=== PATIENT | male | born 1935 | race American Indian/Alaskan Native ===

== ENCOUNTER 2017-04-25 12:08 | Outpatient (CLI) | payer MEDICARE ==
--- NOTE | 2017-04-25 14:03 | Cat Scan Report ---
CT OF THE ABDOMEN AND PELVIS WITHOUT CONTRAST HISTORY: Gross hematuria. TECHNIQUE: Helical CT without contrast. Sagittal and coronal reformatted images. FINDINGS: Compared to a CT angiogram abdomen and pelvis exam performed 05/19/14. The kidneys are normal size, contour and position. There is no evidence for focal renal lesion or nephrolithiasis. The ureters are normal course and caliber. Mild diverticulosis of the bladder is suspected. No gross bladder mass. The prostate gland is normal size. There is no clear explanation for gross hematuria. The liver, biliary system, spleen and adrenal glands are unremarkable. There is mild fatty atrophy of the pancreas. No inflammatory changes. The bowel loops are within normal limits given oral contrast was administered. The appendix is not confidently identified. Heart size is at the upper limits of normal. The aorta is normal caliber. The visualized lung bases are clear. No suspicious bony lesion or fracture. IMPRESSION: No clear explanation for gross hematuria. No obvious renal mass or nephrolithiasis. There is diverticulosis of the bladder No acute process is appreciated in the abdomen or pelvis.
== END 2017-04-25 12:09 | disposition home or self-care (01) ==
LOC: CT 12:08
PROVIDERS: ATTEND Urology
DX: N32.3 Diverticulum of bladder (principal); K86.89 Other specified diseases of pancreas
CPT/HCPCS: 74176

== ENCOUNTER 2018-04-22 09:05 | Outpatient (CLI) | payer MEDICARE ==
--- NOTE | 2018-04-22 12:22 | Magnetic Resonance Report ---
MRI OF THE BRAIN WITHOUT CONTRAST: HISTORY: Seizure, unspecified convulsions PROCEDURE: Multiplanar, multisequence MR imaging of the brain without IV contrast was performed. FINDINGS: Compared to the CT dated 01/30/18. Mild diffuse cortical volume loss and mild nonspecific chronic white matter changes are identified. Otherwise, the remaining brain parenchyma signal intensity and its cook white interface are within normal limits on all sequences. No evidence for acute ischemia, hemorrhage or mass. No chronic infarct or extra-axial fluid collection. The midline structures are central. The basal cisterns are patent. Normal ventricular size. The orbital cavities and sella turcica demonstrate no abnormality. The visualized paranasal sinuses and mastoid air cells are well aerated. IMPRESSION: Volume loss and nonspecific chronic white matter changes. No acute intracranial process is appreciated.
== END 2018-04-22 09:06 | disposition home or self-care (01) ==
LOC: EEG 09:05
PROVIDERS: ATTEND Psychiatry & Neurology Neurology
DX: R56.9 Unspecified convulsions (principal); I10 Essential (primary) hypertension; E11.9 Type 2 diabetes mellitus without complications; Z87.891 Personal history of nicotine dependence
CPT/HCPCS: 70551

== ENCOUNTER 2019-02-02 11:00 | Inpatient (IN) | payer MEDICARE ==
[2019-02-02] MEDS ORDERED: NACL 0.9% 1000 ML IV ONE (11:47)
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
[2019-02-02] MEDS ORDERED: KEPPRA 1,000 MG/NS 0.75% 100ML 1,000 MG/100 ML BAG IV ONE (12:42)
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
--- NOTE | 2019-02-02 13:02 | Cat Scan Report ---
CT head/brain wo con INDICATION / CLINICAL INFORMATION: 83 years Male; Stroke symptoms. TECHNIQUE: Routine CT head without contrast. All CT scans at this location are performed using CT dos e reduction for ALARA by means of automated exposure control. COMPARISON: None available FINDINGS: BRAIN / INTRACRANIAL CONTENTS: No acute hemorrhage, mass effect, midline shift, hydrocephalus, or acu te, large territorial infarct. Mild cerebral and cerebellar atrophy. Small CSF collections seen around the cerebral hemispheres-smal l subdural hygromas versus suspected. There are mild to moderate areas of decreased attenuation in the white matter of the cerebral hemisph eres. These are nonspecific findings and may be related to microangiopathy (hypertension, diabetes, a therosclerosis), given the patient's age. It might be difficult to evaluate for small areas of ischem ia without diffusion imaging by MRI. CRANIOCERVICAL JUNCTION: No significant abnormality. ORBITS: No significant abnormality of visualized orbits. SINUSES / MASTOIDS: No significant abnormality of the visualized paranasal sinuses or mastoid air joel ls. ADDITIONAL FINDINGS: Atherosclerotic disease is seen in the anterior and posterior circulation. IMPRESSION: 1. No focal mass, hemorrhage, hydrocephalus, or acute, large territorial infarct. This exam was performed as part of a code stroke protocol. The exam was completed at 11:16 AM on 02/02. The exam was reviewed at 11:50 AM and Serotoff was notified at 11:56 AM. Signer Name: Parish Blanchard MD, III Signed: 02/02/2019 12:57 PM Workstation Name: [id number]
--- NOTE | 2019-02-02 13:13 | Cat Scan Report ---
CT cervical spine wo con INDICATION / CLINICAL INFORMATION: 83 years Male; fall. TECHNIQUE: Axial CT images of the cervical spine were obtained. Sagittal and coronal reformatted images were pr oduced. All CT scans at this location are performed using CT dose reduction for ALARA by means of aut omated exposure control. COMPARISON: None available. FINDINGS: POST-SURGICAL CHANGES: None. There is minimal retrolisthesis of C5 with respect to C4 and C6, which appears to be on a chronic deg enerative basis. ALIGNMENT: Straightening of the cervical spine noted, which may be related to patient positioning on the table. VERTEBRAE: There is mild loss of height at C5 and C6, which appears to be on a chronic basis. No defi nitive signs of acute compression injury are suggested. No signs of fracture identified. There is osseous foraminal narrowing on the left at C5-6 and C6-7 related to uncinate hypertrophy. Si milar findings seen on the right at C3-4, C4-5, C5-6, C6-7 related uncinate and/or facet hypertrophy. Mild to moderate facet hypertrophy seen bilaterally at C2-3, C3-4, C4-5, and C6-7. INTRAVERTEBRAL DISCS: Disc space narrowing seen at C5-6 and C6-7. No definitive signs of significant canal stenosis appreciated. PARASPINAL SOFT TISSUES: No significant abnormality. ADDITIONAL FINDINGS: None. IMPRESSION: 1. No signs of acute bony trauma to the cervical spine. Signer Name: Parish Blanchard MD, III Signed: 02/02/2019 1:08 PM Workstation Name: [id number]
--- NOTE | 2019-02-02 13:18 | Cat Scan Report ---
CT abdomen pelvis wo con INDICATION: abd pains epsis. TECHNIQUE: All CT scans at this location are performed using the following dose modulation technique: Automated exposure control. CONTRAST: None. COMPARISON: None available. CT abdomen: Evaluation the parenchymal organs demonstrates mild chronic appearing inflammation adjace nt to both kidneys. The remaining parenchymal organs are unremarkable. Negative for mass, fluid colle ction or inflammation. The bowel is not dilated or thickened. Colonic stool is moderate diffusely. CT pelvis: Negative for pelvic mass, fluid collection or localized inflammation. The appendix is norm al. The bladder is moderately distended and demonstrates wall irregularity and early diverticula formatio n. IMPRESSION: 1. Negative for obstruction or localized acute appearing inflammation. 2. Bladder distention with wall irregularity and early diverticula formation. Signer Name: Segun Dennison MD Signed: 02/02/2019 1:14 PM Workstation Name: [id number]
[2019-02-02] MEDS ORDERED: ROCEPHIN/NS 1 GM/50 ML 1 GM/50 ML BAG IV ONE (13:21)
[2019-02-02 13:34] LABS: Basophils # (Auto) 0.1 K/mm3 (0.0-0.1); Basophils % (Auto) 0.4 % (0.0-1.8); Hematocrit 37.2 % (35.5-45.6); Hemoglobin 12.5 gm/dl (11.8-15.2); Lymphocytes # (Auto) 0.6 K/mm3 (1.2-5.4); Lymphocytes % (Auto) 4.7 % (13.4-35.0); Mean Corpuscular HGB Conc 34 % (32-34); Mean Corpuscular Volume 85 fl (84-94); Monocytes # (Auto) 0.7 K/mm3 (0.0-0.8); Monocytes % (Auto) 5.6 % (0.0-7.3); Platelet Count 194 K/mm3 (140-440); Red Blood Count 4.39 M/mm3 (3.65-5.03); Red Cell Distribution Width 14.7 % (13.2-15.2)
[2019-02-02 13:44] LABS: INR 1.02 (0.87-1.13)
[2019-02-02 13:55] LABS: Thrombin Time 16.4 Sec. (15.1-19.6)
[2019-02-02 14:06] LABS: Creatine Kinase MB 1.6 ng/mL (0.0-4.0)
[2019-02-02 14:08] LABS: Calcium 8.9 mg/dL (8.4-10.2)
[2019-02-02 14:19] LABS: Chol/HDL Ratio 3.17 %
[2019-02-02] MEDS ORDERED: BABY ASPIRIN PO ONE (14:48)
[2019-02-02 14:56] LABS: Bilirubin,Urine NEG (Negative); Blood,Urine NEG (Negative); Color,Urine Yellow (Yellow); Hyaline Casts,Urine 1 /LPF; Mucus,Urine FEW /HPF; Urobilinogen,Urine < 2.0 mg/dL (<2.0); WBC,Urine < 1.0 /HPF (0.0-6.0)
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
[2019-02-02] MEDS ORDERED: BABY ASPIRIN ONE (16:20)
[2019-02-02] MEDS ORDERED: TYLENOL PO PRN (21:47)
[2019-02-02] MEDS: APRESOLINE IV PRN (22:25)
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
[2019-02-03] MEDS ORDERED: SODIUM CHLORIDE FLUSH SYRINGE 10 ML IV PRN (01:06)
[2019-02-03] MEDS ORDERED: REGLAN IV PRN (01:06)
[2019-02-03] MEDS ORDERED: TYLENOL PO PRN (01:06)
[2019-02-03] MEDS ORDERED: DILAUDID IV PRN (01:06)
[2019-02-03] MEDS ORDERED: ZOFRAN IV PRN (01:06)
[2019-02-03] MEDS: KEPPRA 750 MG in D5W 100 ML IV SCH ×2 (01:48→13:00)
[2019-02-03] MEDS: PERCOCET 5/325 PO PRN ×2 (02:01→17:45)
[2019-02-03 08:29] LABS: Calcium 8.4 mg/dL (8.4-10.2)
--- NOTE | 2019-02-03 08:55 | Progress Note ---
Assessment and Plan Assessment and plan: 84-year-old -[place] male with history of hypertension, hyperlipidemia and insulin-dependent diabetes brought in by the because of new onset seizures. As per patient had a shaking episode which lasted for a couple minutes. according to the admitting doctor Her description is consistent with a tonic-clonic seizures. No history of seizures. Patient is not giving much history. Last admission documented about a year ago showed that the patient had sustained a fall and per the discharge summary. " Patient apparently had a fall a few days ago and sustained left fifth rib fracture conditions the left eye multiple abrasions to his face and displaced nasal bone fracture. These were treated conservatively. Patient was asked to follow-up with ENT physician for evaluation of his nasal bone fractures. Patient also has a history of cerebrovascular accident with residual weakness" According to admitting documentation "As for the for patient as well as slurred speech and left-sided facial asymmetry. Patient also complains of right lower quadrant pain." CT cervical Spine: IMPRESSION: 1. No signs of acute bony trauma to the cervical spine. CXR: IMPRESSION: 1. Pleural-parenchymal density in the left lower hemithorax possibly acute disease. Alternatively this may represent postoperative scarring. CT Head/Brain: IMPRESSION: 1. No focal mass, hemorrhage, hydrocephalus, or acute, large territorial infarct. Seizure Disorder Sepsis Left lobar Pneumonia-Presumed Aspiration Type 2 TX in the setting of Sepsis, Seizures and renal failure Hypertensive Urgency DM with Hyperglycemia Acute Kidney Injury on Chronic Kidney disease stage III Urinary Retention Hyperlipidemia Hx of facial absrasion and Nasal bone fracture Hx of Possible Rib fracture High Risk of falls Plan Supportive care Seizure Precautions, continue anti-epiletic drugs, Defer MRI to Neurology decision Discussed with Nursing for updated result. Give a Truncated Fluid bolus, Continue abx with Rocephin while awaiting cultures, If persistent fever will consult ID Obtain Renal Ultrasound Straight cath and if no improvement will start Flomax and possible place randall Adjust insulin management for better control Monitor Renal function Fall precaution History Interval history: Patient seen an examined, no new complaints. Resting comfortable Hospitalist Physical - Physical exam Narrative exam: General appearance: Present: no acute distress, well-nourished - EENT Eyes: Present: PERRL ENT: hearing intact, clear oral mucosa - Neck Neck: Present: supple, normal ROM - Respiratory Respiratory effort: normal Respiratory: bilateral: CTA - Cardiovascular Heart rate: 86 Rhythm: regular Heart Sounds: Present: S1 & S2. Absent: rub, click - Extremities Extremities: no ischemia, pulses intact, pulses symmetrical, No edema Peripheral Pulses: within normal limits - Abdominal General gastrointestinal: Present: soft, non-tender, non-distended, normal bowel sounds Male genitourinary: Present: normal - Rectal Rectal Exam: deferred - Integumentary Integumentary: Present: clear, warm, dry - Musculoskeletal Musculoskeletal: gait normal, strength equal bilaterally - Psychiatric Psychiatric: appropriate mood/affect, intact judgment & insight - Neurologic Neurologic: CNII-XII intact, moves all extremities - Allied Health Allied health notes reviewed: nursing, case management - Constitutional Vitals: Temp Pulse Resp BP Pulse Ox 97.9 F 87 20 148/80 98 02/03/19 08:50 02/03/19 04:46 02/03/19 08:50 02/03/19 08:50 02/03/19 04:46 General appearance: Present: no acute distress, well-nourished Results - Labs CBC & Chem 7: 02/04/19 04:49 02/04/19 04:49 Labs: Laboratory Last Values WBC 13.1 K/mm3 (4.5-11.0) H 02/02/19 12:51 RBC 4.39 M/mm3 (3.65-5.03) 02/02/19 12:51 Hgb 12.5 gm/dl (11.8-15.2) 02/02/19 12:51 Hct 37.2 % (35.5-45.6) 02/02/19 12:51 MCV 85 fl (84-94) 02/02/19 12:51 MCH 29 pg (28-32) 02/02/19 12:51 MCHC 34 % (32-34) 02/02/19 12:51 RDW 14.7 % (13.2-15.2) 02/02/19 12:51 Plt Count 194 K/mm3 (140-440) 02/02/19 12:51 Lymph % (Auto) 4.7 % (13.4-35.0) L 02/02/19 12:51 [place] % (Auto) 5.6 % (0.0-7.3) 02/02/19 12:51 Eos % (Auto) 0.0 % (0.0-4.3) 02/02/19 12:51 Baso % (Auto) 0.4 % (0.0-1.8) 02/02/19 12:51 Lymph # 0.6 K/mm3 (1.2-5.4) L 02/02/19 12:51 [place] # 0.7 K/mm3 (0.0-0.8) 02/02/19 12:51 Eos # 0.0 K/mm3 (0.0-0.4) 02/02/19 12:51 Baso # 0.1 K/mm3 (0.0-0.1) 02/02/19 12:51 Seg Neutrophils % 89.3 % (40.0-70.0) H 02/02/19 12:51 Seg Neutrophils # 11.7 K/mm3 (1.8-7.7) H 02/02/19 12:51 PT 13.1 Sec. (12.2-14.9) 02/02/19 12:51 INR 1.02 (0.87-1.13) 02/02/19 12:51 APTT 20.0 Sec. (24.2-36.6) L 02/02/19 12:51 16.4 Sec. (15.1-19.6) 02/02/19 12:51 Sodium 134 mmol/L (137-145) L 02/03/19 06:50 Potassium 4.2 mmol/L (3.6-5.0) 02/03/19 06:50 Chloride 103.6 mmol/L (98-107) 02/03/19 06:50 Carbon Dioxide 22 mmol/L (22-30) 02/03/19 06:50 13 mmol/L 02/03/19 06:50 BUN 28 mg/dL (9-20) H 02/03/19 06:50 1.8 mg/dL (0.8-1.5) H 02/03/19 06:50 Estimated GFR 44 ml/min 02/03/19 06:50 16 % 02/03/19 06:50 Glucose 284 mg/dL (75-100) H 02/03/19 06:50 POC Glucose 286 (70-105) H 02/03/19 08:06 10.3 % (4-6) H 02/03/19 01:24 Lactic Acid 1.70 mmol/L (0.7-2.0) 02/02/19 20:03 Calcium 8.4 mg/dL (8.4-10.2) 02/03/19 06:50 Magnesium 1.70 mg/dL (1.7-2.3) 02/02/19 12:51 0.70 mg/dL (0.1-1.2) 02/02/19 12:51 AST 25 units/L (5-40) 02/02/19 12:51 ALT 17 units/L (7-56) 02/02/19 12:51 85 units/L (35-129) 02/02/19 12:51 49 units/L (55-170) L 02/02/19 12:51 CK-MB (CK-2) 1.6 ng/mL (0.0-4.0) 02/02/19 12:51 CK-MB (CK-2) Rel Index 3.2 (0-4) 02/02/19 12:51 0.115 ng/mL (0.00-0.029) H* D 02/03/19 06:50 8.2 g/dL (6.3-8.2) 02/02/19 12:51 3.0 g/dL (3.9-5) L 02/02/19 12:51 0.6 % 02/02/19 12:51 Triglycerides 91 mg/dL (2-149) 02/02/19 12:51 Cholesterol 111 mg/dL (50-199) 02/02/19 12:51 71 mg/dL (50-130) 02/02/19 12:51 35 mg/dL (40-59) L 02/02/19 12:51 3.17 % 02/02/19 12:51 Yellow (Yellow) 02/02/19 14:25 Clear (Clear) 02/02/19 14:25 6.0 (5.0-7.0) 02/02/19 14:25 Ur Specific [place] 1.016 (1.003-1.030) 02/02/19 14:25 100 mg/dl mg/dL (Negative) 02/02/19 14:25 150 mg/dL (Negative) 02/02/19 14:25 Neg mg/dL (Negative) 02/02/19 14:25 Neg (Negative) 02/02/19 14:25 Neg (Negative) 02/02/19 14:25 Neg (Negative) 02/02/19 14:25 < 2.0 mg/dL (<2.0) 02/02/19 14:25 Ur Leukocyte Esterase Neg (Negative) 02/02/19 14:25 < 1.0 /HPF (0.0-6.0) 02/02/19 14:25 3.0 /HPF (0.0-6.0) 02/02/19 14:25 U Epithel Cells (Auto) < 1.0 /HPF (0-13.0) 02/02/19 14:25 Hyaline Casts 1 /LPF 02/02/19 14:25 Few /HPF 02/02/19 14:25 Salicylates < 0.3 mg/dL (2.8-20.0) L 02/02/19 12:51 Acetaminophen < 5.0 ug/mL (10.0-30.0) L 02/02/19 12:51 Plasma/Serum Alcohol < 0.01 % (0-0.07) 02/02/19 12:51 Active Medications - Current Medications Current Medications: Generic Name Dose Route Start Last Admin Trade Name Freq PRN Reason Stop Dose Admin Acetaminophen 650 mg 02/03/19 01:06 Tylenol PO Q4H PRN Pain MILD(1-3)/Fever >100.5/[facility] Atorvastatin Calcium 10 mg 02/03/19 10:00 Lipitor PO QDAY ALANA Famotidine 10 mg 02/03/19 10:00 Pepcid PO BID ALANA Furosemide 20 mg 02/03/19 10:00 Lasix PO Q2D ALANA Hydralazine HCl 10 mg 02/02/19 21:44 02/02/19 22:25 Apresoline IV 10 mg Q4HR PRN Administration FOR BP > 160/90 Levetiracetam 750 mg/ Dextrose 107.5 mls @ 400 mls/hr 02/03/19 02:00 02/03/19 01:48 IV 400 mls/hr Q12H ALANA Administration Ceftriaxone Sodium 1 gm in 50 mls @ 100 mls/hr 02/03/19 10:00 Rocephin/Ns 1 Gm/50 Ml IV Q24HR ALANA Protocol Insulin Human Isoph/Insulin Regular 30 unit 02/03/19 17:00 Humulin 70/30 SUB-Q QPMDIAB ALANA Insulin Human Isoph/Insulin Regular 40 unit 02/03/19 08:00 Humulin 70/30 SUB-Q QAMDIAB ALANA Insulin Human Lispro 0 unit 02/03/19 07:30 Humalog SUB-Q ACHS ALANA Protocol Linagliptin 5 mg 02/03/19 10:00 Tradjenta PO QDAY [facility] Losartan Potassium 100 mg 02/03/19 10:00 Cozaar PO QDAY [facility] Metoclopramide HCl 10 mg 02/03/19 01:06 Reglan IV Q6H PRN Nausea And Vomiting Ondansetron HCl 4 mg 02/03/19 01:06 Zofran IV Q8H PRN Nausea And Vomiting Oxycodone/Acetaminophen 1 tab 02/03/19 01:06 02/03/19 02:01 Percocet 5/325 PO 1 tab Q6H PRN Administration Pain, Moderate (4-6) Pregabalin 150 mg 02/03/19 10:00 Lyrica PO DAILY ALANA Sodium Chloride 10 ml 02/03/19 10:00 Sodium Chloride Flush Syringe 10 Ml IV BID ALANA Sodium Chloride 10 ml 02/03/19 01:06 Sodium Chloride Flush Syringe 10 Ml IV PRN PRN LINE FLUSH
[2019-02-03] MEDS ORDERED: NACL 0.9% 500 ML 500 ML IV NR (09:03)
[2019-02-03] MEDS: LYRICA PO SCH (09:42)
[2019-02-03] MEDS: PEPCID PO SCH ×2 (09:42→21:59)
[2019-02-03] MEDS: TRADJENTA PO SCH (09:42)
[2019-02-03] MEDS: LASIX PO SCH (09:42)
[2019-02-03] MEDS: COZAAR PO SCH (09:43)
[2019-02-03] MEDS: FLOMAX PO SCH (09:46)
[2019-02-03] MEDS: HumaLOG SUB-Q SCH ×4 (09:51→22:01)
[2019-02-03] MEDS: SODIUM CHLORIDE FLUSH SYRINGE 10 ML IV SCH ×2 (09:59→22:00)
[2019-02-03] MEDS ORDERED: NON-FORMULARY (Losartan [Cozaar] 100 MG) PO SCH (10:00)
[2019-02-03] MEDS ORDERED: INSULIN LISPRO PROTAMINE SQ SCH (10:00)
[2019-02-03] MEDS ORDERED: [UNRECOGNIZED DRUG - OTHER] SQ SCH (10:00)
[2019-02-03] MEDS ORDERED: PEPCID PO SCH (10:00)
[2019-02-03] MEDS ORDERED: NON-FORMULARY (Pregabalin [Lyrica] 150 MG) PO SCH (10:00)
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
[2019-02-03] MEDS: ROCEPHIN/NS 1 GM/50 ML 1 GM/50 ML BAG IV SCH (12:08)
[2019-02-03 12:26] LABS: Basophils # (Auto) 0.1 K/mm3 (0.0-0.1); Basophils % (Auto) 0.8 % (0.0-1.8); Eosinophils % (Auto) 0.3 % (0.0-4.3); Hematocrit 34.4 % (35.5-45.6); Hemoglobin 11.4 gm/dl (11.8-15.2); Mean Corpuscular HGB Conc 33 % (32-34); Mean Corpuscular Volume 86 fl (84-94); Monocytes # (Auto) 0.6 K/mm3 (0.0-0.8); Monocytes % (Auto) 6.5 % (0.0-7.3); Platelet Count 178 K/mm3 (140-440); Red Blood Count 4.02 M/mm3 (3.65-5.03); Red Cell Distribution Width 15.1 % (13.2-15.2)
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
[2019-02-03] MEDS: APRESOLINE IV PRN (16:49)
--- NOTE | 2019-02-03 17:20 | Progress Note ---
Hospitalist Physical - Constitutional Vitals: Temp Pulse Resp BP Pulse Ox 98.5 F 87 20 191/104 97 02/03/19 11:25 02/03/19 11:25 02/03/19 11:25 02/03/19 16:49 02/03/19 14:00 General appearance: Present: no acute distress, well-nourished Results - Labs CBC & Chem 7: 02/03/19 Unknown 02/03/19 06:50 Labs: Laboratory Last Values WBC 9.8 K/mm3 (4.5-11.0) 02/03/19 Unknown RBC 4.02 M/mm3 (3.65-5.03) 02/03/19 Unknown Hgb 11.4 gm/dl (11.8-15.2) L 02/03/19 Unknown Hct 34.4 % (35.5-45.6) L 02/03/19 Unknown MCV 86 fl (84-94) 02/03/19 Unknown MCH 28 pg (28-32) 02/03/19 Unknown MCHC 33 % (32-34) 02/03/19 Unknown RDW 15.1 % (13.2-15.2) 02/03/19 Unknown Plt Count 178 K/mm3 (140-440) 02/03/19 Unknown Lymph % (Auto) 10.0 % (13.4-35.0) L 02/03/19 Unknown [place] % (Auto) 6.5 % (0.0-7.3) 02/03/19 Unknown Eos % (Auto) 0.3 % (0.0-4.3) 02/03/19 Unknown Baso % (Auto) 0.8 % (0.0-1.8) 02/03/19 Unknown Lymph # 1.0 K/mm3 (1.2-5.4) L 02/03/19 Unknown [place] # 0.6 K/mm3 (0.0-0.8) 02/03/19 Unknown Eos # 0.0 K/mm3 (0.0-0.4) 02/03/19 Unknown Baso # 0.1 K/mm3 (0.0-0.1) 02/03/19 Unknown Seg Neutrophils % 82.4 % (40.0-70.0) H 02/03/19 Unknown Seg Neutrophils # 8.1 K/mm3 (1.8-7.7) H 02/03/19 Unknown PT 13.1 Sec. (12.2-14.9) 02/02/19 12:51 INR 1.02 (0.87-1.13) 02/02/19 12:51 APTT 20.0 Sec. (24.2-36.6) L 02/02/19 12:51 16.4 Sec. (15.1-19.6) 02/02/19 12:51 Sodium 134 mmol/L (137-145) L 02/03/19 06:50 Potassium 4.2 mmol/L (3.6-5.0) 02/03/19 06:50 Chloride 103.6 mmol/L (98-107) 02/03/19 06:50 Carbon Dioxide 22 mmol/L (22-30) 02/03/19 06:50 13 mmol/L 02/03/19 06:50 BUN 28 mg/dL (9-20) H 02/03/19 06:50 1.8 mg/dL (0.8-1.5) H 02/03/19 06:50 Estimated GFR 44 ml/min 02/03/19 06:50 16 % 02/03/19 06:50 Glucose 284 mg/dL (75-100) H 02/03/19 06:50 POC Glucose 326 (70-105) H 02/03/19 11:29 10.3 % (4-6) H 02/03/19 01:24 Lactic Acid 2.60 mmol/L (0.7-2.0) H* 02/03/19 15:09 Calcium 8.4 mg/dL (8.4-10.2) 02/03/19 06:50 Magnesium 1.70 mg/dL (1.7-2.3) 02/02/19 12:51 0.70 mg/dL (0.1-1.2) 02/02/19 12:51 AST 25 units/L (5-40) 02/02/19 12:51 ALT 17 units/L (7-56) 02/02/19 12:51 85 units/L (35-129) 02/02/19 12:51 49 units/L (55-170) L 02/02/19 12:51 CK-MB (CK-2) 1.6 ng/mL (0.0-4.0) 02/02/19 12:51 CK-MB (CK-2) Rel Index 3.2 (0-4) 02/02/19 12:51 0.089 ng/mL (0.00-0.029) H D 02/03/19 13:07 8.2 g/dL (6.3-8.2) 02/02/19 12:51 3.0 g/dL (3.9-5) L 02/02/19 12:51 0.6 % 02/02/19 12:51 Triglycerides 91 mg/dL (2-149) 02/02/19 12:51 Cholesterol 111 mg/dL (50-199) 02/02/19 12:51 71 mg/dL (50-130) 02/02/19 12:51 35 mg/dL (40-59) L 02/02/19 12:51 3.17 % 02/02/19 12:51 Yellow (Yellow) 02/02/19 14:25 Clear (Clear) 02/02/19 14:25 6.0 (5.0-7.0) 02/02/19 14:25 Ur Specific [place] 1.016 (1.003-1.030) 02/02/19 14:25 100 mg/dl mg/dL (Negative) 02/02/19 14:25 150 mg/dL (Negative) 02/02/19 14:25 Neg mg/dL (Negative) 02/02/19 14:25 Neg (Negative) 02/02/19 14:25 Neg (Negative) 02/02/19 14:25 Neg (Negative) 02/02/19 14:25 < 2.0 mg/dL (<2.0) 02/02/19 14:25 Ur Leukocyte Esterase Neg (Negative) 02/02/19 14:25 < 1.0 /HPF (0.0-6.0) 02/02/19 14:25 3.0 /HPF (0.0-6.0) 02/02/19 14:25 U Epithel Cells (Auto) < 1.0 /HPF (0-13.0) 02/02/19 14:25 Hyaline Casts 1 /LPF 02/02/19 14:25 Few /HPF 02/02/19 14:25 Salicylates < 0.3 mg/dL (2.8-20.0) L 02/02/19 12:51 Acetaminophen < 5.0 ug/mL (10.0-30.0) L 02/02/19 12:51 Plasma/Serum Alcohol < 0.01 % (0-0.07) 02/02/19 12:51 Active Medications - Current Medications Current Medications: Generic Name Dose Route Start Last Admin Trade Name Freq PRN Reason Stop Dose Admin Acetaminophen 650 mg 02/03/19 01:06 Tylenol PO Q4H PRN Pain MILD(1-3)/Fever >100.5/[facility] Aspirin 325 mg 02/03/19 16:00 Aspirin PO QDAY [facility] Atorvastatin Calcium 10 mg 02/03/19 10:00 02/03/19 09:42 Lipitor PO 10 mg QDAY [facility] Administration Famotidine 10 mg 02/03/19 10:00 02/03/19 09:42 Pepcid PO 10 mg BID [facility] Administration Furosemide 20 mg 02/03/19 10:00 02/03/19 09:42 Lasix PO 20 mg Q2D [facility] Administration Hydralazine HCl 10 mg 02/02/19 21:44 02/03/19 16:49 Apresoline IV 10 mg Q4HR PRN Administration FOR BP > 160/90 Ceftriaxone Sodium 1 gm in 50 mls @ 100 mls/hr 02/03/19 10:00 02/03/19 12:08 Rocephin/Ns 1 Gm/50 Ml IV 100 mls/hr Q24HR [facility] Administration Protocol Insulin Human Isoph/Insulin Regular 30 unit 02/03/19 17:00 Humulin 70/30 SUB-Q QPMDIAB [facility] Insulin Human Isoph/Insulin Regular 40 unit 02/03/19 08:00 02/03/19 09:46 Humulin 70/30 SUB-Q 40 unit QAMDIAB [facility] Administration Insulin Human Lispro 0 unit 02/03/19 07:30 02/03/19 12:59 Humalog SUB-Q 6 unit ACHS [facility] Administration Protocol Linagliptin 5 mg 02/03/19 10:00 02/03/19 09:42 Tradjenta PO 5 mg QDAY [facility] Administration Losartan Potassium 100 mg 02/03/19 10:00 02/03/19 09:43 Cozaar PO 100 mg QDAY [facility] Administration Metoclopramide HCl 10 mg 02/03/19 01:06 Reglan IV Q6H PRN Nausea And Vomiting Ondansetron HCl 4 mg 02/03/19 01:06 Zofran IV Q8H PRN Nausea And Vomiting Oxycodone/Acetaminophen 1 tab 02/03/19 01:06 02/03/19 02:01 Percocet 5/325 PO 1 tab Q6H PRN Administration Pain, Moderate (4-6) Pregabalin 150 mg 02/03/19 10:00 02/03/19 09:42 Lyrica PO 150 mg DAILY [facility] Administration Sodium Chloride 10 ml 02/03/19 10:00 02/03/19 09:59 Sodium Chloride Flush Syringe 10 Ml IV 10 ml BID [facility] Administration Sodium Chloride 10 ml 02/03/19 01:06 Sodium Chloride Flush Syringe 10 Ml IV PRN PRN LINE FLUSH Tamsulosin HCl 0.4 mg 02/03/19 10:00 02/03/19 09:46 Flomax PO 0.4 mg QDAY [facility] Administration
[2019-02-03] MEDS: ASPIRIN PO SCH (17:46)
[2019-02-03] MEDS ORDERED: LISPRO SQ SCH (18:00)
[2019-02-03] MEDS ORDERED: INSULIN LISPRO PROT SQ SCH (18:00)
--- NOTE | 2019-02-03 18:10 | Ultrasound Report ---
ULTRASOUND RENAL INDICATION: urinary retention. COMPARISON: No relevant prior imaging study available. FINDINGS: RIGHT KIDNEY: Size: 10.0 cm. Echogenicity: Normal. Cortical thickness: Normal. Hydronephrosis: None. Cyst or mass: None. Stones: None. LEFT KIDNEY: Size: 10.6 cm. Echogenicity: Normal. Cortical thickness: Normal. Hydronephrosis: None. Cyst or mass: None. Stones: Nonobstructing 6 cm intrarenal stone. Urinary Bladder: Moderately distended with trabeculations and bladder diverticula.. Free Fluid: None. Additional Findings: None. IMPRESSION 1. Left nephrolithiasis. No hydronephrosis. 2. Moderately distended urinary bladder with trabeculations and bladder diverticula characteristic fo r chronic bladder outlet obstruction.. Signer Name: Johnny Perez MD Signed: 02/03/2019 6:06 PM Workstation Name: [id number]
[2019-02-04 05:20] LABS: Basophils % (Auto) 0.5 % (0.0-1.8); Eosinophils # (Auto) 0.2 K/mm3 (0.0-0.4); Hematocrit 32.4 % (35.5-45.6); Lymphocytes # (Auto) 1.2 K/mm3 (1.2-5.4); Lymphocytes % (Auto) 21.6 % (13.4-35.0); Mean Corpuscular HGB Conc 34 % (32-34); Mean Corpuscular Volume 84 fl (84-94); Monocytes # (Auto) 0.8 K/mm3 (0.0-0.8); Platelet Count 157 K/mm3 (140-440); Red Blood Count 3.85 M/mm3 (3.65-5.03)
[2019-02-04 05:42] LABS: Albumin 2.6 g/dL (3.9-5); Calcium 8.4 mg/dL (8.4-10.2)
[2019-02-04] MEDS: HumaLOG SUB-Q SCH ×4 (08:03→22:59)
[2019-02-04] MEDS: ASPIRIN PO SCH (09:37)
[2019-02-04] MEDS: SODIUM CHLORIDE FLUSH SYRINGE 10 ML IV SCH ×2 (09:37→22:18)
[2019-02-04] MEDS: TRADJENTA PO SCH (09:37)
[2019-02-04] MEDS: LYRICA PO SCH (09:37)
[2019-02-04] MEDS: APRESOLINE IV PRN (09:37)
[2019-02-04] MEDS: PERCOCET 5/325 PO PRN (09:45)
[2019-02-04] MEDS: ROCEPHIN/NS 1 GM/50 ML 1 GM/50 ML BAG IV SCH (09:46)
[2019-02-04] MEDS: PEPCID PO SCH ×2 (09:46→22:17)
[2019-02-04] MEDS: FLOMAX PO SCH (09:46)
--- NOTE | 2019-02-04 10:53 | Progress Note ---
Assessment and Plan Assessment and plan: 84-year-old -Surinamese male with history of hypertension, hyperlipidemia and insulin-dependent diabetes brought in by the because of new onset seizures. As per patient had a shaking episode which lasted for a couple minutes. according to the admitting doctor Her description is consistent with a tonic-clonic seizures. No history of seizures. Patient is not giving much history. Last admission documented about a year ago showed that the patient had sustained a fall and per the discharge summary. " Patient apparently had a fall a few days ago and sustained left fifth rib fracture conditions the left eye multiple abrasions to his face and displaced nasal bone fracture. These were treated conservatively. Patient was asked to follow-up with ENT physician for evaluation of his nasal bone fractures. Patient also has a history of cerebrovascular accident with residual weakness" According to admitting documentation "As for the for patient as well as slurred speech and left-sided facial asymmetry. Patient also complains of right lower quadrant pain." CT cervical Spine: IMPRESSION: 1. No signs of acute bony trauma to the cervical spine. CXR: IMPRESSION: 1. Pleural-parenchymal density in the left lower hemithorax possibly acute disease. Alternatively this may represent postoperative scarring. CT Head/Brain: IMPRESSION: 1. No focal mass, hemorrhage, hydrocephalus, or acute, large territorial infarct. MRI head: negative for acute pathology Seizure Disorder Sepsis Constipation Left lobar Pneumonia-Presumed Aspiration Type 2 UT in the setting of Sepsis, Seizures and renal failure Hypertensive Urgency DM with Hyperglycemia Acute Kidney Injury on Chronic Kidney disease stage III Urinary Retention WITH OBSTRUCTIVE UROPATHY Hyperlipidemia Hx of facial absrasion and Nasal bone fracture Hx of Possible Rib fracture High Risk of falls Plan Supportive care start coreg BID considering his pattern of elevated pressure. was on Metoprolol during last admission a year ago not sure why it was stopped Hold AED per Neurology and monitor. No clear evidence of seizure on eeg Give a Truncated Fluid bolus, Continue abx with Rocephin while awaiting cultures, If persistent fever will consult ID Urology consulted Obtain Renal Ultrasound Continue folmax Adjust insulin management for better control Monitor Renal function Fall precaution History Interval history: Patient seen an examined, no new complaints. Resting comfortable. Per nursing staff, patient still with obstructive uropathy, and unable to pass randall Hospitalist Physical - Physical exam Narrative exam: General appearance: Present: no acute distress, well-nourished - EENT Eyes: Present: PERRL ENT: hearing intact, clear oral mucosa - Neck Neck: Present: supple, normal ROM - Respiratory Respiratory effort: normal Respiratory: bilateral: CTA - Cardiovascular Heart rate: 86 Rhythm: regular Heart Sounds: Present: S1 & S2. Absent: rub, click - Extremities Extremities: no ischemia, pulses intact, pulses symmetrical, No edema Peripheral Pulses: within normal limits - Abdominal General gastrointestinal: Present: soft, non-tender, non-distended, normal bowel sounds Male genitourinary: Present: normal - Rectal Rectal Exam: deferred - Integumentary Integumentary: Present: clear, warm, dry - Musculoskeletal Musculoskeletal: gait normal, strength equal bilaterally - Psychiatric Psychiatric: appropriate mood/affect, intact judgment & insight - Neurologic Neurologic: CNII-XII intact, moves all extremities - Allied Health Allied health notes reviewed: nursing, case management - Constitutional Vitals: Temp Pulse Resp BP Pulse Ox 97.4 F L 72 16 212/107 98 02/04/19 09:15 02/04/19 09:15 02/04/19 09:45 02/04/19 09:37 02/04/19 09:15 General appearance: Present: no acute distress, well-nourished Results - Labs CBC & Chem 7: 02/04/19 04:49 02/04/19 04:49 Labs: Laboratory Last Values WBC 5.6 K/mm3 (4.5-11.0) 02/04/19 04:49 RBC 3.85 M/mm3 (3.65-5.03) 02/04/19 04:49 Hgb 11.0 gm/dl (11.8-15.2) L 02/04/19 04:49 Hct 32.4 % (35.5-45.6) L 02/04/19 04:49 MCV 84 fl (84-94) 02/04/19 04:49 MCH 29 pg (28-32) 02/04/19 04:49 MCHC 34 % (32-34) 02/04/19 04:49 RDW 15.0 % (13.2-15.2) 02/04/19 04:49 Plt Count 157 K/mm3 (140-440) 02/04/19 04:49 Lymph % (Auto) 21.6 % (13.4-35.0) 02/04/19 04:49 [place] % (Auto) 14.0 % (0.0-7.3) H 02/04/19 04:49 Eos % (Auto) 3.0 % (0.0-4.3) 02/04/19 04:49 Baso % (Auto) 0.5 % (0.0-1.8) 02/04/19 04:49 Lymph # 1.2 K/mm3 (1.2-5.4) 02/04/19 04:49 [place] # 0.8 K/mm3 (0.0-0.8) 02/04/19 04:49 Eos # 0.2 K/mm3 (0.0-0.4) 02/04/19 04:49 Baso # 0.0 K/mm3 (0.0-0.1) 02/04/19 04:49 Seg Neutrophils % 60.9 % (40.0-70.0) 02/04/19 04:49 Seg Neutrophils # 3.4 K/mm3 (1.8-7.7) 02/04/19 04:49 PT 13.1 Sec. (12.2-14.9) 02/02/19 12:51 INR 1.02 (0.87-1.13) 02/02/19 12:51 APTT 20.0 Sec. (24.2-36.6) L 02/02/19 12:51 16.4 Sec. (15.1-19.6) 02/02/19 12:51 Sodium 139 mmol/L (137-145) 02/04/19 04:49 Potassium 4.0 mmol/L (3.6-5.0) 02/04/19 04:49 Chloride 106.7 mmol/L (98-107) 02/04/19 04:49 Carbon Dioxide 22 mmol/L (22-30) 02/04/19 04:49 14 mmol/L 02/04/19 04:49 BUN 28 mg/dL (9-20) H 02/04/19 04:49 1.7 mg/dL (0.8-1.5) H 02/04/19 04:49 Estimated GFR 47 ml/min 02/04/19 04:49 16 % 02/04/19 04:49 Glucose 126 mg/dL (75-100) H 02/04/19 04:49 POC Glucose 112 (70-105) H 02/04/19 07:43 10.3 % (4-6) H 02/03/19 01:24 Lactic Acid 1.20 mmol/L (0.7-2.0) 02/03/19 21:41 Calcium 8.4 mg/dL (8.4-10.2) 02/04/19 04:49 Magnesium 1.70 mg/dL (1.7-2.3) 02/02/19 12:51 0.40 mg/dL (0.1-1.2) 02/04/19 04:49 AST 15 units/L (5-40) 02/04/19 04:49 ALT 14 units/L (7-56) 02/04/19 04:49 70 units/L (35-129) 02/04/19 04:49 49 units/L (55-170) L 02/02/19 12:51 CK-MB (CK-2) 1.6 ng/mL (0.0-4.0) 02/02/19 12:51 CK-MB (CK-2) Rel Index 3.2 (0-4) 02/02/19 12:51 0.089 ng/mL (0.00-0.029) H D 02/03/19 13:07 7.1 g/dL (6.3-8.2) 02/04/19 04:49 2.6 g/dL (3.9-5) L 02/04/19 04:49 0.6 % 02/04/19 04:49 Triglycerides 91 mg/dL (2-149) 02/02/19 12:51 Cholesterol 111 mg/dL (50-199) 02/02/19 12:51 71 mg/dL (50-130) 02/02/19 12:51 35 mg/dL (40-59) L 02/02/19 12:51 3.17 % 02/02/19 12:51 Yellow (Yellow) 02/02/19 14:25 Clear (Clear) 02/02/19 14:25 6.0 (5.0-7.0) 02/02/19 14:25 Ur Specific [place] 1.016 (1.003-1.030) 02/02/19 14:25 100 mg/dl mg/dL (Negative) 02/02/19 14:25 150 mg/dL (Negative) 02/02/19 14:25 Neg mg/dL (Negative) 02/02/19 14:25 Neg (Negative) 02/02/19 14:25 Neg (Negative) 02/02/19 14:25 Neg (Negative) 02/02/19 14:25 < 2.0 mg/dL (<2.0) 02/02/19 14:25 Ur Leukocyte Esterase Neg (Negative) 02/02/19 14:25 < 1.0 /HPF (0.0-6.0) 02/02/19 14:25 3.0 /HPF (0.0-6.0) 02/02/19 14:25 U Epithel Cells (Auto) < 1.0 /HPF (0-13.0) 02/02/19 14:25 Hyaline Casts 1 /LPF 02/02/19 14:25 Few /HPF 02/02/19 14:25 Salicylates < 0.3 mg/dL (2.8-20.0) L 02/02/19 12:51 Acetaminophen < 5.0 ug/mL (10.0-30.0) L 02/02/19 12:51 Plasma/Serum Alcohol < 0.01 % (0-0.07) 02/02/19 12:51 Active Medications - Current Medications Current Medications: Generic Name Dose Route Start Last Admin Trade Name Freq PRN Reason Stop Dose Admin Acetaminophen 650 mg 02/03/19 01:06 02/03/19 22:00 Tylenol PO 650 mg Q4H PRN Administration Pain MILD(1-3)/Fever >100.5/STINSON Aspirin 325 mg 02/03/19 16:00 02/04/19 09:37 Aspirin PO 325 mg QDAY ALANA Administration Atorvastatin Calcium 10 mg 02/03/19 10:00 02/04/19 09:37 Lipitor PO 10 mg QDAY AALNA Administration Carvedilol 12.5 mg 02/04/19 11:00 Coreg PO BID ALANA Famotidine 10 mg 02/03/19 10:00 02/04/19 09:46 Pepcid PO 10 mg BID ALANA Administration Furosemide 20 mg 02/03/19 10:00 02/03/19 09:42 Lasix PO 20 mg Q2D ALANA Administration Hydralazine HCl 10 mg 02/02/19 21:44 02/04/19 09:37 Apresoline IV 10 mg Q4HR PRN Administration FOR BP > 160/90 Ceftriaxone Sodium 1 gm in 50 mls @ 100 mls/hr 02/03/19 10:00 02/04/19 09:46 Rocephin/Ns 1 Gm/50 Ml IV 100 mls/hr Q24HR ALANA Administration Protocol Insulin Human Isoph/Insulin Regular 30 unit 02/03/19 17:00 02/03/19 17:49 Humulin 70/30 SUB-Q Not Given QPMDIAB ALANA Insulin Human Isoph/Insulin Regular 40 unit 02/03/19 08:00 02/04/19 09:45 Humulin 70/30 SUB-Q 40 unit QAMDIAB ALANA Administration Insulin Human Lispro 0 unit 02/03/19 07:30 02/04/19 08:03 Humalog SUB-Q Not Given ACHS [facility] Protocol Linagliptin 5 mg 02/03/19 10:00 02/04/19 09:37 Tradjenta PO 5 mg QDAY ALANA Administration Losartan Potassium 100 mg 02/03/19 10:00 02/03/19 09:43 Cozaar PO 100 mg QDAY ALANA Administration Metoclopramide HCl 10 mg 02/03/19 01:06 Reglan IV Q6H PRN Nausea And Vomiting Ondansetron HCl 4 mg 02/03/19 01:06 Zofran IV Q8H PRN Nausea And Vomiting Oxycodone/Acetaminophen 1 tab 02/03/19 01:06 02/04/19 09:45 Percocet 5/325 PO 1 tab Q6H PRN Administration Pain, Moderate (4-6) Pregabalin 150 mg 02/03/19 10:00 02/04/19 09:37 Lyrica PO 150 mg DAILY ALANA Administration Sodium Chloride 10 ml 02/03/19 10:00 02/04/19 09:37 Sodium Chloride Flush Syringe 10 Ml IV 10 ml BID ALANA Administration Sodium Chloride 10 ml 02/03/19 01:06 Sodium Chloride Flush Syringe 10 Ml IV PRN PRN LINE FLUSH Tamsulosin HCl 0.4 mg 02/03/19 10:00 02/04/19 09:46 Flomax PO 0.4 mg QDAY ALANA Administration
[2019-02-04] MEDS ORDERED: DULCOLAX PO PRN (12:00)
[2019-02-04] MEDS: COZAAR PO SCH (12:45)
[2019-02-04] MEDS: COLACE PO SCH ×2 (13:17→22:17)
--- NOTE | 2019-02-04 13:26 | Progress Note ---
Assessment and Plan LOC w concern for New onset seizures, no recurrence, stable, awaiting MRI b , please obtain EEG b/l hygroma: poss d/t fall vs chronic, eval w MRI b MRI brain with MRA head and neck to evaluate for posterior circulation insufficiency causing LOC/syncope and possible new stroke aspiration PNA on antibiotics Thus far no atrial fibrillation hold AED obtain EEG Continue seizure precautions check orthostatics Aspirin daily for prior stroke check a1c and lipids Discontinue tramadol cont lyrica l Subjective Date of service: 02/04/19 Principal diagnosis: seizure Interval history: no issues overnight off AED, no further sz or LOC no confusion pt denies new neuro issues, no new focal brain complaints no fever no STINSON MRI b MRA h/n, all pending no a.fib LDL 71 HA1c 10.3 Objective - Exam Narrative Exam: Patient's AO 4 no aphasia Cn testing are significant for lower facial droop otherwise the rest of cranial nerves are intact tongue is midline EOMI PERRLA visual lee intact Left upper extremity weakness monoparesis with contracture of the left hand right upper extremity 5 out of 5 bilateral lower extremities 5 out of 5 Neck is Supple No extra movements Tone and reflexes are symmetrical throughout except for left upper extremity decreased reflexes - Vital Sign Vital Signs - 12hr 02/04/19 02/04/19 02/04/19 03:47 09:15 09:37 Temperature 98.1 F 97.4 F L Pulse Rate 71 72 Respiratory 18 20 Rate Blood Pressure 138/76 212/107 212/107 O2 Sat by Pulse 95 98 Oximetry 02/04/19 02/04/19 09:45 10:45 Temperature Pulse Rate Respiratory 16 16 Rate Blood Pressure O2 Sat by Pulse Oximetry - Laboratory Findings CBC and BMP: 02/04/19 04:49 02/04/19 04:49 Abnormal Lab Findings: Abnormal Labs 02/02/19 02/02/19 02/02/19 12:51 12:51 12:51 WBC 13.1 H Hgb Hct Lymph % (Auto) 4.7 L [place] % (Auto) Lymph # 0.6 L Seg Neutrophils % 89.3 H Seg Neutrophils # 11.7 H APTT 20.0 L Sodium 134 L Potassium 5.2 H Carbon Dioxide 17 L BUN 29 H Creatinine Glucose 234 H POC Glucose Hemoglobin A1c Lactic Acid Total Creatine Kinase 49 L Troponin T 0.042 H Albumin 3.0 L HDL Cholesterol 35 L Salicylates Acetaminophen 02/02/19 02/02/19 02/02/19 12:51 12:51 12:51 WBC Hgb Hct Lymph % (Auto) [place] % (Auto) Lymph # Seg Neutrophils % Seg Neutrophils # APTT Sodium Potassium Carbon Dioxide BUN Creatinine Glucose POC Glucose Hemoglobin A1c Lactic Acid 2.10 H* Total Creatine Kinase Troponin T Albumin HDL Cholesterol Salicylates < 0.3 L Acetaminophen < 5.0 L 02/02/19 02/02/19 02/03/19 18:32 21:43 01:24 WBC Hgb Hct Lymph % (Auto) [place] % (Auto) Lymph # Seg Neutrophils % Seg Neutrophils # APTT Sodium Potassium Carbon Dioxide BUN Creatinine Glucose POC Glucose 231 H 192 H Hemoglobin A1c 10.3 H Lactic Acid Total Creatine Kinase Troponin T Albumin HDL Cholesterol Salicylates Acetaminophen 02/03/19 02/03/19 02/03/19 01:24 06:50 06:50 WBC Hgb Hct Lymph % (Auto) [place] % (Auto) Lymph # Seg Neutrophils % Seg Neutrophils # APTT Sodium 134 L Potassium Carbon Dioxide BUN 28 H Creatinine 1.8 H Glucose 284 H POC Glucose Hemoglobin A1c Lactic Acid Total Creatine Kinase Troponin T 0.079 H D 0.115 H* D Albumin HDL Cholesterol Salicylates Acetaminophen 02/03/19 02/03/19 02/03/19 08:06 11:29 13:07 WBC Hgb Hct Lymph % (Auto) [place] % (Auto) Lymph # Seg Neutrophils % Seg Neutrophils # APTT Sodium Potassium Carbon Dioxide BUN Creatinine Glucose POC Glucose 286 H 326 H Hemoglobin A1c Lactic Acid Total Creatine Kinase Troponin T 0.089 H D Albumin HDL Cholesterol Salicylates Acetaminophen 02/03/19 02/03/19 02/03/19 15:09 15:55 18:58 WBC Hgb Hct Lymph % (Auto) [place] % (Auto) Lymph # Seg Neutrophils % Seg Neutrophils # APTT Sodium Potassium Carbon Dioxide BUN Creatinine Glucose POC Glucose 135 H Hemoglobin A1c Lactic Acid 2.60 H* 2.10 H* Total Creatine Kinase Troponin T Albumin HDL Cholesterol Salicylates Acetaminophen 02/03/19 02/03/19 02/04/19 21:47 Unknown 04:49 WBC Hgb 11.4 L 11.0 L Hct 34.4 L 32.4 L Lymph % (Auto) 10.0 L [place] % (Auto) 14.0 H Lymph # 1.0 L Seg Neutrophils % 82.4 H Seg Neutrophils # 8.1 H APTT Sodium Potassium Carbon Dioxide BUN Creatinine Glucose POC Glucose 163 H Hemoglobin A1c Lactic Acid Total Creatine Kinase Troponin T Albumin HDL Cholesterol Salicylates Acetaminophen 02/04/19 02/04/19 02/04/19 04:49 07:43 13:00 WBC Hgb Hct Lymph % (Auto) [place] % (Auto) Lymph # Seg Neutrophils % Seg Neutrophils # APTT Sodium Potassium Carbon Dioxide BUN 28 H Creatinine 1.7 H Glucose 126 H POC Glucose 112 H 181 H Hemoglobin A1c Lactic Acid Total Creatine Kinase Troponin T Albumin 2.6 L HDL Cholesterol Salicylates Acetaminophen
--- NOTE | 2019-02-04 14:31 | Magnetic Resonance Report ---
MRI BRAIN 02/04/2019 INDICATION / CLINICAL INFORMATION: Weakness. Falls.. TECHNIQUE: Multiplanar, multisequence MR images of the brain were obtained. COMPARISON: None available. FINDINGS: BRAIN / INTRACRANIAL CONTENTS: Unenhanced MR images of the brain demonstrate no evidence of acute int racranial abnormality. Ventricles and sulci are slightly prominent in size, consistent with normal age-related atrophic vigil ge. Moderate chronic white matter T2 weighted hyperintensities are present in the cerebral hemispheric wh ite matter. There is no evidence of acute ischemic injury, hemorrhage, or mass. There are no abnormal extra-axial fluid collections. EXTRACRANIAL: Unremarkable CRANIOCERVICAL JUNCTION: No significant abnormality. VASCULAR FLOW-VOIDS: No significant abnormality. IMPRESSION: No acute abnormality. Chronic and age-related changes. Signer Name: Jason Ramos MD Signed: 02/04/2019 2:26 PM Workstation Name: [id number]
--- NOTE | 2019-02-04 14:33 | Magnetic Resonance Report ---
MR ANGIOGRAM BRAIN 02/04/2019 HISTORY: Weakness FINDINGS: MR angiographic images of the intracranial circulation were obtained. Good flow signal is present in the anterior circulation vessels bilaterally. There is some irregulari ty in branches of the middle cerebral arteries, which may be an indication of intracranial atheroscle rotic change. The vertebrobasilar system is intact. There is some signal loss in the proximal left posterior cerebr al artery, which may be evidence of some atherosclerotic change, although in this orientation, the po ssibility of artifactual signal loss must also be centered. Depending on details of the clinical circumstances, further evaluation could be obtained with the use of CT angiography. Signer Name: Jason Ramos MD Signed: 02/04/2019 2:29 PM Workstation Name: [id number]
--- NOTE | 2019-02-04 14:35 | Magnetic Resonance Report ---
MRA NECK 02/04/2019 INDICATION / CLINICAL INFORMATION: Weakness. TECHNIQUE: Routine MRA of the neck are performed. 3-D/MIP reformats postprocessed. Percentage stenosis is deter mined by direct quantitative measurements of distal internal carotid artery diameter compared with no rmal reference segments or by criteria similar to NASCET where applicable. COMPARISON: None available. FINDINGS: Unenhanced and enhanced MR angiographic images of the neck were obtained. 3D/MIP reformats were post- processed. Carotid bifurcations: There is no evidence of significant or measurable carotid bifurcation stenosis. Common carotid arteries: No significant abnormality. Cervical internal carotid arteries: No significant abnormality. Cervical vertebral arteries: The right vertebral artery is relatively hypoplastic, with possible irre gularity and stenosis at its origin and proximal aspect. Left vertebral artery is unremarkable. Visible aortic arch: Unremarkable IMPRESSION: No evidence of carotid bifurcation stenosis. Signer Name: Jason Ramos MD Signed: 02/04/2019 2:30 PM Workstation Name: [id number]
[2019-02-04] MEDS: COREG PO SCH ×2 (15:01→22:17)
--- NOTE | 2019-02-04 17:22 | Consultation ---
History of Present Illness - Reason for Consult Consult date: 02/04/19 - History of Present Illness CC - retention This is an 83-year-old gentleman. This patient is not known to this provider previously. The patient reportedly has a history of hypertension, diabetes, high cholesterol, and neuropathy. Primary care Dr.: Dr. Sanderson History obtained from the patient's . The patient is a poor historian. Patient's reports that the patient had a witnessed mechanical fall a few days ago at an outside store. He reportedly did not seek medical attention at that time. Then, at around 9:30 this morning, patient's reports that he had a "shaking episode." She indicates that his whole body was shaking. She does not know how long it lasted for. She states that this episode was while the patient was in bed. After the patient's shaking episode had resolved, he reportedly appears weak as per his , is not speaking right, and has a left-sided facial asymmetry/as ymmetry. nurse unable to place randall Per , this happened in past---randall placed in er abd slightly distended uncirc testes wire 16F qu[place] tip catheter----sunny urine CTAP (02-02-19) DISTENDED BLADDER A/P BPH Retention home with randall - big bag & leg bag start flomax if ok with neurology---1qd outpt urodynaimcis Medications and Allergies Allergies Allergy/AdvReac Type Severity Reaction Status Date / Time No Known Allergies Allergy Verified 05/19/14 21:52 Home Medications Medication Instructions Recorded Confirmed Last Taken Type AtorvaSTATin [Lipitor] 10 mg PO QDAY 01/30/18 02/02/19 02/02/19 History Insulin Lispro Prot/Lispro 30 unit SQ QPM 01/30/18 02/02/19 02/02/19 History [HumaLOG Mix 75/25 Vial] Insulin Lispro Prot/Lispro 40 unit SQ QAM 01/30/18 02/02/19 02/02/19 History [HumaLOG Mix 75/25 Vial] Linagliptin [Tradjenta] 5 mg PO QDAY 01/30/18 02/02/19 02/02/19 History Losartan [Cozaar] 100 mg PO QDAY 01/30/18 02/02/19 02/02/19 History Pregabalin [Lyrica] 150 mg PO DAILY 01/30/18 02/02/19 02/02/19 History Furosemide [Lasix] 20 mg PO Q2D 02/02/19 02/02/19 Unknown History Active Meds: Active Medications Acetaminophen (Tylenol) 650 mg PO Q4H PRN PRN Reason: Pain MILD(1-3)/Fever >100.5/[facility]INSON Last Admin: 02/03/19 22:00 Dose: 650 mg Documented by: Aspirin (Aspirin) 325 mg PO QDAY [facility] Last Admin: 02/04/19 09:37 Dose: 325 mg Documented by: Atorvastatin Calcium (Lipitor) 10 mg PO QDAY [facility] Last Admin: 02/04/19 09:37 Dose: 10 mg Documented by: Bisacodyl (Dulcolax) 10 mg PO QDAY PRN PRN Reason: Constipation Carvedilol (Coreg) 12.5 mg PO BID [facility] Last Admin: 02/04/19 15:01 Dose: 12.5 mg Documented by: Docusate Sodium (Colace) 100 mg PO BID [facility] Last Admin: 02/04/19 13:17 Dose: 100 mg Documented by: Famotidine (Pepcid) 10 mg PO BID [facility] Last Admin: 02/04/19 09:46 Dose: 10 mg Documented by: Furosemide (Lasix) 20 mg PO Q2D [facility] Last Admin: 02/03/19 09:42 Dose: 20 mg Documented by: Hydralazine HCl (Apresoline) 10 mg IV Q4HR PRN PRN Reason: FOR BP > 160/90 Last Admin: 02/04/19 09:37 Dose: 10 mg Documented by: Ceftriaxone Sodium (Rocephin/Ns 1 Gm/50 Ml) 1 gm in 50 mls @ 100 mls/hr IV Q24HR [facility]; Protocol Last Admin: 02/04/19 09:46 Dose: 100 mls/hr Documented by: Insulin Human Isoph/Insulin Regular (Humulin 70/30) 30 unit SUB-Q QPMDIAB [facility] Last Admin: 02/03/19 17:49 Dose: Not Given Documented by: Insulin Human Isoph/Insulin Regular (Humulin 70/30) 40 unit SUB-Q QAMDIAB [facility] Last Admin: 02/04/19 09:45 Dose: 40 unit Documented by: Insulin Human Lispro (Humalog) 0 unit SUB-Q ACHS [facility]; Protocol Last Admin: 02/04/19 13:17 Dose: 2 unit Documented by: Linagliptin (Tradjenta) 5 mg PO QDAY [facility] Last Admin: 02/04/19 09:37 Dose: 5 mg Documented by: Losartan Potassium (Cozaar) 100 mg PO QDAY [facility] Last Admin: 02/04/19 12:45 Dose: 100 mg Documented by: Metoclopramide HCl (Reglan) 10 mg IV Q6H PRN PRN Reason: Nausea And Vomiting Ondansetron HCl (Zofran) 4 mg IV Q8H PRN PRN Reason: Nausea And Vomiting Oxycodone/Acetaminophen (Percocet 5/325) 1 tab PO Q6H PRN PRN Reason: Pain, Moderate (4-6) Last Admin: 02/04/19 09:45 Dose: 1 tab Documented by: Pregabalin (Lyrica) 150 mg PO DAILY [facility] Last Admin: 02/04/19 09:37 Dose: 150 mg Documented by: Sodium Chloride (Sodium Chloride Flush Syringe 10 Ml) 10 ml IV BID [facility] Last Admin: 02/04/19 09:37 Dose: 10 ml Documented by: Sodium Chloride (Sodium Chloride Flush Syringe 10 Ml) 10 ml IV PRN PRN PRN Reason: LINE FLUSH Tamsulosin HCl (Flomax) 0.4 mg PO QDAY [facility] Last Admin: 02/04/19 09:46 Dose: 0.4 mg Documented by: Exam - Constitutional Vitals: Temp Pulse Resp BP Pulse Ox 97.7 F 90 18 133/69 96 02/04/19 13:30 02/04/19 13:30 02/04/19 13:30 02/04/19 13:30 02/04/19 13:30 Results - Labs CBC & Chem 7: 02/04/19 04:49 02/04/19 04:49 Labs: Abnormal lab results 02/03/19 02/03/19 02/03/19 Range/Units 15:55 18:58 21:47 Hgb (11.8-15.2) gm/dl Hct (35.5-45.6) % [place] % (Auto) (0.0-7.3) % BUN (9-20) mg/dL Creatinine (0.8-1.5) mg/dL Glucose (75-100) mg/dL POC Glucose 135 H 163 H (70-105) Lactic Acid 2.10 H* (0.7-2.0) mmol/L Albumin (3.9-5) g/dL 02/04/19 02/04/19 02/04/19 Range/Units 04:49 04:49 07:43 Hgb 11.0 L (11.8-15.2) gm/dl Hct 32.4 L (35.5-45.6) % [place] % (Auto) 14.0 H (0.0-7.3) % BUN 28 H (9-20) mg/dL Creatinine 1.7 H (0.8-1.5) mg/dL Glucose 126 H (75-100) mg/dL POC Glucose 112 H (70-105) Lactic Acid (0.7-2.0) mmol/L Albumin 2.6 L (3.9-5) g/dL 02/04/19 Range/Units 13:00 Hgb (11.8-15.2) gm/dl Hct (35.5-45.6) % [place] % (Auto) (0.0-7.3) % BUN (9-20) mg/dL Creatinine (0.8-1.5) mg/dL Glucose (75-100) mg/dL POC Glucose 181 H (70-105) Lactic Acid (0.7-2.0) mmol/L Albumin (3.9-5) g/dL
[2019-02-05] MEDS ORDERED: XYLOCAINE 2% UROJET ONE (00:24)
[2019-02-05 09:43] VITALS: BP 151/67
[2019-02-05] MEDS: COZAAR PO SCH (10:02)
[2019-02-05] MEDS: COREG PO SCH (10:03)
[2019-02-05] MEDS: FLOMAX PO SCH (10:03)
[2019-02-05] MEDS: PEPCID PO SCH (10:03)
[2019-02-05] MEDS: LYRICA PO SCH (10:03)
[2019-02-05] MEDS: TRADJENTA PO SCH (10:03)
[2019-02-05] MEDS: ROCEPHIN/NS 1 GM/50 ML 1 GM/50 ML BAG IV SCH (10:03)
[2019-02-05] MEDS: ASPIRIN PO SCH (10:04)
[2019-02-05] MEDS: SODIUM CHLORIDE FLUSH SYRINGE 10 ML IV SCH (10:04)
[2019-02-05] MEDS: HumaLOG SUB-Q SCH ×2 (10:04→13:59)
[2019-02-05] MEDS: COLACE PO SCH (10:04)
[2019-02-05] MEDS: LASIX PO SCH (10:04)
--- NOTE | 2019-02-05 12:17 | Discharge Summary ---
Providers - Providers Date of Admission: 02/02/19 14:46 Attending physician: CRISPIN JULIAN MD 02/02/19 Consult to Physician [CONS] Stat Comment: Consulting Provider: HAYDEE INGRAM Physician Instructions: Reason For Exam: suspected stroke 02/03/19 01:06 Consult to Physician [CONS] Routine Comment: Consulting Provider: CHANI PACE Physician Instructions: Reason For Exam: seizures 02/03/19 09:13 Physical Therapy Evaluation and Treat [CONS] Routine Comment: Reason For Exam: FALL, ATAXIA 02/03/19 15:29 Occupational Therapy Evaluate and Treat [CONS] Routine Comment: Reason For Exam: ATAXIA / WEAKNESS 02/04/19 13:58 Consult to Physician [CONS] Routine Comment: Consulting Provider: YOVANI CUNNINGHAM Physician Instructions: Reason For Exam: Urinary Retention Primary care physician: ISAURO AGUILAR Hospitalization Condition: Stable Hospital course: 84-year-old -Spanish male with history of hypertension, hyperlipidemia and insulin-dependent diabetes brought in by the because of new onset seizures. As per patient had a shaking episode which lasted for a couple minutes. according to the admitting doctor Her description is consistent with a tonic-clonic seizures. No history of seizures. Patient is not giving much history. Last admission documented about a year ago showed that the patient had sustained a fall and per the discharge summary. " Patient apparently had a fall a few days ago and sustained left fifth rib fracture conditions the left eye multiple abrasions to his face and displaced nasal bone fracture. These were treated conservatively. Patient was asked to follow-up with ENT physician for evaluation of his nasal bone fractures. Patient also has a history of cerebrovascular accident with residual weakness" According to admitting documentation "As for the for patient as well as slurred speech and left-sided facial asymmetry. Patient also complains of right lower quadrant pain." CT cervical Spine: IMPRESSION: 1. No signs of acute bony trauma to the cervical spine. CXR: IMPRESSION: 1. Pleural-parenchymal density in the left lower hemithorax possibly acute disease. Alternatively this may represent postoperative scarring. CT Head/Brain: IMPRESSION: 1. No focal mass, hemorrhage, hydrocephalus, or acute, large territorial infarct. MRI head: negative for acute pathology Seizure Disorder Sepsis Constipation Left lobar Pneumonia-Presumed Aspiration Type 2 PA in the setting of Sepsis, Seizures and renal failure Hypertensive Urgency DM with Hyperglycemia Acute Kidney Injury on Chronic Kidney disease stage III Urinary Retention WITH OBSTRUCTIVE UROPATHY Hyperlipidemia Hx of facial absrasion and Nasal bone fracture Hx of Possible Rib fracture High Risk of falls Plan Supportive care start coreg BID considering his pattern of elevated pressure. was on Metoprolol during last admission a year ago not sure why it was stopped Hold AED per Neurology and monitor. No clear evidence of seizure on eeg Give a Truncated Fluid bolus, Continue abx with Rocephin while awaiting cultures, If persistent fever will consult ID Urology consulted Obtain Renal Ultrasound Continue folmax Adjust insulin management for better control Monitor Renal function Fall precaution abd slightly distended uncirc testes wire 16F [place] tip catheter----sunny urine CTAP (02-02-19) DISTENDED BLADDER A/P BPH Retention home with randall - big bag & leg bag start flomax if ok with neurology---1qd outpt urodynaimcis Disposition: DC/TX-06 HOME UNDER HOME [facility] Time spent for discharge: 35 mins Core Measure Documentation - Palliative Care Palliative Care/ Comfort Measures: Not Applicable Exam - Constitutional Vitals: Temp Pulse Resp BP Pulse Ox 97.5 F L 74 18 151/67 96 02/05/19 07:47 02/05/19 03:51 02/05/19 07:47 02/05/19 10:03 02/05/19 03:51 Plan Activity: advance as tolerated, fall precautions Diet: low fat Special Instructions: record daily BP diary Additional Instructions: PCP to select neurologist Follow up with: ISAURO AGUILAR [Other] - 3-5 Days SISI HULL MD [Staff Physician] - 7 Days ANAYA MADRIGAL MD [Staff Physician] - 7 Days PITA JARRELL MD [Staff Physician] - 7 Days Prescriptions: AtorvaSTATin [Lipitor] 40 mg PO QHS #30 tab Aspirin [Adult Aspirin] 81 mg PO DAILY #30 tablet. Docusate Sodium [Colace CAP] 100 mg PO BID #30 capsule Carvedilol [Coreg] 12.5 mg PO BID #60 tablet Bisacodyl [Dulcolax tab] 10 mg PO QDAY PRN #30 tablet PRN Reason: Constipation Tamsulosin [Flomax] 0.4 mg PO QDAY #30 capsule levoFLOXacin [Levaquin TAB] 750 mg PO QDAY #10 tablet
[2019-02-05 13:38] LABS: Calcium 8.4 mg/dL (8.4-10.2)
== END 2019-02-05 19:08 | disposition home health service (06) | DRG 871 ==
LOC: ED 11:00 → 4A 14:46
PROVIDERS: ADMIT Internal Medicine; ATTEND Internal Medicine
DX: A41.9 Sepsis, unspecified organism (principal); I21.A1 Myocardial infarction type 2; J69.0 Pneumonitis due to inhalation of food and vomit; N17.9 Acute kidney failure, unspecified; G83.24 Monoplegia of upper limb affecting left nondominant side; N40.0 Benign prostatic hyperplasia without lower urinary tract symptoms; E11.65 Type 2 diabetes mellitus with hyperglycemia; N18.3 Chronic kidney disease, stage 3 (moderate); E11.22 Type 2 diabetes mellitus with diabetic chronic kidney disease; N13.9 Obstructive and reflux uropathy, unspecified; R33.9 Retention of urine, unspecified; K59.00 Constipation, unspecified; G40.909 Epilepsy, unspecified, not intractable, without status epilepticus; S02.2XXA Fracture of nasal bones, initial encounter for closed fracture; W01.0XXA Fall on same level from slipping, tripping and stumbling without subsequent striking against object, initial encounter; E87.5 Hyperkalemia; E78.5 Hyperlipidemia, unspecified; Z87.891 Personal history of nicotine dependence; I16.0 Hypertensive urgency; Z79.84 Long term (current) use of oral hypoglycemic drugs; Z79.82 Long term (current) use of aspirin; Y93.89 Activity, other specified; Y92.89 Other specified places as the place of occurrence of the external cause; Y99.8 Other external cause status; Z91.81 History of falling
CPT/HCPCS: 36415; 70450; 70486; 70544; 70549; 70551; 71045; 72125; 74176; 76770; 80048; 80053; 80061; 80320; 81001; 82140; 82550; 82553; 82962; 83036; 83735; 84484; 85025; 85610; 85670; 85730; 87040; 87076; 87086; 87186; 93005; 93010; 93306; 94760; 95819; 96365; 96375; G0378; A9270-GY; C1769; G0480; J0360; J0696; J1815; J1953; J7030; J7040

== ENCOUNTER 2019-02-12 18:59 | Emergency (ER) | payer MEDICARE ==
[2019-02-12] MEDS ORDERED: ZOFRAN IV ONE (19:29)
[2019-02-12] MEDS ORDERED: MORPHINE IV ONE (19:29)
[2019-02-12] MEDS ORDERED: KEPPRA 1,000 MG/NS 0.75% 100ML 1,000 MG/100 ML BAG IV ONE (19:30)
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
[2019-02-12 19:47] LABS: Basophils % (Auto) 0.3 % (0.0-1.8); Eosinophils # (Auto) 0.1 K/mm3 (0.0-0.4); Eosinophils % (Auto) 0.8 % (0.0-4.3); Hematocrit 33.6 % (35.5-45.6); Hemoglobin 11.2 gm/dl (11.8-15.2); Lymphocytes # (Auto) 1.6 K/mm3 (1.2-5.4); Lymphocytes % (Auto) 15.2 % (13.4-35.0); Mean Corpuscular HGB Conc 33 % (32-34); Mean Corpuscular Volume 86 fl (84-94); Monocytes # (Auto) 0.9 K/mm3 (0.0-0.8); Monocytes % (Auto) 8.8 % (0.0-7.3); Platelet Count 317 K/mm3 (140-440); Red Blood Count 3.93 M/mm3 (3.65-5.03); Red Cell Distribution Width 14.5 % (13.2-15.2)
[2019-02-12 20:09] LABS: Alanine Aminotransferase 8 units/L (7-56); Albumin 2.9 g/dL (3.9-5)
[2019-02-12 20:20] LABS: Calcium 8.7 mg/dL (8.4-10.2)
[2019-02-12 20:22] LABS: Bilirubin,Direct < 0.2 mg/dL (0-0.2)
[2019-02-12 20:26] LABS: Bilirubin,Urine NEG (Negative); Blood,Urine MOD (Negative); Color,Urine Yellow (Yellow); Mucus,Urine FEW /HPF; Urobilinogen,Urine < 2.0 mg/dL (<2.0)
[2019-02-12] MEDS ORDERED: HumuLIN R IV ONE (20:36)
[2019-02-12 23:08] VITALS: BP 108/61
== END 2019-02-12 23:10 | disposition home or self-care (01) ==
LOC: ED 18:59
DX: G40.409 Other generalized epilepsy and epileptic syndromes, not intractable, without status epilepticus (principal); R10.9 Unspecified abdominal pain; I10 Essential (primary) hypertension; E11.9 Type 2 diabetes mellitus without complications; M19.90 Unspecified osteoarthritis, unspecified site; Z98.890 Other specified postprocedural states; Z87.891 Personal history of nicotine dependence; Z79.899 Other long term (current) drug therapy
CPT/HCPCS: 36415; 80048; 80076; 81001; 82962; 83690; 85025; 96365; 96375; 99284; J1953; J2270; J2405; J1815

== ENCOUNTER 2019-02-19 10:46 | Inpatient (IN) | payer MEDICARE ==
[2019-02-19] MEDS ORDERED: NACL 0.9% 1000 ML 0 ML ONE (11:14)
[2019-02-19 11:30] LABS: Basophils # (Auto) 0.1 K/mm3 (0.0-0.1); Basophils % (Auto) 0.5 % (0.0-1.8); Eosinophils % (Auto) 0.3 % (0.0-4.3); Hematocrit 32.8 % (35.5-45.6); Hemoglobin 11.2 gm/dl (11.8-15.2); Lymphocytes # (Auto) 1.1 K/mm3 (1.2-5.4); Lymphocytes % (Auto) 10.4 % (13.4-35.0); Mean Corpuscular HGB Conc 34 % (32-34); Mean Corpuscular Volume 85 fl (84-94); Monocytes # (Auto) 1.2 K/mm3 (0.0-0.8); Monocytes % (Auto) 10.9 % (0.0-7.3); Platelet Count 249 K/mm3 (140-440); Red Blood Count 3.89 M/mm3 (3.65-5.03); Red Cell Distribution Width 13.9 % (13.2-15.2)
[2019-02-19 11:42] LABS: Bilirubin,Urine NEG (Negative); Blood,Urine MOD (Negative); Color,Urine Yellow (Yellow); Mucus,Urine FEW /HPF
[2019-02-19 11:42] LABS: Albumin 2.8 g/dL (3.9-5); Calcium 8.3 mg/dL (8.4-10.2)
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
[2019-02-19] MEDS ORDERED: TYLENOL PO ONE (12:03)
--- NOTE | 2019-02-19 14:26 | Cat Scan Report ---
CT ABDOMEN AND PELVIS WITHOUT CONTRAST INDICATION / CLINICAL INFORMATION: Right lower quadrant pain. Cast catheter. Fever.. TECHNIQUE: Axial CT images were obtained through the abdomen and pelvis without IV contrast. All CT scans at [facility] location are performed using CT dose reduction for ALARA by means of automated exposure control. COMPARISON: CT dated 02/02/19 FINDINGS: LOWER CHEST: No significant abnormality. LIVER: No significant abnormality. GALLBLADDER: No significant abnormality. BILE DUCTS: No significant abnormality. PANCREAS: Mild fatty atrophy of the pancreas is unchanged. No acute inflammation. SPLEEN: No significant abnormality. ADRENALS: No significant abnormality. RIGHT KIDNEY and URETER: No significant abnormality. LEFT KIDNEY and URETER: No significant abnormality. STOMACH and SMALL BOWEL: No significant abnormality. COLON: Moderate amount of fecal material throughout the colon. No acute abnormality. APPENDIX: No significant abnormality. PERITONEUM: No free fluid. No free air. No fluid collection. LYMPH NODES: No significant adenopathy. AORTA and ARTERIES: Mild atherosclerotic calcification without acute abnormality. IVC and VEINS: No significant abnormality. URINARY BLADDER: Urinary bladder is contracted around a Cast catheter. Moderate bladder wall thicken ing is present. REPRODUCTIVE ORGANS: No significant abnormality. ADDITIONAL FINDINGS: None. SKELETAL SYSTEM: No significant abnormality. IMPRESSION: 1. Urinary bladder contracted around a Cast catheter with moderate bladder wall thickening. 2. No urinary tract stones or hydronephrosis. 3. No inflammatory process or bowel obstruction. Signer Name: Jia España MD Signed: 02/19/2019 2:21 PM Workstation Name: [id number]
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
[2019-02-19] MEDS ORDERED: ZOFRAN IV PRN (15:41)
[2019-02-19] MEDS ORDERED: PROVENTIL IH PRN (15:41)
[2019-02-19] MEDS ORDERED: SODIUM CHLORIDE FLUSH SYRINGE 10 ML IV PRN (15:41)
--- NOTE | 2019-02-19 15:41 | History and Physical Report ---
History of Present Illness Chief complaint: He has a high fever History of present illness: 83 YO Male with HTN, DM, OA, Seizure Disorder, Debility, Dementia, CVA with LHP, Encephalopathy presents to ED for evaluation. Pt is confused and unable to provide detailed history. Pt is at bedside and provides history. As per , the patient was seen by home health and was found to have increased weakness and a temperature of 102.3. Pt is nonambulatory and requires 5/6 assistance with activities of daily living. EMS notified, and upon arrival the patient was found to be febrile. Pt transported to [facility]. Pt seen and evaluated in ED and found to have SIRS suspected secondary to UTI, Encephalopathy, and Acute Kidney Injury. Pt admitted to [facility] unit and initiated on IV antibiotic therapy. 30 minutes dedicated to Advanced care planning. Pt counseled regarding care options. Pt acknowledges understanding and agreement with care plan. Prior admission on 02/02/19 reviewed. All listed medication reconciled at time of admission. No further history obtainable. Pt denies reports of chills, CP, Palpitations, NVD, Skin rash, Productive cough, seizure, or recent ill contacts. Past History Past Medical History: diabetes, hypertension, seizures, stroke, other (Enc ephalopathy) Past Surgical History: Other (left Shoulder) Social history: , lives with family. denies: smoking, alcohol abuse, prescription drug abuse Family history: hypertension Medications and Allergies Allergies Allergy/AdvReac Type Severity Reaction Status Date / Time No Known Allergies Allergy Verified 05/19/14 21:52 Home Medications Medication Instructions Recorded Confirmed Last Taken Type Insulin Lispro Prot/Lispro 30 unit SQ QPM 01/30/18 02/19/19 02/02/19 History [HumaLOG Mix 75/25 Vial] Insulin Lispro Prot/Lispro 40 unit SQ QAM 01/30/18 02/19/19 02/02/19 History [HumaLOG Mix 75/25 Vial] Linagliptin [Tradjenta] 5 mg PO QDAY 01/30/18 02/19/19 02/02/19 History Losartan [Cozaar] 100 mg PO QDAY 01/30/18 02/19/19 02/02/19 History Pregabalin [Lyrica] 150 mg PO DAILY 01/30/18 02/19/19 02/02/19 History Furosemide [Lasix TAB] 20 mg PO Q2D 02/02/19 02/19/19 Unknown History AtorvaSTATin [Lipitor] 40 mg PO QHS #30 tab 02/05/19 02/19/19 Unknown Rx Carvedilol [Coreg] 12.5 mg PO BID #60 tablet 02/05/19 02/19/19 Unknown Rx Tamsulosin [Flomax] 0.4 mg PO QDAY #30 capsule 02/05/19 02/19/19 Unknown Rx levETIRAcetam [Keppra TAB] 500 mg PO BID #60 tablet 02/12/19 02/19/19 Unknown Rx Review of Systems ROS unobtainable: due to mental status Exam - Constitutional Vitals: Temp Pulse Resp BP Pulse Ox 99.2 F 97 H 16 119/61 96 02/19/19 15:20 02/19/19 10:53 02/19/19 10:53 02/19/19 15:15 02/19/19 15:15 General appearance: Present: mild distress - EENT Eyes: Present: PERRL ENT: clear oral mucosa, hearing decreased - Neck Neck: Present: supple, normal ROM - Respiratory Respiratory effort: normal Respiratory: bilateral: CTA - Cardiovascular Heart Sounds: Present: S1 & S2. Absent: rub, click - Extremities Extremities: pulses symmetrical, No edema Peripheral Pulses: within normal limits - Abdominal General gastrointestinal: Present: soft, non-tender, non-distended, normal bowel sounds Male genitourinary: Present: normal - Integumentary Integumentary: Present: clear, warm, dry - Musculoskeletal Musculoskeletal: generalized weakness - Psychiatric Psychiatric: no appropriate mood/affect, no intact judgment & insight, no memory intact - Neurologic Neurologic: CNII-XII intact, focal deficits, moves all extremities, no gait normal Results - Labs CBC & Chem 7: 02/19/19 11:13 02/19/19 11:13 Labs: Abnormal lab results 02/19/19 02/19/19 02/19/19 Range/Units 11:13 11:13 11:13 Hgb 11.2 L (11.8-15.2) gm/dl Hct 32.8 L (35.5-45.6) % Lymph % (Auto) 10.4 L (13.4-35.0) % [place] % (Auto) 10.9 H (0.0-7.3) % Lymph # 1.1 L (1.2-5.4) K/mm3 [place] # 1.2 H (0.0-0.8) K/mm3 Seg Neutrophils % 77.9 H (40.0-70.0) % Seg Neutrophils # 8.4 H (1.8-7.7) K/mm3 VBG pH 7.473 H (7.320-7.420) Sodium 134 L (137-145) mmol/L Creatinine 1.7 H (0.8-1.5) mg/dL Glucose 178 H (75-100) mg/dL Calcium 8.3 L (8.4-10.2) mg/dL Albumin 2.8 L (3.9-5) g/dL Urine pH (5.0-7.0) 02/19/19 Range/Units Unknown Hgb (11.8-15.2) gm/dl Hct (35.5-45.6) % Lymph % (Auto) (13.4-35.0) % [place] % (Auto) (0.0-7.3) % Lymph # (1.2-5.4) K/mm3 [place] # (0.0-0.8) K/mm3 Seg Neutrophils % (40.0-70.0) % Seg Neutrophils # (1.8-7.7) K/mm3 VBG pH (7.320-7.420) Sodium (137-145) mmol/L Creatinine (0.8-1.5) mg/dL Glucose (75-100) mg/dL Calcium (8.4-10.2) mg/dL Albumin (3.9-5) g/dL Urine pH 8.0 H (5.0-7.0) Assessment and Plan - Patient Problems (1) SIRS (systemic inflammatory response syndrome) Current Visit: Yes Status: Acute Plan to address problem: IV antibiotic therapy, CBC, CMP, urinalysis, chest x ray, d dimer, CTA chest, (2) KAUSHAL (acute kidney injury) Current Visit: Yes Status: Acute Plan to address problem: IVF resuscitation, monitor uop q shift, repeat bmp to monitor serum creatnine (3) Encephalopathy Current Visit: Yes Status: Acute Plan to address problem: Neuro check, treat uti, CT head, seizure precautions, thyroid panel (4) UTI (urinary tract infection) Current Visit: Yes Status: Acute Qualifiers: Encounter type: initial encounter Plan to address problem: IV antibiotic therapy (5) DVT prophylaxis Current Visit: Yes Status: Acute Plan to address problem: SCD to BLE while in bed, prophylactic lovenox
[2019-02-19] MEDS ORDERED: ZOFRAN ODT PO PRN (15:43)
[2019-02-19] MEDS: LASIX PO SCH (20:04)
[2019-02-19] MEDS: KEPPRA PO SCH (22:36)
[2019-02-19] MEDS: COLACE PO SCH (22:37)
[2019-02-19] MEDS: SODIUM CHLORIDE FLUSH SYRINGE 10 ML IV SCH (22:38)
[2019-02-19] MEDS: COREG PO SCH (22:38)
[2019-02-19] MEDS: NACL 0.9% 1000 ML 1,000 ML IV SCH (22:39)
[2019-02-19] MEDS: TYLENOL PO PRN (22:40)
[2019-02-20 00:17] LABS: Free T4 (Free Thyroxine) 1.11 ng/dL (0.76-1.46)
--- NOTE | 2019-02-20 09:52 | Cat Scan Report ---
CT HEAD WITHOUT CONTRAST INDICATION : Confusion.. Altered mental status TECHNIQUE: Axial imaging performed from the skull apex through the skull base without the use of con trast. Sagittal and coronal reformatted images. All CT scans at this location are performed using C T dose reduction for ALARA by means of automated exposure control. COMPARISON: 02/02/2019 FINDINGS: Parenchyma: No acute intracranial hemorrhage or parenchymal abnormality. Mild chronic ischemic diamond es in the white matter are stable. No evidence for chronic infarct or mass. Ventricles: Ventricles are normal in size and appear symmetric. Bones: No acute osseous abnormality. Sinuses: Sinuses and mastoid air cells are clear. Soft tissues: Soft tissues including the orbits appear normal. IMPRESSION: No acute abnormality. No change since 02/02/2019. Signer Name: Craig Casarez Jr, MD Signed: 02/20/2019 9:48 AM Workstation Name: [id number]
[2019-02-20] MEDS ORDERED: NON-FORMULARY (Pregabalin [Lyrica] 150 MG) PO SCH (10:00)
[2019-02-20] MEDS ORDERED: NON-FORMULARY (Losartan [Cozaar] 100 MG) PO SCH (10:00)
[2019-02-20] MEDS: KEPPRA PO SCH ×2 (10:12→21:39)
[2019-02-20] MEDS: LYRICA PO SCH (10:12)
[2019-02-20] MEDS: FLOMAX PO SCH (10:12)
[2019-02-20] MEDS: HALFPRIN EC PO SCH (10:13)
[2019-02-20] MEDS: COREG PO SCH ×2 (10:13→21:39)
[2019-02-20] MEDS: COLACE PO SCH ×2 (10:13→21:39)
[2019-02-20] MEDS: COZAAR PO SCH (10:13)
--- NOTE | 2019-02-20 12:07 | Consultation ---
History of Present Illness - Reason for Consult Consult date: 02/20/19 - History of Present Illness 83 yo M PMhx HTN, DM, OA, Seizure Disorder, Debility, Dementia, CVA with LHP, Encephalopathy initially presented to the ED with confusion. He was brought in by his as the patient was seen by home health and found to be weak with a fever to 102.3. The patient is generally incapable of independent living. Upon arriving the [facility] he was found to have positive SIRS criteria which was thought to be secondary to a UTI. He was also found to have an acute kidney injury. The patient is unable to provide history, as such it is taken from the chart. It appears he has a chronic indwelling Cast. He was recently admitted here and was found to have a Pseudomonas aerugionosa bacteremia which was presumed to be secondary to a pneumonia. he was subsequently treated with levofloxacin. Tmax during admission to 101.6 with a normal white count. He is not currently on antibiotics. Blood and urine cultures from 02/19 are NGTD. CXR with no acute change seen from previous admission, CTAP with no acute infective focus, CTH no acute change, CT chest pending read. Past History Past Medical History: diabetes, hypertension, seizures, stroke, other (Encephalo gulile) Past Surgical History: Other (left Shoulder) Social history: , lives with family. denies: smoking, alcohol abuse, prescription drug abuse Family history: hypertension Medications and Allergies Allergies Allergy/AdvReac Type Severity Reaction Status Date / Time No Known Allergies Allergy Verified 05/19/14 21:52 Home Medications Medication Instructions Recorded Confirmed Last Taken Type Insulin Lispro Prot/Lispro 30 unit SQ QPM 01/30/18 02/19/19 02/02/19 History [HumaLOG Mix 75/25 Vial] Insulin Lispro Prot/Lispro 40 unit SQ QAM 01/30/18 02/19/19 02/02/19 History [HumaLOG Mix 75/25 Vial] Linagliptin [Tradjenta] 5 mg PO QDAY 01/30/18 02/19/19 02/02/19 History Losartan [Cozaar] 100 mg PO QDAY 01/30/18 02/19/19 02/02/19 History Pregabalin [Lyrica] 150 mg PO DAILY 01/30/18 02/19/19 02/02/19 History Furosemide [Lasix TAB] 20 mg PO Q2D 02/02/19 02/19/19 Unknown History AtorvaSTATin [Lipitor] 40 mg PO QHS #30 tab 02/05/19 02/19/19 Unknown Rx Carvedilol [Coreg] 12.5 mg PO BID #60 tablet 02/05/19 02/19/19 Unknown Rx Tamsulosin [Flomax] 0.4 mg PO QDAY #30 capsule 02/05/19 02/19/19 Unknown Rx levETIRAcetam [Keppra TAB] 500 mg PO BID #60 tablet 02/12/19 02/19/19 Unknown Rx Active Meds: Active Medications Acetaminophen (Tylenol) 650 mg PO Q4H PRN PRN Reason: Pain MILD(1-3)/Fever >100.5/[facility]INSON Last Admin: 02/19/19 22:40 Dose: 650 mg Documented by: Acetaminophen/Hydrocodone Bitart ([place] 5/325) 1 each PO Q6HR PRN PRN Reason: Pain Albuterol (Proventil) 2.5 mg IH Q4HRT PRN PRN Reason: Shortness Of Breath Aspirin (Halfprin Ec) 81 mg PO DAILY [facility] Last Admin: 02/20/19 10:13 Dose: 81 mg Documented by: Atorvastatin Calcium (Lipitor) 40 mg PO QHS [facility] Last Admin: 02/19/19 22:37 Dose: 40 mg Documented by: Bisacodyl (Dulcolax) 10 mg PO QDAY PRN PRN Reason: Constipation Carvedilol (Coreg) 12.5 mg PO BID [facility] Last Admin: 02/20/19 10:13 Dose: 12.5 mg Documented by: Docusate Sodium (Colace) 100 mg PO BID [facility] Last Admin: 02/20/19 10:13 Dose: 100 mg Documented by: Furosemide (Lasix) 20 mg PO Q2D [facility] Last Admin: 02/19/19 20:04 Dose: 20 mg Documented by: Sodium Chloride (Nacl 0.9% 1000 Ml) 1,000 mls @ 42 mls/hr IV DIRECT [facility] Last Admin: 02/19/19 22:39 Dose: 42 mls/hr Documented by: Levetiracetam (Keppra) 500 mg PO BID [facility] Last Admin: 02/20/19 10:12 Dose: 500 mg Documented by: Linagliptin (Tradjenta) 5 mg PO QDAY [facility] Losartan Potassium (Cozaar) 50 mg PO QDAY [facility] Last Admin: 02/20/19 10:13 Dose: 50 mg Documented by: Miscellaneous Medication (Insulin Lispro Prot/Lispro) 30 unit SQ QPM [facility] Miscellaneous Medication (Insulin Lispro Prot/Lispro) 40 unit SQ QAM [facility] Ondansetron HCl (Zofran) 4 mg IV Q8H PRN PRN Reason: Nausea And Vomiting Ondansetron HCl (Zofran Odt) 4 mg PO Q8HR PRN PRN Reason: Nausea And Vomiting Pregabalin (Lyrica) 150 mg PO QDAY [facility] Last Admin: 02/20/19 10:12 Dose: 150 mg Documented by: Sodium Chloride (Sodium Chloride Flush Syringe 10 Ml) 10 ml IV BID [facility] Last Admin: 02/19/19 22:38 Dose: 10 ml Documented by: Sodium Chloride (Sodium Chloride Flush Syringe 10 Ml) 10 ml IV PRN PRN PRN Reason: LINE FLUSH Tamsulosin HCl (Flomax) 0.4 mg PO QDAY [facility] Last Admin: 02/20/19 10:12 Dose: 0.4 mg Documented by: Review of Systems ROS unobtainable: due to mental status Physical Examination - Physical Exam Narrative exam: Constitutional: awake, no distress, following commands Head, Ears, Nose: Normocephalic, atraumatic. External ears, nose normal Eyes: Conjunctivae/corneas clear. No icterus. No ptosis. Neck: Supple, no meningeal signs Oral: fair dentition, moist mucous membranes Cardiovascular: S1, S2 normal. Normal rhythm Respiratory: Good air entry, clear to auscultation bilaterally GI: Soft, non-tender; bowel sounds normal. No peritoneal signs Musculoskeletal: No pedal edema, Skin: No rash or abscess Hem/Lymphatic: No palpable cervical or supraclavicular nodes. No lymphangitis Psych: no agitation Neurological: Moves all extremities, no focal defects - Constitutional Vitals: Vital Signs Temp Pulse Resp BP Pulse Ox 99.9 F H 82 20 147/84 97 02/20/19 07:22 02/20/19 10:13 02/20/19 10:00 02/20/19 10:13 02/20/19 10:37 Temperature -Last 24 Hours Temperature 99.9 F Temperature 99.5 F Temperature 101.6 F Temperature 99.8 F Temperature 99.2 F Results - Labs CBC & Chem 7: 02/19/19 11:13 02/19/19 11:13 Labs: Abnormal lab results 02/19/19 02/19/19 02/20/19 Range/Units 15:50 21:39 07:27 D-Dimer 1124.30 H (0-234) ng/mlDDU POC Glucose 281 H 204 H (70-105) Assessment and Plan Cultures: 02/19 BCx - NGTD 02/19 UCx - NGTD 01/2019 BCx - P aeruginosa, mostly sensitive. A/P: 83 yo M PMhx HTN, DM, OA, Seizure Disorder, Debility, Dementia, CVA with LHP, Encephalopathy admitted with confusion and fevers 1. Sepsis unknown etiology - UA without pyuria, urine cultures and blood cu ltures pending. Follow up results. Would start on cefepime empirically given recent history of Pseudomonas bacteremia. All imaging has been negative thus far without any obvious infective focus. 2. Dm2 3. HTn 4. seizure disorder 5. Dementia 6. Hx of CVA Recommendations: - start cefepime 2g q12h - follow up culture results. Thank you for the consult. We will continue to follow with you. MD Roderick [facility] C: [phone] O: [phone] F: [phone]
[2019-02-20] MEDS: DULCOLAX PO PRN (13:40)
--- NOTE | 2019-02-20 14:48 | Nuclear Medicine Report ---
VENTILATION PERFUSION PULMONARY SCINTIGRAPHY HISTORY: Evaluate for pulmonary embolus COMPARISON: 02/19/2019 chest radiograph. TECHNIQUE: Radiopharmaceutical was inhaled. Tc-99m-MAA was then injected. Ventilation and perfusion images were acquired. RADIOPHARMACEUTICAL: 13.7 mCi of Xe-133 inhaled Or 0.5 mCi of Tc-99m-MAA injected FINDINGS: VENTILATION: There is moderate air trapping in both lower lung zones suggesting mild obstructive pulm onary disease. PERFUSION: No significant segmental or non-segmental defect. Additional Findings: None. IMPRESSION: 1. Low probability for pulmonary embolism. Signer Name: Craig Casarez Jr, MD Signed: 02/20/2019 2:44 PM Workstation Name: [id number]
--- NOTE | 2019-02-20 16:16 | Progress Note ---
Assessment and Plan Assessment and plan: 83 YO Male with HTN, DM, OA, Seizure Disorder, Debility, Dementia, CVA with LHP, Encephalopathy presents to ED for evaluation. Pt is confused and unable to provide detailed history. Pt is at bedside and provides history. As per , the patient was seen by home health and was found to have increased weakness and a temperature of 102.3. Pt is nonambulatory and requires 5/6 assistance with activities of daily living. EMS notified, and upon arrival the patient was found to be febrile. Pt transported to [facility]. Pt seen and evaluated in ED and found to have SIRS suspected secondary to UTI, Encephalopathy, and Acute Kidney Injury. Pt admitted to [facility] unit and initiated on IV antibiotic therapy. 30 minutes dedicated to Advanced care planning. Pt counseled regarding care options. Pt acknowledges understanding and agreement with care plan. Prior admission on 02/02/19 reviewed. All listed medication reconciled at time of admission. No further history obtainable. Pt denies reports of chills, CP, Palpitations, NVD, Skin rash, Productive cough, seizure, or recent ill contacts. * During last admission paient was noted to have UTI and pneumonia with Pseudomonas aerugionosa bacteremia and was treaed with levaquin * Still remains with intermittent low grade fever * Chronic Indewlling randall still in place and will be evaluated outpatient by Urology. Creatnine is stable at 1.7 (1) sepsis Current Visit: Yes Status: Acute Plan to address problem: IV antibiotic therapy-cefepime ID input noted V/Q low probability for PE (2) CKD stage 3 Current Visit: Yes Status: Acute Plan to address problem: IVF resuscitation, monitor uop q shift, repeat bmp to monitor serum creatnine (3) Encephalopathy Current Visit: Yes Status: Acute Plan to address problem: Neuro check, treat uti, CT head, seizure precautions, thyroid panel (4) UTI (urinary tract infection) Current Visit: Yes Status: Acute Qualifiers: Encounter type: initial encounter Plan to address problem: IV antibiotic therapy (5) DM with Hyperglycemia Continue insulin therapy, adjust for better control (6) Seizure disorder Continue supportive care (7) Dementia Placement recommended prior but patient and family declines (8) DVT prophylaxis Current Visit: Yes Status: Acute Plan to address problem: SCD to BLE while in bed, prophylactic lovenox History Interval history: Patient seen and examined, no acute distress. no other seizure eval noted. Hospitalist Physical - Constitutional Vitals: Temp Pulse Resp BP Pulse Ox 98.1 F 91 H 20 111/69 98 02/20/19 12:57 02/20/19 12:57 02/20/19 12:57 02/20/19 12:57 02/20/19 12:57 General appearance: Present: no acute distress, other - EENT Eyes: Present: PERRL, EOM intact ENT: hearing intact, clear oral mucosa - Neck Neck: Present: supple, normal ROM - Respiratory Respiratory effort: normal Respiratory: bilateral: CTA - Cardiovascular Rhythm: regular Heart Sounds: Present: S1 & S2. Absent: systolic murmur - Extremities Extremities: no ischemia, pulses intact, pulses symmetrical, No edema, Full ROM Peripheral Pulses: within normal limits - Abdominal General gastrointestinal: soft, non-tender, non-distended, normal bowel sounds - Integumentary Integumentary: Present: clear, warm, dry - Psychiatric Psychiatric: appropriate mood/affect, intact judgment & insight, memory intact, cooperative - Neurologic Neurologic: CNII-XII intact, moves all extremities - Allied Health Allied health notes reviewed: nursing Results - Labs CBC & Chem 7: 02/19/19 11:13 02/19/19 11:13 Labs: Laboratory Last Values WBC 10.8 K/mm3 (4.5-11.0) 02/19/19 11:13 RBC 3.89 M/mm3 (3.65-5.03) 02/19/19 11:13 Hgb 11.2 gm/dl (11.8-15.2) L 02/19/19 11:13 Hct 32.8 % (35.5-45.6) L 02/19/19 11:13 MCV 85 fl (84-94) 02/19/19 11:13 MCH 29 pg (28-32) 02/19/19 11:13 MCHC 34 % (32-34) 02/19/19 11:13 RDW 13.9 % (13.2-15.2) 02/19/19 11:13 Plt Count 249 K/mm3 (140-440) 02/19/19 11:13 Lymph % (Auto) 10.4 % (13.4-35.0) L 02/19/19 11:13 [place] % (Auto) 10.9 % (0.0-7.3) H 02/19/19 11:13 Eos % (Auto) 0.3 % (0.0-4.3) 02/19/19 11:13 Baso % (Auto) 0.5 % (0.0-1.8) 02/19/19 11:13 Lymph # 1.1 K/mm3 (1.2-5.4) L 02/19/19 11:13 [place] # 1.2 K/mm3 (0.0-0.8) H 02/19/19 11:13 Eos # 0.0 K/mm3 (0.0-0.4) 02/19/19 11:13 Baso # 0.1 K/mm3 (0.0-0.1) 02/19/19 11:13 Seg Neutrophils % 77.9 % (40.0-70.0) H 02/19/19 11:13 Seg Neutrophils # 8.4 K/mm3 (1.8-7.7) H 02/19/19 11:13 1124.30 ng/mlDDU (0-234) H 02/19/19 15:50 VBG pH 7.473 (7.320-7.420) H 02/19/19 11:13 Sodium 134 mmol/L (137-145) L 02/19/19 11:13 Potassium 4.6 mmol/L (3.6-5.0) 02/19/19 11:13 Chloride 101.3 mmol/L (98-107) 02/19/19 11:13 Carbon Dioxide 26 mmol/L (22-30) 02/19/19 11:13 11 mmol/L 02/19/19 11:13 BUN 19 mg/dL (9-20) 02/19/19 11:13 1.7 mg/dL (0.8-1.5) H 02/19/19 11:13 Estimated GFR 47 ml/min 02/19/19 11:13 11 % 02/19/19 11:13 Glucose 178 mg/dL (75-100) H 02/19/19 11:13 POC Glucose 308 (70-105) H 02/20/19 11:34 Lactic Acid 1.00 mmol/L (0.7-2.0) 02/19/19 14:02 Calcium 8.3 mg/dL (8.4-10.2) L 02/19/19 11:13 0.60 mg/dL (0.1-1.2) 02/19/19 11:13 AST 14 units/L (5-40) 02/19/19 11:13 ALT 9 units/L (7-56) 02/19/19 11:13 75 units/L (35-129) 02/19/19 11:13 7.7 g/dL (6.3-8.2) 02/19/19 11:13 2.8 g/dL (3.9-5) L 02/19/19 11:13 0.6 % 02/19/19 11:13 TSH 0.340 mlU/mL (0.270-4.200) 02/19/19 23:27 Free T4 1.11 ng/dL (0.76-1.46) 02/19/19 23:27 Yellow (Yellow) 02/19/19 Unknown Hazy (Clear) 02/19/19 Unknown 8.0 (5.0-7.0) H 02/19/19 Unknown Ur Specific [place] 1.011 (1.003-1.030) 02/19/19 Unknown 30 mg/dl mg/dL (Negative) 02/19/19 Unknown Neg mg/dL (Negative) 02/19/19 Unknown Neg mg/dL (Negative) 02/19/19 Unknown Mod (Negative) 02/19/19 Unknown Neg (Negative) 02/19/19 Unknown Neg (Negative) 02/19/19 Unknown 4.0 mg/dL (<2.0) 02/19/19 Unknown Ur Leukocyte Esterase Tr (Negative) 02/19/19 Unknown 5.0 /HPF (0.0-6.0) 02/19/19 Unknown 75.0 /HPF (0.0-6.0) 02/19/19 Unknown U Epithel Cells (Auto) < 1.0 /HPF (0-13.0) 02/19/19 Unknown Few /HPF 02/19/19 Unknown Active Medications - Current Medications Current Medications: Generic Name Dose Route Start Last Admin Trade Name Freq PRN Reason Stop Dose Admin Acetaminophen 650 mg 02/19/19 15:41 02/19/19 22:40 Tylenol PO 650 mg Q4H PRN Administration Pain MILD(1-3)/Fever >100.5/[facility] Acetaminophen/Hydrocodone Bitart 1 each 02/19/19 15:43 [place] 5/325 PO Q6HR PRN Pain Albuterol 2.5 mg 02/19/19 15:41 Proventil IH Q4HRT PRN Shortness Of Breath Aspirin 81 mg 02/20/19 10:00 02/20/19 10:13 Halfprin Ec PO 81 mg DAILY ALANA Administration Atorvastatin Calcium 40 mg 02/19/19 22:00 02/19/19 22:37 Lipitor PO 40 mg QHS ALANA Administration Bisacodyl 10 mg 02/19/19 15:43 02/20/19 13:40 Dulcolax PO 10 mg QDAY PRN Administration Constipation Carvedilol 12.5 mg 02/19/19 22:00 02/20/19 10:13 Coreg PO 12.5 mg BID ALANA Administration Docusate Sodium 100 mg 02/19/19 22:00 02/20/19 10:13 Colace PO 100 mg BID A[facility] Administration Furosemide 20 mg 02/19/19 16:00 02/19/19 20:04 Lasix PO 20 mg Q2D A[facility]NA Administration Sodium Chloride 1,000 mls @ 42 mls/hr 02/19/19 16:00 02/19/19 22:39 Nacl 0.9% 1000 Ml IV 42 mls/hr DIRECT [facility] Administration Cefepime HCl 2 gm in 100 mls @ 200 mls/hr 02/20/19 18:00 Maxipime/Ns 2 Gm/100 Ml IV Q12H ALANA Protocol Insulin Human Isoph/Insulin Regular 30 unit 02/20/19 17:00 Humulin 70/30 SUB-Q 1700 ALANA Insulin Human Isoph/Insulin Regular 40 unit 02/21/19 08:00 Humulin 70/30 SUB-Q 0800 ALANA Levetiracetam 500 mg 02/19/19 22:00 02/20/19 10:12 Keppra PO 500 mg BID A[facility] Administration Linagliptin 5 mg 02/21/19 10:00 Tradjenta PO QDAY ALANA Losartan Potassium 50 mg 02/20/19 10:00 02/20/19 10:13 Cozaar PO 50 mg QDAY [facility] Administration Ondansetron HCl 4 mg 02/19/19 15:41 Zofran IV Q8H PRN Nausea And Vomiting Ondansetron HCl 4 mg 02/19/19 15:43 Zofran Odt PO Q8HR PRN Nausea And Vomiting Pregabalin 150 mg 02/20/19 10:00 02/20/19 10:12 Lyrica PO 150 mg QDAY [facility] Administration Sodium Chloride 10 ml 02/19/19 22:00 02/19/19 22:38 Sodium Chloride Flush Syringe 10 Ml IV 10 ml BID [facility] Administration Sodium Chloride 10 ml 02/19/19 15:41 Sodium Chloride Flush Syringe 10 Ml IV PRN PRN LINE FLUSH Tamsulosin HCl 0.4 mg 02/20/19 10:00 02/20/19 10:12 Flomax PO 0.4 mg QDAY [facility] Administration
[2019-02-20] MEDS: SODIUM CHLORIDE FLUSH SYRINGE 10 ML IV SCH ×2 (17:19→21:39)
[2019-02-20] MEDS ORDERED: LISPRO SQ SCH (18:00)
[2019-02-20] MEDS ORDERED: INSULIN LISPRO PROT SQ SCH (18:00)
[2019-02-20] MEDS: MAXIPIME/NS 2 GM/100 ML 2 GM/100 ML BAG IV SCH (18:36)
[2019-02-20] MEDS: TYLENOL PO PRN (21:38)
[2019-02-21] MEDS: NACL 0.9% 1000 ML 1,000 ML IV SCH (05:37)
[2019-02-21] MEDS: MAXIPIME/NS 2 GM/100 ML 2 GM/100 ML BAG IV SCH ×2 (05:37→17:55)
[2019-02-21] MEDS: LYRICA PO SCH (09:00)
[2019-02-21] MEDS: FLOMAX PO SCH (09:00)
[2019-02-21] MEDS: HALFPRIN EC PO SCH (09:00)
[2019-02-21] MEDS: TRADJENTA PO SCH (09:01)
[2019-02-21] MEDS: KEPPRA PO SCH ×2 (09:01→21:48)
[2019-02-21] MEDS: COREG PO SCH ×2 (09:01→21:49)
[2019-02-21] MEDS: COLACE PO SCH ×2 (09:01→21:48)
[2019-02-21] MEDS: COZAAR PO SCH (09:01)
[2019-02-21] MEDS: SODIUM CHLORIDE FLUSH SYRINGE 10 ML IV SCH ×2 (09:02→21:51)
[2019-02-21] MEDS: TYLENOL PO PRN (09:02)
--- NOTE | 2019-02-21 09:41 | Progress Note ---
Assessment and Plan Assessment and plan: 83 YO Male with HTN, DM, OA, Seizure Disorder, Debility, Dementia, CVA with LHP, Encephalopathy presents to ED for evaluation. Pt is confused and unable to provide detailed history. Pt is at bedside and provides history. As per , the patient was seen by home health and was found to have increased weakness and a temperature of 102.3. Pt is nonambulatory and requires 5/6 assistance with activities of daily living. EMS notified, and upon arrival the patient was found to be febrile. Pt transported to [facility]. Pt seen and evaluated in ED and found to have SIRS suspected secondary to UTI, Encephalopathy, and Acute Kidney Injury. Pt admitted to DAYA unit and initiated on IV antibiotic therapy. 30 minutes dedicated to Advanced care planning. Pt counseled regarding care options. Pt acknowledges understanding and agreement with care plan. Prior admission on 02/02/19 reviewed. All listed medication reconciled at time of admission. No further history obtainable. Pt denies reports of chills, CP, Palpitations, NVD, Skin rash, Productive cough, seizure, or recent ill contacts. * During last admission paient was noted to have UTI and pneumonia with Pseudomonas aerugionosa bacteremia and was treaed with levaquin * Still remains with intermittent low grade fever * Chronic Indewlling randall still in place and will be evaluated outpatient by Urology. Creatnine is stable at 1.7 * Head ct negative (1) sepsis Current Visit: Yes Status: Acute Plan to address problem: IV antibiotic therapy-cefepime ID input noted Give additional fluids V/Q low probability for PE (2) CKD stage 3 Current Visit: Yes Status: Acute Plan to address problem: IVF resuscitation, monitor uop q shift, repeat bmp to monitor serum creatnine (3) Encephalopathy- resolved Current Visit: Yes Status: Acute Plan to address problem: Neuro check, (4) UTI (urinary tract infection) Current Visit: Yes Status: Acute Qualifiers: Encounter type: initial encounter Plan to address problem: IV antibiotic therapy (5) DM with Hyperglycemia Continue insulin therapy, adjust for better control (6) Seizure disorder Continue supportive care (7) Dementia Placement recommended prior but patient and family declines (8) DVT prophylaxis Current Visit: Yes Status: Acute Plan to address problem: SCD to BLE while in bed, prophylactic lovenox History Interval history: Patient seen and examined, no acute distress. NO Family at bedside. patient with low grade temp today. Hospitalist Physical - Constitutional Vitals: Temp Pulse Resp BP Pulse Ox 100.0 F H 92 H 20 143/65 94 02/21/19 07:28 02/21/19 09:01 02/21/19 09:02 02/21/19 09:01 02/21/19 07:28 General appearance: Present: no acute distress, well-nourished - EENT Eyes: Present: PERRL, EOM intact ENT: hearing intact, clear oral mucosa - Neck Neck: Present: supple, normal ROM - Respiratory Respiratory effort: normal Respiratory: bilateral: CTA - Cardiovascular Rhythm: regular Heart Sounds: Present: S1 & S2. Absent: systolic murmur - Extremities Extremities: no ischemia, pulses intact, pulses symmetrical, No edema, Full ROM Peripheral Pulses: within normal limits - Abdominal General gastrointestinal: soft, non-tender, non-distended, normal bowel sounds - Integumentary Integumentary: Present: clear, warm, dry - Psychiatric Psychiatric: appropriate mood/affect, intact judgment & insight, memory intact, cooperative - Neurologic Neurologic: CNII-XII intact, moves all extremities, other (Lethargic) - Allied Health Allied health notes reviewed: nursing Results - Labs CBC & Chem 7: 02/19/19 11:13 02/19/19 11:13 Labs: Laboratory Last Values WBC 10.8 K/mm3 (4.5-11.0) 02/19/19 11:13 RBC 3.89 M/mm3 (3.65-5.03) 02/19/19 11:13 Hgb 11.2 gm/dl (11.8-15.2) L 02/19/19 11:13 Hct 32.8 % (35.5-45.6) L 02/19/19 11:13 MCV 85 fl (84-94) 02/19/19 11:13 MCH 29 pg (28-32) 02/19/19 11:13 MCHC 34 % (32-34) 02/19/19 11:13 RDW 13.9 % (13.2-15.2) 02/19/19 11:13 Plt Count 249 K/mm3 (140-440) 02/19/19 11:13 Lymph % (Auto) 10.4 % (13.4-35.0) L 02/19/19 11:13 [place] % (Auto) 10.9 % (0.0-7.3) H 02/19/19 11:13 Eos % (Auto) 0.3 % (0.0-4.3) 02/19/19 11:13 Baso % (Auto) 0.5 % (0.0-1.8) 02/19/19 11:13 Lymph # 1.1 K/mm3 (1.2-5.4) L 02/19/19 11:13 [place] # 1.2 K/mm3 (0.0-0.8) H 02/19/19 11:13 Eos # 0.0 K/mm3 (0.0-0.4) 02/19/19 11:13 Baso # 0.1 K/mm3 (0.0-0.1) 02/19/19 11:13 Seg Neutrophils % 77.9 % (40.0-70.0) H 02/19/19 11:13 Seg Neutrophils # 8.4 K/mm3 (1.8-7.7) H 02/19/19 11:13 1124.30 ng/mlDDU (0-234) H 02/19/19 15:50 VBG pH 7.473 (7.320-7.420) H 02/19/19 11:13 Sodium 134 mmol/L (137-145) L 02/19/19 11:13 Potassium 4.6 mmol/L (3.6-5.0) 02/19/19 11:13 Chloride 101.3 mmol/L (98-107) 02/19/19 11:13 Carbon Dioxide 26 mmol/L (22-30) 02/19/19 11:13 11 mmol/L 02/19/19 11:13 BUN 19 mg/dL (9-20) 02/19/19 11:13 1.7 mg/dL (0.8-1.5) H 02/19/19 11:13 Estimated GFR 47 ml/min 02/19/19 11:13 11 % 02/19/19 11:13 Glucose 178 mg/dL (75-100) H 02/19/19 11:13 POC Glucose 240 (70-105) H 02/21/19 07:37 Lactic Acid 1.00 mmol/L (0.7-2.0) 02/19/19 14:02 Calcium 8.3 mg/dL (8.4-10.2) L 02/19/19 11:13 0.60 mg/dL (0.1-1.2) 02/19/19 11:13 AST 14 units/L (5-40) 02/19/19 11:13 ALT 9 units/L (7-56) 02/19/19 11:13 75 units/L (35-129) 02/19/19 11:13 7.7 g/dL (6.3-8.2) 02/19/19 11:13 2.8 g/dL (3.9-5) L 02/19/19 11:13 0.6 % 02/19/19 11:13 TSH 0.340 mlU/mL (0.270-4.200) 02/19/19 23:27 Free T4 1.11 ng/dL (0.76-1.46) 02/19/19 23:27 Yellow (Yellow) 02/19/19 Unknown Hazy (Clear) 02/19/19 Unknown 8.0 (5.0-7.0) H 02/19/19 Unknown Ur Specific [place] 1.011 (1.003-1.030) 02/19/19 Unknown 30 mg/dl mg/dL (Negative) 02/19/19 Unknown Neg mg/dL (Negative) 02/19/19 Unknown Neg mg/dL (Negative) 02/19/19 Unknown Mod (Negative) 02/19/19 Unknown Neg (Negative) 02/19/19 Unknown Neg (Negative) 02/19/19 Unknown 4.0 mg/dL (<2.0) 02/19/19 Unknown Ur Leukocyte Esterase Tr (Negative) 02/19/19 Unknown 5.0 /HPF (0.0-6.0) 02/19/19 Unknown 75.0 /HPF (0.0-6.0) 02/19/19 Unknown U Epithel Cells (Auto) < 1.0 /HPF (0-13.0) 02/19/19 Unknown Few /HPF 02/19/19 Unknown Active Medications - Current Medications Current Medications: Generic Name Dose Route Start Last Admin Trade Name Freq PRN Reason Stop Dose Admin Acetaminophen 650 mg 02/19/19 15:41 02/21/19 09:02 Tylenol PO 650 mg Q4H PRN Administration Pain MILD(1-3)/Fever >100.5/[place]SON Acetaminophen/Hydrocodone Bitart 1 each 02/19/19 15:43 [place] 5/325 PO Q6HR PRN Pain Albuterol 2.5 mg 02/19/19 15:41 Proventil IH Q4HRT PRN Shortness Of Breath Aspirin 81 mg 02/20/19 10:00 02/21/19 09:00 Halfprin Ec PO 81 mg DAILY ALANA Administration Atorvastatin Calcium 40 mg 02/19/19 22:00 02/20/19 21:39 Lipitor PO 40 mg QHS ALANA Administration Bisacodyl 10 mg 02/19/19 15:43 02/20/19 13:40 Dulcolax PO 10 mg QDAY PRN Administration Constipation Carvedilol 12.5 mg 02/19/19 22:00 02/21/19 09:01 Coreg PO 12.5 mg BID ALANA Administration Docusate Sodium 100 mg 02/19/19 22:00 02/21/19 09:01 Colace PO 100 mg BID ALANA Administration Furosemide 20 mg 02/19/19 16:00 02/19/19 20:04 Lasix PO 20 mg Q2D ALANA Administration Sodium Chloride 1,000 mls @ 42 mls/hr 02/19/19 16:00 02/21/19 05:37 Nacl 0.9% 1000 Ml IV 42 mls/hr DIRECT ALANA Administration Cefepime HCl 2 gm in 100 mls @ 200 mls/hr 02/20/19 18:00 02/21/19 05:37 Maxipime/Ns 2 Gm/100 Ml IV 200 mls/hr Q12H ALANA Administration Protocol Insulin Human Isoph/Insulin Regular 30 unit 02/20/19 17:00 02/20/19 17:18 Humulin 70/30 SUB-Q 30 unit 1700 ALANA Administration Insulin Human Isoph/Insulin Regular 40 unit 02/21/19 08:00 02/21/19 08:21 Humulin 70/30 SUB-Q 40 unit 0800 ALANA Administration Levetiracetam 500 mg 02/19/19 22:00 02/21/19 09:01 Keppra PO 500 mg BID ALANA Administration Linagliptin 5 mg 02/21/19 10:00 02/21/19 09:01 Tradjenta PO 5 mg QDAY ALANA Administration Losartan Potassium 50 mg 02/20/19 10:00 02/21/19 09:01 Cozaar PO 50 mg QDAY ALANA Administration Ondansetron HCl 4 mg 02/19/19 15:41 Zofran IV Q8H PRN Nausea And Vomiting Ondansetron HCl 4 mg 02/19/19 15:43 Zofran Odt PO Q8HR PRN Nausea And Vomiting Pregabalin 150 mg 02/20/19 10:00 02/21/19 09:00 Lyrica PO 150 mg QDAY ALANA Administration Sodium Chloride 10 ml 02/19/19 22:00 02/21/19 09:02 Sodium Chloride Flush Syringe 10 Ml IV 10 ml BID ALANA Administration Sodium Chloride 10 ml 02/19/19 15:41 Sodium Chloride Flush Syringe 10 Ml IV PRN PRN LINE FLUSH Tamsulosin HCl 0.4 mg 02/20/19 10:00 02/21/19 09:00 Flomax PO 0.4 mg QDAY ALANA Administration
[2019-02-21] MEDS ORDERED: INSULIN LISPRO PROTAMINE SQ SCH (10:00)
[2019-02-21] MEDS ORDERED: [UNRECOGNIZED DRUG - OTHER] SQ SCH (10:00)
[2019-02-21] MEDS: HumaLOG SUB-Q SCH ×3 (12:13→21:50)
[2019-02-21] MEDS: LASIX PO SCH (17:00)
[2019-02-21] MEDS ORDERED: NACL 0.9% 1000 ML 1,000 ML IV ONE (17:00)
[2019-02-21] MEDS: NORCO 5/325 PO PRN (21:48)
[2019-02-22] MEDS: NACL 0.9% 1000 ML 1,000 ML IV SCH (03:50)
[2019-02-22 04:46] LABS: Hematocrit 30.1 % (35.5-45.6); Hemoglobin 9.7 gm/dl (11.8-15.2); Mean Corpuscular HGB Conc 32 % (32-34); Mean Corpuscular Volume 85 fl (84-94); Platelet Count 224 K/mm3 (140-440); Red Blood Count 3.53 M/mm3 (3.65-5.03)
[2019-02-22 04:57] LABS: Calcium 7.8 mg/dL (8.4-10.2)
[2019-02-22] MEDS: MAXIPIME/NS 2 GM/100 ML 2 GM/100 ML BAG IV SCH ×2 (05:45→17:20)
[2019-02-22] MEDS: HumaLOG SUB-Q SCH ×4 (07:39→22:55)
[2019-02-22] MEDS: TRADJENTA PO SCH (09:09)
[2019-02-22] MEDS: FLOMAX PO SCH (09:09)
[2019-02-22] MEDS: HALFPRIN EC PO SCH (09:09)
[2019-02-22] MEDS: COLACE PO SCH ×2 (09:09→22:54)
[2019-02-22] MEDS: COREG PO SCH ×2 (09:10→22:53)
[2019-02-22] MEDS: COZAAR PO SCH (09:10)
[2019-02-22] MEDS: KEPPRA PO SCH ×2 (09:10→22:53)
[2019-02-22] MEDS: LYRICA PO SCH (09:10)
[2019-02-22] MEDS: SODIUM CHLORIDE FLUSH SYRINGE 10 ML IV SCH (09:11)
--- NOTE | 2019-02-22 10:07 | Progress Note ---
Assessment and Plan Assessment and plan: 83 YO Male with HTN, DM, OA, Seizure Disorder, Debility, Dementia, CVA with LHP, Encephalopathy presents to ED for evaluation. Pt is confused and unable to provide detailed history. Pt is at bedside and provides history. As per , the patient was seen by home health and was found to have increased weakness and a temperature of 102.3. Pt is nonambulatory and requires 5/6 assistance with activities of daily living. EMS notified, and upon arrival the patient was found to be febrile. Pt transported to [facility]. Pt seen and evaluated in ED and found to have SIRS suspected secondary to UTI, Encephalopathy, and Acute Kidney Injury. Pt admitted to DAYA unit and initiated on IV antibiotic therapy. 30 minutes dedicated to Advanced care planning. Pt counseled regarding care options. Pt acknowledges understanding and agreement with care plan. Prior admission on 02/02/19 reviewed. All listed medication reconciled at time of admission. No further history obtainable. Pt denies reports of chills, CP, Palpitations, NVD, Skin rash, Productive cough, seizure, or recent ill contacts. * During last admission patient was noted to have UTI and pneumonia with Pseudomonas aerugionosa bacteremia and was treated with levaquin * Still remains with intermittent low grade fever * Chronic Indwelling Cast still in place and will be evaluated outpatient by Urology. Creatinine is stable at 1.7 * Head CT negative (1) sepsis Current Visit: Yes Status: Acute Plan to address problem: IV antibiotic therapy-cefepime ID input noted Give additional fluids V/Q low probability for PE (2) CKD stage 3 Current Visit: Yes Status: Acute Plan to address problem: IVF resuscitation, monitor uop q shift, repeat bmp to monitor serum Creatinine (3) Encephalopathy- resolved Current Visit: Yes Status: Acute Plan to address problem: Neuro check, (4) UTI (urinary tract infection) Current Visit: Yes Status: Acute Qualifiers: Encounter type: initial encounter Plan to address problem: IV antibiotic therapy (5) DM with Hyperglycemia Continue insulin therapy, adjust for better control (6) Seizure disorder Continue supportive care (7) Dementia Placement recommended prior but patient and family declines (8) DVT prophylaxis Current Visit: Yes Status: Acute Plan to address problem: SCD to BLE while in bed, prophylactic lovenox Anticipate discharge in am, may benefit from short term rehab History Interval history: Patient seen and examined, no acute distress. stable, wants to ambulate. Hospitalist Physical - Physical exam Narrative exam: General appearance: Present: no acute distress, well-nourished - EENT Eyes: Present: PERRL, EOM intact ENT: hearing intact, clear oral mucosa - Neck Neck: Present: supple, normal ROM - Respiratory Respiratory effort: normal Respiratory: bilateral: CTA - Cardiovascular Rhythm: regular Heart Sounds: Present: S1 & S2. Absent: systolic murmur - Extremities Extremities: no ischemia, pulses intact, pulses symmetrical, No edema, Full ROM Peripheral Pulses: within normal limits - Abdominal General gastrointestinal: soft, non-tender, non-distended, normal bowel sounds - Integumentary Integumentary: Present: clear, warm, dry - Psychiatric Psychiatric: appropriate mood/affect, intact judgment & insight, memory intact, cooperative - Neurologic Neurologic: CNII-XII intact, moves all extremities, other (Lethargic) - Allied Health Allied health notes reviewed: nursing - Constitutional Vitals: Temp Pulse Resp BP Pulse Ox 98.6 F 75 18 110/58 94 02/22/19 07:28 02/22/19 09:10 02/22/19 08:47 02/22/19 09:10 02/22/19 08:47 General appearance: Present: no acute distress, well-nourished Results - Labs CBC & Chem 7: 02/22/19 03:43 02/22/19 03:43 Labs: Laboratory Last Values WBC 15.1 K/mm3 (4.5-11.0) H 02/22/19 03:43 RBC 3.53 M/mm3 (3.65-5.03) L 02/22/19 03:43 Hgb 9.7 gm/dl (11.8-15.2) L 02/22/19 03:43 Hct 30.1 % (35.5-45.6) L 02/22/19 03:43 MCV 85 fl (84-94) 02/22/19 03:43 MCH 28 pg (28-32) 02/22/19 03:43 MCHC 32 % (32-34) 02/22/19 03:43 RDW 14.0 % (13.2-15.2) 02/22/19 03:43 Plt Count 224 K/mm3 (140-440) 02/22/19 03:43 Lymph % (Auto) 10.4 % (13.4-35.0) L 02/19/19 11:13 [place] % (Auto) 10.9 % (0.0-7.3) H 02/19/19 11:13 Eos % (Auto) 0.3 % (0.0-4.3) 02/19/19 11:13 Baso % (Auto) 0.5 % (0.0-1.8) 02/19/19 11:13 Lymph # 1.1 K/mm3 (1.2-5.4) L 02/19/19 11:13 [place] # 1.2 K/mm3 (0.0-0.8) H 02/19/19 11:13 Eos # 0.0 K/mm3 (0.0-0.4) 02/19/19 11:13 Baso # 0.1 K/mm3 (0.0-0.1) 02/19/19 11:13 Seg Neutrophils % 77.9 % (40.0-70.0) H 02/19/19 11:13 Seg Neutrophils # 8.4 K/mm3 (1.8-7.7) H 02/19/19 11:13 1124.30 ng/mlDDU (0-234) H 02/19/19 15:50 VBG pH 7.473 (7.320-7.420) H 02/19/19 11:13 Sodium 135 mmol/L (137-145) L 02/22/19 03:43 Potassium 3.9 mmol/L (3.6-5.0) 02/22/19 03:43 Chloride 105.1 mmol/L (98-107) 02/22/19 03:43 Carbon Dioxide 22 mmol/L (22-30) 02/22/19 03:43 12 mmol/L 02/22/19 03:43 BUN 26 mg/dL (9-20) H 02/22/19 03:43 1.7 mg/dL (0.8-1.5) H 02/22/19 03:43 Estimated GFR 47 ml/min 02/22/19 03:43 15 % 02/22/19 03:43 Glucose 91 mg/dL (75-100) 02/22/19 03:43 POC Glucose 99 (70-105) 02/22/19 07:33 Lactic Acid 1.00 mmol/L (0.7-2.0) 02/19/19 14:02 Calcium 7.8 mg/dL (8.4-10.2) L 02/22/19 03:43 0.60 mg/dL (0.1-1.2) 02/19/19 11:13 AST 14 units/L (5-40) 02/19/19 11:13 ALT 9 units/L (7-56) 02/19/19 11:13 75 units/L (35-129) 02/19/19 11:13 7.7 g/dL (6.3-8.2) 02/19/19 11:13 2.8 g/dL (3.9-5) L 02/19/19 11:13 0.6 % 02/19/19 11:13 TSH 0.340 mlU/mL (0.270-4.200) 02/19/19 23:27 Free T4 1.11 ng/dL (0.76-1.46) 02/19/19 23:27 Yellow (Yellow) 02/19/19 Unknown Hazy (Clear) 02/19/19 Unknown 8.0 (5.0-7.0) H 02/19/19 Unknown Ur Specific [place] 1.011 (1.003-1.030) 02/19/19 Unknown 30 mg/dl mg/dL (Negative) 02/19/19 Unknown Neg mg/dL (Negative) 02/19/19 Unknown Neg mg/dL (Negative) 02/19/19 Unknown Mod (Negative) 02/19/19 Unknown Neg (Negative) 02/19/19 Unknown Neg (Negative) 02/19/19 Unknown 4.0 mg/dL (<2.0) 02/19/19 Unknown Ur Leukocyte Esterase Tr (Negative) 02/19/19 Unknown 5.0 /HPF (0.0-6.0) 02/19/19 Unknown 75.0 /HPF (0.0-6.0) 02/19/19 Unknown U Epithel Cells (Auto) < 1.0 /HPF (0-13.0) 02/19/19 Unknown Few /HPF 02/19/19 Unknown Active Medications - Current Medications Current Medications: Generic Name Dose Route Start Last Admin Trade Name Freq PRN Reason Stop Dose Admin Acetaminophen 650 mg 02/19/19 15:41 02/21/19 09:02 Tylenol PO 650 mg Q4H PRN Administration Pain MILD(1-3)/Fever >100.5/[place] Acetaminophen/Hydrocodone Bitart 1 each 02/19/19 15:43 02/21/19 21:48 [place] 5/325 PO 1 each Q6HR PRN Administration Pain Albuterol 2.5 mg 02/19/19 15:41 Proventil IH Q4HRT PRN Shortness Of Breath Aspirin 81 mg 02/20/19 10:00 02/22/19 09:09 Halfprin Ec PO 81 mg DAILY ALANA Administration Atorvastatin Calcium 40 mg 02/19/19 22:00 02/21/19 21:48 Lipitor PO 40 mg QHS ALANA Administration Bisacodyl 10 mg 02/19/19 15:43 02/20/19 13:40 Dulcolax PO 10 mg QDAY PRN Administration Constipation Carvedilol 12.5 mg 02/19/19 22:00 02/22/19 09:10 Coreg PO 12.5 mg BID ALANA Administration Docusate Sodium 100 mg 02/19/19 22:00 02/22/19 09:09 Colace PO 100 mg BID ALANA Administration Furosemide 20 mg 02/19/19 16:00 02/21/19 17:00 Lasix PO 20 mg Q2D ALANA Administration Sodium Chloride 1,000 mls @ 42 mls/hr 02/19/19 16:00 02/22/19 03:50 Nacl 0.9% 1000 Ml IV 42 mls/hr DIRECT ALANA Administration Cefepime HCl 2 gm in 100 mls @ 200 mls/hr 02/20/19 18:00 02/22/19 05:45 Maxipime/Ns 2 Gm/100 Ml IV 200 mls/hr Q12H ALANA Administration Protocol Insulin Human Isoph/Insulin Regular 20 unit 02/22/19 10:04 Humulin 70/30 SUB-Q 1700 [facility] Insulin Human Isoph/Insulin Regular 20 unit 02/22/19 10:04 Humulin 70/30 SUB-Q 0800 [facility] Insulin Human Lispro 0 unit 02/21/19 12:00 02/22/19 07:39 Humalog SUB-Q Not Given ACHS [facility] Protocol Levetiracetam 500 mg 02/19/19 22:00 02/22/19 09:10 Keppra PO 500 mg BID ALANA Administration Linagliptin 5 mg 02/21/19 10:00 02/22/19 09:09 Tradjenta PO 5 mg QDAY ALANA Administration Losartan Potassium 50 mg 02/20/19 10:00 02/22/19 09:10 Cozaar PO 50 mg QDAY ALANA Administration Ondansetron HCl 4 mg 02/19/19 15:41 Zofran IV Q8H PRN Nausea And Vomiting Ondansetron HCl 4 mg 02/19/19 15:43 Zofran Odt PO Q8HR PRN Nausea And Vomiting Pregabalin 150 mg 02/20/19 10:00 02/22/19 09:10 Lyrica PO 150 mg QDAY ALANA Administration Sodium Chloride 10 ml 02/19/19 22:00 02/22/19 09:11 Sodium Chloride Flush Syringe 10 Ml IV 10 ml BID ALANA Administration Sodium Chloride 10 ml 02/19/19 15:41 Sodium Chloride Flush Syringe 10 Ml IV PRN PRN LINE FLUSH Tamsulosin HCl 0.4 mg 02/20/19 10:00 02/22/19 09:09 Flomax PO 0.4 mg QDAY ALANA Administration
[2019-02-22] MEDS: TYLENOL PO PRN (22:53)
[2019-02-22] MEDS: DULCOLAX PO PRN (22:54)
[2019-02-23] MEDS: SODIUM CHLORIDE FLUSH SYRINGE 10 ML IV SCH ×3 (00:02→21:04)
[2019-02-23] MEDS: MAXIPIME/NS 2 GM/100 ML 2 GM/100 ML BAG IV SCH ×2 (05:28→17:52)
[2019-02-23] MEDS: NACL 0.9% 1000 ML 1,000 ML IV SCH (05:28)
[2019-02-23] MEDS: HumaLOG SUB-Q SCH ×4 (07:49→22:12)
[2019-02-23] MEDS: FLOMAX PO SCH (09:17)
[2019-02-23] MEDS: HALFPRIN EC PO SCH (09:17)
[2019-02-23] MEDS: COREG PO SCH ×2 (09:17→21:04)
[2019-02-23] MEDS: LYRICA PO SCH (09:17)
[2019-02-23] MEDS: TRADJENTA PO SCH (09:17)
[2019-02-23] MEDS: COLACE PO SCH ×2 (09:17→21:04)
[2019-02-23] MEDS: KEPPRA PO SCH ×2 (09:18→21:04)
[2019-02-23] MEDS: COZAAR PO SCH (09:18)
--- NOTE | 2019-02-23 09:23 | Progress Note ---
Assessment and Plan Cultures: 02/19 BCx - no growth 02/19 UCx - no growth 01/2019 BCx - P aeruginosa, mostly sensitive. A/P: 83 yo M PMhx HTN, DM, OA, Seizure Disorder, Debility, Dementia, CVA with LHP, Encephalopathy admitted with confusion and fevers 1. Sepsis unknown etiology - Leukocytosis and fevers continuing. Unclear source. UA without pyuria, urine cultures and blood cultures no growth. All imaging has been negative thus far without any obvious infective focus. Continue Cefepime empirically given recent history of Pseudomonas bacteremia. Will add vancomycin for broader coverage. 2. Dm2 3. HTn 4. seizure disorder 5. Dementia 6. Hx of CVA Recommendations: -continue cefepime 2g q12h, D4 -add vancomycin PK dosing -CBC ordered for tomorrow -monitor fevers -Renal ultrasound ordered -Discussion with Dr. Mishra, Dr. Dwyer to exchange catheter [facility] M: [id number] O:[phone] Subjective Date of service: 02/23/19 Interval history: Patient seen and examined. Sitting up in bed. Alert and oriented. reports minor abdominal discomfort. +fevers. at bedside. Objective - Exam Narrative Exam: Constitutional: awake. Alert. No acute distress Head, Ears, Nose: Normocephalic, atraumatic. External ears, nose normal Eyes: Conjunctivae/corneas clear. No icterus. No ptosis. Neck: Supple, no meningeal signs Oral: fair dentition, moist mucous membranes Cardiovascular: S1, S2 normal. Normal rhythm Respiratory: Good air entry, clear to auscultation bilaterally GI: Soft, minor tenderness on exam. bowel sounds normal. No peritoneal signs Musculoskeletal: No pedal edema, Skin: No rash or abscess Hem/Lymphatic: No palpable cervical or supraclavicular nodes. No lymphangitis Psych: no agitation Neurological: Moves all extremities, no focal defects - Constitutional Vitals: Vital Signs Temp Pulse Resp BP Pulse Ox 98.2 F 73 20 196/85 96 02/23/19 07:34 02/23/19 07:34 02/23/19 07:34 02/23/19 07:34 02/23/19 07:34 Temperature -Last 24 Hours Temperature 98.2 F Temperature 98.5 F Temperature 99.4 F Temperature 102.1 F Temperature 99.9 F - Labs CBC & Chem 7: 02/23/19 09:42 02/22/19 03:43 Labs: Abnormal lab results 02/22/19 02/22/19 02/22/19 Range/Units 10:27 11:27 16:26 POC Glucose 128 H 182 H 183 H (70-105) 02/22/19 02/23/19 Range/Units 21:58 07:41 POC Glucose 176 H 131 H (70-105)
[2019-02-23 10:20] LABS: Hematocrit 29.7 % (35.5-45.6); Hemoglobin 9.9 gm/dl (11.8-15.2); Mean Corpuscular HGB Conc 33 % (32-34); Mean Corpuscular Volume 84 fl (84-94); Platelet Count 251 K/mm3 (140-440); Red Blood Count 3.52 M/mm3 (3.65-5.03); Red Cell Distribution Width 14.5 % (13.2-15.2)
[2019-02-23 11:31] LABS: Band Neutrophils # (Manual) 0.5 K/mm3; Basophils % (Manual) 0 % (0.0-1.8); Platelet Estimate Consistent w Auto; RBC Morphology Normal; Total Cells Counted 100
--- NOTE | 2019-02-23 13:43 | Ultrasound Report ---
ULTRASOUND RENAL INDICATION / CLINICAL INFORMATION: pyelonephritis. COMPARISON: 02/03/2019 FINDINGS: RIGHT KIDNEY: Length = 10.0 cm. [normal > 9 cm] - Parenchymal Thickness = 1.2 cm. [normal > 1.5 cm] - Echogenicity: Increased - Hydronephrosis: None. - Cyst or mass: No significant abnormality. - Stones: None seen. LEFT KIDNEY: Length = 10.6 cm. [normal > 9 cm] - Parenchymal Thickness = 1.6 cm. [normal > 1.5 cm] - Echogenicity: Increased - Hydronephrosis: None. - Cyst or mass: No significant abnormality. - Stones: None seen. URINARY BLADDER: The bladder is decompressed with a Cast catheter. FREE FLUID: None. ADDITIONAL FINDINGS: Color Doppler imaging demonstrates decreased cortical perfusion bilaterally. No findings to suggest pyelonephritis. IMPRESSION: Nonspecific renal parenchymal disease. No evidence for pyelonephritis. Signer Name: Craig Casarez Jr, MD Signed: 02/23/2019 1:39 PM Workstation Name: [id number]
[2019-02-23] MEDS ORDERED: VANCOMYCIN PHARMACY TO DOSE IV SCH (14:00)
[2019-02-23] MEDS ORDERED: VANCOMYCIN 1,750 MG in NACL 0.9% 500 ML 500 ML IV ONE (15:00)
--- NOTE | 2019-02-23 16:13 | Progress Note ---
Assessment and Plan Assessment and plan: 83 YO Male with HTN, DM, OA, Seizure Disorder, Debility, Dementia, CVA with LHP, Encephalopathy presents to ED for evaluation. Pt is confused and unable to provide detailed history. Pt is at bedside and provides history. As per , the patient was seen by home health and was found to have increased weakness and a temperature of 102.3. Pt is nonambulatory and requires 5/6 assistance with activities of daily living. EMS notified, and upon arrival the patient was found to be febrile. Pt transported to [facility]. Pt seen and evaluated in ED and found to have SIRS suspected secondary to UTI, Encephalopathy, and Acute Kidney Injury. Pt admitted to [facility] unit and initiated on IV antibiotic therapy. 30 minutes dedicated to Advanced care planning. Pt counseled regarding care options. Pt acknowledges understanding and agreement with care plan. Prior admission on 02/02/19 reviewed. All listed medication reconciled at time of admission. No further history obtainable. Pt denies reports of chills, CP, Palpitations, NVD, Skin rash, Productive cough, seizure, or recent ill contacts. * During last admission patient was noted to have UTI and pneumonia with Pseudomonas aerugionosa bacteremia and was treated with levaquin * Still remains with intermittent low grade fever * Chronic Indwelling Randall still in place and will be evaluated outpatient by Urology. Creatinine is stable at 1.7 * Head CT negative * Echo ordered to evaluate for vegetation as patient continue to have recurrent fever * Oxytutinin started for possible underlying Bladder spasm * Urology consulted to evaluate exchanging Randall (1) sepsis * IV antibiotic therapy-cefepime, vanco added, ID following (2) CKD stage 3 * IVF resuscitation, monitor uop q shift, repeat bmp to monitor serum Creatinine (3) Encephalopathy- resolved * Neuro check, (4) UTI (urinary tract infection) * IV antibiotic therapy, repeat urinalysis negative. (5) DM with Hyperglycemia * Continue insulin therapy, adjust for better control (6) Seizure disorder * Continue supportive care (7) Dementia * Placement recommended prior but patient and family declines (8) Elevated D.dimer * v/q negative (9) DVT prophylaxis Current Visit: Yes Status: Acute Plan to address problem: SCD to BLE while in bed, prophylactic lovenox Patient on discharge will benefit from Rehab. History Interval history: Patient seen and examined, no acute distress. complaints of wanting randall to come out, reports pain at the suprapubic area, has been present for a few days. 09/21. fever noted late yesterday. Hospitalist Physical - Physical exam Narrative exam: General appearance: Present: no acute distress, well-nourished, family at bedside - EENT Eyes: Present: PERRL, EOM intact ENT: hearing intact, clear oral mucosa - Neck Neck: Present: supple, normal ROM - Respiratory Respiratory effort: normal Respiratory: bilateral: CTA - Cardiovascular Rhythm: regular Heart Sounds: Present: S1 & S2. Absent: systolic murmur - Extremities Extremities: no ischemia, pulses intact, pulses symmetrical, No edema, Full ROM Peripheral Pulses: within normal limits - Abdominal General gastrointestinal: soft, non-tender, non-distended, normal bowel sounds - Integumentary Integumentary: Present: clear, warm, dry - Psychiatric Psychiatric: appropriate mood/affect, intact judgment & insight, memory intact, cooperative - Neurologic Neurologic: CNII-XII intact, moves all extremities, - Allied Health Allied health notes reviewed: nursing - Constitutional Vitals: Temp Pulse Resp BP Pulse Ox 98.2 F 73 20 196/85 96 02/23/19 07:34 02/23/19 09:17 02/23/19 07:34 02/23/19 09:17 02/23/19 07:34 General appearance: Present: no acute distress, well-nourished Results - Labs CBC & Chem 7: 02/23/19 09:42 02/22/19 03:43 Labs: Laboratory Last Values WBC 16.0 K/mm3 (4.5-11.0) H 02/23/19 09:42 RBC 3.52 M/mm3 (3.65-5.03) L 02/23/19 09:42 Hgb 9.9 gm/dl (11.8-15.2) L 02/23/19 09:42 Hct 29.7 % (35.5-45.6) L 02/23/19 09:42 MCV 84 fl (84-94) 02/23/19 09:42 MCH 28 pg (28-32) 02/23/19 09:42 MCHC 33 % (32-34) 02/23/19 09:42 RDW 14.5 % (13.2-15.2) 02/23/19 09:42 Plt Count 251 K/mm3 (140-440) 02/23/19 09:42 Lymph % (Auto) 10.4 % (13.4-35.0) L 02/19/19 11:13 [place] % (Auto) 10.9 % (0.0-7.3) H 02/19/19 11:13 Eos % (Auto) 0.3 % (0.0-4.3) 02/19/19 11:13 Baso % (Auto) 0.5 % (0.0-1.8) 02/19/19 11:13 Lymph # 1.1 K/mm3 (1.2-5.4) L 02/19/19 11:13 [place] # 1.2 K/mm3 (0.0-0.8) H 02/19/19 11:13 Eos # 0.0 K/mm3 (0.0-0.4) 02/19/19 11:13 Baso # 0.1 K/mm3 (0.0-0.1) 02/19/19 11:13 Add Manual Diff Complete 02/23/19 09:42 Total Counted 100 02/23/19 09:42 Seg Neutrophils % 77.9 % (40.0-70.0) H 02/19/19 11:13 Seg Neuts % (Manual) 90.0 % (40.0-70.0) H 02/23/19 09:42 3.0 % 02/23/19 09:42 1.0 % (13.4-35.0) L 02/23/19 09:42 Reactive Lymphs % (Man) 0 % 02/23/19 09:42 5.0 % (0.0-7.3) 02/23/19 09:42 1.0 % (0.0-4.3) 02/23/19 09:42 0 % (0.0-1.8) 02/23/19 09:42 0 % 02/23/19 09:42 0 % 02/23/19 09:42 0 % 02/23/19 09:42 0 % 02/23/19 09:42 Nucleated RBC % Not Reportable 02/23/19 09:42 Seg Neutrophils # 8.4 K/mm3 (1.8-7.7) H 02/19/19 11:13 Seg Neutrophils # Man 14.4 K/mm3 (1.8-7.7) H 02/23/19 09:42 Band Neutrophils # 0.5 K/mm3 02/23/19 09:42 0.2 K/mm3 (1.2-5.4) L 02/23/19 09:42 Abs React Lymphs (Man) 0.0 K/mm3 02/23/19 09:42 0.8 K/mm3 (0.0-0.8) 02/23/19 09:42 0.2 K/mm3 (0.0-0.4) 02/23/19 09:42 0.0 K/mm3 (0.0-0.1) 02/23/19 09:42 0.0 K/mm3 02/23/19 09:42 0.0 K/mm3 02/23/19 09:42 0.0 K/mm3 02/23/19 09:42 Blast Cells # 0.0 K/mm3 02/23/19 09:42 WBC Morphology Not Reportable 02/23/19 09:42 Hypersegmented Neuts Not Reportable 02/23/19 09:42 Hyposegmented Neuts Not Reportable 02/23/19 09:42 Hypogranular Neuts Not Reportable 02/23/19 09:42 Not Reportable 02/23/19 09:42 Not Reportable 02/23/19 09:42 Not Reportable 02/23/19 09:42 Not Reportable 02/23/19 09:42 Not Reportable 02/23/19 09:42 Not Reportable 02/23/19 09:42 Consistent w auto 02/23/19 09:42 Not Reportable 02/23/19 09:42 Plt Clumps, EDTA Not Reportable 02/23/19 09:42 Not Reportable 02/23/19 09:42 Not Reportable 02/23/19 09:42 Not Reportable 02/23/19 09:42 Plt Morphology Comment Not Reportable 02/23/19 09:42 RBC Morphology Normal 02/23/19 09:42 Dimorphic RBCs Not Reportable 02/23/19 09:42 Not Reportable 02/23/19 09:42 Not Reportable 02/23/19 09:42 Not Reportable 02/23/19 09:42 Not Reportable 02/23/19 09:42 Not Reportable 02/23/19 09:42 Not Reportable 02/23/19 09:42 Not Reportable 02/23/19 09:42 Not Reportable 02/23/19 09:42 Not Reportable 02/23/19 09:42 Not Reportable 02/23/19 09:42 Not Reportable 02/23/19 09:42 Not Reportable 02/23/19 09:42 Not Reportable 02/23/19 09:42 Not Reportable 02/23/19 09:42 Not Reportable 02/23/19 09:42 Not Reportable 02/23/19 09:42 Not Reportable 02/23/19 09:42 Not Reportable 02/23/19 09:42 Not Reportable 02/23/19 09:42 Acanthocytes (Spur) Not Reportable 02/23/19 09:42 Rouleaux Not Reportable 02/23/19 09:42 Not Reportable 02/23/19 09:42 Not Reportable 02/23/19 09:42 Not Reportable 02/23/19 09:42 Not Reportable 02/23/19 09:42 Hem Pathologist Commnt No 02/23/19 09:42 1124.30 ng/mlDDU (0-234) H 02/19/19 15:50 VBG pH 7.473 (7.320-7.420) H 02/19/19 11:13 Sodium 135 mmol/L (137-145) L 02/22/19 03:43 Potassium 3.9 mmol/L (3.6-5.0) 02/22/19 03:43 Chloride 105.1 mmol/L (98-107) 02/22/19 03:43 Carbon Dioxide 22 mmol/L (22-30) 02/22/19 03:43 12 mmol/L 02/22/19 03:43 BUN 26 mg/dL (9-20) H 02/22/19 03:43 1.7 mg/dL (0.8-1.5) H 02/22/19 03:43 Estimated GFR 47 ml/min 02/22/19 03:43 15 % 02/22/19 03:43 Glucose 91 mg/dL (75-100) 02/22/19 03:43 POC Glucose 183 (70-105) H 02/23/19 13:09 Lactic Acid 1.00 mmol/L (0.7-2.0) 02/19/19 14:02 Calcium 7.8 mg/dL (8.4-10.2) L 02/22/19 03:43 0.60 mg/dL (0.1-1.2) 02/19/19 11:13 AST 14 units/L (5-40) 02/19/19 11:13 ALT 9 units/L (7-56) 02/19/19 11:13 75 units/L (35-129) 02/19/19 11:13 7.7 g/dL (6.3-8.2) 02/19/19 11:13 2.8 g/dL (3.9-5) L 02/19/19 11:13 0.6 % 02/19/19 11:13 TSH 0.340 mlU/mL (0.270-4.200) 02/19/19 23:27 Free T4 1.11 ng/dL (0.76-1.46) 02/19/19 23:27 Yellow (Yellow) 02/19/19 Unknown Hazy (Clear) 02/19/19 Unknown 8.0 (5.0-7.0) H 02/19/19 Unknown Ur Specific [place] 1.011 (1.003-1.030) 02/19/19 Unknown 30 mg/dl mg/dL (Negative) 02/19/19 Unknown Neg mg/dL (Negative) 02/19/19 Unknown Neg mg/dL (Negative) 02/19/19 Unknown Mod (Negative) 02/19/19 Unknown Neg (Negative) 02/19/19 Unknown Neg (Negative) 02/19/19 Unknown 4.0 mg/dL (<2.0) 02/19/19 Unknown Ur Leukocyte Esterase Tr (Negative) 02/19/19 Unknown 5.0 /HPF (0.0-6.0) 02/19/19 Unknown 75.0 /HPF (0.0-6.0) 02/19/19 Unknown U Epithel Cells (Auto) < 1.0 /HPF (0-13.0) 02/19/19 Unknown Few /HPF 02/19/19 Unknown Active Medications - Current Medications Current Medications: Generic Name Dose Route Start Last Admin Trade Name Freq PRN Reason Stop Dose Admin Acetaminophen 650 mg 08/08/19 15:41 02/22/19 22:53 Tylenol PO 650 mg Q4H PRN Administration Pain MILD(1-3)/Fever >100.5/STINSON Acetaminophen/Hydrocodone Bitart 1 each 02/19/19 15:43 02/21/19 21:48 [place] 5/325 PO 1 each Q6HR PRN Administration Pain Albuterol 2.5 mg 02/19/19 15:41 Proventil IH Q4HRT PRN Shortness Of Breath Aspirin 81 mg 02/20/19 10:00 02/23/19 09:17 Halfprin Ec PO 81 mg DAILY ALANA Administration Atorvastatin Calcium 40 mg 02/19/19 22:00 02/22/19 22:55 Lipitor PO 40 mg QHS ALANA Administration Bisacodyl 10 mg 02/19/19 15:43 02/22/19 22:54 Dulcolax PO 10 mg QDAY PRN Administration Constipation Carvedilol 12.5 mg 02/19/19 22:00 02/23/19 09:17 Coreg PO 12.5 mg BID ALANA Administration Docusate Sodium 100 mg 02/19/19 22:00 02/23/19 09:17 Colace PO 100 mg BID ALANA Administration Furosemide 20 mg 02/19/19 16:00 02/21/19 17:00 Lasix PO 20 mg Q2D ALANA Administration Hydralazine HCl 10 mg 02/23/19 10:39 Apresoline IV Q4HR PRN Hypertension Sodium Chloride 1,000 mls @ 42 mls/hr 02/19/19 16:00 02/23/19 05:28 Nacl 0.9% 1000 Ml IV 42 mls/hr DIRECT ALANA Administration Cefepime HCl 2 gm in 100 mls @ 200 mls/hr 02/20/19 18:00 02/23/19 05:28 Maxipime/Ns 2 Gm/100 Ml IV 200 mls/hr Q12H ALANA Administration Protocol Vancomycin HCl 1,750 mg/ 535 mls @ 333.333 mls/hr 02/23/19 15:00 Sodium Chloride IV 02/23/19 16:36 ONCE ONE Vancomycin HCl 1,250 mg/ 275 mls @ 166.667 mls/hr 02/24/19 16:00 Sodium Chloride IV Q24H ALANA Insulin Human Isoph/Insulin Regular 20 unit 02/22/19 17:00 02/22/19 17:16 Humulin 70/30 SUB-Q 20 unit 1700 ALANA Administration Insulin Human Isoph/Insulin Regular 20 unit 02/22/19 10:30 02/23/19 09:18 Humulin 70/30 SUB-Q 20 unit 0800 ALANA Administration Insulin Human Lispro 0 unit 02/21/19 12:00 02/23/19 13:17 Humalog SUB-Q 3 unit ACHS ALANA Administration Protocol Levetiracetam 500 mg 02/19/19 22:00 02/23/19 09:18 Keppra PO 500 mg BID ALANA Administration Linagliptin 5 mg 02/21/19 10:00 02/23/19 09:17 Tradjenta PO 5 mg QDAY ALANA Administration Losartan Potassium 50 mg 02/20/19 10:00 02/23/19 09:18 Cozaar PO 50 mg QDAY ALANA Administration Ondansetron HCl 4 mg 02/19/19 15:43 Zofran Odt PO Q8HR PRN Nausea And Vomiting Oxybutynin Chloride 10 mg 02/23/19 15:00 Ditropan Xl PO QDAY ALANA Pregabalin 150 mg 02/20/19 10:00 02/23/19 09:17 Lyrica PO 150 mg QDAY ALANA Administration Sodium Chloride 10 ml 02/19/19 22:00 02/23/19 13:20 Sodium Chloride Flush Syringe 10 Ml IV 10 ml BID ALANA Administration Sodium Chloride 10 ml 02/19/19 15:41 Sodium Chloride Flush Syringe 10 Ml IV PRN PRN LINE FLUSH Tamsulosin HCl 0.4 mg 02/20/19 10:00 02/23/19 09:17 Flomax PO 0.4 mg QDAY ALANA Administration
[2019-02-23] MEDS: DITROPAN XL PO SCH (16:45)
[2019-02-23] MEDS: LASIX PO SCH (16:45)
[2019-02-23] MEDS: APRESOLINE IV PRN (21:02)
[2019-02-23] MEDS: NORCO 5/325 PO PRN (21:22)
[2019-02-24] MEDS: MAXIPIME/NS 2 GM/100 ML 2 GM/100 ML BAG IV SCH ×2 (05:23→17:34)
[2019-02-24] MEDS: NACL 0.9% 1000 ML 1,000 ML IV SCH (05:23)
[2019-02-24] MEDS: APRESOLINE IV PRN (05:25)
[2019-02-24 06:19] LABS: Hematocrit 28.4 % (35.5-45.6); Hemoglobin 9.4 gm/dl (11.8-15.2); Mean Corpuscular HGB Conc 33 % (32-34); Mean Corpuscular Volume 84 fl (84-94); Platelet Count 253 K/mm3 (140-440); Red Blood Count 3.36 M/mm3 (3.65-5.03); Red Cell Distribution Width 14.3 % (13.2-15.2)
[2019-02-24 06:40] LABS: Calcium 8.1 mg/dL (8.4-10.2)
--- NOTE | 2019-02-24 09:19 | Progress Note ---
Assessment and Plan Cultures: 02/19 BCx - no growth 02/19 UCx - no growth 01/2019 BCx - P aeruginosa, mostly sensitive. A/P: 83 yo M PMhx HTN, DM, OA, Seizure Disorder, Debility, Dementia, CVA with LHP, Encephalopathy admitted with confusion and fevers 1. Sepsis unknown etiology- Improved. Leukocytosis trending down. Unclear source. UA without pyuria, urine cultures and blood cultures no growth. All imaging has been negative thus far without any obvious infective focus. Renal US showed Nonspecific renal parenchymal disease. Otherwise unremarkable. Continue Cefepime empirically given recent history of Pseudomonas bacteremia. Vancomycin added for broader coverage. 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 HTn 4. seizure disorder 5. Dementia 6. Hx of CVA Recommendations: -continue cefepime 2g q12h, D5 -continue vancomycin PK dosing, D2 -Dr. Dwyer to exchange catheter -Anticipate discharge on Ciprofloxacin 500 mg PO BID for 5 days [facility] M: [id number] O:[phone] Subjective Date of service: 02/24/19 Interval history: Patient seen and examined. Asleep difficult to arouse. at bedside. Objective - Exam Narrative Exam: Constitutional: Asleep. Difficult to arouse. No acute distress Head, Ears, Nose: Normocephalic, atraumatic. External ears, nose normal Eyes: Conjunctivae/corneas clear. No icterus. No ptosis. Neck: Supple, no meningeal signs Oral: fair dentition, moist mucous membranes Cardiovascular: S1, S2 normal. Normal rhythm Respiratory: Good air entry, clear to auscultation bilaterally GI: Soft, minor tenderness on exam. bowel sounds normal. No peritoneal signs Musculoskeletal: No pedal edema, Skin: No rash or abscess Hem/Lymphatic: No palpable cervical or supraclavicular nodes. No lymphangitis Psych: no agitation Neurological: Moves all extremities, no focal defects - Constitutional Vitals: Vital Signs Temp Pulse Resp BP Pulse Ox 99.3 F 78 18 168/70 94 02/24/19 02:00 02/24/19 05:25 02/24/19 02:00 02/24/19 05:25 02/24/19 02:00 Temperature -Last 24 Hours Temperature 99.3 F Temperature 99.6 F - Labs CBC & Chem 7: 02/24/19 05:46 02/24/19 05:46 Labs: Abnormal lab results 02/23/19 02/23/19 02/23/19 Range/Units 09:42 13:09 17:22 WBC 16.0 H (4.5-11.0) K/mm3 RBC 3.52 L (3.65-5.03) M/mm3 Hgb 9.9 L (11.8-15.2) gm/dl Hct 29.7 L (35.5-45.6) % Seg Neuts % (Manual) 90.0 H (40.0-70.0) % Lymphocytes % (Manual) 1.0 L (13.4-35.0) % Seg Neutrophils # Man 14.4 H (1.8-7.7) K/mm3 Lymphocytes # (Manual) 0.2 L (1.2-5.4) K/mm3 Chloride (98-107) mmol/L Carbon Dioxide (22-30) mmol/L BUN (9-20) mg/dL Glucose (75-100) mg/dL POC Glucose 183 H 183 H (70-105) Calcium (8.4-10.2) mg/dL 02/23/19 02/24/19 02/24/19 Range/Units 21:57 05:46 05:46 WBC 14.4 H (4.5-11.0) K/mm3 RBC 3.36 L (3.65-5.03) M/mm3 Hgb 9.4 L (11.8-15.2) gm/dl Hct 28.4 L (35.5-45.6) % Seg Neuts % (Manual) (40.0-70.0) % Lymphocytes % (Manual) (13.4-35.0) % Seg Neutrophils # Man (1.8-7.7) K/mm3 Lymphocytes # (Manual) (1.2-5.4) K/mm3 Chloride 109.7 H (98-107) mmol/L Carbon Dioxide 20 L (22-30) mmol/L BUN 22 H (9-20) mg/dL Glucose 72 L (75-100) mg/dL POC Glucose 148 H (70-105) Calcium 8.1 L (8.4-10.2) mg/dL
[2019-02-24] MEDS: HumaLOG SUB-Q SCH ×4 (09:45→23:13)
[2019-02-24] MEDS: COREG PO SCH ×2 (09:47→23:13)
[2019-02-24] MEDS: HALFPRIN EC PO SCH (09:47)
[2019-02-24] MEDS: LYRICA PO SCH (09:47)
[2019-02-24] MEDS: DITROPAN XL PO SCH (09:47)
[2019-02-24] MEDS: SODIUM CHLORIDE FLUSH SYRINGE 10 ML IV SCH ×2 (09:48→23:14)
[2019-02-24] MEDS: COZAAR PO SCH (09:48)
[2019-02-24] MEDS: FLOMAX PO SCH (09:48)
[2019-02-24] MEDS: COLACE PO SCH ×2 (09:48→23:12)
[2019-02-24] MEDS: TRADJENTA PO SCH (09:48)
[2019-02-24] MEDS: KEPPRA PO SCH ×2 (09:48→23:12)
--- NOTE | 2019-02-24 14:12 | Progress Note ---
Assessment and Plan Assessment and plan: 83 YO Male with HTN, DM, OA, Seizure Disorder, Debility, Dementia, CVA with LHP, Encephalopathy presents to ED for evaluation. Pt is confused and unable to provide detailed history. Pt is at bedside and provides history. As per , the patient was seen by home health and was found to have increased weakness and a temperature of 102.3. Pt is nonambulatory and requires 5/6 assistance with activities of daily living. EMS notified, and upon arrival the patient was found to be febrile. Pt transported to [facility]. Pt seen and evaluated in ED and found to have SIRS suspected secondary to UTI, Encephalopathy, and Acute Kidney Injury. Pt admitted to [facility] unit and initiated on IV antibiotic therapy. 30 minutes dedicated to Advanced care planning. Pt counseled regarding care options. Pt acknowledges understanding and agreement with care plan. Prior admission on 02/02/19 reviewed. All listed medication reconciled at time of admission. No further history obtainable. Pt denies reports of chills, CP, Palpitations, NVD, Skin rash, Productive cough, seizure, or recent ill contacts. * During last admission patient was noted to have UTI and pneumonia with Pseudomonas aerugionosa bacteremia and was treated with levaquin * Still remains with intermittent low grade fever * Chronic Indwelling Cast still in place and will be evaluated outpatient by Urology. Creatinine is stable at 1.7 * Head CT negative * Echo ordered to evaluate for vegetation as patient continue to have recurrent fever * Oxytutinin started for possible underlying Bladder spasm * Urology consulted to evaluate exchanging Cast (1) sepsis * IV antibiotic therapy-cefepime, vanco added, ID following (2) CKD stage 3 * IVF resuscitation, monitor uop q shift, repeat bmp to monitor serum Creatinine (3) Encephalopathy- resolved * Neuro check, (4) UTI (urinary tract infection) * IV antibiotic therapy, repeat urinalysis negative. * Discussed with urology and said no need of changing the catheter, will follow him in the office (5) DM with Hyperglycemia * Continue insulin therapy, adjust for better control (6) Seizure disorder * Continue supportive care (7) Dementia * Placement recommended prior but patient and family declines (8) Elevated D.dimer * v/q negative Deconditioned - patient didn't walk after admission - Need PT evaluation (9) DVT prophylaxis Current Visit: Yes Status: Acute Plan to address problem: SCD to BLE while in bed, prophylactic lovenox Patient on discharge will benefit from Rehab. History Interval history: Patient was seen and evaluated this morning, patient didn't have any complaints. Hospitalist Physical - Physical exam Narrative exam: General appearance: Present: no acute distress, well-nourished, family at bedside - EENT Eyes: Present: PERRL, EOM intact ENT: hearing intact, clear oral mucosa - Neck Neck: Present: supple, normal ROM - Respiratory Respiratory effort: normal Respiratory: bilateral: CTA - Cardiovascular Rhythm: regular Heart Sounds: Present: S1 & S2. Absent: systolic murmur - Extremities Extremities: no ischemia, pulses intact, pulses symmetrical, No edema, Full ROM Peripheral Pulses: within normal limits - Abdominal General gastrointestinal: soft, non-tender, non-distended, normal bowel sounds - Integumentary Integumentary: Present: clear, warm, dry - Psychiatric Psychiatric: appropriate mood/affect, intact judgment & insight, memory intact, cooperative - Neurologic Neurologic: CNII-XII intact, moves all extremities, - Allied Health Allied health notes reviewed: nursing - Constitutional Vitals: Temp Pulse Resp BP Pulse Ox 98.9 F 80 18 149/71 94 02/24/19 07:00 02/24/19 07:00 02/24/19 07:00 02/24/19 07:00 02/24/19 10:00 General appearance: Present: no acute distress, well-nourished Results - Labs CBC & Chem 7: 02/24/19 05:46 02/24/19 05:46 Labs: Laboratory Last Values WBC 14.4 K/mm3 (4.5-11.0) H 02/24/19 05:46 RBC 3.36 M/mm3 (3.65-5.03) L 02/24/19 05:46 Hgb 9.4 gm/dl (11.8-15.2) L 02/24/19 05:46 Hct 28.4 % (35.5-45.6) L 02/24/19 05:46 MCV 84 fl (84-94) 02/24/19 05:46 MCH 28 pg (28-32) 02/24/19 05:46 MCHC 33 % (32-34) 02/24/19 05:46 RDW 14.3 % (13.2-15.2) 02/24/19 05:46 Plt Count 253 K/mm3 (140-440) 02/24/19 05:46 Lymph % (Auto) 10.4 % (13.4-35.0) L 02/19/19 11:13 [place]alls % (Auto) 10.9 % (0.0-7.3) H 02/19/19 11:13 Eos % (Auto) 0.3 % (0.0-4.3) 02/19/19 11:13 Baso % (Auto) 0.5 % (0.0-1.8) 02/19/19 11:13 Lymph # 1.1 K/mm3 (1.2-5.4) L 02/19/19 11:13 Ralls # 1.2 K/mm3 (0.0-0.8) H 02/19/19 11:13 Eos # 0.0 K/mm3 (0.0-0.4) 02/19/19 11:13 Baso # 0.1 K/mm3 (0.0-0.1) 02/19/19 11:13 Add Manual Diff Complete 02/23/19 09:42 Total Counted 100 02/23/19 09:42 Seg Neutrophils % 77.9 % (40.0-70.0) H 02/19/19 11:13 Seg Neuts % (Manual) 90.0 % (40.0-70.0) H 02/23/19 09:42 3.0 % 02/23/19 09:42 1.0 % (13.4-35.0) L 02/23/19 09:42 Reactive Lymphs % (Man) 0 % 02/23/19 09:42 5.0 % (0.0-7.3) 02/23/19 09:42 1.0 % (0.0-4.3) 02/23/19 09:42 0 % (0.0-1.8) 02/23/19 09:42 0 % 02/23/19 09:42 0 % 02/23/19 09:42 0 % 02/23/19 09:42 0 % 02/23/19 09:42 Nucleated RBC % Not Reportable 02/23/19 09:42 Seg Neutrophils # 8.4 K/mm3 (1.8-7.7) H 02/19/19 11:13 Seg Neutrophils # Man 14.4 K/mm3 (1.8-7.7) H 02/23/19 09:42 Band Neutrophils # 0.5 K/mm3 02/23/19 09:42 0.2 K/mm3 (1.2-5.4) L 02/23/19 09:42 Abs React Lymphs (Man) 0.0 K/mm3 02/23/19 09:42 0.8 K/mm3 (0.0-0.8) 02/23/19 09:42 0.2 K/mm3 (0.0-0.4) 02/23/19 09:42 0.0 K/mm3 (0.0-0.1) 02/23/19 09:42 0.0 K/mm3 02/23/19 09:42 0.0 K/mm3 02/23/19 09:42 0.0 K/mm3 02/23/19 09:42 Blast Cells # 0.0 K/mm3 02/23/19 09:42 WBC Morphology Not Reportable 02/23/19 09:42 Hypersegmented Neuts Not Reportable 02/23/19 09:42 Hyposegmented Neuts Not Reportable 02/23/19 09:42 Hypogranular Neuts Not Reportable 02/23/19 09:42 Not Reportable 02/23/19 09:42 Not Reportable 02/23/19 09:42 Not Reportable 02/23/19 09:42 Not Reportable 02/23/19 09:42 Not Reportable 02/23/19 09:42 Not Reportable 02/23/19 09:42 Consistent w auto 02/23/19 09:42 Not Reportable 02/23/19 09:42 Plt Clumps, EDTA Not Reportable 02/23/19 09:42 Not Reportable 02/23/19 09:42 Not Reportable 02/23/19 09:42 Not Reportable 02/23/19 09:42 Plt Morphology Comment Not Reportable 02/23/19 09:42 RBC Morphology Normal 02/23/19 09:42 Dimorphic RBCs Not Reportable 02/23/19 09:42 Not Reportable 02/23/19 09:42 Not Reportable 02/23/19 09:42 Not Reportable 02/23/19 09:42 Not Reportable 02/23/19 09:42 Not Reportable 02/23/19 09:42 Not Reportable 02/23/19 09:42 Not Reportable 02/23/19 09:42 Not Reportable 02/23/19 09:42 Not Reportable 02/23/19 09:42 Not Reportable 02/23/19 09:42 Not Reportable 02/23/19 09:42 Not Reportable 02/23/19 09:42 Not Reportable 02/23/19 09:42 Not Reportable 02/23/19 09:42 Not Reportable 02/23/19 09:42 Not Reportable 02/23/19 09:42 Not Reportable 02/23/19 09:42 Not Reportable 02/23/19 09:42 Not Reportable 02/23/19 09:42 Acanthocytes (Spur) Not Reportable 02/23/19 09:42 Rouleaux Not Reportable 02/23/19 09:42 Not Reportable 02/23/19 09:42 Not Reportable 02/23/19 09:42 Not Reportable 02/23/19 09:42 Not Reportable 02/23/19 09:42 Hem Pathologist Commnt No 02/23/19 09:42 1124.30 ng/mlDDU (0-234) H 02/19/19 15:50 VBG pH 7.473 (7.320-7.420) H 02/19/19 11:13 Sodium 139 mmol/L (137-145) 02/24/19 05:46 Potassium 4.0 mmol/L (3.6-5.0) 02/24/19 05:46 Chloride 109.7 mmol/L (98-107) H 02/24/19 05:46 Carbon Dioxide 20 mmol/L (22-30) L 02/24/19 05:46 13 mmol/L 02/24/19 05:46 BUN 22 mg/dL (9-20) H 02/24/19 05:46 1.4 mg/dL (0.8-1.5) 02/24/19 05:46 Estimated GFR 59 ml/min 02/24/19 05:46 16 % 02/24/19 05:46 Glucose 72 mg/dL (75-100) L 02/24/19 05:46 POC Glucose 108 (70-105) H 02/24/19 11:18 Lactic Acid 1.00 mmol/L (0.7-2.0) 02/19/19 14:02 Calcium 8.1 mg/dL (8.4-10.2) L 02/24/19 05:46 0.60 mg/dL (0.1-1.2) 02/19/19 11:13 AST 14 units/L (5-40) 02/19/19 11:13 ALT 9 units/L (7-56) 02/19/19 11:13 75 units/L (35-129) 02/19/19 11:13 7.7 g/dL (6.3-8.2) 02/19/19 11:13 2.8 g/dL (3.9-5) L 02/19/19 11:13 0.6 % 02/19/19 11:13 TSH 0.340 mlU/mL (0.270-4.200) 02/19/19 23:27 Free T4 1.11 ng/dL (0.76-1.46) 02/19/19 23:27 Yellow (Yellow) 02/19/19 Unknown Hazy (Clear) 02/19/19 Unknown 8.0 (5.0-7.0) H 02/19/19 Unknown Ur Specific [place] 1.011 (1.003-1.030) 02/19/19 Unknown 30 mg/dl mg/dL (Negative) 02/19/19 Unknown Neg mg/dL (Negative) 02/19/19 Unknown Neg mg/dL (Negative) 02/19/19 Unknown Mod (Negative) 02/19/19 Unknown Neg (Negative) 02/19/19 Unknown Neg (Negative) 02/19/19 Unknown 4.0 mg/dL (<2.0) 02/19/19 Unknown Ur Leukocyte Esterase Tr (Negative) 02/19/19 Unknown 5.0 /HPF (0.0-6.0) 02/19/19 Unknown 75.0 /HPF (0.0-6.0) 02/19/19 Unknown U Epithel Cells (Auto) < 1.0 /HPF (0-13.0) 02/19/19 Unknown Few /HPF 02/19/19 Unknown Active Medications - Current Medications Current Medications: Generic Name Dose Route Start Last Admin Trade Name Freq PRN Reason Stop Dose Admin Acetaminophen 650 mg 02/19/19 15:41 02/22/19 22:53 Tylenol PO 650 mg Q4H PRN Administration Pain MILD(1-3)/Fever >100.5/STINSON Acetaminophen/Hydrocodone Bitart 1 each 02/19/19 15:43 02/23/19 21:22 [place] 5/325 PO 1 each Q6HR PRN Administration Pain Albuterol 2.5 mg 02/19/19 15:41 Proventil IH Q4HRT PRN Shortness Of Breath Aspirin 81 mg 02/20/19 10:00 02/24/19 09:47 Halfprin Ec PO 81 mg DAILY ALANA Administration Atorvastatin Calcium 40 mg 02/19/19 22:00 02/23/19 21:04 Lipitor PO 40 mg QHS ALANA Administration Bisacodyl 10 mg 02/19/19 15:43 02/22/19 22:54 Dulcolax PO 10 mg QDAY PRN Administration Constipation Carvedilol 12.5 mg 02/19/19 22:00 02/24/19 09:47 Coreg PO 12.5 mg BID ALANA Administration Docusate Sodium 100 mg 02/19/19 22:00 02/24/19 09:48 Colace PO 100 mg BID ALANA Administration Furosemide 20 mg 02/19/19 16:00 02/23/19 16:45 Lasix PO 20 mg Q2D ALANA Administration Hydralazine HCl 10 mg 02/23/19 10:39 02/24/19 05:25 Apresoline IV 10 mg Q4HR PRN Administration Hypertension Sodium Chloride 1,000 mls @ 42 mls/hr 02/19/19 16:00 02/24/19 05:23 Nacl 0.9% 1000 Ml IV 42 mls/hr DIRECT ALANA Administration Cefepime HCl 2 gm in 100 mls @ 200 mls/hr 02/20/19 18:00 02/24/19 05:23 Maxipime/Ns 2 Gm/100 Ml IV 200 mls/hr Q12H ALANA Administration Protocol Vancomycin HCl 1,250 mg/ 275 mls @ 166.667 mls/hr 02/24/19 16:00 Sodium Chloride IV Q24H ALANA Insulin Human Isoph/Insulin Regular 20 unit 02/22/19 17:00 02/23/19 17:53 Humulin 70/30 SUB-Q 20 unit 1700 ALANA Administration Insulin Human Isoph/Insulin Regular 20 unit 02/22/19 10:30 02/24/19 09:46 Humulin 70/30 SUB-Q Not Given 0800 [facility] Insulin Human Lispro 0 unit 02/21/19 12:00 02/24/19 14:07 Humalog SUB-Q Not Given ACHS [facility] Protocol Levetiracetam 500 mg 02/19/19 22:00 02/24/19 09:48 Keppra PO 500 mg BID ALANA Administration Linagliptin 5 mg 02/21/19 10:00 02/24/19 09:48 Tradjenta PO 5 mg QDAY ALANA Administration Losartan Potassium 50 mg 02/20/19 10:00 02/24/19 09:48 Cozaar PO 50 mg QDAY ALANA Administration Ondansetron HCl 4 mg 02/19/19 15:43 Zofran Odt PO Q8HR PRN Nausea And Vomiting Oxybutynin Chloride 10 mg 02/23/19 15:00 02/24/19 09:47 Ditropan Xl PO 10 mg QDAY ALANA Administration Pregabalin 150 mg 02/20/19 10:00 02/24/19 09:47 Lyrica PO 150 mg QDAY ALANA Administration Sodium Chloride 10 ml 02/19/19 22:00 02/24/19 09:48 Sodium Chloride Flush Syringe 10 Ml IV 10 ml BID ALANA Administration Sodium Chloride 10 ml 02/19/19 15:41 Sodium Chloride Flush Syringe 10 Ml IV PRN PRN LINE FLUSH Tamsulosin HCl 0.4 mg 02/20/19 10:00 02/24/19 09:48 Flomax PO 0.4 mg QDAY ALANA Administration
[2019-02-24] MEDS: VANCOMYCIN 1,250 MG in NACL 0.9% 250ML 250 ML IV SCH (16:55)
--- NOTE | 2019-02-24 20:00 | Progress Note ---
Subjective Date of service: 02/24/19 Interval history: called to see pt & re eval randall & nurse at bedside wire randall (16 F [place] tip catheter ) placed 02-04-19 for retention pt with pain in pelvic area and penis exam consistent with paraphimosis ---reduced at bedside no signs of infection of randall however pt had pain and swelling of penis from paraphimosis urine clear A/P paraphimosis---reduced at bedside randall placed 02-04-19 can change randall in office 4-6 wks from placement (02-04-19) home with randall coordinate outpt urodynamics Objective - Constitutional Vitals: Vital Signs - 12hr 02/24/19 02/24/19 10:00 13:17 Temperature 98.7 F Pulse Rate 77 Respiratory 20 Rate Blood Pressure 149/67 O2 Sat by Pulse 94 97 Oximetry - Labs CBC & Chem 7: 02/24/19 05:46 02/24/19 05:46 Labs: Abnormal lab results 02/23/19 02/24/19 02/24/19 Range/Units 21:57 05:46 05:46 WBC 14.4 H (4.5-11.0) K/mm3 RBC 3.36 L (3.65-5.03) M/mm3 Hgb 9.4 L (11.8-15.2) gm/dl Hct 28.4 L (35.5-45.6) % Chloride 109.7 H (98-107) mmol/L Carbon Dioxide 20 L (22-30) mmol/L BUN 22 H (9-20) mg/dL Glucose 72 L (75-100) mg/dL POC Glucose 148 H (70-105) Calcium 8.1 L (8.4-10.2) mg/dL 02/24/19 02/24/19 Range/Units 11:18 16:18 WBC (4.5-11.0) K/mm3 RBC (3.65-5.03) M/mm3 Hgb (11.8-15.2) gm/dl Hct (35.5-45.6) % Chloride (98-107) mmol/L Carbon Dioxide (22-30) mmol/L BUN (9-20) mg/dL Glucose (75-100) mg/dL POC Glucose 108 H 200 H (70-105) Calcium (8.4-10.2) mg/dL Medications & Allergies - Medications Allergies/Adverse Reactions: Allergies No Known Allergies Allergy (Verified 05/19/14 21:52) Home Medications: Home Medications Medication Instructions Recorded Confirmed Last Taken Type Insulin Lispro Prot/Lispro 30 unit SQ QPM 01/30/18 02/19/19 02/02/19 History [HumaLOG Mix 75/25 Vial] Insulin Lispro Prot/Lispro 40 unit SQ QAM 01/30/18 02/19/19 02/02/19 History [HumaLOG Mix 75/25 Vial] Linagliptin [Tradjenta] 5 mg PO QDAY 01/30/18 02/19/19 02/02/19 History Losartan [Cozaar] 100 mg PO QDAY 01/30/18 02/19/19 02/02/19 History Pregabalin [Lyrica] 150 mg PO DAILY 01/30/18 02/19/19 02/02/19 History Furosemide [Lasix TAB] 20 mg PO Q2D 02/02/19 02/19/19 Unknown History AtorvaSTATin [Lipitor] 40 mg PO QHS #30 tab 02/05/19 02/19/19 Unknown Rx Carvedilol [Coreg] 12.5 mg PO BID #60 tablet 02/05/19 02/19/19 Unknown Rx Tamsulosin [Flomax] 0.4 mg PO QDAY #30 capsule 02/05/19 02/19/19 Unknown Rx levETIRAcetam [Keppra TAB] 500 mg PO BID #60 tablet 02/12/19 02/19/19 Unknown Rx Active Medications: Generic Name Dose Route Start Last Admin Trade Name Freq PRN Reason Stop Dose Admin Acetaminophen 650 mg 02/19/19 15:41 02/22/19 22:53 Tylenol PO 650 mg Q4H PRN Administration Pain MILD(1-3)/Fever >100.5/[place] Acetaminophen/Hydrocodone Bitart 1 each 02/19/19 15:43 02/23/19 21:22 [place] 5/325 PO 1 each Q6HR PRN Administration Pain Albuterol 2.5 mg 02/19/19 15:41 Proventil IH Q4HRT PRN Shortness Of Breath Aspirin 81 mg 02/20/19 10:00 02/24/19 09:47 Halfprin Ec PO 81 mg DAILY ALANA Administration Atorvastatin Calcium 40 mg 02/19/19 22:00 02/23/19 21:04 Lipitor PO 40 mg QHS ALANA Administration Bisacodyl 10 mg 02/19/19 15:43 02/22/19 22:54 Dulcolax PO 10 mg QDAY PRN Administration Constipation Carvedilol 12.5 mg 02/19/19 22:00 02/24/19 09:47 Coreg PO 12.5 mg BID ALANA Administration Docusate Sodium 100 mg 02/19/19 22:00 02/24/19 09:48 Colace PO 100 mg BID ALANA Administration Furosemide 20 mg 02/19/19 16:00 02/23/19 16:45 Lasix PO 20 mg Q2D ALANA Administration Hydralazine HCl 10 mg 02/23/19 10:39 02/24/19 05:25 Apresoline IV 10 mg Q4HR PRN Administration Hypertension Sodium Chloride 1,000 mls @ 42 mls/hr 02/19/19 16:00 02/24/19 05:23 Nacl 0.9% 1000 Ml IV 42 mls/hr DIRECT ALANA Administration Cefepime HCl 2 gm in 100 mls @ 200 mls/hr 02/20/19 18:00 02/24/19 17:34 Maxipime/Ns 2 Gm/100 Ml IV 200 mls/hr Q12H ALANA Administration Protocol Vancomycin HCl 1,250 mg/ 275 mls @ 166.667 mls/hr 02/24/19 16:00 02/24/19 16:55 Sodium Chloride IV 166.667 mls/hr Q24H ALANA Administration Insulin Human Isoph/Insulin Regular 20 unit 02/22/19 17:00 02/24/19 16:58 Humulin 70/30 SUB-Q 20 unit 1700 ALANA Administration Insulin Human Isoph/Insulin Regular 20 unit 02/22/19 10:30 02/24/19 09:46 Humulin 70/30 SUB-Q Not Given 0800 [facility] Insulin Human Lispro 0 unit 02/21/19 12:00 02/24/19 16:58 Humalog SUB-Q 4 unit ACHS ALANA Administration Protocol Levetiracetam 500 mg 02/19/19 22:00 02/24/19 09:48 Keppra PO 500 mg BID ALANA Administration Linagliptin 5 mg 02/21/19 10:00 02/24/19 09:48 Tradjenta PO 5 mg QDAY ALANA Administration Losartan Potassium 50 mg 02/20/19 10:00 02/24/19 09:48 Cozaar PO 50 mg QDAY ALANA Administration Ondansetron HCl 4 mg 02/19/19 15:43 Zofran Odt PO Q8HR PRN Nausea And Vomiting Oxybutynin Chloride 10 mg 02/23/19 15:00 02/24/19 09:47 Ditropan Xl PO 10 mg QDAY ALANA Administration Pregabalin 150 mg 02/20/19 10:00 02/24/19 09:47 Lyrica PO 150 mg QDAY ALANA Administration Sodium Chloride 10 ml 02/19/19 22:00 02/24/19 09:48 Sodium Chloride Flush Syringe 10 Ml IV 10 ml BID ALANA Administration Sodium Chloride 10 ml 02/19/19 15:41 Sodium Chloride Flush Syringe 10 Ml IV PRN PRN LINE FLUSH Tamsulosin HCl 0.4 mg 02/20/19 10:00 02/24/19 09:48 Flomax PO 0.4 mg QDAY ALANA Administration
[2019-02-24] MEDS: NORCO 5/325 PO PRN (23:24)
[2019-02-25 06:21] LABS: Hematocrit 27.8 % (35.5-45.6); Hemoglobin 9.2 gm/dl (11.8-15.2); Mean Corpuscular HGB Conc 33 % (32-34); Mean Corpuscular Volume 84 fl (84-94); Platelet Count 286 K/mm3 (140-440); Red Cell Distribution Width 14.3 % (13.2-15.2)
[2019-02-25] MEDS: MAXIPIME/NS 2 GM/100 ML 2 GM/100 ML BAG IV SCH ×2 (06:24→17:31)
[2019-02-25] MEDS: APRESOLINE IV PRN (06:28)
[2019-02-25] MEDS: NACL 0.9% 1000 ML 1,000 ML IV SCH (06:28)
[2019-02-25 06:37] LABS: Calcium 8.2 mg/dL (8.4-10.2)
[2019-02-25] MEDS: HumaLOG SUB-Q SCH ×4 (07:20→22:55)
[2019-02-25] MEDS: NORCO 5/325 PO PRN (07:51)
[2019-02-25] MEDS: DULCOLAX PO PRN (07:51)
[2019-02-25 08:00] LABS: Basophils % (Manual) 0 % (0.0-1.8); Eosinophils % (Manual) 0 % (0.0-4.3); Total Cells Counted 100
[2019-02-25 08:02] LABS: Anisocytosis Few
[2019-02-25 08:04] LABS: Platelet Estimate Consistent w Auto
[2019-02-25] MEDS: COLACE PO SCH ×2 (09:01→21:16)
[2019-02-25] MEDS: TRADJENTA PO SCH (09:01)
[2019-02-25] MEDS: HALFPRIN EC PO SCH (09:01)
[2019-02-25] MEDS: FLOMAX PO SCH (09:02)
[2019-02-25] MEDS: DITROPAN XL PO SCH (09:03)
[2019-02-25] MEDS: KEPPRA PO SCH ×2 (09:04→21:16)
[2019-02-25] MEDS: LYRICA PO SCH (09:04)
[2019-02-25] MEDS: COREG PO SCH ×2 (09:05→21:16)
[2019-02-25] MEDS: COZAAR PO SCH (09:10)
--- NOTE | 2019-02-25 09:10 | Progress Note ---
Assessment and Plan Cultures: 02/19 BCx - no growth 02/19 UCx - no growth 01/2019 BCx - P aeruginosa, mostly sensitive. A/P: 83 yo M PMhx HTN, DM, OA, Seizure Disorder, Debility, Dementia, CVA with LHP, Encephalopathy admitted with confusion and fevers 1. Sepsis unknown etiology- Improved. Leukocytosis trending down. Unclear source. UA without pyuria, urine cultures and blood cultures no growth. All imaging has been negative thus far without any obvious infective focus. Renal US showed Nonspecific renal parenchymal disease. Otherwise unremarkable. Continue Cefepime empirically given recent history of Pseudomonas bacteremia. Vancomycin added for broader coverage. 2. Dm2 3. HTn 4. seizure disorder 5. Dementia 6. Hx of CVA Recommendations: -Anticipate discharge on Ciprofloxacin 500 mg PO BID for 5 days (prescription on the chart) -Clinically stable, ID is signing off. Please call for questions. [facility] M: [id number] O:[phone] Subjective Date of service: 02/25/19 Interval history: Patient seen and examined. Awake. Alert. No pain or generalized weakness. No fevers. Objective - Exam Narrative Exam: Constitutional: Awake. Alert. No acute distress. Head, Ears, Nose: Normocephalic, atraumatic. External ears, nose normal Eyes: Conjunctivae/corneas clear. No icterus. No ptosis. Neck: Supple, no meningeal signs Oral: fair dentition, moist mucous membranes Cardiovascular: S1, S2 normal. Normal rhythm Respiratory: Good air entry, clear to auscultation bilaterally GI: Soft abdominal tenderness improved. bowel sounds normal. No peritoneal signs Musculoskeletal: No pedal edema, Skin: No rash or abscess Hem/Lymphatic: No palpable cervical or supraclavicular nodes. No lymphangitis Psych: no agitation Neurological: Moves all extremities, no focal defects - Constitutional Vitals: Vital Signs Temp Pulse Resp BP Pulse Ox 97.9 F 77 18 165/72 95 02/25/19 07:22 02/25/19 07:22 02/25/19 07:22 02/25/19 07:22 02/25/19 07:22 Temperature -Last 24 Hours Temperature 97.9 F Temperature 99.0 F Temperature 99.3 F Temperature 98.7 F - Labs CBC & Chem 7: 02/25/19 05:36 02/25/19 05:36 Labs: Abnormal lab results 02/24/19 02/24/19 02/24/19 Range/Units 11:18 16:18 21:49 WBC (4.5-11.0) K/mm3 RBC (3.65-5.03) M/mm3 Hgb (11.8-15.2) gm/dl Hct (35.5-45.6) % Seg Neuts % (Manual) (40.0-70.0) % Seg Neutrophils # Man (1.8-7.7) K/mm3 Chloride (98-107) mmol/L Carbon Dioxide (22-30) mmol/L BUN (9-20) mg/dL Glucose (75-100) mg/dL POC Glucose 108 H 200 H 130 H (70-105) Calcium (8.4-10.2) mg/dL 02/25/19 02/25/19 02/25/19 Range/Units 05:36 05:36 07:28 WBC 11.8 H (4.5-11.0) K/mm3 RBC 3.30 L (3.65-5.03) M/mm3 Hgb 9.2 L (11.8-15.2) gm/dl Hct 27.8 L (35.5-45.6) % Seg Neuts % (Manual) 79.0 H (40.0-70.0) % Seg Neutrophils # Man 9.3 H (1.8-7.7) K/mm3 Chloride 108.5 H (98-107) mmol/L Carbon Dioxide 19 L (22-30) mmol/L BUN 24 H (9-20) mg/dL Glucose 124 H (75-100) mg/dL POC Glucose 111 H (70-105) Calcium 8.2 L (8.4-10.2) mg/dL
[2019-02-25] MEDS: SODIUM CHLORIDE FLUSH SYRINGE 10 ML IV SCH ×2 (09:27→21:17)
[2019-02-25] MEDS ORDERED: MIRALAX 3350 PO PRN (10:00)
--- NOTE | 2019-02-25 11:14 | Discharge Summary ---
Providers - Providers Date of Admission: 02/19/19 15:41 Date of discharge: 02/27/19 Attending physician: KHOI SIMMONS MD 02/20/19 08:22 Physical Therapy Evaluation and Treat [CONS] Routine Comment: Reason For Exam: Weakness 02/20/19 11:24 Consult to Physician [CONS] Routine Comment: Consulting Provider: MIKEL BOX Physician Instructions: Reason For Exam: sepsis 02/22/19 10:24 Physical Therapy Evaluation and Treat [CONS] Routine Comment: Reason For Exam: Weakness 02/23/19 14:58 Consult to Physician [CONS] Routine Comment: left voice mail/ cris Consulting Provider: YOVANI CUNNINGHAM Physician Instructions: Reason For Exam: suprapubic pain Primary care physician: Lara ST MD Hospitalization Reason for admission: Sepsis due to UTI, hx of CVA with left hemiparesis Condition: Stable Hospital course: 83 YO Male with HTN, DM, OA, Seizure Disorder, Debility, Dementia, CVA with LHP, Encephalopathy presents to ED for evaluation. Pt is confused and unable to provide detailed history. Pt is at bedside and provides history. As per , the patient was seen by home health and was found to have increased weakness and a temperature of 102.3. Pt is nonambulatory and requires 5/6 assistance with activities of daily living. EMS notified, and upon arrival the patient was found to be febrile. Pt transported to [facility]. Pt seen and evaluated in ED and found to have SIRS suspected secondary to UTI, Encephalopathy, and Acute Kidney Injury. Pt admitted to DAYA unit and initiated on IV antibiotic therapy. Pt denies reports of chills, CP, Palpitations, NVD, Skin rash, Productive cough, seizure, or recent ill contacts. During last admission patient was noted to have UTI and pneumonia with Pseudomonas aerugionosa bacteremia and was treated with levaquin. Chronic Indwelling Cast still in place and urology evaluated the patient and recommend to follow in the office in2-4 weeks. Creatinine is stable at 1.7. Head CT negative. Echo ordered to evaluate for vegetation as patient continue to have recurrent fever. Oxytutinin started for possible underlying Bladder spasm. Patient was admitted to the floor and was treated with IV antibiotics and to be continued with PO as an O/P. Patient showed improvement. ID & urology consult appreciated. Patient's said she is not able to take care of him in the house and patient sent to SNF. Disposition: [id number]/TX-[id number] SNF [facility] Time spent for discharge: 32 minutes - Discharge Diagnoses (1) Chronic renal insufficiency Status: Chronic (2) UTI (urinary tract infection) Status: Acute Qualifiers: Encounter type: initial encounter (3) Hyperglycemia due to type 2 diabetes mellitus Status: Inactive (4) HTN (hypertension) Status: Chronic Qualifiers: Hypertension type: essential hypertension Qualified Code(s): I10 - Essential (primary) hypertension (5) Insulin dependent diabetes mellitus Status: Chronic (6) Old cerebrovascular accident (CVA) without late effect Status: Chronic (7) Acute on chronic kidney failure Status: Acute (8) History of CVA with residual deficit Status: Acute Core Measure Documentation - Palliative Care Palliative Care/ Comfort Measures: Not Applicable - Core Measures Any of the following diagnoses?: none Exam - Physical Exam Narrative exam: General appearance: Present: no acute distress, well-nourished, family at bedside - EENT Eyes: Present: PERRL, EOM intact ENT: hearing intact, clear oral mucosa - Neck Neck: Present: supple, normal ROM - Respiratory Respiratory effort: normal Respiratory: bilateral: CTA - Cardiovascular Rhythm: regular Heart Sounds: Present: S1 & S2. Absent: systolic murmur - Extremities Extremities: no ischemia, pulses intact, pulses symmetrical, No edema, Full ROM Peripheral Pulses: within normal limits - Abdominal General gastrointestinal: soft, non-tender, non-distended, normal bowel sounds - Integumentary Integumentary: Present: clear, warm, dry - Psychiatric Psychiatric: appropriate mood/affect, intact judgment & insight, memory intact, cooperative - Neurologic Neurologic: CNII-XII intact, left hemiparesis. - Allied Health Allied health notes reviewed: nursing - Constitutional Vitals: Temp Pulse Resp BP Pulse Ox 97.9 F 77 20 153/63 95 02/25/19 07:22 02/25/19 07:22 02/25/19 09:55 02/25/19 09:10 02/25/19 07:22 Plan Activity: no restrictions Weight Bearing Status: Weight Bear as Tolerated Diet: low cholesterol, low salt, diabetic Special Instructions: physical therapy Follow up with: Josue ST MD [Primary Care Provider] - 7 Days Prescriptions: Ciprofloxacin HCl [Ciprofloxacin TAB] 500 mg PO Q12HR 5 Days #10 tab
[2019-02-25] MEDS: LASIX PO SCH (14:59)
[2019-02-25] MEDS: VANCOMYCIN 1,250 MG in NACL 0.9% 250ML 250 ML IV SCH (15:00)
--- NOTE | 2019-02-25 15:35 | Progress Note ---
Assessment and Plan Assessment and plan: 83 YO Male with HTN, DM, OA, Seizure Disorder, Debility, Dementia, CVA with LHP, Encephalopathy presents to ED for evaluation. Pt is confused and unable to provide detailed history. Pt is at bedside and provides history. As per , the patient was seen by home health and was found to have increased weakness and a temperature of 102.3. Pt is nonambulatory and requires 5/6 assistance with activities of daily living. EMS notified, and upon arrival the patient was found to be febrile. Pt transported to [facility]. Pt seen and evaluated in ED and found to have SIRS suspected secondary to UTI, Encephalopathy, and Acute Kidney Injury. Pt admitted to DAYA unit and initiated on IV antibiotic therapy. 30 minutes dedicated to Advanced care planning. Pt counseled regarding care options. Pt acknowledges understanding and agreement with care plan. Prior admission on 02/02/19 reviewed. All listed medication reconciled at time of admission. No further history obtainable. Pt denies reports of chills, CP, Palpitations, NVD, Skin rash, Productive cough, seizure, or recent ill contacts. * During last admission patient was noted to have UTI and pneumonia with Pseudomonas aerugionosa bacteremia and was treated with levaquin * Still remains with intermittent low grade fever * Chronic Indwelling Cast still in place and will be evaluated outpatient by Urology. Creatinine is stable at 1.7 * Head CT negative * Echo ordered to evaluate for vegetation as patient continue to have recurrent fever * Oxytutinin started for possible underlying Bladder spasm * Urology consulted to evaluate exchanging Cast (1) sepsis * IV antibiotic therapy-cefepime, vanco added, ID following (2) CKD stage 3 * IVF resuscitation, monitor uop q shift, repeat bmp to monitor serum Creatinine (3) Encephalopathy- resolved * Neuro check, (4) UTI (urinary tract infection) * IV antibiotic therapy, repeat urinalysis negative. * Discussed with urology and said no need of changing the catheter, will follow him in the office (5) DM with Hyperglycemia * Continue insulin therapy, adjust for better control (6) Seizure disorder * Continue supportive care (7) Dementia * Placement recommended prior but patient and family declines (8) Elevated D.dimer * v/q negative Deconditioned - patient didn't walk after admission - Need PT evaluation (9) DVT prophylaxis Current Visit: Yes Status: Acute Plan to address problem: SCD to BLE while in bed, prophylactic lovenox stated that she is not able to take care of the patient at home and will discharge to SNF. - Patient Problems (1) KAUSHAL (acute kidney injury) Current Visit: Yes Status: Acute (2) Chronic renal insufficiency Current Visit: Yes Status: Chronic (3) UTI (urinary tract infection) Current Visit: Yes Status: Acute Qualifiers: Encounter type: initial encounter (4) Hyperglycemia due to type 2 diabetes mellitus Current Visit: No Status: Acute (5) HTN (hypertension) Current Visit: No Status: Chronic Qualifiers: Hypertension type: essential hypertension Qualified Code(s): I10 - Jbenti aimee (primary) hypertension (6) Insulin dependent diabetes mellitus Current Visit: No Status: Chronic (7) Old cerebrovascular accident (CVA) without late effect Current Visit: No Status: Chronic History Interval history: Patient was seen and evaluated this morning, patient didn't have any complaints. Hospitalist Physical - Physical exam Narrative exam: General appearance: Present: no acute distress, well-nourished, family at bedside - EENT Eyes: Present: PERRL, EOM intact ENT: hearing intact, clear oral mucosa - Neck Neck: Present: supple, normal ROM - Respiratory Respiratory effort: normal Respiratory: bilateral: CTA - Cardiovascular Rhythm: regular Heart Sounds: Present: S1 & S2. Absent: systolic murmur - Extremities Extremities: no ischemia, pulses intact, pulses symmetrical, No edema, Full ROM Peripheral Pulses: within normal limits - Abdominal General gastrointestinal: soft, non-tender, non-distended, normal bowel sounds - Integumentary Integumentary: Present: clear, warm, dry - Psychiatric Psychiatric: appropriate mood/affect, intact judgment & insight, memory intact, cooperative - Neurologic Neurologic: CNII-XII intact, moves all extremities, - Allied Health Allied health notes reviewed: nursing - Constitutional Vitals: Temp Pulse Resp BP Pulse Ox 98.4 F 73 18 127/66 95 02/25/19 13:57 02/25/19 13:57 02/25/19 13:57 02/25/19 13:57 02/25/19 13:57 General appearance: Present: no acute distress, well-nourished Results - Labs CBC & Chem 7: 02/25/19 05:36 02/25/19 05:36 Labs: Laboratory Last Values WBC 11.8 K/mm3 (4.5-11.0) H 02/25/19 05:36 RBC 3.30 M/mm3 (3.65-5.03) L 02/25/19 05:36 Hgb 9.2 gm/dl (11.8-15.2) L 02/25/19 05:36 Hct 27.8 % (35.5-45.6) L 02/25/19 05:36 MCV 84 fl (84-94) 02/25/19 05:36 MCH 28 pg (28-32) 02/25/19 05:36 MCHC 33 % (32-34) 02/25/19 05:36 RDW 14.3 % (13.2-15.2) 02/25/19 05:36 Plt Count 286 K/mm3 (140-440) 02/25/19 05:36 Lymph % (Auto) 10.4 % (13.4-35.0) L 02/19/19 11:13 Delta % (Auto) 10.9 % (0.0-7.3) H 02/19/19 11:13 Eos % (Auto) 0.3 % (0.0-4.3) 02/19/19 11:13 Baso % (Auto) 0.5 % (0.0-1.8) 02/19/19 11:13 Lymph # 1.1 K/mm3 (1.2-5.4) L 02/19/19 11:13 Delta # 1.2 K/mm3 (0.0-0.8) H 02/19/19 11:13 Eos # 0.0 K/mm3 (0.0-0.4) 02/19/19 11:13 Baso # 0.1 K/mm3 (0.0-0.1) 02/19/19 11:13 Add Manual Diff Complete 02/25/19 05:36 Total Counted 100 02/25/19 05:36 Seg Neutrophils % 77.9 % (40.0-70.0) H 02/19/19 11:13 Seg Neuts % (Manual) 79.0 % (40.0-70.0) H 02/25/19 05:36 0 % 02/25/19 05:36 15.0 % (13.4-35.0) 02/25/19 05:36 Reactive Lymphs % (Man) 0 % 02/25/19 05:36 6.0 % (0.0-7.3) 02/25/19 05:36 0 % (0.0-4.3) 02/25/19 05:36 0 % (0.0-1.8) 02/25/19 05:36 0 % 02/25/19 05:36 0 % 02/25/19 05:36 0 % 02/25/19 05:36 0 % 02/25/19 05:36 Nucleated RBC % Not Reportable 02/25/19 05:36 Seg Neutrophils # 8.4 K/mm3 (1.8-7.7) H 02/19/19 11:13 Seg Neutrophils # Man 9.3 K/mm3 (1.8-7.7) H 02/25/19 05:36 Band Neutrophils # 0.0 K/mm3 02/25/19 05:36 1.8 K/mm3 (1.2-5.4) 02/25/19 05:36 Abs React Lymphs (Man) 0.0 K/mm3 02/25/19 05:36 0.7 K/mm3 (0.0-0.8) 02/25/19 05:36 0.0 K/mm3 (0.0-0.4) 02/25/19 05:36 0.0 K/mm3 (0.0-0.1) 02/25/19 05:36 0.0 K/mm3 02/25/19 05:36 0.0 K/mm3 02/25/19 05:36 0.0 K/mm3 02/25/19 05:36 Blast Cells # 0.0 K/mm3 02/25/19 05:36 WBC Morphology Not Reportable 02/25/19 05:36 Hypersegmented Neuts Not Reportable 02/25/19 05:36 Hyposegmented Neuts Not Reportable 02/25/19 05:36 Hypogranular Neuts Not Reportable 02/25/19 05:36 Not Reportable 02/25/19 05:36 Not Reportable 02/25/19 05:36 Not Reportable 02/25/19 05:36 Not Reportable 02/25/19 05:36 Not Reportable 02/25/19 05:36 Not Reportable 02/25/19 05:36 Consistent w auto 02/25/19 05:36 Not Reportable 02/25/19 05:36 Plt Clumps, EDTA Not Reportable 02/25/19 05:36 Not Reportable 02/25/19 05:36 Not Reportable 02/25/19 05:36 Not Reportable 02/25/19 05:36 Plt Morphology Comment Not Reportable 02/25/19 05:36 RBC Morphology Not Reportable 02/25/19 05:36 Dimorphic RBCs Not Reportable 02/25/19 05:36 Not Reportable 02/25/19 05:36 Not Reportable 02/25/19 05:36 Not Reportable 02/25/19 05:36 Few 02/25/19 05:36 Not Reportable 02/25/19 05:36 Not Reportable 02/25/19 05:36 Not Reportable 02/25/19 05:36 Not Reportable 02/25/19 05:36 Not Reportable 02/25/19 05:36 Not Reportable 02/25/19 05:36 Not Reportable 02/25/19 05:36 Not Reportable 02/25/19 05:36 Not Reportable 02/25/19 05:36 Not Reportable 02/25/19 05:36 Not Reportable 02/25/19 05:36 Not Reportable 02/25/19 05:36 Not Reportable 02/25/19 05:36 Not Reportable 02/25/19 05:36 Rare 02/25/19 05:36 Acanthocytes (Spur) Not Reportable 02/25/19 05:36 Rouleaux Not Reportable 02/25/19 05:36 Not Reportable 02/25/19 05:36 Not Reportable 02/25/19 05:36 Not Reportable 02/25/19 05:36 Not Reportable 02/25/19 05:36 Hem Pathologist Commnt No 02/25/19 05:36 1124.30 ng/mlDDU (0-234) H 02/19/19 15:50 VBG pH 7.473 (7.320-7.420) H 02/19/19 11:13 Sodium 139 mmol/L (137-145) 02/25/19 05:36 Potassium 4.6 mmol/L (3.6-5.0) 02/25/19 05:36 Chloride 108.5 mmol/L (98-107) H 02/25/19 05:36 Carbon Dioxide 19 mmol/L (22-30) L 02/25/19 05:36 16 mmol/L 02/25/19 05:36 BUN 24 mg/dL (9-20) H 02/25/19 05:36 1.4 mg/dL (0.8-1.5) 02/25/19 05:36 Estimated GFR 59 ml/min 02/25/19 05:36 17 % 02/25/19 05:36 Glucose 124 mg/dL (75-100) H 02/25/19 05:36 POC Glucose 135 (70-105) H 02/25/19 11:41 Lactic Acid 1.00 mmol/L (0.7-2.0) 02/19/19 14:02 Calcium 8.2 mg/dL (8.4-10.2) L 02/25/19 05:36 0.60 mg/dL (0.1-1.2) 02/19/19 11:13 AST 14 units/L (5-40) 02/19/19 11:13 ALT 9 units/L (7-56) 02/19/19 11:13 75 units/L (35-129) 02/19/19 11:13 7.7 g/dL (6.3-8.2) 02/19/19 11:13 2.8 g/dL (3.9-5) L 02/19/19 11:13 0.6 % 02/19/19 11:13 TSH 0.340 mlU/mL (0.270-4.200) 02/19/19 23:27 Free T4 1.11 ng/dL (0.76-1.46) 02/19/19 23:27 Yellow (Yellow) 02/19/19 Unknown Hazy (Clear) 02/19/19 Unknown 8.0 (5.0-7.0) H 02/19/19 Unknown Ur Specific Rueter 1.011 (1.003-1.030) 02/19/19 Unknown 30 mg/dl mg/dL (Negative) 02/19/19 Unknown Neg mg/dL (Negative) 02/19/19 Unknown Neg mg/dL (Negative) 02/19/19 Unknown Mod (Negative) 02/19/19 Unknown Neg (Negative) 02/19/19 Unknown Neg (Negative) 02/19/19 Unknown 4.0 mg/dL (<2.0) 02/19/19 Unknown Ur Leukocyte Esterase Tr (Negative) 02/19/19 Unknown 5.0 /HPF (0.0-6.0) 02/19/19 Unknown 75.0 /HPF (0.0-6.0) 02/19/19 Unknown U Epithel Cells (Auto) < 1.0 /HPF (0-13.0) 02/19/19 Unknown Few /HPF 02/19/19 Unknown Active Medications - Current Medications Current Medications: Generic Name Dose Route Start Last Admin Trade Name Freq PRN Reason Stop Dose Admin Acetaminophen 650 mg 02/19/19 15:41 02/22/19 22:53 Tylenol PO 650 mg Q4H PRN Administration Pain MILD(1-3)/Fever >100.5/STINSON Acetaminophen/Hydrocodone Bitart 1 each 02/19/19 15:43 02/25/19 07:51 Wood 5/325 PO 1 each Q6HR PRN Administration Pain Albuterol 2.5 mg 02/19/19 15:41 Proventil IH Q4HRT PRN Shortness Of Breath Aspirin 81 mg 02/20/19 10:00 02/25/19 09:01 Halfprin Ec PO 81 mg DAILY ALANA Administration Atorvastatin Calcium 40 mg 02/19/19 22:00 02/24/19 23:12 Lipitor PO 40 mg QHS ALANA Administration Bisacodyl 10 mg 02/19/19 15:43 02/25/19 07:51 Dulcolax PO 10 mg QDAY PRN Administration Constipation Carvedilol 12.5 mg 02/19/19 22:00 02/25/19 09:05 Coreg PO 12.5 mg BID ALANA Administration Docusate Sodium 100 mg 02/19/19 22:00 02/25/19 09:01 Colace PO 100 mg BID ALANA Administration Furosemide 20 mg 02/19/19 16:00 02/25/19 14:59 Lasix PO 20 mg Q2D ALANA Administration Hydralazine HCl 10 mg 02/23/19 10:39 02/25/19 06:28 Apresoline IV 10 mg Q4HR PRN Administration Hypertension Sodium Chloride 1,000 mls @ 42 mls/hr 02/19/19 16:00 02/25/19 06:28 Nacl 0.9% 1000 Ml IV 42 mls/hr DIRECT ALANA Administration Cefepime HCl 2 gm in 100 mls @ 200 mls/hr 02/20/19 18:00 02/25/19 06:24 Maxipime/Ns 2 Gm/100 Ml IV 200 mls/hr Q12H ALANA Administration Protocol Vancomycin HCl 1,250 mg/ 275 mls @ 166.667 mls/hr 02/24/19 16:00 02/25/19 15:00 Sodium Chloride IV 166.667 mls/hr Q24H ALANA Administration Insulin Human Isoph/Insulin Regular 20 unit 02/22/19 17:00 02/24/19 16:58 Humulin 70/30 SUB-Q 20 unit 1700 ALANA Administration Insulin Human Isoph/Insulin Regular 20 unit 02/22/19 10:30 02/25/19 07:57 Humulin 70/30 SUB-Q 20 unit 0800 ALANA Administration Insulin Human Lispro 0 unit 02/21/19 12:00 02/25/19 11:46 Humalog SUB-Q Not Given ACHS ALANA Protocol Levetiracetam 500 mg 02/19/19 22:00 02/25/19 09:04 Keppra PO 500 mg BID ALANA Administration Linagliptin 5 mg 02/21/19 10:00 02/25/19 09:01 Tradjenta PO 5 mg QDAY ALANA Administration Losartan Potassium 50 mg 02/20/19 10:00 02/25/19 09:10 Cozaar PO 50 mg QDAY ALANA Administration Ondansetron HCl 4 mg 02/19/19 15:43 Zofran Odt PO Q8HR PRN Nausea And Vomiting Oxybutynin Chloride 10 mg 02/23/19 15:00 02/25/19 09:03 Ditropan Xl PO 10 mg QDAY ALANA Administration Polyethylene Glycol 17 gm 02/25/19 10:00 Miralax 3350 PO QDAY PRN Constipation Pregabalin 150 mg 02/20/19 10:00 02/25/19 09:04 Lyrica PO 150 mg QDAY ALANA Administration Sodium Chloride 10 ml 02/19/19 22:00 02/25/19 09:27 Sodium Chloride Flush Syringe 10 Ml IV Not Given BID ALANA Sodium Chloride 10 ml 02/19/19 15:41 Sodium Chloride Flush Syringe 10 Ml IV PRN PRN LINE FLUSH Tamsulosin HCl 0.4 mg 02/20/19 10:00 02/25/19 09:02 Flomax PO 0.4 mg QDAY ALANA Administration
[2019-02-26] MEDS: HumaLOG SUB-Q SCH ×4 (04:48→22:43)
[2019-02-26] MEDS: APRESOLINE IV PRN (06:11)
[2019-02-26] MEDS: MAXIPIME/NS 2 GM/100 ML 2 GM/100 ML BAG IV SCH (06:12)
[2019-02-26] MEDS: NORCO 5/325 PO PRN (07:07)
[2019-02-26] MEDS: LYRICA PO SCH (09:15)
[2019-02-26] MEDS: KEPPRA PO SCH ×2 (09:15→22:43)
[2019-02-26] MEDS: COZAAR PO SCH (09:15)
[2019-02-26] MEDS: DITROPAN XL PO SCH (09:15)
[2019-02-26] MEDS: FLOMAX PO SCH (09:16)
[2019-02-26] MEDS: TRADJENTA PO SCH (09:16)
[2019-02-26] MEDS: HALFPRIN EC PO SCH (09:16)
[2019-02-26] MEDS: COREG PO SCH ×2 (09:17→22:43)
[2019-02-26] MEDS: COLACE PO SCH ×2 (09:20→22:43)
[2019-02-26] MEDS: SODIUM CHLORIDE FLUSH SYRINGE 10 ML IV SCH ×2 (09:21→22:44)
--- NOTE | 2019-02-26 13:44 | Progress Note ---
Assessment and Plan Assessment and plan: 83 YO Male with HTN, DM, OA, Seizure Disorder, Debility, Dementia, CVA with LHP, Encephalopathy presents to ED for evaluation. Pt is confused and unable to provide detailed history. Pt is at bedside and provides history. As per , the patient was seen by home health and was found to have increased weakness and a temperature of 102.3. Pt is nonambulatory and requires 5/6 assistance with activities of daily living. EMS notified, and upon arrival the patient was found to be febrile. Pt transported to [facility]. Pt seen and evaluated in ED and found to have SIRS suspected secondary to UTI, Encephalopathy, and Acute Kidney Injury. Pt admitted to [facility] unit and initiated on IV antibiotic therapy. 30 minutes dedicated to Advanced care planning. Pt counseled regarding care options. Pt acknowledges understanding and agreement with care plan. Prior admission on 02/02/19 reviewed. All listed medication reconciled at time of admission. No further history obtainable. Pt denies reports of chills, CP, Palpitations, NVD, Skin rash, Productive cough, seizure, or recent ill contacts. * During last admission patient was noted to have UTI and pneumonia with Pseudomonas aerugionosa bacteremia and was treated with levaquin * Still remains with intermittent low grade fever * Chronic Indwelling Cast still in place and will be evaluated outpatient by Urology. Creatinine is stable at 1.7 * Head CT negative * Echo ordered to evaluate for vegetation as patient continue to have recurrent fever * Oxytutinin started for possible underlying Bladder spasm * Urology consulted to evaluate exchanging Cast (1) sepsis * IV antibiotic therapy-cefepime, vanco added, ID following (2) CKD stage 3 * IVF resuscitation, monitor uop q shift, repeat bmp to monitor serum Creatinine (3) Encephalopathy- resolved * Neuro check, (4) UTI (urinary tract infection) * IV antibiotic therapy, repeat urinalysis negative. * Discussed with urology and said no need of changing the catheter, will follow him in the office (5) DM with Hyperglycemia * Continue insulin therapy, adjust for better control (6) Seizure disorder * Continue supportive care (7) Dementia * Placement recommended prior but patient and family declines (8) Elevated D.dimer * v/q negative Deconditioned - patient didn't walk after admission - Need PT evaluation (9) DVT prophylaxis Current Visit: Yes Status: Acute Plan to address problem: SCD to BLE while in bed, prophylactic lovenox stated that she is not able to take care of the patient at home and will discharge to SNF. - Patient Problems (1) KAUSHAL (acute kidney injury) Current Visit: Yes Status: Acute (2) Chronic renal insufficiency Current Visit: Yes Status: Chronic (3) UTI (urinary tract infection) Current Visit: Yes Status: Acute Qualifiers: Encounter type: initial encounter (4) Hyperglycemia due to type 2 diabetes mellitus Current Visit: No Status: Acute (5) HTN (hypertension) Current Visit: No Status: Chronic Qualifiers: Hypertension type: essential hypertension Qualified Code(s): I10 - Jbenti aimee (primary) hypertension (6) Insulin dependent diabetes mellitus Current Visit: No Status: Chronic (7) Old cerebrovascular accident (CVA) without late effect Current Visit: No Status: Chronic History Interval history: Patient was seen and evaluated this morning, patient didn't have any complaints. Hospitalist Physical - Physical exam Narrative exam: General appearance: Present: no acute distress, well-nourished, family at bedside - EENT Eyes: Present: PERRL, EOM intact ENT: hearing intact, clear oral mucosa - Neck Neck: Present: supple, normal ROM - Respiratory Respiratory effort: normal Respiratory: bilateral: CTA - Cardiovascular Rhythm: regular Heart Sounds: Present: S1 & S2. Absent: systolic murmur - Extremities Extremities: no ischemia, pulses intact, pulses symmetrical, No edema, Full ROM Peripheral Pulses: within normal limits - Abdominal General gastrointestinal: soft, non-tender, non-distended, normal bowel sounds - Integumentary Integumentary: Present: clear, warm, dry - Psychiatric Psychiatric: appropriate mood/affect, intact judgment & insight, memory intact, cooperative - Neurologic Neurologic: CNII-XII intact, moves all extremities, - Allied Health Allied health notes reviewed: nursing - Constitutional Vitals: Temp Pulse Resp BP Pulse Ox 98.1 F 70 20 174/81 94 02/26/19 07:12 02/26/19 10:00 02/26/19 10:00 02/26/19 09:17 02/26/19 10:00 General appearance: Present: no acute distress, well-nourished Results - Labs CBC & Chem 7: 02/25/19 05:36 02/25/19 05:36 Labs: Laboratory Last Values WBC 11.8 K/mm3 (4.5-11.0) H 02/25/19 05:36 RBC 3.30 M/mm3 (3.65-5.03) L 02/25/19 05:36 Hgb 9.2 gm/dl (11.8-15.2) L 02/25/19 05:36 Hct 27.8 % (35.5-45.6) L 02/25/19 05:36 MCV 84 fl (84-94) 02/25/19 05:36 MCH 28 pg (28-32) 02/25/19 05:36 MCHC 33 % (32-34) 02/25/19 05:36 RDW 14.3 % (13.2-15.2) 02/25/19 05:36 Plt Count 286 K/mm3 (140-440) 02/25/19 05:36 Lymph % (Auto) 10.4 % (13.4-35.0) L 02/19/19 11:13 [place] % (Auto) 10.9 % (0.0-7.3) H 02/19/19 11:13 Eos % (Auto) 0.3 % (0.0-4.3) 02/19/19 11:13 Baso % (Auto) 0.5 % (0.0-1.8) 02/19/19 11:13 Lymph # 1.1 K/mm3 (1.2-5.4) L 02/19/19 11:13 [place] # 1.2 K/mm3 (0.0-0.8) H 02/19/19 11:13 Eos # 0.0 K/mm3 (0.0-0.4) 02/19/19 11:13 Baso # 0.1 K/mm3 (0.0-0.1) 02/19/19 11:13 Add Manual Diff Complete 02/25/19 05:36 Total Counted 100 02/25/19 05:36 Seg Neutrophils % 77.9 % (40.0-70.0) H 02/19/19 11:13 Seg Neuts % (Manual) 79.0 % (40.0-70.0) H 02/25/19 05:36 0 % 02/25/19 05:36 15.0 % (13.4-35.0) 02/25/19 05:36 Reactive Lymphs % (Man) 0 % 02/25/19 05:36 6.0 % (0.0-7.3) 02/25/19 05:36 0 % (0.0-4.3) 02/25/19 05:36 0 % (0.0-1.8) 02/25/19 05:36 0 % 02/25/19 05:36 0 % 02/25/19 05:36 0 % 02/25/19 05:36 0 % 02/25/19 05:36 Nucleated RBC % Not Reportable 02/25/19 05:36 Seg Neutrophils # 8.4 K/mm3 (1.8-7.7) H 02/19/19 11:13 Seg Neutrophils # Man 9.3 K/mm3 (1.8-7.7) H 02/25/19 05:36 Band Neutrophils # 0.0 K/mm3 02/25/19 05:36 1.8 K/mm3 (1.2-5.4) 02/25/19 05:36 Abs React Lymphs (Man) 0.0 K/mm3 02/25/19 05:36 0.7 K/mm3 (0.0-0.8) 02/25/19 05:36 0.0 K/mm3 (0.0-0.4) 02/25/19 05:36 0.0 K/mm3 (0.0-0.1) 02/25/19 05:36 0.0 K/mm3 02/25/19 05:36 0.0 K/mm3 02/25/19 05:36 0.0 K/mm3 02/25/19 05:36 Blast Cells # 0.0 K/mm3 02/25/19 05:36 WBC Morphology Not Reportable 02/25/19 05:36 Hypersegmented Neuts Not Reportable 02/25/19 05:36 Hyposegmented Neuts Not Reportable 02/25/19 05:36 Hypogranular Neuts Not Reportable 02/25/19 05:36 Not Reportable 02/25/19 05:36 Not Reportable 02/25/19 05:36 Not Reportable 02/25/19 05:36 Not Reportable 02/25/19 05:36 Not Reportable 02/25/19 05:36 Not Reportable 02/25/19 05:36 Consistent w auto 02/25/19 05:36 Not Reportable 02/25/19 05:36 Plt Clumps, EDTA Not Reportable 02/25/19 05:36 Not Reportable 02/25/19 05:36 Not Reportable 02/25/19 05:36 Not Reportable 02/25/19 05:36 Plt Morphology Comment Not Reportable 02/25/19 05:36 RBC Morphology Not Reportable 02/25/19 05:36 Dimorphic RBCs Not Reportable 02/25/19 05:36 Not Reportable 02/25/19 05:36 Not Reportable 02/25/19 05:36 Not Reportable 02/25/19 05:36 Few 02/25/19 05:36 Not Reportable 02/25/19 05:36 Not Reportable 02/25/19 05:36 Not Reportable 02/25/19 05:36 Not Reportable 02/25/19 05:36 Not Reportable 02/25/19 05:36 Not Reportable 02/25/19 05:36 Not Reportable 02/25/19 05:36 Not Reportable 02/25/19 05:36 Not Reportable 02/25/19 05:36 Not Reportable 02/25/19 05:36 Not Reportable 02/25/19 05:36 Not Reportable 02/25/19 05:36 Not Reportable 02/25/19 05:36 Not Reportable 02/25/19 05:36 Rare 02/25/19 05:36 Acanthocytes (Spur) Not Reportable 02/25/19 05:36 Rouleaux Not Reportable 02/25/19 05:36 Not Reportable 02/25/19 05:36 Not Reportable 02/25/19 05:36 Not Reportable 02/25/19 05:36 Not Reportable 02/25/19 05:36 Hem Pathologist Commnt No 02/25/19 05:36 1124.30 ng/mlDDU (0-234) H 02/19/19 15:50 VBG pH 7.473 (7.320-7.420) H 02/19/19 11:13 Sodium 139 mmol/L (137-145) 02/25/19 05:36 Potassium 4.6 mmol/L (3.6-5.0) 02/25/19 05:36 Chloride 108.5 mmol/L (98-107) H 02/25/19 05:36 Carbon Dioxide 19 mmol/L (22-30) L 02/25/19 05:36 16 mmol/L 02/25/19 05:36 BUN 24 mg/dL (9-20) H 02/25/19 05:36 1.4 mg/dL (0.8-1.5) 02/25/19 05:36 Estimated GFR 59 ml/min 02/25/19 05:36 17 % 02/25/19 05:36 Glucose 124 mg/dL (75-100) H 02/25/19 05:36 POC Glucose 125 (70-105) H 02/26/19 11:35 Lactic Acid 1.00 mmol/L (0.7-2.0) 02/19/19 14:02 Calcium 8.2 mg/dL (8.4-10.2) L 02/25/19 05:36 0.60 mg/dL (0.1-1.2) 02/19/19 11:13 AST 14 units/L (5-40) 02/19/19 11:13 ALT 9 units/L (7-56) 02/19/19 11:13 75 units/L (35-129) 02/19/19 11:13 7.7 g/dL (6.3-8.2) 02/19/19 11:13 2.8 g/dL (3.9-5) L 02/19/19 11:13 0.6 % 02/19/19 11:13 TSH 0.340 mlU/mL (0.270-4.200) 02/19/19 23:27 Free T4 1.11 ng/dL (0.76-1.46) 02/19/19 23:27 Yellow (Yellow) 02/19/19 Unknown Hazy (Clear) 02/19/19 Unknown 8.0 (5.0-7.0) H 02/19/19 Unknown Ur Specific [place] 1.011 (1.003-1.030) 02/19/19 Unknown 30 mg/dl mg/dL (Negative) 02/19/19 Unknown Neg mg/dL (Negative) 02/19/19 Unknown Neg mg/dL (Negative) 02/19/19 Unknown Mod (Negative) 02/19/19 Unknown Neg (Negative) 02/19/19 Unknown Neg (Negative) 02/19/19 Unknown 4.0 mg/dL (<2.0) 02/19/19 Unknown Ur Leukocyte Esterase Tr (Negative) 02/19/19 Unknown 5.0 /HPF (0.0-6.0) 02/19/19 Unknown 75.0 /HPF (0.0-6.0) 02/19/19 Unknown U Epithel Cells (Auto) < 1.0 /HPF (0-13.0) 02/19/19 Unknown Few /HPF 02/19/19 Unknown Active Medications - Current Medications Current Medications: Generic Name Dose Route Start Last Admin Trade Name Freq PRN Reason Stop Dose Admin Acetaminophen 650 mg 02/19/19 15:41 02/22/19 22:53 Tylenol PO 650 mg Q4H PRN Administration Pain MILD(1-3)/Fever >100.5/STINSON Acetaminophen/Hydrocodone Bitart 1 each 02/19/19 15:43 02/26/19 07:07 [place] 5/325 PO 1 each Q6HR PRN Administration Pain Albuterol 2.5 mg 02/19/19 15:41 Proventil IH Q4HRT PRN Shortness Of Breath Aspirin 81 mg 02/20/19 10:00 02/26/19 09:16 Halfprin Ec PO 81 mg DAILY ALANA Administration Atorvastatin Calcium 40 mg 02/19/19 22:00 02/25/19 21:16 Lipitor PO 40 mg QHS ALANA Administration Bisacodyl 10 mg 02/19/19 15:43 02/25/19 07:51 Dulcolax PO 10 mg QDAY PRN Administration Constipation Carvedilol 12.5 mg 02/19/19 22:00 02/26/19 09:17 Coreg PO 12.5 mg BID ALANA Administration Docusate Sodium 100 mg 02/19/19 22:00 02/26/19 09:20 Colace PO 100 mg BID ALANA Administration Furosemide 20 mg 02/19/19 16:00 02/25/19 14:59 Lasix PO 20 mg Q2D ALANA Administration Hydralazine HCl 10 mg 02/23/19 10:39 02/26/19 06:11 Apresoline IV 10 mg Q4HR PRN Administration Hypertension Sodium Chloride 1,000 mls @ 42 mls/hr 02/19/19 16:00 02/25/19 06:28 Nacl 0.9% 1000 Ml IV 42 mls/hr DIRECT ALANA Administration Cefepime HCl 2 gm in 100 mls @ 200 mls/hr 02/20/19 18:00 02/26/19 06:12 Maxipime/Ns 2 Gm/100 Ml IV 200 mls/hr Q12H ALANA Administration Protocol Vancomycin HCl 1,250 mg/ 275 mls @ 166.667 mls/hr 02/24/19 16:00 02/25/19 15:00 Sodium Chloride IV 166.667 mls/hr Q24H ALANA Administration Insulin Human Isoph/Insulin Regular 20 unit 02/22/19 17:00 02/25/19 17:27 Humulin 70/30 SUB-Q 20 unit 1700 ALANA Administration Insulin Human Isoph/Insulin Regular 20 unit 02/22/19 10:30 02/26/19 08:36 Humulin 70/30 SUB-Q Not Given 0800 ALANA Insulin Human Lispro 0 unit 02/21/19 12:00 02/26/19 11:40 Humalog SUB-Q Not Given [facility] Protocol Levetiracetam 500 mg 02/19/19 22:00 02/26/19 09:15 Keppra PO 500 mg BID ALANA Administration Linagliptin 5 mg 02/21/19 10:00 02/26/19 09:16 Tradjenta PO 5 mg QDAY ALANA Administration Losartan Potassium 50 mg 02/20/19 10:00 02/26/19 09:15 Cozaar PO 50 mg QDAY ALANA Administration Ondansetron HCl 4 mg 02/19/19 15:43 Zofran Odt PO Q8HR PRN Nausea And Vomiting Oxybutynin Chloride 10 mg 02/23/19 15:00 02/26/19 09:15 Ditropan Xl PO 10 mg QDAY ALANA Administration Polyethylene Glycol 17 gm 02/25/19 10:00 Miralax 3350 PO QDAY PRN Constipation Pregabalin 150 mg 02/20/19 10:00 02/26/19 09:15 Lyrica PO 150 mg QDAY ALANA Administration Sodium Chloride 10 ml 02/19/19 22:00 02/26/19 09:21 Sodium Chloride Flush Syringe 10 Ml IV Not Given BID ALANA Sodium Chloride 10 ml 02/19/19 15:41 Sodium Chloride Flush Syringe 10 Ml IV PRN PRN LINE FLUSH Tamsulosin HCl 0.4 mg 02/20/19 10:00 02/26/19 09:16 Flomax PO 0.4 mg QDAY ALANA Administration
[2019-02-26] MEDS: VANCOMYCIN 1,250 MG in NACL 0.9% 250ML 250 ML IV SCH (15:47)
[2019-02-26] MEDS: NACL 0.9% 1000 ML 1,000 ML IV SCH (15:49)
[2019-02-27] MEDS: MAXIPIME/NS 2 GM/100 ML 2 GM/100 ML BAG IV SCH ×2 (05:23)
[2019-02-27] MEDS: HumaLOG SUB-Q SCH ×2 (08:30→11:31)
[2019-02-27] MEDS: DITROPAN XL PO SCH (09:06)
[2019-02-27] MEDS: COZAAR PO SCH (09:06)
[2019-02-27] MEDS: HALFPRIN EC PO SCH (09:06)
[2019-02-27] MEDS: LYRICA PO SCH (09:07)
[2019-02-27] MEDS: KEPPRA PO SCH (09:07)
[2019-02-27] MEDS: TRADJENTA PO SCH (09:08)
[2019-02-27] MEDS: COLACE PO SCH (09:08)
[2019-02-27] MEDS: FLOMAX PO SCH (09:08)
[2019-02-27] MEDS: COREG PO SCH (09:08)
[2019-02-27] MEDS: SODIUM CHLORIDE FLUSH SYRINGE 10 ML IV SCH (09:16)
[2019-02-27 13:40] VITALS: BP 144/56
== END 2019-02-27 14:45 | DRG 871 ==
LOC: ED 10:46 → 2B-ACE 15:41
PROVIDERS: ADMIT Internal Medicine; ATTEND Internal Medicine
DX: A41.9 Sepsis, unspecified organism (principal); G93.41 Metabolic encephalopathy; N39.0 Urinary tract infection, site not specified; N17.9 Acute kidney failure, unspecified; I69.354 Hemiplegia and hemiparesis following cerebral infarction affecting left non-dominant side; E11.22 Type 2 diabetes mellitus with diabetic chronic kidney disease; N47.2 Paraphimosis; F03.90 Unspecified dementia, unspecified severity, without behavioral disturbance, psychotic disturbance, mood disturbance, and anxiety; E11.65 Type 2 diabetes mellitus with hyperglycemia; I12.9 Hypertensive chronic kidney disease with stage 1 through stage 4 chronic kidney disease, or unspecified chronic kidney disease; N18.3 Chronic kidney disease, stage 3 (moderate); G40.909 Epilepsy, unspecified, not intractable, without status epilepticus; Z82.49 Family history of ischemic heart disease and other diseases of the circulatory system; Z79.4 Long term (current) use of insulin; Z79.899 Other long term (current) drug therapy; Z79.82 Long term (current) use of aspirin
CPT/HCPCS: 36415; 70450; 71045; 74176; 76770; 78582; 80048; 80053; 81001; 82140; 82805; 82962; 84439; 84443; 85007; 85025; 85027; 85379; 87040; 87086; 93005; 93010; 93308; 93321; 93325; 94640; G0378; A9270-GY; A9540; A9558; J0360; J0692; J1815; J3370; J7030; J7040; J7050

== ENCOUNTER 2019-03-18 17:59 | Observation (INO) | payer MEDICARE ==
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
--- NOTE | 2019-03-18 19:43 | XRay Report ---
CHEST 1 VIEW INDICATION: syncope. COMPARISON: 02/19/2019. FINDINGS: Support devices: None. Heart: Normal. Lungs/Pleura: No acute pulmonary or pleural findings. IMPRESSION: 1. No acute findings. Signer Name: Sylvester Thompson MD Signed: 03/18/2019 7:38 PM Workstation Name: [id number]
--- NOTE | 2019-03-18 20:03 | Cat Scan Report ---
CT head without contrast CLINICAL HISTORY: Syncope FINDINGS: There is continued extensive cerebral white matter disease most consistent with microvascul ar angiopathy. There is symmetric increased attenuation along the tentorium and falx compatible with calcification. The above findings correlate with previous CT of 02/20/2019. There is no clear CT eviden ce of acute intracranial hemorrhage or significant mass effect. There is continued mild to moderate cerebral atrophy. The ventricular system remains unchanged in siz e and configuration. There is minimal mucosal thickening within the visualized ethmoid and frontal si nuses.. All CT scans at this location are performed using the CT dose reduction for ALAGrid20/20 by means of automated exposure control. IMPRESSION: There is continued extensive microvascular angiopathy without CT evidence of acute intracranial hemor rhage or significant interval change from 02/20/2019. Signer Name: Mahendra Trivedi MD Signed: 03/18/2019 7:59 PM Workstation Name: [id number]
[2019-03-18 20:36] LABS: Basophils # (Auto) 0.1 K/mm3 (0.0-0.1); Basophils % (Auto) 0.6 % (0.0-1.8); Eosinophils # (Auto) 0.3 K/mm3 (0.0-0.4); Eosinophils % (Auto) 2.7 % (0.0-4.3); Hematocrit 31.1 % (35.5-45.6); Hemoglobin 10.2 gm/dl (11.8-15.2); Lymphocytes % (Auto) 20.8 % (13.4-35.0); Mean Corpuscular HGB Conc 33 % (32-34); Mean Corpuscular Volume 85 fl (84-94); Monocytes # (Auto) 0.7 K/mm3 (0.0-0.8); Platelet Count 265 K/mm3 (140-440); Red Blood Count 3.68 M/mm3 (3.65-5.03); Red Cell Distribution Width 15.1 % (13.2-15.2)
[2019-03-18 20:46] LABS: Albumin 2.9 g/dL (3.9-5); Calcium 8.9 mg/dL (8.4-10.2)
[2019-03-18 20:53] LABS: Bacteria,Urine 2+ /HPF (Negative); Bilirubin,Urine NEG (Negative); Blood,Urine MOD (Negative); Color,Urine Yellow (Yellow); Mucus,Urine FEW /HPF; Urobilinogen,Urine < 2.0 mg/dL (<2.0)
[2019-03-18] MEDS ORDERED: BABY ASPIRIN PO ONE ×2 (21:09→22:10)
[2019-03-18 21:31] LABS: Chol/HDL Ratio 2.47 %
[2019-03-18] MEDS ORDERED: SODIUM CHLORIDE FLUSH SYRINGE 10 ML INJ PRN (22:44)
[2019-03-18] MEDS ORDERED: REGLAN PO PRN (22:44)
[2019-03-18] MEDS ORDERED: SODIUM CHLORIDE FLUSH SYRINGE 10 ML IV PRN (22:44)
[2019-03-18] MEDS ORDERED: ZOFRAN IV PRN ×2 (22:44)
[2019-03-18] MEDS ORDERED: MILK OF MAGNESIA PO PRN ×2 (22:44)
[2019-03-18] MEDS ORDERED: TYLENOL PO PRN ×2 (22:44)
[2019-03-18] MEDS ORDERED: DULCOLAX PR PRN (22:44)
[2019-03-18] MEDS ORDERED: PHENERGAN PR PRN (22:44)
--- NOTE | 2019-03-18 22:56 | History and Physical Report ---
<CHRISTINA VALENCIA - Last Filed: 03/19/19 04:21> History of Present Illness Date of examination: 03/18/19 Date of admission: 03/18/2019 Chief complaint: syncope History of present illness: Pt is an 83 year old male with PMHx of CHF, DM type 2, HTN, seizure disorder, BPH who was brought to the ER with c/o syncope. Pt resides in a SNF (from [place]), EMS was called because pt passed out. Patient states he was at the table eating when he passed out, the episodes lasted a few mins and he regained consciousness by the time EMS arrived. Patient reports prior episodes of syncope, he denies any chest pain, denies palpitation, denies diaphoresis, denies headache, denies dizziness, there is no reports or bowel or bladder incontinence or seizure activity during the episode. In the ER, VS was stable, EKG was abnormal with nonspecific T abnormalities, anterior Q wave, urine was positive for UTI. Pt was admitted for further evaluation and treatment. Past History Past Medical History: anemia, CAD, diabetes, heart failure, hypertension, hyperlipidemia, seizures Past Surgical History: No surgical history Social history: no significant social history Family history: no significant family history Medications and Allergies Allergies Allergy/AdvReac Type Severity Reaction Status Date / Time No Known Allergies Allergy Verified 05/19/14 21:52 Home Medications Medication Instructions Recorded Confirmed Last Taken Type Insulin Lispro Prot/Lispro 30 unit SQ QPM 01/30/18 02/19/19 02/02/19 History [HumaLOG Mix 75/25 Vial] Insulin Lispro Prot/Lispro 40 unit SQ QAM 01/30/18 02/19/19 02/02/19 History [HumaLOG Mix 75/25 Vial] Linagliptin [Tradjenta] 5 mg PO QDAY 01/30/18 02/19/19 02/02/19 History Losartan [Cozaar] 100 mg PO QDAY 01/30/18 02/19/19 02/02/19 History Pregabalin [Lyrica] 150 mg PO DAILY 01/30/18 02/19/19 02/02/19 History Furosemide [Lasix TAB] 20 mg PO Q2D 02/02/19 02/19/19 Unknown History AtorvaSTATin [Lipitor] 40 mg PO QHS #30 tab 02/05/19 02/19/19 Unknown Rx Carvedilol [Coreg] 12.5 mg PO BID #60 tablet 02/05/19 02/19/19 Unknown Rx Tamsulosin [Flomax] 0.4 mg PO QDAY #30 capsule 02/05/19 02/19/19 Unknown Rx levETIRAcetam [Keppra TAB] 500 mg PO BID #60 tablet 02/12/19 02/19/19 Unknown Rx Ciprofloxacin HCl [Ciprofloxacin 500 mg PO Q12HR 5 Days #10 tab 02/25/19 Unknown Rx TAB] Active Meds: Active Medications Acetaminophen (Tylenol) 650 mg PO Q4H PRN PRN Reason: Pain MILD(1-3)/Fever >100.5/[place]SON Acetaminophen (Tylenol) 650 mg PO Q4H PRN PRN Reason: Pain, Mild (1-3) Aspirin (Aspirin) 325 mg PO QDAY A[facility] Bisacodyl (Dulcolax) 10 mg OH QDAY PRN PRN Reason: Constipation Enoxaparin Sodium (Lovenox) 30 mg SUB-Q QDAY [facility] Hydralazine HCl (Apresoline) 5 mg IV Q6H PRN PRN Reason: Hypertension Sodium Chloride (Nacl 0.9% 1000 Ml) 1,000 mls @ 75 mls/hr IV DIRECT ALANA Magnesium Hydroxide (Milk Of Magnesia) 30 ml PO Q4H PRN PRN Reason: Constipation Magnesium Hydroxide (Milk Of Magnesia) 30 ml PO Q4H PRN PRN Reason: Constipation Metoclopramide HCl (Reglan) 10 mg PO Q6H PRN PRN Reason: Nausea And Vomiting Ondansetron HCl (Zofran) 4 mg IV Q8H PRN PRN Reason: Nausea And Vomiting Ondansetron HCl (Zofran) 4 mg IV Q8H PRN PRN Reason: Nausea And Vomiting Promethazine HCl (Phenergan) 25 mg [place] Q6H PRN PRN Reason: Nausea And Vomiting Senna (Senokot) 8.6 mg PO Q12HR A[facility] Sodium Chloride (Sodium Chloride Flush Syringe 10 Ml) 10 ml IV BID ALANA Sodium Chloride (Sodium Chloride Flush Syringe 10 Ml) 10 ml IV PRN PRN PRN Reason: LINE FLUSH Sodium Chloride (Sodium Chloride Flush Syringe 10 Ml) 10 ml INJ PRN PRN PRN Reason: LINE FLUSH Review of Systems Neurological: syncope Exam - Constitutional Vitals: Temp Pulse Resp BP Pulse Ox 97.5 F L 67 10 L 191/88 98 03/18/19 18:50 03/18/19 22:00 03/18/19 22:00 03/18/19 22:00 03/18/19 22:00 General appearance: Present: no acute distress - EENT Eyes: Present: EOM intact ENT: hearing intact - Neck Neck: Present: normal ROM - Respiratory Respiratory effort: normal Respiratory: bilateral: CTA - Cardiovascular Rhythm: regular Heart Sounds: Present: S1 & S2 - Extremities Extremities: no ischemia Peripheral Pulses: within normal limits - Abdominal General gastrointestinal: Present: non-tender, non-distended Male genitourinary: Present: deferred - Rectal Rectal Exam: deferred - Integumentary Integumentary: Present: clear, warm, dry - Musculoskeletal Musculoskeletal: strength equal bilaterally - Psychiatric Psychiatric: appropriate mood/affect - Neurologic Neurologic: moves all extremities Results - Labs CBC & Chem 7: 03/18/19 20:07 03/18/19 20:07 Labs: Laboratory Last Values WBC 9.8 K/mm3 (4.5-11.0) 03/18/19 20:07 RBC 3.68 M/mm3 (3.65-5.03) 03/18/19 20:07 Hgb 10.2 gm/dl (11.8-15.2) L 03/18/19 20:07 Hct 31.1 % (35.5-45.6) L 03/18/19 20:07 MCV 85 fl (84-94) 03/18/19 20:07 MCH 28 pg (28-32) 03/18/19 20:07 MCHC 33 % (32-34) 03/18/19 20:07 RDW 15.1 % (13.2-15.2) 03/18/19 20:07 Plt Count 265 K/mm3 (140-440) 03/18/19 20:07 Lymph % (Auto) 20.8 % (13.4-35.0) 03/18/19 20:07 [place] % (Auto) 7.0 % (0.0-7.3) 03/18/19 20:07 Eos % (Auto) 2.7 % (0.0-4.3) 03/18/19 20:07 Baso % (Auto) 0.6 % (0.0-1.8) 03/18/19 20:07 Lymph # 2.0 K/mm3 (1.2-5.4) 03/18/19 20:07 [place] # 0.7 K/mm3 (0.0-0.8) 03/18/19 20:07 Eos # 0.3 K/mm3 (0.0-0.4) 03/18/19 20:07 Baso # 0.1 K/mm3 (0.0-0.1) 03/18/19 20:07 Seg Neutrophils % 68.9 % (40.0-70.0) 03/18/19 20:07 Seg Neutrophils # 6.8 K/mm3 (1.8-7.7) 03/18/19 20:07 Sodium 139 mmol/L (137-145) 03/18/19 20:07 Potassium 4.3 mmol/L (3.6-5.0) 03/18/19 20:07 Chloride 103.9 mmol/L (98-107) 03/18/19 20:07 Carbon Dioxide 23 mmol/L (22-30) 03/18/19 20:07 16 mmol/L 03/18/19 20:07 BUN 21 mg/dL (9-20) H 03/18/19 20:07 1.4 mg/dL (0.8-1.5) 03/18/19 20:07 Estimated GFR 59 ml/min 03/18/19 20:07 15 % 03/18/19 20:07 Glucose 147 mg/dL (75-100) H 03/18/19 20:07 Calcium 8.9 mg/dL (8.4-10.2) 03/18/19 20:07 0.20 mg/dL (0.1-1.2) 03/18/19 20:07 AST 14 units/L (5-40) 03/18/19 20:07 ALT 11 units/L (7-56) 03/18/19 20:07 98 units/L (35-129) 03/18/19 20:07 0.036 ng/mL (0.00-0.029) H 03/18/19 20:07 0.040 ng/mL (0.00-0.029) H 03/18/19 20:07 NT-Pro-B Natriuret Pep 476.4 pg/mL (0-900) 03/18/19 20:07 7.6 g/dL (6.3-8.2) 03/18/19 20:07 2.9 g/dL (3.9-5) L 03/18/19 20:07 0.6 % 03/18/19 20:07 Triglycerides 116 mg/dL (2-149) 03/18/19 20:07 Cholesterol 84 mg/dL (50-199) 03/18/19 20:07 44 mg/dL (50-130) L 03/18/19 20:07 34 mg/dL (40-59) L 03/18/19 20:07 2.47 % 03/18/19 20:07 Yellow (Yellow) 03/18/19 20:40 Cloudy (Clear) 03/18/19 20:40 5.0 (5.0-7.0) 03/18/19 20:40 Ur Specific [place] 1.020 (1.003-1.030) 03/18/19 20:40 100 mg/dl mg/dL (Negative) 03/18/19 20:40 150 mg/dL (Negative) 03/18/19 20:40 Neg mg/dL (Negative) 03/18/19 20:40 Mod (Negative) 03/18/19 20:40 Neg (Negative) 03/18/19 20:40 Neg (Negative) 03/18/19 20:40 < 2.0 mg/dL (<2.0) 03/18/19 20:40 Ur Leukocyte Esterase Lg (Negative) 03/18/19 20:40 137.0 /HPF (0.0-6.0) H 03/18/19 20:40 9.0 /HPF (0.0-6.0) 03/18/19 20:40 2+ /HPF (Negative) 03/18/19 20:40 Few /HPF 03/18/19 20:40 1+ /HPF 03/18/19 20:40 Assessment and Plan Assessment and plan: Acute syncopal episode CHF (last EF unknown) UTI DM type 2 HTN Seizure disorder BPH [facility] Continue neuro check IVF for hydration Ceftriaxone 1gm q24 hrs for UTI Orthostatic VS 2D echo Bilateral carotid US Resume home meds DVT prophylaxis Pt's condition and plan of care d/w Dr Hubbard Advance Directives: Yes VTE prophylaxis?: Mechanical Plan of care discussed with patient/family: Yes <JOSEPH HUBBARD - Last Filed: 03/19/19 06:21> History of Present Illness Date of admission: 03/18/19 22:43 Medications and Allergies Active Meds: Active Medications Acetaminophen (Tylenol) 650 mg PO Q4H PRN PRN Reason: Pain MILD(1-3)/Fever >100.5/[place] Aspirin (Aspirin) 325 mg PO QDAY ALANA Bisacodyl (Dulcolax) 10 mg OH QDAY PRN PRN Reason: Constipation Enoxaparin Sodium (Lovenox) 40 mg SUB-Q QDAY@1000 ALANA Hydralazine HCl (Apresoline) 5 mg IV Q6H PRN PRN Reason: Hypertension Last Admin: 03/18/19 23:24 Dose: 5 mg Documented by: Sodium Chloride (Nacl 0.9% 1000 Ml) 1,000 mls @ 75 mls/hr IV DIRECT [facility] Last Admin: 03/19/19 03:11 Dose: 75 mls/hr Documented by: Ceftriaxone Sodium (Rocephin/Ns 1 Gm/50 Ml) 1 gm in 50 mls @ 100 mls/hr IV Q24HR [facility]; Protocol Magnesium Hydroxide (Milk Of Magnesia) 30 ml PO Q4H PRN PRN Reason: Constipation Metoclopramide HCl (Reglan) 10 mg PO Q6H PRN PRN Reason: Nausea And Vomiting Ondansetron HCl (Zofran) 4 mg IV Q8H PRN PRN Reason: Nausea And Vomiting Promethazine HCl (Phenergan) 25 mg OH Q6H PRN PRN Reason: Nausea And Vomiting Senna (Senokot) 8.6 mg PO Q12HR [facility] Last Admin: 03/18/19 23:08 Dose: 8.6 mg Documented by: Sodium Chloride (Sodium Chloride Flush Syringe 10 Ml) 10 ml IV BID [facility] Last Admin: 03/18/19 23:08 Dose: 10 ml Documented by: Sodium Chloride (Sodium Chloride Flush Syringe 10 Ml) 10 ml IV PRN PRN PRN Reason: LINE FLUSH Exam - Constitutional Vitals: Temp Pulse Resp BP Pulse Ox 97.9 F 77 18 132/75 97 03/19/19 00:37 03/19/19 00:37 03/19/19 00:37 03/19/19 00:37 03/19/19 00:37 Results - Labs CBC & Chem 7: 03/18/19 20:07 03/18/19 20:07 Labs: Laboratory Last Values WBC 9.8 K/mm3 (4.5-11.0) 03/18/19 20:07 RBC 3.68 M/mm3 (3.65-5.03) 03/18/19 20:07 Hgb 10.2 gm/dl (11.8-15.2) L 03/18/19 20:07 Hct 31.1 % (35.5-45.6) L 03/18/19 20:07 MCV 85 fl (84-94) 03/18/19 20:07 MCH 28 pg (28-32) 03/18/19 20:07 MCHC 33 % (32-34) 03/18/19 20:07 RDW 15.1 % (13.2-15.2) 03/18/19 20:07 Plt Count 265 K/mm3 (140-440) 03/18/19 20:07 Lymph % (Auto) 20.8 % (13.4-35.0) 03/18/19 20:07 [place] % (Auto) 7.0 % (0.0-7.3) 03/18/19 20:07 Eos % (Auto) 2.7 % (0.0-4.3) 03/18/19 20:07 Baso % (Auto) 0.6 % (0.0-1.8) 03/18/19 20:07 Lymph # 2.0 K/mm3 (1.2-5.4) 03/18/19 20:07 [place] # 0.7 K/mm3 (0.0-0.8) 03/18/19 20:07 Eos # 0.3 K/mm3 (0.0-0.4) 03/18/19 20:07 Baso # 0.1 K/mm3 (0.0-0.1) 03/18/19 20:07 Seg Neutrophils % 68.9 % (40.0-70.0) 03/18/19 20:07 Seg Neutrophils # 6.8 K/mm3 (1.8-7.7) 03/18/19 20:07 806.33 ng/mlDDU (0-234) H 03/19/19 04:46 Sodium 139 mmol/L (137-145) 03/18/19 20:07 Potassium 4.3 mmol/L (3.6-5.0) 03/18/19 20:07 Chloride 103.9 mmol/L (98-107) 03/18/19 20:07 Carbon Dioxide 23 mmol/L (22-30) 03/18/19 20:07 16 mmol/L 03/18/19 20:07 BUN 21 mg/dL (9-20) H 03/18/19 20:07 1.4 mg/dL (0.8-1.5) 03/18/19 20:07 Estimated GFR 59 ml/min 03/18/19 20:07 15 % 03/18/19 20:07 Glucose 147 mg/dL (75-100) H 03/18/19 20:07 Lactic Acid 1.30 mmol/L (0.7-2.0) 03/18/19 22:45 Calcium 8.9 mg/dL (8.4-10.2) 03/18/19 20:07 0.20 mg/dL (0.1-1.2) 03/18/19 20:07 AST 14 units/L (5-40) 03/18/19 20:07 ALT 11 units/L (7-56) 03/18/19 20:07 98 units/L (35-129) 03/18/19 20:07 0.036 ng/mL (0.00-0.029) H 03/18/19 20:07 0.040 ng/mL (0.00-0.029) H 03/18/19 20:07 NT-Pro-B Natriuret Pep 476.4 pg/mL (0-900) 03/18/19 20:07 7.6 g/dL (6.3-8.2) 03/18/19 20:07 2.9 g/dL (3.9-5) L 03/18/19 20:07 0.6 % 03/18/19 20:07 Triglycerides 116 mg/dL (2-149) 03/18/19 20:07 Cholesterol 84 mg/dL (50-199) 03/18/19 20:07 44 mg/dL (50-130) L 03/18/19 20:07 34 mg/dL (40-59) L 03/18/19 20:07 2.47 % 03/18/19 20:07 Yellow (Yellow) 03/18/19 20:40 Cloudy (Clear) 03/18/19 20:40 5.0 (5.0-7.0) 03/18/19 20:40 Ur Specific [place] 1.020 (1.003-1.030) 03/18/19 20:40 100 mg/dl mg/dL (Negative) 03/18/19 20:40 150 mg/dL (Negative) 03/18/19 20:40 Neg mg/dL (Negative) 03/18/19 20:40 Mod (Negative) 03/18/19 20:40 Neg (Negative) 03/18/19 20:40 Neg (Negative) 03/18/19 20:40 < 2.0 mg/dL (<2.0) 03/18/19 20:40 Ur Leukocyte Esterase Lg (Negative) 03/18/19 20:40 137.0 /HPF (0.0-6.0) H 03/18/19 20:40 9.0 /HPF (0.0-6.0) 03/18/19 20:40 2+ /HPF (Negative) 03/18/19 20:40 Few /HPF 03/18/19 20:40 1+ /HPF 03/18/19 20:40 Assessment and Plan Assessment and plan: 83-year-old man is seen and evaluated in the emergency room for syncope, today's episode happened while he was at the dinner table at the senior care. He also had an episode last week. Agree with plan as stated above in addition check a d-dimer
[2019-03-18] MEDS ORDERED: NACL 0.9% 1000 ML 1,000 ML IV SCH (23:00)
[2019-03-18] MEDS: SENOKOT PO SCH (23:08)
[2019-03-18] MEDS: SODIUM CHLORIDE FLUSH SYRINGE 10 ML IV SCH (23:08)
[2019-03-18] MEDS ORDERED: APRESOLINE ONE (23:22)
[2019-03-18] MEDS: APRESOLINE IV PRN (23:24)
[2019-03-19 06:32] LABS: Creatine Kinase MB 2.7 ng/mL (0.0-4.0)
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
[2019-03-19 09:11] LABS: Creatine Kinase MB 3.1 ng/mL (0.0-4.0)
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
[2019-03-19] MEDS ORDERED: LOVENOX SUB-Q SCH (10:00)
[2019-03-19] MEDS: LOVENOX SUB-Q SCH (10:56)
[2019-03-19] MEDS: ROCEPHIN/NS 1 GM/50 ML 1 GM/50 ML BAG IV SCH (10:56)
[2019-03-19] MEDS: ASPIRIN PO SCH (10:56)
[2019-03-19] MEDS: SENOKOT PO SCH ×2 (10:56→21:43)
[2019-03-19] MEDS: SODIUM CHLORIDE FLUSH SYRINGE 10 ML IV SCH ×2 (10:56→21:47)
--- NOTE | 2019-03-19 10:57 | Vascular Lab Report ---
BILATERAL CAROTID DOPPLER ULTRASOUND INDICATION : stroke TECHNIQUE: Grayscale and color Doppler imaging performed through the neck. COMPARISON: None FINDINGS: Right: There is no significant atherosclerotic disease. Peak systolic velocity in the CCA is 91 cm/ s with end-diastolic velocity of 16 cm/s. Peak systolic velocity in the proximal ICA is 78 cm/s with end-diastolic velocity of 21 cm/s. ICA to CCA ratio is less than 2. There is antegrade flow in the E CA and the vertebral artery. Left: There is no significant atherosclerotic disease. Peak systolic velocity in the CCA is 76 cm/s w ith end-diastolic velocity of 13 cm/s. Peak systolic velocity in the proximal ICA is 74 cm/s with end -diastolic velocity of 16 cm/s. ICA to CCA ratio is less than 2. There is antegrade flow in the ECA and the vertebral artery. IMPRESSION: No hemodynamically significant stenosis by NASCET criteria. There is less than 50% lumina l narrowing in both carotid systems. Signer Name: Craig Casarez Jr, MD Signed: 03/19/2019 10:53 AM Workstation Name: [id number]
--- NOTE | 2019-03-19 11:14 | Consultation ---
History of Present Illness Consult date: 03/19/19 Consult reason: syncope History of present illness: Patient is a frail, 83-year-old man with multiple medical problems. He has had extensive cardiac noninvasive workup in the past several years including thallium stress test in 2013 and again in 2016. In 2017 he declined the recommendation for cardiac catheterization based on an abnormality on his thallium stress test. His latest echocardiogram reports reports a mildly decreased left ventricular systolic function, ejection fraction 45-50%. The patient is admitted with syncope. Patient states shortly after eating he got dizzy then passed out. There was no chest pain, no shortness of breath, no palpitations and no lower extremity edema. Chest x-ray is negative. Ventilation perfusion scan reports a low probability for PE. No acute changes seen on head CT scan. Cardiology consultation was requested for evaluation. Past History Past Medical History: anemia, CAD, diabetes, heart failure, hypertension, hyperlipidemia, seizures Past Surgical History: No surgical history Social history: no significant social history Family history: no significant family history Medications and Allergies Allergies Allergy/AdvReac Type Severity Reaction Status Date / Time No Known Allergies Allergy Verified 05/19/14 21:52 Home Medications Medication Instructions Recorded Confirmed Last Taken Type Insulin Lispro Prot/Lispro 30 unit SQ QPM 01/30/18 02/19/19 02/02/19 History [HumaLOG Mix 75/25 Vial] Insulin Lispro Prot/Lispro 40 unit SQ QAM 01/30/18 02/19/19 02/02/19 History [HumaLOG Mix 75/25 Vial] Linagliptin [Tradjenta] 5 mg PO QDAY 01/30/18 02/19/19 02/02/19 History Losartan [Cozaar] 100 mg PO QDAY 01/30/18 02/19/19 02/02/19 History Pregabalin [Lyrica] 150 mg PO DAILY 01/30/18 02/19/19 02/02/19 History Furosemide [Lasix TAB] 20 mg PO Q2D 02/02/19 02/19/19 Unknown History AtorvaSTATin [Lipitor] 40 mg PO QHS #30 tab 02/05/19 02/19/19 Unknown Rx Carvedilol [Coreg] 12.5 mg PO BID #60 tablet 02/05/19 02/19/19 Unknown Rx Tamsulosin [Flomax] 0.4 mg PO QDAY #30 capsule 02/05/19 02/19/19 Unknown Rx levETIRAcetam [Keppra TAB] 500 mg PO BID #60 tablet 02/12/19 02/19/19 Unknown Rx Ciprofloxacin HCl [Ciprofloxacin 500 mg PO Q12HR 5 Days #10 tab 02/25/19 Unkno wn Rx TAB] Active Meds: Active Medications Acetaminophen (Tylenol) 650 mg PO Q4H PRN PRN Reason: Pain MILD(1-3)/Fever >100.5/[place] Aspirin (Aspirin) 325 mg PO QDAY [facility] Last Admin: 03/19/19 10:56 Dose: 325 mg Documented by: Bisacodyl (Dulcolax) 10 mg ME QDAY PRN PRN Reason: Constipation Enoxaparin Sodium (Lovenox) 40 mg SUB-Q QDAY@1000 ALANA Last Admin: 03/19/19 10:56 Dose: 40 mg Documented by: Hydralazine HCl (Apresoline) 5 mg IV Q6H PRN PRN Reason: Hypertension Last Admin: 03/18/19 23:24 Dose: 5 mg Documented by: Sodium Chloride (Nacl 0.9% 1000 Ml) 1,000 mls @ 75 mls/hr IV DIRECT [facility] Last Admin: 03/19/19 03:11 Dose: 75 mls/hr Documented by: Ceftriaxone Sodium (Rocephin/Ns 1 Gm/50 Ml) 1 gm in 50 mls @ 100 mls/hr IV Q24HR [facility]; Protocol Last Admin: 03/19/19 10:56 Dose: 100 mls/hr Documented by: Magnesium Hydroxide (Milk Of Magnesia) 30 ml PO Q4H PRN PRN Reason: Constipation Last Admin: 03/19/19 10:55 Dose: 30 ml Documented by: Metoclopramide HCl (Reglan) 10 mg PO Q6H PRN PRN Reason: Nausea And Vomiting Ondansetron HCl (Zofran) 4 mg IV Q8H PRN PRN Reason: Nausea And Vomiting Promethazine HCl (Phenergan) 25 mg ME Q6H PRN PRN Reason: Nausea And Vomiting Senna (Senokot) 8.6 mg PO Q12HR [facility] Last Admin: 03/19/19 10:56 Dose: 8.6 mg Documented by: Sodium Chloride (Sodium Chloride Flush Syringe 10 Ml) 10 ml IV BID [facility] Last Admin: 03/19/19 10:56 Dose: 10 ml Documented by: Sodium Chloride (Sodium Chloride Flush Syringe 10 Ml) 10 ml IV PRN PRN PRN Reason: LINE FLUSH Physical Examination Vital Signs Pulse Resp BP Pulse Ox 64 20 128/72 96 03/18/19 18:26 03/18/19 18:26 03/18/19 18:26 03/18/19 18:26 General appearance: no acute distress HEENT: Positive: PERRL Neck: Positive: trachea midline Cardiac: Positive: Reg Rate and Rhythm Lungs: Positive: Decreased Breath Sounds Neuro: Positive: Grossly Intact Extremities: Absent: edema Results 03/18/19 20:07 03/18/19 20:07 Cardiac Enzymes 03/18/19 03/19/19 03/19/19 Range/Units 20:07 04:46 08:04 AST 14 (5-40) units/L CK-MB (CK-2) 2.7 3.1 (0.0-4.0) ng/mL Lipids 03/18/19 Range/Units 20:07 Triglycerides 116 (2-149) mg/dL Cholesterol 84 (50-199) mg/dL HDL Cholesterol 34 L (40-59) mg/dL Cholesterol/HDL Ratio 2.47 % CBC 03/18/19 Range/Units 20:07 WBC 9.8 (4.5-11.0) K/mm3 RBC 3.68 (3.65-5.03) M/mm3 Hgb 10.2 L (11.8-15.2) gm/dl Hct 31.1 L (35.5-45.6) % Plt Count 265 (140-440) K/mm3 Lymph # 2.0 (1.2-5.4) K/mm3 [place] # 0.7 (0.0-0.8) K/mm3 Eos # 0.3 (0.0-0.4) K/mm3 Baso # 0.1 (0.0-0.1) K/mm3 Comprehensive Metabolic Panel 03/18/19 Range/Units 20:07 Sodium 139 (137-145) mmol/L Potassium 4.3 (3.6-5.0) mmol/L Chloride 103.9 (98-107) mmol/L Carbon Dioxide 23 (22-30) mmol/L BUN 21 H (9-20) mg/dL Creatinine 1.4 (0.8-1.5) mg/dL Glucose 147 H (75-100) mg/dL Calcium 8.9 (8.4-10.2) mg/dL AST 14 (5-40) units/L ALT 11 (7-56) units/L Alkaline Phosphatase 98 (35-129) units/L Total Protein 7.6 (6.3-8.2) g/dL Albumin 2.9 L (3.9-5) g/dL Assessment and Plan Syncope Hypertension Diabetes An echo this admission reports a LVEF 45-50%. No further inpatient work up is needed. Patient will follow up in our office for a 30 day event monitor.
[2019-03-19] MEDS: APRESOLINE IV PRN ×2 (15:51→21:45)
[2019-03-19] MEDS ORDERED: NON-FORMULARY (Losartan [Cozaar] 100 MG) PO SCH (16:00)
[2019-03-19] MEDS ORDERED: D50W (25GM) Syringe IV PRN (16:00)
--- NOTE | 2019-03-19 16:01 | Discharge Summary ---
Providers - Providers Date of Admission: 03/18/19 22:43 Attending physician: ABEBA VIDALES MD 03/18/19 22:45 Consult to Case Management [CONS] Routine Services Needed at Discharge: Dietary Service Aide Consult to Dietitian/Nutrition [CONS] Routine Physician Instructions: Reason For Exam: Reason for Consult: Nutrition Recommendations Reason for Consult: Diet education Occupational Therapy Evaluate and Treat [CONS] Routine Comment: Reason For Exam: Neuro deficits Physical Therapy Evaluation and Treat [CONS] Routine Comment: Reason For Exam: Neuro deficits 03/19/19 07:54 Consult to Physician [CONS] Routine Comment: spoke to yulissa/ cris Consulting Provider: ANAYA MADRIGAL Physician Instructions: Reason For Exam: elevated trop, syncope Physical Therapy Evaluation and Treat [CONS] Routine Comment: Reason For Exam: ataxia Speech Therapy Evaluation and Treat [CONS] Routine Reason For Exam: dysphagia Primary care physician: NIGHT CUSTODIAN Hospitalization Condition: Fair Exam - Constitutional Vitals: Temp Pulse Resp BP Pulse Ox 98.0 F 77 20 203/101 95 03/19/19 07:39 03/19/19 07:39 03/19/19 07:39 03/19/19 15:47 03/19/19 07:39 Plan Follow up with: PRIMARY CARE, [Primary Care Provider] - 3-5 Days Prescriptions: Carvedilol [Coreg] 6.25 mg PO BID #60 tablet
[2019-03-19] MEDS: COZAAR PO SCH (16:11)
[2019-03-19] MEDS ORDERED: INSULIN LISPRO PROT SQ SCH (18:00)
[2019-03-19] MEDS ORDERED: LISPRO SQ SCH (18:00)
[2019-03-19] MEDS ORDERED: LASIX PO SCH (18:00)
[2019-03-19] MEDS: HumaLOG SUB-Q SCH ×2 (18:23→22:53)
[2019-03-19] MEDS: KEPPRA PO SCH (21:44)
[2019-03-19] MEDS ORDERED: COREG PO SCH (22:00)
[2019-03-20 04:04] LABS: Basophils % (Auto) 0.5 % (0.0-1.8); Eosinophils # (Auto) 0.2 K/mm3 (0.0-0.4); Eosinophils % (Auto) 2.7 % (0.0-4.3); Hematocrit 31.3 % (35.5-45.6); Hemoglobin 10.2 gm/dl (11.8-15.2); Lymphocytes % (Auto) 23.9 % (13.4-35.0); Mean Corpuscular HGB Conc 33 % (32-34); Mean Corpuscular Volume 84 fl (84-94); Monocytes # (Auto) 0.8 K/mm3 (0.0-0.8); Monocytes % (Auto) 9.4 % (0.0-7.3); Platelet Count 246 K/mm3 (140-440); Red Blood Count 3.73 M/mm3 (3.65-5.03)
[2019-03-20 04:28] LABS: BUN/Creatinine Ratio 16; Blood Urea Nitrogen 19 mg/dL (9-20); Calcium 8.7 mg/dL (8.4-10.2); Hemolysis Index 3
[2019-03-20] MEDS: HumaLOG SUB-Q SCH ×2 (08:16→12:20)
[2019-03-20] MEDS: APRESOLINE IV PRN (08:27)
[2019-03-20] MEDS: KEPPRA PO SCH (09:23)
[2019-03-20] MEDS: SENOKOT PO SCH (09:24)
[2019-03-20] MEDS: SODIUM CHLORIDE FLUSH SYRINGE 10 ML IV SCH (09:24)
[2019-03-20] MEDS: COZAAR PO SCH (09:24)
[2019-03-20] MEDS: ROCEPHIN/NS 1 GM/50 ML 1 GM/50 ML BAG IV SCH (09:26)
[2019-03-20] MEDS: LOVENOX SUB-Q SCH (09:26)
[2019-03-20] MEDS: ASPIRIN PO SCH (09:51)
[2019-03-20] MEDS ORDERED: PREGABALIN PO SCH (10:00)
[2019-03-20] MEDS ORDERED: TRADJENTA PO SCH (10:00)
[2019-03-20] MEDS ORDERED: INSULIN LISPRO PROTAMINE SQ SCH (10:00)
[2019-03-20] MEDS ORDERED: [UNRECOGNIZED DRUG - OTHER] SQ SCH (10:00)
[2019-03-20] MEDS ORDERED: FLOMAX PO SCH (10:00)
[2019-03-20] MEDS ORDERED: NON-FORMULARY (Pregabalin [Lyrica] 150 MG) PO SCH (10:00)
--- NOTE | 2019-03-20 10:23 | Progress Note ---
Assessment and Plan Syncope Hypertension Diabetes Urinary retention indwelling randall catheter UTI An echo this admission reports a LVEF 45-50%. A contrast bubble study was negative for PFO. Recommend: By history, the brief syncopal episode appears not likely cardiogenic. We will however recommend outpatient 30 day event monitor on discharge. Patient will follow up with Dr Muller as scheduled at 1020a. Subjective Date of service: 03/20/19 Interval history: Patient has no complaints. For planned discharge today. Objective Vital Signs Temp Pulse Resp BP Pulse Ox 03/20/19 10:16 172/81 03/20/19 09:29 161/69 03/20/19 07:38 98.9 F 78 18 184/89 98 03/20/19 01:44 99.0 F 85 18 155/67 95 03/19/19 21:45 91 H 189/90 03/19/19 19:55 98.7 F 91 H 18 186/90 95 03/19/19 17:18 167/84 03/19/19 16:33 172/81 03/19/19 16:07 178/80 03/19/19 15:47 203/101 - Physical Examination General: No Apparent Distress HEENT: Positive: PERRL Neck: Positive: trachea midline Cardiac: Positive: Reg Rate and Rhythm Lungs: Positive: Decreased Breath Sounds Neuro: Positive: Grossly Intact Extremities: Absent: edema - Labs and Meds CBC 03/20/19 Range/Units 03:44 WBC 8.3 (4.5-11.0) K/mm3 RBC 3.73 (3.65-5.03) M/mm3 Hgb 10.2 L (11.8-15.2) gm/dl Hct 31.3 L (35.5-45.6) % Plt Count 246 (140-440) K/mm3 Lymph # 2.0 (1.2-5.4) K/mm3 [place] # 0.8 (0.0-0.8) K/mm3 Eos # 0.2 (0.0-0.4) K/mm3 Baso # 0.0 (0.0-0.1) K/mm3 Comprehensive Metabolic Panel 03/20/19 Range/Units 03:44 Sodium 141 (137-145) mmol/L Potassium 4.0 (3.6-5.0) mmol/L Chloride 104.0 (98-107) mmol/L Carbon Dioxide 25 (22-30) mmol/L BUN 19 (9-20) mg/dL Creatinine 1.2 (0.8-1.5) mg/dL Glucose 135 H (75-100) mg/dL Calcium 8.7 (8.4-10.2) mg/dL
[2019-03-20 10:54] VITALS: BP 176/80
[2019-03-20] MEDS ORDERED: COREG PO SCH (12:00)
== END 2019-03-20 16:00 | disposition home health service (06) ==
LOC: ED 17:59 → 2B-ACE 22:43
PROVIDERS: ADMIT Internal Medicine; ATTEND Internal Medicine
DX: R55 Syncope and collapse (principal); I11.0 Hypertensive heart disease with heart failure; I50.9 Heart failure, unspecified; E11.9 Type 2 diabetes mellitus without complications; N39.0 Urinary tract infection, site not specified; N40.0 Benign prostatic hyperplasia without lower urinary tract symptoms; G40.909 Epilepsy, unspecified, not intractable, without status epilepticus; I25.10 Atherosclerotic heart disease of native coronary artery without angina pectoris; D64.9 Anemia, unspecified; M19.90 Unspecified osteoarthritis, unspecified site; Z79.4 Long term (current) use of insulin; Z79.82 Long term (current) use of aspirin; Z86.73 Personal history of transient ischemic attack (TIA), and cerebral infarction without residual deficits; Z87.891 Personal history of nicotine dependence
CPT/HCPCS: 36415; 70450; 71045; 78582; 80048; 80053; 80061; 81001; 82140; 82550; 82553; 82962; 83036; 83880; 84484; 85025; 85379; 87040; 87086; 92610; 93005; 93010; 93308; 93321; 93325; 93880; 96361; 96365; 96366; 96372; 96375; 96376; 97162; 99284; A9270; A9540; A9558; G0378; J0360; J0696; J1650; J7030; J1815

== ENCOUNTER 2019-04-10 11:19 | Inpatient (IN) | payer MEDICARE ==
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
[2019-04-10 14:01] LABS: Basophils % (Auto) 0.5 % (0.0-1.8); Eosinophils # (Auto) 0.1 K/mm3 (0.0-0.4); Eosinophils % (Auto) 1.4 % (0.0-4.3); Hematocrit 34.6 % (35.5-45.6); Hemoglobin 11.1 gm/dl (11.8-15.2); Lymphocytes # (Auto) 1.4 K/mm3 (1.2-5.4); Lymphocytes % (Auto) 15.3 % (13.4-35.0); Mean Corpuscular HGB Conc 32 % (32-34); Mean Corpuscular Volume 85 fl (84-94); Monocytes # (Auto) 0.5 K/mm3 (0.0-0.8); Monocytes % (Auto) 5.2 % (0.0-7.3); Platelet Count 210 K/mm3 (140-440); Red Blood Count 4.08 M/mm3 (3.65-5.03); Red Cell Distribution Width 15.4 % (13.2-15.2)
[2019-04-10 14:09] LABS: INR 1.25 (0.87-1.13)
[2019-04-10 14:10] LABS: Partial Thromboplastin Time 27.9 Sec. (24.2-36.6)
[2019-04-10 14:24] LABS: Albumin 3.4 g/dL (3.9-5); Calcium 9.4 mg/dL (8.4-10.2)
[2019-04-10 14:41] LABS: Bilirubin,Direct 0.2 mg/dL (0-0.2)
[2019-04-10 14:52] LABS: Chol/HDL Ratio 3.18 %
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
[2019-04-10] MEDS ORDERED: INSULIN REGULAR, HUMAN 100 UNITS/1 ML IV ONE (15:56)
[2019-04-10] MEDS ORDERED: SODIUM CHLORIDE 0.9% 1000 ML 1,000 ML IV ONE (15:57)
[2019-04-10] MEDS ORDERED: ASPIRIN 81 MG TAB CHEW PO ONE (16:10)
--- NOTE | 2019-04-10 16:18 | Nuclear Medicine Report ---
NUCLEAR MEDICINE VENTILATION/PERFUSION LUNG SCAN INDICATION: Shortness of breath TECHNIQUE: 13 mCi of Xenon-133 were given by inhalation. 4.5 mCi of Tc 99m MAA were given by IV. FINDINGS: Comparison with chest radiograph from 04/10/2019. There is a matched perfusion defects in both the right and left lung. There is a unmatched medial def ect on the right. In the posterior right lung there is an unmatched defect and there is an unmatched defect in the posterior lower lobe on the left. IMPRESSION: VQ scan is high probability for pulmonary embolus CRITICAL RESULT: Dr. Brownlee called this report to Dr. Keene at time 1513 hours central time. Report was confirmed. Signer Name: Jose Alejandro Brownlee MD Signed: 04/10/2019 4:13 PM Workstation Name: [id number]
[2019-04-10] MEDS ORDERED: ACETAMINOPHEN 325 MG TAB PO PRN (17:18)
[2019-04-10] MEDS ORDERED: ONDANSETRON 4 MG/2 ML INJ IV PRN (17:18)
[2019-04-10] MEDS ORDERED: HYDROmorphone 1 MG/1 ML INJ IV PRN (17:23)
[2019-04-10] MEDS ORDERED: HEPARIN 10,000 UNITS/10 ML VIAL IV ONE (17:23)
[2019-04-10] MEDS ORDERED: oxyCODONE /ACETAMINOPHEN 5-325MG TAB PO PRN (17:23)
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
[2019-04-10] MEDS ORDERED: NON-FORMULARY EACH (Losartan [Cozaar] 100 MG) PO SCH (17:30)
[2019-04-10 17:51] LABS: Hematocrit 33.7 % (35.5-45.6); Hemoglobin 10.9 gm/dl (11.8-15.2)
[2019-04-10 18:00] LABS: INR 1.16 (0.87-1.13)
[2019-04-10 18:01] LABS: Partial Thromboplastin Time 27.2 Sec. (24.2-36.6)
[2019-04-10] MEDS: HEPARIN/ 0.45% NACL DRIP 25,000 UNIT/500 ML BAG IV SCH (18:12)
[2019-04-10] MEDS: ASPIRIN EC 81 MG TAB PO SCH (18:18)
[2019-04-10] MEDS: FUROSEMIDE 20 MG TAB PO SCH (18:37)
[2019-04-10] MEDS: TAMSULOSIN 0.4 MG CAP PO SCH (18:37)
[2019-04-10] MEDS: LOSARTAN 50 MG TAB PO SCH (18:37)
[2019-04-10] MEDS: amLODIPine 5 MG TAB PO SCH (18:37)
[2019-04-10] MEDS: SODIUM CHLORIDE 0.9% 1000 ML 1,000 ML IV SCH (18:38)
[2019-04-10] MEDS ORDERED: NON-FORMULARY EACH (Pregabalin [Lyrica] 150 MG) PO SCH (22:00)
[2019-04-10] MEDS: PREGABALIN 75 MG CAP PO SCH (23:44)
[2019-04-10] MEDS: levETIRAcetam 500 MG TAB PO SCH (23:44)
[2019-04-10] MEDS: carvediloL 6.25 MG TAB PO SCH (23:46)
[2019-04-11] MEDS ORDERED: DEXTROSE 50% IN WATER (25GM) 50 ML SYRINGE IV PRN (00:12)
[2019-04-11] MEDS: INSULIN LISPRO 100 UNIT/ML SUB-Q SCH ×5 (01:09→21:47)
[2019-04-11 07:19] LABS: Basophils # (Auto) 0.1 K/mm3 (0.0-0.1); Basophils % (Auto) 1.2 % (0.0-1.8); Eosinophils # (Auto) 0.3 K/mm3 (0.0-0.4); Eosinophils % (Auto) 3.4 % (0.0-4.3); Hematocrit 30.3 % (35.5-45.6); Lymphocytes # (Auto) 2.6 K/mm3 (1.2-5.4); Lymphocytes % (Auto) 32.2 % (13.4-35.0); Mean Corpuscular HGB Conc 33 % (32-34); Mean Corpuscular Volume 84 fl (84-94); Monocytes # (Auto) 0.6 K/mm3 (0.0-0.8); Monocytes % (Auto) 7.8 % (0.0-7.3); Platelet Count 204 K/mm3 (140-440); Red Blood Count 3.61 M/mm3 (3.65-5.03); Red Cell Distribution Width 15.1 % (13.2-15.2)
[2019-04-11 07:37] LABS: Alanine Aminotransferase 11 units/L (7-56); BUN/Creatinine Ratio 22; Blood Urea Nitrogen 28 mg/dL (9-20); Calcium 8.8 mg/dL (8.4-10.2); Hemolysis Index 0
[2019-04-11] MEDS: SODIUM CHLORIDE 0.9% 1000 ML 1,000 ML IV SCH (10:33)
[2019-04-11] MEDS: levETIRAcetam 500 MG TAB PO SCH ×2 (10:36→21:45)
[2019-04-11] MEDS: TAMSULOSIN 0.4 MG CAP PO SCH (10:36)
[2019-04-11] MEDS: amLODIPine 5 MG TAB PO SCH (10:36)
[2019-04-11] MEDS: INSULIN GLARGINE 100 UNITS/ML SUB-Q SCH ×2 (10:37→21:48)
[2019-04-11] MEDS: ASPIRIN EC 81 MG TAB PO SCH (10:37)
[2019-04-11] MEDS: FUROSEMIDE 20 MG TAB PO SCH (10:37)
[2019-04-11] MEDS: carvediloL 6.25 MG TAB PO SCH ×2 (10:37→21:46)
[2019-04-11] MEDS: LOSARTAN 50 MG TAB PO SCH (10:38)
--- NOTE | 2019-04-11 12:01 | Progress Note ---
Assessment and Plan Assessment and plan: --Pulmonary embolism [high probability PE on VQ scan] Current Visit: Yes Status: Acute Started on IV Heparin, check CTA chest to confirm PE Dr Young consulted for possible EKOS -- HTN (hypertension) Current Visit: Yes Status: Chronic Cont antihypertensives and when necessary medications -- Seizure Current Visit: No Status: Chronic Cont Keppra --HLD (hyperlipidemia) Current Visit: Yes Status: Chronic Cont statins -- BPH (benign prostatic hyperplasia) Current Visit: Yes Status: Chronic Cont Flomax -- CHF (congestive heart failure) Current Visit: Yes Status: Chronic Cont CHF medications --Peripheral neuropathy Current Visit: Yes Status: Chronic On Gabapentin, supportive care --DVT prophylaxis Current Visit: No Status: Acute On Heparin drip Follow CT angiogram of the chest Consider lower extremity venous Doppler Monitor closely and adjust management as needed Plan of care is reviewed with the patient and his at the bedside I also discussed with Dr. Barnes[IR] History Interval history: Patient seen and examined medical records reviewed Admitted this morning with acute PE high probability for PE on VQ scan On heparin drip, patient feels better Denies chest pain or shortness of breath No new episodes of syncope since admission Vital signs reviewed Hospitalist Physical - Constitutional Vitals: Temp Pulse Resp BP Pulse Ox 98.5 F 67 16 120/64 94 04/11/19 07:54 04/11/19 07:54 04/11/19 07:54 04/11/19 07:54 04/11/19 07:54 General appearance: Present: no acute distress, well-nourished - EENT Eyes: Present: PERRL, EOM intact - Neck Neck: Present: supple, normal ROM - Respiratory Respiratory effort: normal Respiratory: bilateral: diminished, negative: rales, rhonchi, wheezing - Cardiovascular Rhythm: regular Heart Sounds: Present: S1 & S2 - Extremities Extremities: no ischemia, No edema - Abdominal General gastrointestinal: soft, non-tender, non-distended, normal bowel sounds - Integumentary Integumentary: Present: clear, warm - Psychiatric Psychiatric: appropriate mood/affect, cooperative - Neurologic Neurologic: CNII-XII intact, moves all extremities Results - Labs CBC & Chem 7: 04/11/19 06:52 04/11/19 06:52 Labs: Laboratory Last Values WBC 8.1 K/mm3 (4.5-11.0) 04/11/19 06:52 RBC 3.61 M/mm3 (3.65-5.03) L 04/11/19 06:52 Hgb 10.0 gm/dl (11.8-15.2) L 04/11/19 06:52 Hct 30.3 % (35.5-45.6) L 04/11/19 06:52 MCV 84 fl (84-94) 04/11/19 06:52 MCH 28 pg (28-32) 04/11/19 06:52 MCHC 33 % (32-34) 04/11/19 06:52 RDW 15.1 % (13.2-15.2) 04/11/19 06:52 Plt Count 204 K/mm3 (140-440) 04/11/19 06:52 Lymph % (Auto) 32.2 % (13.4-35.0) 04/11/19 06:52 [place] % (Auto) 7.8 % (0.0-7.3) H 04/11/19 06:52 Eos % (Auto) 3.4 % (0.0-4.3) 04/11/19 06:52 Baso % (Auto) 1.2 % (0.0-1.8) 04/11/19 06:52 Lymph # 2.6 K/mm3 (1.2-5.4) 04/11/19 06:52 [place] # 0.6 K/mm3 (0.0-0.8) 04/11/19 06:52 Eos # 0.3 K/mm3 (0.0-0.4) 04/11/19 06:52 Baso # 0.1 K/mm3 (0.0-0.1) 04/11/19 06:52 Seg Neutrophils % 55.4 % (40.0-70.0) 04/11/19 06:52 Seg Neutrophils # 4.5 K/mm3 (1.8-7.7) 04/11/19 06:52 PT 14.5 Sec. (12.2-14.9) 04/10/19 17:37 INR 1.16 (0.87-1.13) H 04/10/19 17:37 APTT 27.2 Sec. (24.2-36.6) 04/10/19 17:37 452.05 ng/mlDDU (0-234) H 04/10/19 13:49 Heparin Anti-Xa Level 0.47 U.I./ml (0.3-0.7) 04/11/19 00:36 Sodium 139 mmol/L (137-145) D 04/11/19 06:52 Potassium 3.9 mmol/L (3.6-5.0) 04/11/19 06:52 Chloride 103.8 mmol/L (98-107) 04/11/19 06:52 Carbon Dioxide 23 mmol/L (22-30) 04/11/19 06:52 16 mmol/L 04/11/19 06:52 BUN 28 mg/dL (9-20) H 04/11/19 06:52 1.3 mg/dL (0.8-1.5) 04/11/19 06:52 Estimated GFR > 60 ml/min 04/11/19 06:52 22 % 04/11/19 06:52 Glucose 210 mg/dL (75-100) H 04/11/19 06:52 POC Glucose 344 (70-105) H 04/11/19 11:49 8.7 % (4-6) H 04/10/19 17:37 Calcium 8.8 mg/dL (8.4-10.2) 04/11/19 06:52 Magnesium 2.00 mg/dL (1.7-2.3) 04/10/19 13:49 0.40 mg/dL (0.1-1.2) 04/11/19 06:52 0.2 mg/dL (0-0.2) 04/10/19 13:49 0.3 mg/dL 04/10/19 13:49 AST 12 units/L (5-40) 04/11/19 06:52 ALT 11 units/L (7-56) 04/11/19 06:52 82 units/L (35-129) 04/11/19 06:52 0.051 ng/mL (0.00-0.029) H 04/10/19 13:49 NT-Pro-B Natriuret Pep 381.1 pg/mL (0-900) 04/10/19 13:49 7.6 g/dL (6.3-8.2) 04/11/19 06:52 3.0 g/dL (3.9-5) L 04/11/19 06:52 0.7 % 04/11/19 06:52 Triglycerides 124 mg/dL (2-149) 04/10/19 13:49 Cholesterol 102 mg/dL (50-199) 04/10/19 13:49 58 mg/dL (50-130) 04/10/19 13:49 32 mg/dL (40-59) L 04/10/19 13:49 3.18 % 04/10/19 13:49 Active Medications - Current Medications Current Medications: Generic Name Dose Route Start Last Admin Trade Name Freq PRN Reason Stop Dose Admin Acetaminophen 650 mg 04/10/19 17:18 Tylenol PO Q4H PRN Pain MILD(1-3)/Fever >100.5/STINSON Amlodipine Besylate 5 mg 04/10/19 18:00 04/11/19 10:36 Norvasc PO 5 mg QDAY ALANA Administration Aspirin 81 mg 04/10/19 18:00 04/11/19 10:37 Halfprin Ec PO 81 mg DAILY ALANA Administration Atorvastatin Calcium 40 mg 04/10/19 22:00 04/10/19 23:44 Lipitor PO 40 mg QHS AALNA Administration Bisacodyl 5 mg 04/10/19 17:25 Dulcolax PO DAILY PRN Constipation Carvedilol 6.25 mg 04/10/19 22:00 04/11/19 10:37 Coreg PO 6.25 mg BID ALANA Administration Dextrose 50 ml 04/11/19 00:12 D50w (25gm) Syringe IV PRN PRN Hypoglycemia Docusate Sodium 100 mg 04/10/19 17:25 Colace PO DAILY PRN Constipation Furosemide 40 mg 04/10/19 18:00 04/11/19 10:37 Lasix PO 40 mg QDAY ALANA Administration Hydromorphone HCl 0.5 mg 04/10/19 17:23 Dilaudid IV Q3H PRN Pain , Severe (7-10) Sodium Chloride 1,000 mls @ 75 mls/hr 04/10/19 18:00 04/11/19 10:33 Nacl 0.9% 1000 Ml IV 04/11/19 16:00 75 mls/hr DIRECT ALANA Administration Heparin Sodium/Sodium Chloride 25,000 unit in 500 mls @ 24 mls/hr 04/10/19 18:00 04/11/19 01:28 Heparin/ 0.45% Nacl-25,000 Unit/500 Ml IV 1,200 units/hr TITR ALANA 24 mls/hr Titration Protocol 1,200 UNITS/HR Insulin Glargine 10 units 04/11/19 10:00 04/11/19 10:37 Lantus SUB-Q 10 units BID ALANA Administration Insulin Human Lispro 0 unit 04/11/19 00:00 04/11/19 10:43 Humalog SUB-Q 4 unit ACHS ALANA Administration Protocol Levetiracetam 500 mg 04/10/19 22:00 04/11/19 10:36 Keppra PO 500 mg BID ALANA Administration Losartan Potassium 100 mg 04/10/19 18:00 04/11/19 10:38 Cozaar PO 100 mg QDAY ALANA Administration Ondansetron HCl 4 mg 04/10/19 17:18 Zofran IV Q8H PRN Nausea And Vomiting Oxycodone/Acetaminophen 1 tab 04/10/19 17:23 Percocet 5/325 PO Q6H PRN Pain, Moderate (4-6) Pregabalin 150 mg 04/10/19 22:00 04/10/19 23:44 Pregabalin PO 150 mg QHS ALANA Administration Sodium Chloride 10 ml 04/10/19 22:00 04/10/19 23:45 Sodium Chloride Flush Syringe 10 Ml IV 10 ml BID ALANA Administration Sodium Chloride 10 ml 04/10/19 17:18 Sodium Chloride Flush Syringe 10 Ml IV PRN PRN LINE FLUSH Tamsulosin HCl 0.4 mg 04/10/19 18:00 04/11/19 10:36 Flomax PO 0.4 mg QDAY ALANA Administration
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
[2019-04-11] MEDS: HEPARIN/ 0.45% NACL DRIP 25,000 UNIT/500 ML BAG IV SCH (18:08)
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
[2019-04-11] MEDS: PREGABALIN 75 MG CAP PO SCH (21:46)
[2019-04-12] MEDS: INSULIN LISPRO 100 UNIT/ML SUB-Q SCH ×4 (08:37→21:18)
--- NOTE | 2019-04-12 09:30 | Progress Note ---
Assessment and Plan Assessment and plan: --Pulmonary embolism [high probability PE on VQ scan] on admission CTA chest negative for PE Current Visit: Yes Status: Acute on IV Heparin, CTA chest neg for PE DC heparin drip, start Lovenox prophylaxis dose Follow LE doppler study to rule out DVT Dr Young following. -- HTN (hypertension) Current Visit: Yes Status: Chronic Cont antihypertensives and when necessary medications -- Seizure Current Visit: No Status: Chronic Cont Keppra --HLD (hyperlipidemia) Current Visit: Yes Status: Chronic Cont statins -- BPH (benign prostatic hyperplasia) Current Visit: Yes Status: Chronic Cont Flomax -- CHF (congestive heart failure) Current Visit: Yes Status: Chronic Cont CHF medications --Peripheral neuropathy Current Visit: Yes Status: Chronic On Gabapentin, supportive care --DVT prophylaxis Current Visit: No Status: Acute On Heparin drip Follow CT angiogram of the chest Consider lower extremity venous Doppler Plan of care is reviewed with the patient and his at the bedside Disposition; follow lower extremity venous Doppler, if negative and patient is stable May be discharged home tomorrow with home health Plan of care is reviewed with the patient, his and his nurse History Interval history: Patient seen and examined medical records reviewed Patient's CT is negative for any, DC heparin drip Check lower extremity venous Doppler to rule out DVT Patient feels better no new complaints No new episodes of syncope Vital signs noted Hospitalist Physical - Constitutional Vitals: Temp Pulse Resp BP Pulse Ox 97.6 F 60 16 126/64 96 04/12/19 07:23 04/12/19 07:23 04/12/19 07:23 04/12/19 07:23 04/12/19 07:23 General appearance: Present: no acute distress, well-nourished - EENT Eyes: Present: PERRL, EOM intact - Neck Neck: Present: supple, normal ROM - Respiratory Respiratory effort: normal Respiratory: bilateral: diminished, negative: rales, rhonchi, wheezing - Cardiovascular Rhythm: regular Heart Sounds: Present: S1 & S2 - Extremities Extremities: no ischemia, pulses intact, No edema - Abdominal General gastrointestinal: soft, non-tender, non-distended, normal bowel sounds - Integumentary Integumentary: Present: clear, warm - Psychiatric Psychiatric: appropriate mood/affect, cooperative - Neurologic Neurologic: CNII-XII intact, moves all extremities Results - Labs CBC & Chem 7: 04/12/19 04:01 04/11/19 06:52 Labs: Laboratory Last Values WBC 8.1 K/mm3 (4.5-11.0) 04/11/19 06:52 RBC 3.61 M/mm3 (3.65-5.03) L 04/11/19 06:52 Hgb 10.0 gm/dl (11.8-15.2) L 04/12/19 04:01 Hct 30.0 % (35.5-45.6) L 04/12/19 04:01 MCV 84 fl (84-94) 04/11/19 06:52 MCH 28 pg (28-32) 04/11/19 06:52 MCHC 33 % (32-34) 04/11/19 06:52 RDW 15.1 % (13.2-15.2) 04/11/19 06:52 Plt Count 198 K/mm3 (140-440) 04/12/19 04:01 Lymph % (Auto) 32.2 % (13.4-35.0) 04/11/19 06:52 Sibley % (Auto) 7.8 % (0.0-7.3) H 04/11/19 06:52 Eos % (Auto) 3.4 % (0.0-4.3) 04/11/19 06:52 Baso % (Auto) 1.2 % (0.0-1.8) 04/11/19 06:52 Lymph # 2.6 K/mm3 (1.2-5.4) 04/11/19 06:52 Sibley # 0.6 K/mm3 (0.0-0.8) 04/11/19 06:52 Eos # 0.3 K/mm3 (0.0-0.4) 04/11/19 06:52 Baso # 0.1 K/mm3 (0.0-0.1) 04/11/19 06:52 Seg Neutrophils % 55.4 % (40.0-70.0) 04/11/19 06:52 Seg Neutrophils # 4.5 K/mm3 (1.8-7.7) 04/11/19 06:52 PT 14.5 Sec. (12.2-14.9) 04/10/19 17:37 INR 1.16 (0.87-1.13) H 04/10/19 17:37 APTT 27.2 Sec. (24.2-36.6) 04/10/19 17:37 452.05 ng/mlDDU (0-234) H 04/10/19 13:49 Heparin Anti-Xa Level 0.46 U.I./ml (0.3-0.7) 04/12/19 00:18 Sodium 139 mmol/L (137-145) D 04/11/19 06:52 Potassium 3.9 mmol/L (3.6-5.0) 04/11/19 06:52 Chloride 103.8 mmol/L (98-107) 04/11/19 06:52 Carbon Dioxide 23 mmol/L (22-30) 04/11/19 06:52 16 mmol/L 04/11/19 06:52 BUN 28 mg/dL (9-20) H 04/11/19 06:52 1.3 mg/dL (0.8-1.5) 04/11/19 06:52 Estimated GFR > 60 ml/min 04/11/19 06:52 22 % 04/11/19 06:52 Glucose 210 mg/dL (75-100) H 04/11/19 06:52 POC Glucose 265 (70-105) H 04/12/19 07:30 8.7 % (4-6) H 04/10/19 17:37 Calcium 8.8 mg/dL (8.4-10.2) 04/11/19 06:52 Magnesium 2.00 mg/dL (1.7-2.3) 04/10/19 13:49 0.40 mg/dL (0.1-1.2) 04/11/19 06:52 0.2 mg/dL (0-0.2) 04/10/19 13:49 0.3 mg/dL 04/10/19 13:49 AST 12 units/L (5-40) 04/11/19 06:52 ALT 11 units/L (7-56) 04/11/19 06:52 82 units/L (35-129) 04/11/19 06:52 0.051 ng/mL (0.00-0.029) H 04/10/19 13:49 NT-Pro-B Natriuret Pep 381.1 pg/mL (0-900) 04/10/19 13:49 7.6 g/dL (6.3-8.2) 04/11/19 06:52 3.0 g/dL (3.9-5) L 04/11/19 06:52 0.7 % 04/11/19 06:52 Triglycerides 124 mg/dL (2-149) 04/10/19 13:49 Cholesterol 102 mg/dL (50-199) 04/10/19 13:49 58 mg/dL (50-130) 04/10/19 13:49 32 mg/dL (40-59) L 04/10/19 13:49 3.18 % 04/10/19 13:49 Active Medications - Current Medications Current Medications: Generic Name Dose Route Start Last Admin Trade Name Freq PRN Reason Stop Dose Admin Acetaminophen 650 mg 04/10/19 17:18 Tylenol PO Q4H PRN Pain MILD(1-3)/Fever >100.5/[facility]SON Amlodipine Besylate 5 mg 04/10/19 18:00 04/11/19 10:36 Norvasc PO 5 mg QDAY A[facility]NA Administration Aspirin 81 mg 04/10/19 18:00 04/11/19 10:37 Halfprin Ec PO 81 mg DAILY ALANA Administration Atorvastatin Calcium 40 mg 04/10/19 22:00 04/11/19 21:45 Lipitor PO 40 mg QHS [facility]NA Administration Bisacodyl 5 mg 04/10/19 17:25 Dulcolax PO DAILY PRN Constipation Carvedilol 6.25 mg 04/10/19 22:00 04/11/19 21:46 Coreg PO 6.25 mg BID A[facility]NA Administration Dextrose 50 ml 04/11/19 00:12 D50w (25gm) Syringe IV PRN PRN Hypoglycemia Docusate Sodium 100 mg 04/10/19 17:25 Colace PO DAILY PRN Constipation Furosemide 40 mg 04/10/19 18:00 04/11/19 10:37 Lasix PO 40 mg QDAY [facility] Administration Hydromorphone HCl 0.5 mg 04/10/19 17:23 Dilaudid IV Q3H PRN Pain , Severe (7-10) Heparin Sodium/Sodium Chloride 25,000 unit in 500 mls @ 24 mls/hr 04/10/19 18:00 04/12/19 01:53 Heparin/ 0.45% Nacl-25,000 Unit/500 Ml IV 1,200 units/hr TITR ALANA 24 mls/hr Titration Protocol 1,200 UNITS/HR Insulin Glargine 10 units 04/11/19 10:00 04/11/19 21:48 Lantus SUB-Q 10 units BID [facility] Administration Insulin Human Lispro 0 unit 04/11/19 00:00 04/12/19 08:37 Humalog SUB-Q 6 unit ACHS [facility] Administration Protocol Levetiracetam 500 mg 04/10/19 22:00 04/11/19 21:45 Keppra PO 500 mg BID A[facility] Administration Losartan Potassium 100 mg 04/10/19 18:00 04/11/19 10:38 Cozaar PO 100 mg QDAY [facility] Administration Ondansetron HCl 4 mg 04/10/19 17:18 Zofran IV Q8H PRN Nausea And Vomiting Oxycodone/Acetaminophen 1 tab 04/10/19 17:23 Percocet 5/325 PO Q6H PRN Pain, Moderate (4-6) Pregabalin 150 mg 04/10/19 22:00 04/11/19 21:46 Pregabalin PO 150 mg QHS A[facility] Administration Sodium Chloride 10 ml 04/10/19 22:00 04/11/19 21:46 Sodium Chloride Flush Syringe 10 Ml IV 10 ml BID [facility] Administration Sodium Chloride 10 ml 04/10/19 17:18 Sodium Chloride Flush Syringe 10 Ml IV PRN PRN LINE FLUSH Tamsulosin HCl 0.4 mg 04/10/19 18:00 04/11/19 10:36 Flomax PO 0.4 mg QDAY A[facility]NA Administration Nutrition/Malnutrition Assess - Dietary Evaluation Nutrition/Malnutrition Findings: Nutrition Notes Start: 04/11/19 12:09 Freq: Status: Active Protocol: Document 04/11/19 12:10 FREDDY (Rec: 04/11/19 12:20 [email or web address] [id number]) Nutrition Notes Need for Assessment generated from: MD Order,MST,Education Initial or Follow up Brief Note Current Diagnosis Diabetes,Hypertension, Hyperlipidemia Other Pertinent Diagnosis h/o CVA Current Diet Cardiac Diet Labs/Tests BUN: 28 Glu: 210 A1C: 8.7 Pertinent Medications Humalog Subjective/Other Information Pt consulted for diet education and screened for MST . Per pt , pt has lost a significant amount of weight in the past month, which they attribute to being ill during his last inpatient stay at [facility]. Pt denied N/V, chewing/ swallowing difficulties and diarrhea. He experiences occasional constipation, but he was prescribed medicatio nfor this and claims it does not effect his PO intake. Since his most recent illness last month, his appetitie is " better than before he was sick ," per pt , and he has since gained the weight back. Per pt , pt was diagnosed with DM 16 years ago. Pt stated he takes insulin at home and checks his blood glucose regularly, but does not count carbohydrates. Pt says she uses the food label often while shopping and is familiar with where the carbohydrate content is located on the label. RD discussed CHO servings, and talked with pt about how he can incorporate his favorite foods into this dietary pattern. RD explained that CHO counting is a good way to become more mindful about food selections. Minimum of two criteria No Interpretation of Weight Loss (severe) >5% in 1 month #1 Nutrition Diagnosis Food and nutrition-related knowledge deficit Etiology No prior knowledge of consistent CHO diet for diabetes As Evidenced by Signs and Symptoms Pt and Pt anaware of what a CHO serving is, A1C of 8.7 Nutrition Intervention Revisit per MD consult or patient Sign Off request:
[2019-04-12] MEDS: levETIRAcetam 500 MG TAB PO SCH ×2 (10:02→21:16)
[2019-04-12] MEDS: ASPIRIN EC 81 MG TAB PO SCH (10:02)
[2019-04-12] MEDS: FUROSEMIDE 20 MG TAB PO SCH (10:03)
[2019-04-12] MEDS: LOSARTAN 50 MG TAB PO SCH (10:03)
[2019-04-12] MEDS: carvediloL 6.25 MG TAB PO SCH ×2 (10:03→21:17)
[2019-04-12] MEDS: TAMSULOSIN 0.4 MG CAP PO SCH (10:03)
[2019-04-12] MEDS: INSULIN GLARGINE 100 UNITS/ML SUB-Q SCH ×2 (10:04→21:17)
[2019-04-12] MEDS: amLODIPine 5 MG TAB PO SCH (10:05)
--- NOTE | 2019-04-12 12:14 | Event Note ---
Date: 04/12/19 CTPA NEGATIVE for pulmonary embolism. Initial read of VQ scan incorrect, which is what I reported upon my review of the VQ study. Since no pulmonary embolism, no need for venous doppler study to assess for source. No IVC filter required. Vascular signing off.
[2019-04-12] MEDS: DOCUSATE SODIUM 100 MG CAP PO PRN (18:27)
[2019-04-12] MEDS: PREGABALIN 75 MG CAP PO SCH (21:16)
[2019-04-12] MEDS: ENOXAPARIN 40 MG/0.4 ML INJ SUB-Q SCH (21:17)
[2019-04-13] MEDS: INSULIN LISPRO 100 UNIT/ML SUB-Q SCH ×4 (08:48→21:45)
[2019-04-13] MEDS: LOSARTAN 50 MG TAB PO SCH (09:02)
[2019-04-13] MEDS: FUROSEMIDE 20 MG TAB PO SCH (09:03)
[2019-04-13] MEDS: amLODIPine 5 MG TAB PO SCH (09:03)
[2019-04-13] MEDS: TAMSULOSIN 0.4 MG CAP PO SCH (09:03)
[2019-04-13] MEDS: levETIRAcetam 500 MG TAB PO SCH ×3 (09:03→21:45)
[2019-04-13] MEDS: carvediloL 6.25 MG TAB PO SCH ×2 (09:03→21:44)
[2019-04-13] MEDS: ASPIRIN EC 81 MG TAB PO SCH (09:04)
[2019-04-13] MEDS ORDERED: INSULIN GLARGINE 100 UNITS/ML SUB-Q SCH (09:30)
--- NOTE | 2019-04-13 10:21 | Vascular Lab Report ---
DUPLEX DOPPLER LOWER EXTREMITY VEINS, BILATERAL INDICATION: Lower extremity pain and swelling. TECHNIQUE: Duplex doppler imaging was performed through the veins of both lower extremities using ve nous compression and other maneuvers. COMPARISON: No relevant prior imaging study available. FINDINGS: Right Common femoral vein: Negative. Right Superficial femoral vein: Negative. Right Popliteal vein: Negative. Right Calf veins: Negative. Left Common femoral vein: Negative. Left Superficial femoral vein: Negative. Left Popliteal vein: Negative. Left Calf veins: Negative. Additional findings: None.. IMPRESSION: No sonographic evidence for DVT in either lower extremity. Signer Name: Craig Casarez Jr, MD Signed: 04/13/2019 10:16 AM Workstation Name: [id number]
--- NOTE | 2019-04-13 13:09 | Progress Note ---
Assessment and Plan Assessment and plan: 83-year-old male patient with multiple medical problems multiple admissions in the recent past was admitted through emergency room with syncope uncontrolled blood sugars Patient was initially evaluated and noted to have high probability for PE And was started, subsequently be obtained CT chest which was negative for PE lower extremity venous Doppler negative for DVT,The patient is noncompliant with medic ations and diet and patient's best sugars are uncontrolled. Medications optimized Patient also complains of mild dizziness, receiving PT, May discharge the patient tomorrow if blood sugars are reasonable level --Pulmonary embolism ruled out Current Visit: Yes Status: Acute VQ scan high prob for PE at admission However CTA chest neg for PE DC heparin drip, LE doppler neg DVT PE ruled out --Type 2 diabetes mellitus; uncontrolled Accu Check sliding-scale coverage and ADA diet Adjust insulin dose, diabetic education Home had home health nurse for disease monitoring at discharge -- HTN (hypertension) Current Visit: Yes Status: Chronic Cont antihypertensives and when necessary medications. -- Seizure Current Visit: No Status: Chronic increased Keppra to 750 bid --HLD (hyperlipidemia) Current Visit: Yes Status: Chronic Cont statins -- BPH (benign prostatic hyperplasia) Current Visit: Yes Status: Chronic Cont Flomax -- CHF (congestive heart failure) Current Visit: Yes Status: Chronic Cont CHF medications --Peripheral neuropathy Current Visit: Yes Status: Chronic On Gabapentin, supportive care --DVT prophylaxis Current Visit: No Status: Acute On Heparin drip Disposition; blood sugars have been well controlled And dizziness has resolved, May be discharged home tomorrow with home health Plan of care is reviewed with the patient, his and his nurse History Interval history: Patient seen and examined medical records reviewed Patient complains of some dizziness, blood sugars uncontrolled Denies chest pain or shortness of breath Alert awake oriented Vital signs noted Hospitalist Physical - Constitutional Vitals: Temp Pulse Resp BP Pulse Ox 97.6 F 60 18 183/88 97 04/13/19 07:57 04/13/19 10:00 04/13/19 10:00 04/13/19 12:09 04/13/19 10:00 General appearance: Present: no acute distress, well-nourished - EENT Eyes: Present: PERRL, EOM intact - Neck Neck: Present: supple, normal ROM - Respiratory Respiratory effort: normal Respiratory: bilateral: diminished, negative: rales, rhonchi, wheezing - Cardiovascular Rhythm: regular Heart Sounds: Present: S1 & S2 - Extremities Extremities: no ischemia, No edema - Abdominal General gastrointestinal: soft, non-tender, non-distended, normal bowel sounds - Integumentary Integumentary: Present: clear, warm - Psychiatric Psychiatric: appropriate mood/affect, cooperative - Neurologic Neurologic: CNII-XII intact, moves all extremities Results - Labs CBC & Chem 7: 04/12/19 04:01 04/11/19 06:52 Labs: Laboratory Last Values WBC 8.1 K/mm3 (4.5-11.0) 04/11/19 06:52 RBC 3.61 M/mm3 (3.65-5.03) L 04/11/19 06:52 Hgb 10.0 gm/dl (11.8-15.2) L 04/12/19 04:01 Hct 30.0 % (35.5-45.6) L 04/12/19 04:01 MCV 84 fl (84-94) 04/11/19 06:52 MCH 28 pg (28-32) 04/11/19 06:52 MCHC 33 % (32-34) 04/11/19 06:52 RDW 15.1 % (13.2-15.2) 04/11/19 06:52 Plt Count 198 K/mm3 (140-440) 04/12/19 04:01 Lymph % (Auto) 32.2 % (13.4-35.0) 04/11/19 06:52 [place] % (Auto) 7.8 % (0.0-7.3) H 04/11/19 06:52 Eos % (Auto) 3.4 % (0.0-4.3) 04/11/19 06:52 Baso % (Auto) 1.2 % (0.0-1.8) 04/11/19 06:52 Lymph # 2.6 K/mm3 (1.2-5.4) 04/11/19 06:52 [place] # 0.6 K/mm3 (0.0-0.8) 04/11/19 06:52 Eos # 0.3 K/mm3 (0.0-0.4) 04/11/19 06:52 Baso # 0.1 K/mm3 (0.0-0.1) 04/11/19 06:52 Seg Neutrophils % 55.4 % (40.0-70.0) 04/11/19 06:52 Seg Neutrophils # 4.5 K/mm3 (1.8-7.7) 04/11/19 06:52 PT 14.5 Sec. (12.2-14.9) 04/10/19 17:37 INR 1.16 (0.87-1.13) H 04/10/19 17:37 APTT 27.2 Sec. (24.2-36.6) 04/10/19 17:37 D-Dimer 452.05 ng/mlDDU (0-234) H 04/10/19 13:49 Heparin Anti-Xa Level 0.46 U.I./ml (0.3-0.7) 04/12/19 00:18 Sodium 139 mmol/L (137-145) D 04/11/19 06:52 Potassium 3.9 mmol/L (3.6-5.0) 04/11/19 06:52 Chloride 103.8 mmol/L (98-107) 04/11/19 06:52 Carbon Dioxide 23 mmol/L (22-30) 04/11/19 06:52 Anion Gap 16 mmol/L 04/11/19 06:52 BUN 28 mg/dL (9-20) H 04/11/19 06:52 Creatinine 1.3 mg/dL (0.8-1.5) 04/11/19 06:52 Estimated GFR > 60 ml/min 04/11/19 06:52 BUN/Creatinine Ratio 22 % 04/11/19 06:52 Glucose 210 mg/dL (75-100) H 04/11/19 06:52 POC Glucose 312 (70-105) H 04/13/19 08:03 Hemoglobin A1c 8.7 % (4-6) H 04/10/19 17:37 Calcium 8.8 mg/dL (8.4-10.2) 04/11/19 06:52 Magnesium 2.00 mg/dL (1.7-2.3) 04/10/19 13:49 Total Bilirubin 0.40 mg/dL (0.1-1.2) 04/11/19 06:52 Direct Bilirubin 0.2 mg/dL (0-0.2) 04/10/19 13:49 Indirect Bilirubin 0.3 mg/dL 04/10/19 13:49 AST 12 units/L (5-40) 04/11/19 06:52 ALT 11 units/L (7-56) 04/11/19 06:52 Alkaline Phosphatase 82 units/L (35-129) 04/11/19 06:52 Troponin T 0.051 ng/mL (0.00-0.029) H 04/10/19 13:49 NT-Pro-B Natriuret Pep 381.1 pg/mL (0-900) 04/10/19 13:49 Total Protein 7.6 g/dL (6.3-8.2) 04/11/19 06:52 Albumin 3.0 g/dL (3.9-5) L 04/11/19 06:52 Albumin/Globulin Ratio 0.7 % 04/11/19 06:52 Triglycerides 124 mg/dL (2-149) 04/10/19 13:49 Cholesterol 102 mg/dL (50-199) 04/10/19 13:49 LDL Cholesterol Direct 58 mg/dL (50-130) 04/10/19 13:49 HDL Cholesterol 32 mg/dL (40-59) L 04/10/19 13:49 Cholesterol/HDL Ratio 3.18 % 04/10/19 13:49 Active Medications - Current Medications Current Medications: Generic Name Dose Route Start Last Admin Trade Name Freq PRN Reason Stop Dose Admin Acetaminophen 650 mg 04/10/19 17:18 Tylenol PO Q4H PRN Pain MILD(1-3)/Fever >100.5/STINSON Amlodipine Besylate 5 mg 04/10/19 18:00 04/13/19 09:03 Norvasc PO 5 mg QDAY ALANA Administration Aspirin 81 mg 04/10/19 18:00 04/13/19 09:04 Halfprin Ec PO 81 mg DAILY ALANA Administration Atorvastatin Calcium 40 mg 04/10/19 22:00 04/12/19 21:17 Lipitor PO 40 mg QHS ALANA Administration Bisacodyl 5 mg 04/10/19 17:25 04/12/19 18:27 Dulcolax PO 5 mg DAILY PRN Administration Constipation Carvedilol 6.25 mg 04/10/19 22:00 04/13/19 09:03 Coreg PO 6.25 mg BID ALANA Administration Dextrose 50 ml 04/11/19 00:12 D50w (25gm) Syringe IV PRN PRN Hypoglycemia Docusate Sodium 100 mg 04/10/19 17:25 04/12/19 18:27 Colace PO 100 mg DAILY PRN Administration Constipation Enoxaparin Sodium 40 mg 04/12/19 22:00 04/12/19 21:17 Lovenox SUB-Q 40 mg QDAY@2200 ALANA Administration Furosemide 40 mg 04/10/19 18:00 04/13/19 09:03 Lasix PO 40 mg QDAY ALANA Administration Hydromorphone HCl 0.5 mg 04/10/19 17:23 Dilaudid IV Q3H PRN Pain , Severe (7-10) Insulin Glargine 15 units 04/13/19 09:30 04/13/19 10:18 Lantus SUB-Q 15 units BIDDIAB ALANA Administration Insulin Human Lispro 0 unit 04/11/19 00:00 04/13/19 08:48 Humalog SUB-Q 8 unit ACHS ALANA Administration Protocol Levetiracetam 750 mg 04/13/19 13:07 Keppra PO BID ALANA Losartan Potassium 100 mg 04/10/19 18:00 04/13/19 09:02 Cozaar PO 100 mg QDAY ALANA Administration Ondansetron HCl 4 mg 04/10/19 17:18 Zofran IV Q8H PRN Nausea And Vomiting Oxycodone/Acetaminophen 1 tab 04/10/19 17:23 Percocet 5/325 PO Q6H PRN Pain, Moderate (4-6) Pregabalin 150 mg 04/10/19 22:00 04/12/19 21:16 Pregabalin PO 150 mg QHS ALANA Administration Sodium Chloride 10 ml 04/10/19 22:00 04/13/19 10:21 Sodium Chloride Flush Syringe 10 Ml IV 10 ml BID ALANA Administration Sodium Chloride 10 ml 04/10/19 17:18 04/13/19 10:22 Sodium Chloride Flush Syringe 10 Ml IV 10 ml PRN PRN Administration LINE FLUSH Tamsulosin HCl 0.4 mg 04/10/19 18:00 04/13/19 09:03 Flomax PO 0.4 mg QDAY ALANA Administration Nutrition/Malnutrition Assess - Dietary Evaluation Nutrition/Malnutrition Findings: Nutrition Notes Start: 04/11/19 12:09 Freq: Status: Active Protocol: Document 04/11/19 12:10 (Rec: 04/11/19 12:20 [id number]) Nutrition Notes Need for Assessment generated from: MD Order,MST,Education Initial or Follow up Brief Note Current Diagnosis Diabetes,Hypertension, Hyperlipidemia Other Pertinent Diagnosis h/o CVA Current Diet Cardiac Diet Labs/Tests BUN: 28 Glu: 210 A1C: 8.7 Pertinent Medications Humalog Subjective/Other Information Pt consulted for diet education and screened for MST . Per pt , pt has lost a significant amount of weight in the past month, which they attribute to being ill during his last inpatient stay at [facility]. Pt denied N/V, chewing/ swallowing difficulties and diarrhea. He experiences occasional constipation, but he was prescribed medicatio nfor this and claims it does not effect his PO intake. Since his most recent illness last month, his appetitie is " better than before he was sick ," per pt , and he has since gained the weight back. Per pt , pt was diagnosed with DM 16 years ago. Pt stated he takes insulin at home and checks his blood glucose regularly, but does not count carbohydrates. Pt says she uses the food label often while shopping and is familiar with where the carbohydrate content is located on the label. RD discussed CHO servings, and talked with pt about how he can incorporate his favorite foods into this dietary pattern. RD explained that CHO counting is a good way to become more mindful about food selections. Minimum of two criteria No Interpretation of Weight Loss (severe) >5% in 1 month #1 Nutrition Diagnosis Food and nutrition-related knowledge deficit Etiology No prior knowledge of consistent CHO diet for diabetes As Evidenced by Signs and Symptoms Pt and Pt anaware of what a CHO serving is, A1C of 8.7 Nutrition Intervention Revisit per MD consult or patient Sign Off request:
[2019-04-13] MEDS: INSULIN GLARGINE 100 UNITS/ML SUB-Q SCH (18:31)
[2019-04-13] MEDS: ENOXAPARIN 40 MG/0.4 ML INJ SUB-Q SCH (21:42)
[2019-04-13] MEDS: PREGABALIN 75 MG CAP PO SCH (21:43)
[2019-04-14 05:17] LABS: Calcium 8.8 mg/dL (8.4-10.2)
[2019-04-14] MEDS: INSULIN LISPRO 100 UNIT/ML SUB-Q SCH ×4 (08:38→22:17)
[2019-04-14] MEDS: INSULIN GLARGINE 100 UNITS/ML SUB-Q SCH (08:42)
[2019-04-14] MEDS: TAMSULOSIN 0.4 MG CAP PO SCH (09:41)
[2019-04-14] MEDS: ASPIRIN EC 81 MG TAB PO SCH (09:41)
[2019-04-14] MEDS: levETIRAcetam 500 MG TAB PO SCH ×2 (09:42→22:18)
[2019-04-14] MEDS ORDERED: INSULIN LISPRO PROTAMIN SUB-Q SCH (10:00)
[2019-04-14] MEDS ORDERED: SODIUM CHLORIDE 0.9% 1000 ML 1,000 ML IV SCH (10:00)
[2019-04-14] MEDS ORDERED: LISPRO SUB-Q SCH (10:00)
[2019-04-14] MEDS: carvediloL 6.25 MG TAB PO SCH (12:31)
[2019-04-14] MEDS: amLODIPine 5 MG TAB PO SCH (12:32)
[2019-04-14] MEDS ORDERED: carvediloL 6.25 MG TAB PO SCH (12:39)
--- NOTE | 2019-04-14 13:46 | Progress Note ---
Assessment and Plan /KAUSHAL on CKD 3 - stop lasix and losartan - will give gentle hydration - Most likely contrast induced, baseline Cr ~1.5 - If no improvement will consult nephrology /Pulmonary embolism ruled out VQ scan high prob for PE at admission However CTA chest neg for PE off heparin drip, LE doppler neg DVT PE ruled out /Type 2 diabetes mellitus; uncontrolled Accu Check sliding-scale coverage and ADA diet Adjust insulin dose, diabetic education Home had home health nurse for disease monitoring at discharge / HTN (hypertension) Cont antihypertensives and when necessary iv medications. / Seizure, Chronic increased Keppra to 750 bid /HLD (hyperlipidemia) Cont statins / BPH (benign prostatic hyperplasia) Cont Flomax / CHF (congestive heart failure)rEF 40-45% Cont CHF medications, stable /Peripheral neuropathy On Gabapentin, supportive care / Constipation, continue stool softener /Physical debility, will consult physical therapy /DVT prophylaxis, heparin Disposition; pending clinical course and improvement of her function. Wait for PT recommendation. Brief History 83-year-old male patient with multiple medical problems multiple admissions in the recent past was admitted through emergency room with syncope uncontrolled blood sugars. Patient was initially evaluated and noted to have high probability for PE And heparin drip was started, subsequently obtained CT chest which was negative for PE, lower extremity venous Doppler negative for DVT, The patient is noncompliant with medications and diet and patient's blood sugars are uncontrolled. Medications optimized, Patient also complains of mild dizziness, receiving PT, now monitoring renal function Hospitalist Physical General appearance: Present: no acute distress, well-nourished - EENT Eyes: Present: PERRL, EOM intact - Neck Neck: Present: supple, normal ROM - Respiratory Respiratory effort: normal Respiratory: bilateral: diminished, negative: rales, rhonchi, wheezing - Cardiovascular Rhythm: regular Heart Sounds: Present: S1 & S2 - Extremities Extremities: no ischemia, No edema - Abdominal General gastrointestinal: soft, non-tender, non-distended, normal bowel sounds - Integumentary Integumentary: Present: clear, warm - Psychiatric Psychiatric: appropriate mood/affect, cooperative - Neurologic Neurologic: CNII-XII intact, moves all extremities Subjective Date of service: 04/14/19 Interval history: Patient seen and examined. Medical records and medication list reviewed. No acute event overnight noted by the RN. Patient denies any chest pain or difficulty breathing. Patient is tolerating diet. Discussed plan of care at bedside with patient and his . Complains of generalized weakness and constipation Creatinine trended up to 2.2 today Objective - Constitutional Vitals: Vital Signs - 12hr 04/14/19 04/14/19 04/14/19 04:28 04:34 07:50 Temperature 98.4 F 98.8 F Pulse Rate 75 66 Pulse Rate [ Left Radial] Pulse Rate [ Right Radial] Respiratory 20 18 Rate Blood Pressure 107/63 105/60 O2 Sat by Pulse 98 98 Oximetry 04/14/19 04/14/19 04/14/19 09:51 10:00 11:37 Temperature 98.1 F Pulse Rate 62 66 Pulse Rate [ 66 Left Radial] Pulse Rate [ 66 Right Radial] Respiratory 16 18 Rate Blood Pressure 114/62 O2 Sat by Pulse 98 93 Oximetry 04/14/19 04/14/19 12:31 12:32 Temperature Pulse Rate 66 66 Pulse Rate [ Left Radial] Pulse Rate [ Right Radial] Respiratory Rate Blood Pressure 114/62 114/62 O2 Sat by Pulse Oximetry - Labs CBC & Chem 7: 04/14/19 18:52 04/15/19 03:53 Labs: Abnormal lab results 04/13/19 04/13/19 04/14/19 Range/Units 18:38 21:11 04:08 Sodium 134 L (137-145) mmol/L BUN 37 H (9-20) mg/dL Creatinine 2.2 H D (0.8-1.5) mg/dL Glucose 200 H (75-100) mg/dL POC Glucose 312 H 250 H (70-105) 04/14/19 04/14/19 Range/Units 08:04 11:45 Sodium (137-145) mmol/L BUN (9-20) mg/dL Creatinine (0.8-1.5) mg/dL Glucose (75-100) mg/dL POC Glucose 209 H 268 H (70-105)
[2019-04-14] MEDS: DOCUSATE SODIUM 100 MG CAP PO PRN (17:28)
[2019-04-14 19:25] LABS: Hematocrit 33.2 % (35.5-45.6); Hemoglobin 10.7 gm/dl (11.8-15.2)
[2019-04-14] MEDS ORDERED: ENOXAPARIN 30 MG/0.3 ML INJ SUB-Q SCH (22:00)
[2019-04-14] MEDS: PREGABALIN 75 MG CAP PO SCH (22:18)
[2019-04-15 05:07] LABS: Calcium 8.7 mg/dL (8.4-10.2)
[2019-04-15] MEDS: INSULIN LISPRO 100 UNIT/ML SUB-Q SCH ×4 (08:22→21:19)
[2019-04-15] MEDS: ASPIRIN EC 81 MG TAB PO SCH (09:13)
[2019-04-15] MEDS: carvediloL 3.125 MG TAB PO SCH ×2 (09:13→21:20)
[2019-04-15] MEDS: TAMSULOSIN 0.4 MG CAP PO SCH (09:13)
[2019-04-15] MEDS: levETIRAcetam 500 MG TAB PO SCH ×2 (09:13→21:17)
[2019-04-15] MEDS: INSULIN NPH/REGULAR 70/30 INJ SUB-Q SCH ×2 (09:16→16:49)
--- NOTE | 2019-04-15 13:34 | Progress Note ---
Assessment and Plan /KAUSHAL on CKD 3 - stop lasix and losartan - will give gentle hydration - Most likely contrast induced, baseline Cr ~1.5 - If no improvement will consult nephrology /Syncope, likely from dehydration and hyperglycemia - will get a CT head w/o contrast /Pulmonary embolism ruled out VQ scan high prob for PE at admission However CTA chest neg for PE off heparin drip, LE doppler neg DVT PE ruled out /Type 2 diabetes mellitus; uncontrolled Accu Check sliding-scale coverage and ADA diet Adjust insulin dose, diabetic education Home had home health nurse for disease monitoring at discharge / HTN (hypertension) Cont antihypertensives and when necessary iv medications. / Seizure, Chronic increased Keppra to 750 bid /HLD (hyperlipidemia) Cont statins / BPH (benign prostatic hyperplasia) Cont Flomax / CHF (congestive heart failure)rEF 40-45% Cont CHF medications, stable /Peripheral neuropathy On Gabapentin, supportive care / Constipation, continue stool softener, add enema X1 dose /Physical debility, will consult physical therapy /DVT prophylaxis, heparin Disposition; pending clinical course and improvement of his renal function. PT recommended home health PT Brief History 83-year-old male patient with multiple medical problems multiple admissions in the recent past was admitted through emergency room with syncope uncontrolled blood sugars. Patient was initially evaluated and noted to have high probability for PE And heparin drip was started, subsequently obtained CT chest which was negative for PE, lower extremity venous Doppler negative for DVT, The patient is noncompliant with medications and diet and patient's blood sugars are uncontrolled. Medications optimized, Patient also complains of mild dizziness, receiving PT, now monitoring renal function Hospitalist Physical General appearance: Present: no acute distress, well-nourished - EENT Eyes: Present: PERRL, EOM intact - Neck Neck: Present: supple, normal ROM - Respiratory Respiratory effort: normal Respiratory: bilateral: diminished, negative: rales, rhonchi, wheezing - Cardiovascular Rhythm: regular Heart Sounds: Present: S1 & S2 - Extremities Extremities: no ischemia, No edema - Abdominal General gastrointestinal: soft, non-tender, non-distended, normal bowel sounds - Integumentary Integumentary: Present: clear, warm - Psychiatric Psychiatric: appropriate mood/affect, cooperative - Neurologic Neurologic: CNII-XII intact, moves all extremities Subjective Date of service: 04/15/19 Interval history: Patient seen and examined. Medical records and medication list reviewed. No acute event overnight noted by the RN. Patient denies any chest pain or difficulty breathing. Patient is tolerating diet. Discussed plan of care at bedside with patient and his . Complains of constipation after stool softener Creatinine 2.1 today Objective - Constitutional Vitals: Vital Signs - 12hr 04/15/19 04/15/19 04/15/19 03:47 04:55 07:37 Temperature 97.7 F 98.6 F Pulse Rate 63 61 Pulse Rate [ 61 Right Radial] Respiratory 16 18 Rate Blood Pressure 80/51 113/68 O2 Sat by Pulse 96 99 Oximetry 04/15/19 04/15/19 08:15 09:13 Temperature 98.2 F Pulse Rate 64 64 Pulse Rate [ Right Radial] Respiratory 18 Rate Blood Pressure 143/71 143/71 O2 Sat by Pulse 97 Oximetry - Labs CBC & Chem 7: 04/14/19 18:52 04/16/19 04:35 Labs: Abnormal lab results 04/14/19 04/14/19 04/14/19 Range/Units 16:42 18:52 21:05 Hgb 10.7 L (11.8-15.2) gm/dl Hct 33.2 L (35.5-45.6) % BUN (9-20) mg/dL Creatinine (0.8-1.5) mg/dL Glucose (75-100) mg/dL POC Glucose 280 H 359 H (70-105) 04/15/19 04/15/19 04/15/19 Range/Units 03:53 08:24 11:40 Hgb (11.8-15.2) gm/dl Hct (35.5-45.6) % BUN 50 H (9-20) mg/dL Creatinine 2.1 H (0.8-1.5) mg/dL Glucose 127 H (75-100) mg/dL POC Glucose 122 H 289 H (70-105) 04/15/19 Range/Units 12:16 Hgb (11.8-15.2) gm/dl Hct (35.5-45.6) % BUN (9-20) mg/dL Creatinine (0.8-1.5) mg/dL Glucose (75-100) mg/dL POC Glucose 197 H (70-105)
[2019-04-15] MEDS: SODIUM CHLORIDE 0.9% 1000 ML 1,000 ML IV SCH (21:17)
[2019-04-15] MEDS: PREGABALIN 75 MG CAP PO SCH (21:18)
[2019-04-16 05:44] LABS: Calcium 8.5 mg/dL (8.4-10.2)
[2019-04-16 05:47] LABS: Bacteria,Urine 1+ /HPF (Negative); Bilirubin,Urine NEG (Negative); Blood,Urine SM (Negative); Color,Urine Yellow (Yellow); Mucus,Urine FEW /HPF; Protein,Urine <15 mg/dL mg/dL (Negative); Urobilinogen,Urine < 2.0 mg/dL (<2.0)
[2019-04-16] MEDS: INSULIN LISPRO 100 UNIT/ML SUB-Q SCH ×2 (07:52→12:08)
[2019-04-16] MEDS: INSULIN NPH/REGULAR 70/30 INJ SUB-Q SCH (08:32)
--- NOTE | 2019-04-16 09:12 | Consultation ---
History of Present Illness - Reason for Consult Consult date: 04/16/19 acute renal failure - History of Present Illness Patient is an 83 YO male with history significant for DM type 2, HTN, CHF, Seizure disorder, BPH and CKD stage 3 who presented to [facility] ED after an episode of syncope. Patient states that he was at the table eating when he passed out, the episodes lasted a few mins and he regained consciousness by the time EMS arrived. Patient reports prior episodes of syncope and was admitted for similar presentation. He denies any chest pain, palpitation, diaphoresis, STINSON, dizziness, N, V, D, bowel or bladder incontinence or seizure. In the ER, VS was stable. UA suggestive of UTI. His creatinine increased from 1.5 to 2.2. He received IV contrast on 04/11/19. Nephrology was consulted for further evaluation of KAUSHAL. Past History Past Medical History: diabetes, heart failure, hypertension, hyperlipidemia, renal failure, seizures, other (BPH) Medications and Allergies Allergies Allergy/AdvReac Type Severity Reaction Status Date / Time No Known Allergies Allergy Verified 05/19/14 21:52 Home Medications Medication Instructions Recorded Confirmed Last Taken Type Pregabalin [Lyrica] 150 mg PO HS 01/30/18 04/10/19 02/02/19 History Furosemide [Lasix TAB] 20 mg PO Q2D 02/02/19 04/10/19 Unknown History AtorvaSTATin [Lipitor] 40 mg PO QHS #30 tab 02/05/19 04/10/19 Unknown Rx Tamsulosin [Flomax] 0.4 mg PO QDAY #30 capsule 02/05/19 04/10/19 Unknown Rx Aspirin [Adult Aspirin] 81 mg PO DAILY 04/10/19 04/10/19 Unknown History Bisacodyl [Dulcolax tab] 5 mg PO DAILY PRN 04/10/19 04/10/19 Unknown History Docusate Sodium [Colace CAP] 100 mg PO DAILY PRN 04/10/19 04/10/19 Unknown History Insulin Lispro Protamin/Lispro 40 units SUB-Q BID 04/13/19 04/13/19 Unknown History [Humalog Mix 75-25 Vial] Carvedilol [Coreg] 3.125 mg PO BID #60 tablet 04/16/19 Unknown Rx Ciprofloxacin HCl [Ciprofloxacin 500 mg PO Q12HR #10 tab 04/16/19 Unknown Rx TAB] levETIRAcetam [Keppra TAB] 750 mg PO BID #60 tablet 04/16/19 Unknown Rx Active Meds: Active Medications Acetaminophen (Tylenol) 650 mg PO Q4H PRN PRN Reason: Pain MILD(1-3)/Fever >100.5/STINSON Last Admin: 04/13/19 21:43 Dose: 650 mg Documented by: Aspirin (Halfprin Ec) 81 mg PO DAILY [facility] Last Admin: 04/15/19 09:13 Dose: 81 mg Documented by: Atorvastatin Calcium (Lipitor) 40 mg PO QHS [facility] Last Admin: 04/15/19 21:18 Dose: 40 mg Documented by: Bisacodyl (Dulcolax) 5 mg PO DAILY PRN PRN Reason: Constipation Last Admin: 04/15/19 09:13 Dose: 5 mg Documented by: Carvedilol (Coreg) 3.125 mg PO BID [facility] Last Admin: 04/15/19 21:20 Dose: 3.125 mg Documented by: Dextrose (D50w (25gm) Syringe) 50 ml IV PRN PRN PRN Reason: Hypoglycemia Docusate Sodium (Colace) 100 mg PO DAILY PRN PRN Reason: Constipation Last Admin: 04/14/19 17:28 Dose: 100 mg Documented by: Hydromorphone HCl (Dilaudid) 0.5 mg IV Q3H PRN PRN Reason: Pain , Severe (7-10) Sodium Chloride (Nacl 0.9% 1000 Ml) 1,000 mls @ 75 mls/hr IV DIRECT [facility] Last Admin: 04/15/19 21:17 Dose: 75 mls/hr Documented by: Insulin Human Isoph/Insulin Regular (Humulin 70/30) 40 unit SUB-Q BIDDIAB [facility] Last Admin: 04/16/19 08:32 Dose: 40 unit Documented by: Insulin Human Lispro (Humalog) 0 unit SUB-Q ACHS [facility]; Protocol Last Admin: 04/16/19 07:52 Dose: Not Given Documented by: Levetiracetam (Keppra) 750 mg PO BID [facility] Last Admin: 04/15/19 21:17 Dose: 750 mg Documented by: Ondansetron HCl (Zofran) 4 mg IV Q8H PRN PRN Reason: Nausea And Vomiting Oxycodone/Acetaminophen (Percocet 5/325) 1 tab PO Q6H PRN PRN Reason: Pain, Moderate (4-6) Pregabalin (Pregabalin) 150 mg PO QHS [facility] Last Admin: 04/15/19 21:18 Dose: 150 mg Documented by: Sodium Chloride (Sodium Chloride Flush Syringe 10 Ml) 10 ml IV BID [facility] Last Admin: 04/15/19 21:19 Dose: 10 ml Documented by: Sodium Chloride (Sodium Chloride Flush Syringe 10 Ml) 10 ml IV PRN PRN PRN Reason: LINE FLUSH Last Admin: 04/13/19 10:22 Dose: 10 ml Documented by: Tamsulosin HCl (Flomax) 0.4 mg PO QDAY [facility] Last Admin: 04/15/19 09:13 Dose: 0.4 mg Documented by: Review of Systems Constitutional: no weight loss, no weight gain, no fever, no chills, no anorexia, no weakness, no poor appetite Cardiovascular: syncope, high blood pressure, no chest pain, no orthopnea, no palpitations, no edema, no lightheadedness, no shortness of breath, no dyspnea on exertion, no leg edema Respiratory: no cough, no hemoptysis, no shortness of breath Gastrointestinal: no abdominal pain, no nausea, no vomiting, no diarrhea, no jaundice Genitourinary Male: no dysuria, no hematuria Rectal: no bleeding Musculoskeletal: no muscle weakness, no muscle cramps Integumentary: no rash, no redness, no wounds, no jaundice Neurological: syncope, no paralysis, no weakness, no aphasia, no change in speech, no change in mentation, no confusion, no memory loss Exam - Vital Signs Vital signs: Vital Signs Temp Pulse Resp BP Pulse Ox 97.8 F 60 16 142/66 96 04/10/19 11:25 04/10/19 11:25 04/10/19 11:25 04/10/19 11:25 04/10/19 11:25 - General Appearance General appearance: well-developed, well-nourished, appears stated age, other (no distress) EENT: PERRL, mucous membranes moist, hearing intact, vision intact Neck: Present: neck supple, trachea midline Respiratory: Clear to Ascultation Heart: regular, S1S2, no murmurs Gastrointestinal: Present: normoactive bowel sounds. Absent: tenderness, disten ded Integumentary: no rash, warm and dry Neurologic: no focal deficit, no asterixis Musculoskeletal: Present: other (no edema) Results - Lab Results 04/14/19 18:52 04/16/19 04:35 Most recent lab results Calcium 8.5 mg/dL (8.4-10.2) 04/16/19 04:35 Magnesium 1.70 mg/dL (1.7-2.3) 04/14/19 04:08 Assessment and Plan 1. Acute kidney injury: KAUSHAL superimposed on CKD stage 3 in the setting of contrast induced nephropathy. Urine study results noted. Renal function is better. Monitor renal function. Avoid nephrotoxic agents. Meds dosage based on GFR. 2. FEN: Monitor lytes. 3. Syncope: Likely Vaso-vagal. 4. Pulmonary embolism ruled out. 5. Chronic Diastolic heart failure. 6. Seizure disorder: Seizure precautions. 7. DM type 2. 8. Normochromic anemia: POA.
[2019-04-16] MEDS: levETIRAcetam 500 MG TAB PO SCH (09:32)
[2019-04-16] MEDS: carvediloL 3.125 MG TAB PO SCH (09:33)
[2019-04-16] MEDS: ASPIRIN EC 81 MG TAB PO SCH (09:33)
[2019-04-16] MEDS: TAMSULOSIN 0.4 MG CAP PO SCH (09:33)
[2019-04-16] MEDS: SODIUM CHLORIDE 0.9% 1000 ML 1,000 ML IV SCH (09:34)
--- NOTE | 2019-04-16 10:58 | Cat Scan Report ---
CT HEAD WITHOUT CONTRAST HISTORY: syncope. TECHNIQUE: Axial imaging performed from the skull apex through the skull base without the use of con trast. All CT scans at this location are performed using CT dose reduction for ALARA by means of aut omated exposure control. COMPARISON: 03/20/2019 FINDINGS: Parenchyma: No acute intracranial hemorrhage or parenchymal abnormality.. Mild hypoattenuation thro ughout the white matter is noted and consistent with chronic microvascular ischemic disease. Ventricles: There is mild diffuse brain atrophy with commensurate ventricular enlargement which is l ikely age appropriate. Soft tissues: Soft tissues including the orbits appear normal. Bones: No acute osseous abnormality. Sinuses: Sinuses and mastoid air cells are clear. IMPRESSION: No acute abnormality. Unremarkable CT brain for age. Signer Name: Craig Casarez Jr, MD Signed: 04/16/2019 10:54 AM Workstation Name: [id number]
--- NOTE | 2019-04-16 11:43 | Discharge Summary ---
Providers - Providers Date of Admission: 04/10/19 17:18 Date of discharge: 04/16/19 Attending physician: HIMANSHU SCALES 04/11/19 00:13 Consult to Dietitian/Nutrition [CONS] Routine Physician Instructions: Reason For Exam: Reason for Consult: Diet education 04/11/19 12:56 Consult to Physician [CONS] Routine Comment: Consulting Provider: LEVI TY Physician Instructions: Reason For Exam: Acute pe 04/14/19 18:42 Physical Therapy Evaluation and Treat [CONS] Routine Comment: Reason For Exam: placement 04/15/19 13:28 Consult to Physician [CONS] Routine Comment: Consulting Provider: KIMBERLY COULTER Physician Instructions: Reason For Exam: KAUSHAL on CKD Primary care physician: Lara ST MD Hospitalization Condition: Stable Pertinent studies: Head CT Chest CTA CXR LE venous doppler VQ scan Hospital course: 83-year-old male patient with multiple medical problems multiple admissions in the recent past was admitted through emergency room with syncope and uncontrolled blood sugars. Patient was initially evaluated and noted to have high probability for PE And heparin drip was started, subsequently obtained CT chest which was negative for PE, lower extremity venous Doppler negative for DVT, The patient is noncompliant with medications and diet and patient's blood sugars are uncontrolled. Medications optimized, Patient also complains of mild dizziness, received PT. Monitored renal function and patient was then discharged home in stable condition. Discharge diagnosis and Mx: /KAUSHAL on CKD 3 - stopped lasix and losartan, given gentle hydration - Most likely contrast induced, baseline Cr ~1.5 - Renal function was baseline on discharge /Syncope, likely from dehydration and hyperglycemia - CT head w/o contrast showed no acute process /Pulmonary embolism ruled out VQ scan high prob for PE at admission However CTA chest neg for PE off heparin drip, LE doppler neg DVT PE ruled out /Type 2 diabetes mellitus; uncontrolled Accu Check sliding-scale coverage and ADA diet Adjust insulin dose, diabetic education Home had home health nurse for disease monitoring at discharge / HTN (hypertension) Managed with antihypertensives and when necessary iv medications. / Seizure, Chronic, increased Keppra to 750 bid /HLD (hyperlipidemia) , Cont statins / BPH (benign prostatic hyperplasia), Cont Flomax / CHF (congestive heart failure)rEF 40-45% compensated, stable /Peripheral neuropathy On Gabapentin, supportive care / Constipation, continue stool softener, s/p enema X1 dose /UTI, will treat for 5 days with ciprofloxacin /Physical debility, physical therapy recommended PT /DVT prophylaxis, heparin Disposition; home with home health PT Hospitalist Physical General appearance: Present: no acute distress, well-nourished - EENT Eyes: Present: PERRL, EOM intact - Neck Neck: Present: supple, normal ROM - Respiratory Respiratory effort: normal Respiratory: bilateral: diminished, negative: rales, rhonchi, wheezing - Cardiovascular Rhythm: regular Heart Sounds: Present: S1 & S2 - Extremities Extremities: no ischemia, No edema - Abdominal General gastrointestinal: soft, non-tender, non-distended, normal bowel sounds - Integumentary Integumentary: Present: clear, warm - Psychiatric Psychiatric: appropriate mood/affect, cooperative - Neurologic Neurologic: CNII-XII intact, moves all extremities Disposition: [id number] HOME UNDER HOME [facility] Time spent for discharge: 34 minutes Core Measure Documentation - Palliative Care Palliative Care/ Comfort Measures: Not Applicable - Core Measures Any of the following diagnoses?: none Exam - Constitutional Vitals: Temp Pulse Resp BP Pulse Ox 98.5 F 74 18 139/69 85 04/16/19 07:50 04/16/19 10:00 04/16/19 07:50 04/16/19 07:50 04/16/19 07:50 Plan Activity: fall precautions Weight Bearing Status: Non-Weight Bearing Diet: low fat, low salt Special Instructions: record daily weights, record daily BP diary, no heavy lifting Follow up with: PRIMARY MD MARCO [Referring] - 3-5 Days POOJA DODD MD [Staff Physician] - 7 Days Prescriptions: Ciprofloxacin HCl [Ciprofloxacin TAB] 500 mg PO Q12HR #10 tab Carvedilol [Coreg] 3.125 mg PO BID #60 tablet levETIRAcetam [Keppra TAB] 750 mg PO BID #60 tablet
[2019-04-16 12:26] VITALS: BP 109/63
[2019-04-18 12:35] LABS: Creatinine,Urine 38.5 mg/dL (0.1-20.0)
== END 2019-04-16 16:55 | disposition home health service (06) | DRG 683 ==
LOC: ED 11:19 → 4A 17:18
PROVIDERS: ADMIT Internal Medicine; ATTEND Internal Medicine
DX: N17.9 Acute kidney failure, unspecified (principal); I50.42 Chronic combined systolic (congestive) and diastolic (congestive) heart failure; I13.0 Hypertensive heart and chronic kidney disease with heart failure and stage 1 through stage 4 chronic kidney disease, or unspecified chronic kidney disease; N39.0 Urinary tract infection, site not specified; E86.0 Dehydration; R55 Syncope and collapse; N40.0 Benign prostatic hyperplasia without lower urinary tract symptoms; R56.9 Unspecified convulsions; N18.3 Chronic kidney disease, stage 3 (moderate); E11.22 Type 2 diabetes mellitus with diabetic chronic kidney disease; E11.65 Type 2 diabetes mellitus with hyperglycemia; M19.90 Unspecified osteoarthritis, unspecified site; E78.2 Mixed hyperlipidemia; E11.42 Type 2 diabetes mellitus with diabetic polyneuropathy; K59.00 Constipation, unspecified; Z79.899 Other long term (current) drug therapy; Z79.82 Long term (current) use of aspirin; Z86.73 Personal history of transient ischemic attack (TIA), and cerebral infarction without residual deficits; Z79.4 Long term (current) use of insulin
CPT/HCPCS: 36415; 70450; 71045; 71275; 78582; 80048; 80053; 80061; 80076; 81001; 82550; 82570; 82962; 83036; 83735; 83880; 84300; 84484; 85014; 85018; 85025; 85049; 85379; 85520; 85610; 85730; 87086; 87116; 89050; 93005; 93010; 93970; 96361; 96374; 96375; G0378; A9270-GY; A9540; A9558; J1644; J1650; J1815; J7030; Q9967

== ENCOUNTER 2019-05-01 13:02 | Inpatient (IN) | payer MEDICARE ==
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
--- NOTE | 2019-05-01 13:37 | Cat Scan Report ---
CT HEAD WITHOUT CONTRAST HISTORY: neuro deficits <6hrs or sx present upon awakening. TECHNIQUE: Axial imaging performed from the skull apex through the skull base without the use of con trast. All CT scans at this location are performed using CT dose reduction for ALARA by means of aut omated exposure control. COMPARISON: 04/16/2019 FINDINGS: Parenchyma: No acute intracranial hemorrhage or parenchymal abnormality.. Mild hypoattenuation thro ughout the white matter is noted and consistent with chronic microvascular ischemic disease. No evide nce for hemorrhage, acute ischemia or mass on noncontrast CT. Ventricles: There is mild diffuse brain atrophy with commensurate ventricular enlargement which is l ikely age appropriate. Soft tissues: Soft tissues including the orbits appear normal. Bones: No acute osseous abnormality. Sinuses: Sinuses and mastoid air cells are clear. IMPRESSION: No acute abnormality. No significant change since 04/16/2019. These findings were discussed with Dr. Dumont in the emergency department at 1330 hours EST. Signer Name: Craig Casarez Jr, MD Signed: 05/01/2019 1:33 PM Workstation Name: [id number]
[2019-05-01 14:33] LABS: Basophils # (Auto) 0.1 K/mm3 (0.0-0.1); Basophils % (Auto) 0.3 % (0.0-1.8); Eosinophils % (Auto) 0.1 % (0.0-4.3); Hematocrit 39.9 % (35.5-45.6); Lymphocytes # (Auto) 1.7 K/mm3 (1.2-5.4); Lymphocytes % (Auto) 8.6 % (13.4-35.0); Mean Corpuscular HGB Conc 32 % (32-34); Mean Corpuscular Volume 85 fl (84-94); Monocytes # (Auto) 1.7 K/mm3 (0.0-0.8); Monocytes % (Auto) 8.8 % (0.0-7.3); Platelet Count 259 K/mm3 (140-440); Red Cell Distribution Width 15.6 % (13.2-15.2)
[2019-05-01 14:47] LABS: Calcium 9.1 mg/dL (8.4-10.2)
[2019-05-01 15:10] LABS: Partial Thromboplastin Time 28.5 Sec. (24.2-36.6)
[2019-05-01 15:12] LABS: INR 1.36 (0.87-1.13)
[2019-05-01] MEDS ORDERED: CEFEPIME/NS 1 GM/100 ML 1 GM/100 ML BAG IV ONE (15:58)
[2019-05-01] MEDS ORDERED: NACL 0.9% 1000 ML 1,000 ML IV ONE (15:58)
[2019-05-01 16:22] LABS: Chol/HDL Ratio 2.54 %
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
[2019-05-01] MEDS ORDERED: ASPIRIN PR ONE ×2 (16:57→18:51)
[2019-05-01 17:28] LABS: Albumin 2.9 g/dL (3.9-5); Bilirubin,Direct 0.3 mg/dL (0-0.2)
--- NOTE | 2019-05-01 18:18 | History and Physical Report ---
History of Present Illness Chief complaint: He keeps getting sick, and coming to the hospital History of present illness: 83 YO Male with HTN, DM, OA, Seizure Disorder, Debility, Systolic CHF(EF 40%),Dementia, CVA with LHP, Encephalopathy presents to ED for evaluation. Pt is confused and unable to provide detailed history. Pt is at bedside and provides history. As per , the patient has experienced increased weakness, confusion over the past 3 days. Pt was seen by home health and had randall catheter changed due to suspected urinary tract infection and since that time the patient has experieinced a continued decline in his overall status. Pt was found to be unresponsive this morning. EMS notified, and upon arrival the patient was found to be in distress and transported to [facility]. Pt seen and evaluated in ED and found to have Sepsis suspected secondary to UTI, Encephalopathy, and Acute Kidney Injury. Pt admitted to DAYA unit and initiated on IV antibiotic therapy. 30 minutes dedicated to Advanced care planning. Pt counseled regarding care options. Pt acknowledges understanding and agreement with care plan. Prior admission on 04/10/19 reviewed. All listed medication reconciled at time of admission. No further history obtainable. Pt denies reports of fever, chills, CP, Palpitations, NVD, Skin rash, Productive cough, seizure, or recent ill contacts. Past History Past Medical History: other (see hpi) Past Surgical History: Other (Left shoulder) Social history: . denies: smoking, alcohol abuse, prescription drug abuse Family history: diabetes, hypertension Medications and Allergies Allergies Allergy/AdvReac Type Severity Reaction Status Date / Time No Known Allergies Allergy Verified 05/19/14 21:52 Home Medications Medication Instructions Recorded Confirmed Last Taken Type Pregabalin [Lyrica] 150 mg PO HS 01/30/18 05/01/19 04/30/19 History Furosemide [Lasix TAB] 20 mg PO Q2D 02/02/19 05/01/19 04/30/19 History AtorvaSTATin [Lipitor] 40 mg PO QHS #30 tab 02/05/19 05/01/19 04/30/19 Rx Tamsulosin [Flomax] 0.4 mg PO QDAY #30 capsule 02/05/19 05/01/19 04/30/19 Rx Aspirin [Adult Aspirin] 81 mg PO DAILY 04/10/19 05/01/19 04/30/19 History Bisacodyl [Dulcolax tab] 5 mg PO DAILY PRN 04/10/19 05/01/19 04/30/19 History Docusate Sodium [Colace CAP] 100 mg PO DAILY PRN 04/10/19 05/01/19 04/30/19 History Insulin Lispro Protamin/Lispro 40 units SUB-Q BID 04/13/19 05/01/19 04/30/19 History [Humalog Mix 75-25 Vial] Carvedilol [Coreg] 3.125 mg PO BID #60 tablet 04/16/19 05/01/19 04/30/19 Rx Ciprofloxacin HCl [Ciprofloxacin 500 mg PO Q12HR #10 tab 04/16/19 05/01/19 04/30/19 Rx TAB] levETIRAcetam [Keppra TAB] 750 mg PO BID #60 tablet 04/16/19 05/01/19 04/30/19 Rx Linagliptin [Tradjenta] 5 mg PO QDAY 05/01/19 05/01/19 04/30/19 History Active Meds: Active Medications Aspirin (Aspirin) 300 mg MN ONCE ONE Stop: 05/01/19 18:52 Review of Systems ROS unobtainable: due to mental status Exam - Constitutional Vitals: Temp Pulse Resp BP Pulse Ox 98.3 F 106 H 20 132/80 96 05/01/19 13:38 05/01/19 13:38 05/01/19 13:38 05/01/19 13:38 05/01/19 13:38 General appearance: Present: mild distress - EENT Eyes: Present: PERRL ENT: hearing intact, clear oral mucosa - Neck Neck: Present: supple, normal ROM - Respiratory Respiratory effort: normal Respiratory: bilateral: CTA - Cardiovascular Heart Sounds: Present: S1 & S2. Absent: rub, click - Extremities Extremities: pulses symmetrical, No edema Peripheral Pulses: within normal limits - Abdominal General gastrointestinal: Present: soft, non-tender, non-distended, normal bowel sounds Male genitourinary: Present: normal - Integumentary Integumentary: Present: clear, warm, dry - Musculoskeletal Musculoskeletal: generalized weakness - Psychiatric Psychiatric: no appropriate mood/affect, no intact judgment & insight, no memory intact - Neurologic Neurologic: CNII-XII intact, focal deficits, no moves all extremities, no gait normal Results - Labs CBC & Chem 7: 05/01/19 14:09 05/01/19 14:09 Labs: Abnormal lab results 05/01/19 05/01/19 05/01/19 Range/Units 14:09 14:09 14:09 WBC 19.3 H (4.5-11.0) K/mm3 RDW 15.6 H (13.2-15.2) % Lymph % (Auto) 8.6 L (13.4-35.0) % [place] % (Auto) 8.8 H (0.0-7.3) % [place] # 1.7 H (0.0-0.8) K/mm3 Seg Neutrophils % 82.2 H (40.0-70.0) % Seg Neutrophils # 15.9 H (1.8-7.7) K/mm3 PT 16.4 H (12.2-14.9) Sec. INR 1.36 H (0.87-1.13) Sodium 125 L (137-145) mmol/L Potassium 5.2 H (3.6-5.0) mmol/L Chloride 91.5 L (98-107) mmol/L Carbon Dioxide 14 L (22-30) mmol/L BUN 61 H (9-20) mg/dL Creatinine 3.9 H (0.8-1.5) mg/dL Glucose 269 H (75-100) mg/dL Direct Bilirubin (0-0.2) mg/dL Troponin T 0.104 H* (0.00-0.029) ng/mL NT-Pro-B Natriuret Pep (0-900) pg/mL Total Protein (6.3-8.2) g/dL Albumin (3.9-5) g/dL 05/01/19 05/01/19 Range/Units 16:07 16:07 WBC (4.5-11.0) K/mm3 RDW (13.2-15.2) % Lymph % (Auto) (13.4-35.0) % [place] % (Auto) (0.0-7.3) % [place] # (0.0-0.8) K/mm3 Seg Neutrophils % (40.0-70.0) % Seg Neutrophils # (1.8-7.7) K/mm3 PT (12.2-14.9) Sec. INR (0.87-1.13) Sodium (137-145) mmol/L Potassium (3.6-5.0) mmol/L Chloride (98-107) mmol/L Carbon Dioxide (22-30) mmol/L BUN (9-20) mg/dL Creatinine (0.8-1.5) mg/dL Glucose (75-100) mg/dL Direct Bilirubin 0.3 H (0-0.2) mg/dL Troponin T (0.00-0.029) ng/mL NT-Pro-B Natriuret Pep 6378 H (0-900) pg/mL Total Protein 8.9 H (6.3-8.2) g/dL Albumin 2.9 L (3.9-5) g/dL Assessment and Plan - Patient Problems (1) Sepsis Current Visit: Yes Status: Acute Qualifiers: Sepsis acute organ dysfunction status: with acute organ dysfunction Plan to address problem: Sepsis protocol: 'IV antibiotic therapy, IVF resuscitation therapy, monitor uop q shift, strict I/O, daily weight, maintain MAP above 60, serial lactic acid, CBC, CMP, Urinalysis, Chest x ray, blood cultures. (2) KAUSHAL (acute kidney injury) Current Visit: Yes Status: Acute Plan to address problem: IVF resuscitation therapy, monitor uop q shift, avoid nephrotoxic agents, Nephrology consulted (3) Encephalopathy Current Visit: Yes Status: Acute Plan to address problem: CT head, neuro check, seizure precautions, aspiration precautions, (4) UTI (urinary tract infection) Current Visit: Yes Status: Acute Qualifiers: Encounter type: initial encounter Plan to address problem: IV antibiotic therapy, CBC, CMP, Urinalysis (5) Diabetes Current Visit: Yes Status: Acute Plan to address problem: ADA diet, when awake and alert, insulin, accu check (6) Osteoarthritis Current Visit: Yes Status: Acute Qualifiers: Laterality: unspecified laterality Plan to address problem: supportive care, pain control (7) Seizure disorder Current Visit: Yes Status: Acute Plan to address problem: Keppra level, continue current therapy, seizure precautions. (8) CHF (congestive heart failure) Current Visit: Yes Status: Acute Qualifiers: Heart failure type: systolic Heart failure chronicity: acute on chronic Qualified Code(s): I50.23 - Acute on chronic systolic (congestive) heart failure Plan to address problem: strict I/O,daily weight, monitor uop q shift, afterload reduction, diuresis, BNP, (9) DVT prophylaxis Current Visit: Yes Status: Acute Plan to address problem: SCD to BLE while in bed, prophylactic heparin
[2019-05-01] MEDS ORDERED: ZOFRAN IV PRN (18:22)
[2019-05-01] MEDS ORDERED: SODIUM CHLORIDE FLUSH SYRINGE 10 ML IV PRN (18:22)
[2019-05-01] MEDS ORDERED: NACL 0.9% 1000 ML IV ONE (18:24)
[2019-05-01 18:31] LABS: Bacteria,Urine 4+ /HPF (Negative); Bilirubin,Urine NEG (Negative); Blood,Urine LG (Negative); Color,Urine Yellow (Yellow); Mucus,Urine 3+ /HPF; Urobilinogen,Urine < 2.0 mg/dL (<2.0)
[2019-05-01 18:32] LABS: WBC,Urine > 182.0 /HPF (0.0-6.0)
[2019-05-01] MEDS ORDERED: VANCOMYCIN PHARMACY TO DOSE IV SCH (19:00)
[2019-05-01] MEDS ORDERED: VANCOMYCIN 1,500 MG in NACL 0.9% 500 ML 500 ML IV ONE (19:30)
[2019-05-01] MEDS ORDERED: COLACE PO PRN (20:58)
[2019-05-01] MEDS ORDERED: D50W (25GM) Syringe IV PRN ×2 (21:01→21:02)
[2019-05-01] MEDS ORDERED: LASIX PO SCH (22:00)
[2019-05-01] MEDS: KEPPRA PO SCH (22:00)
[2019-05-01] MEDS ORDERED: NON-FORMULARY (Pregabalin [Lyrica] 150 MG) PO SCH (22:00)
[2019-05-01] MEDS: COREG PO SCH (22:05)
[2019-05-01] MEDS: SODIUM CHLORIDE FLUSH SYRINGE 10 ML IV SCH (22:10)
[2019-05-01] MEDS: HumaLOG SUB-Q SCH (22:10)
[2019-05-01] MEDS: PREGABALIN PO SCH (22:10)
[2019-05-02] MEDS: HEPARIN SUB-Q SCH ×3 (02:10→23:35)
[2019-05-02 05:33] LABS: Basophils % (Auto) 0.3 % (0.0-1.8); Eosinophils # (Auto) 0.1 K/mm3 (0.0-0.4); Eosinophils % (Auto) 0.5 % (0.0-4.3); Hemoglobin 10.7 gm/dl (11.8-15.2); Lymphocytes % (Auto) 7.1 % (13.4-35.0); Mean Corpuscular HGB Conc 33 % (32-34); Mean Corpuscular Volume 84 fl (84-94); Monocytes # (Auto) 1.9 K/mm3 (0.0-0.8); Platelet Count 235 K/mm3 (140-440); Red Cell Distribution Width 15.6 % (13.2-15.2)
[2019-05-02 05:50] LABS: Albumin 2.7 g/dL (3.9-5); Calcium 8.3 mg/dL (8.4-10.2)
[2019-05-02] MEDS: HumaLOG SUB-Q SCH ×4 (08:25→23:32)
[2019-05-02] MEDS ORDERED: KIONEX PR ONE (09:12)
[2019-05-02] MEDS: ROCEPHIN/NS 1 GM/50 ML 1 GM/50 ML BAG IV SCH (10:38)
[2019-05-02] MEDS: KEPPRA PO SCH ×2 (10:38→22:11)
[2019-05-02] MEDS: FLOMAX PO SCH (10:39)
[2019-05-02] MEDS: HALFPRIN EC PO SCH (10:39)
[2019-05-02] MEDS: COREG PO SCH ×2 (10:39→22:10)
[2019-05-02] MEDS: SODIUM CHLORIDE FLUSH SYRINGE 10 ML IV SCH ×2 (10:39→23:36)
--- NOTE | 2019-05-02 12:04 | Progress Note ---
Assessment and Plan Assessment and plan: 83 YO Male with HTN, DM, OA, Seizure Disorder, Debility, Systolic CHF(EF 40%),Dementia, CVA with LHP, Encephalopathy presents to ED for evaluation. Pt is confused and unable to provide detailed history. Pt is at bedside and provides history. As per , the patient has experienced increased weakness, confusion over the past 3 days. Pt was seen by home health and had randall catheter changed due to suspected urinary tract infection and since that time the patient has experieinced a continued decline in his overall status. Pt was found to be unresponsive this morning. EMS notified, and upon arrival the patient was found to be in distress and transported to [facility]. Pt seen and evaluated in ED and found to have Sepsis suspected secondary to UTI, Encephalopathy, and Acute Kidney Injury. Pt admitted to DAYA unit and initiated on IV antibiotic therapy. 30 minutes dedicated to Advanced care planning. Pt counseled regarding care options. Pt acknowledges understanding and agreement with care plan. Prior admission on 04/10/19 reviewed. All listed medication reconciled at time of admission. No further history obtainable. Pt denies reports of fever, chills, CP, Palpitations, NVD, Skin rash, Productive cough, seizure, or recent ill contacts. * Randall changed by [facility] 04/28/19 per family and since then has had difficulty. * Patient has been complaining of suprapubic pain and inability to move bowel for a few months (1) Sepsis: Patient with recurrent sepsis secondary to indwelling randall catheter. Await cultures, continue current antibiotics, Consult ID if no improvement. Will recommend outpatient review for possible surgery by urology, considering Randall for more than 3 months (2) KAUSHAL (acute kidney injury): Secondary to vasomotor nephropathy, and possible obstruction. Monitor. await Renal ultrasound. Obtain CT abd/pelvis. Nephrologys consulted (3) Metabolic Metabolic Encephalopathy: Secondary to sepsis (4)Acute Cystitis: Complex considering indwelling randall catheter. as noted above. Continue abx. (5) Diabetes: Continue sliding scale and accucheck. (6)Abdominal Pain: ? Constipation: Start stool softener (7) Osteoarthritis: supportive care, pain control (8) Seizure disorder: Keppra level, continue current therapy, seizure precautions. (9) CHF (congestive heart failure) Acute on chronic systolic (congestive) heart failure : strict I/O,daily weight, monitor uop q shift, afterload reduction, diuresis, BNP, (10) DVT prophylaxis Current Visit: Yes Status: Acute Plan to address problem: SCD to BLE while in bed, prophylactic heparin Plan discussed with spouse and Nursing staff History Interval history: Patient seen and examined, remains lethargic, no new fever, spouse is at bedside, informs me they have followed with urology and initially randall was discontinue but replaced due to inability to void, and most recently the Randall was changed 4 days [employer]. She also reports the patient have been having difficulty with BM Hospitalist Physical - Physical exam Narrative exam: - General Limitations: Altered Mental Status, Chronically, ill, Awakens and follows some command - Head Head exam: Present: atraumatic, normocephalic - Eye Eye exam: Present: PERRL - ENT ENT exam: Present: mucous membranes dry - Neck Neck exam: Present: normal inspection - Respiratory Respiratory exam: Present: normal lung sounds bilaterally. Absent: respiratory distress - Cardiovascular Cardiovascular Exam: Present: normal rhythm, - GI/Abdominal GI/Abdominal exam: Present: soft, normal bowel sounds. 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) - Neurological Exam Neurological exam: Present: awake, but lethargic, moves ext - Psychiatric Psychiatric exam: Present: other (not able to assess due to the patient's condition) - Constitutional Vitals: Temp Pulse Resp BP Pulse Ox 97.9 F 95 H 20 129/74 100 05/02/19 08:11 05/02/19 10:39 05/02/19 08:11 05/02/19 10:39 05/02/19 08:11 General appearance: Present: mild distress Results - Labs CBC & Chem 7: 05/02/19 03:37 05/02/19 03:37 Labs: Laboratory Last Values WBC 14.7 K/mm3 (4.5-11.0) H 05/02/19 03:37 RBC 3.80 M/mm3 (3.65-5.03) 05/02/19 03:37 Hgb 10.7 gm/dl (11.8-15.2) L 05/02/19 03:37 Hct 32.0 % (35.5-45.6) L D 05/02/19 03:37 MCV 84 fl (84-94) 05/02/19 03:37 MCH 28 pg (28-32) 05/02/19 03:37 MCHC 33 % (32-34) 05/02/19 03:37 RDW 15.6 % (13.2-15.2) H 05/02/19 03:37 Plt Count 235 K/mm3 (140-440) 05/02/19 03:37 Lymph % (Auto) 7.1 % (13.4-35.0) L 05/02/19 03:37 [place] % (Auto) 13.0 % (0.0-7.3) H 05/02/19 03:37 Eos % (Auto) 0.5 % (0.0-4.3) 05/02/19 03:37 Baso % (Auto) 0.3 % (0.0-1.8) 05/02/19 03:37 Lymph # 1.0 K/mm3 (1.2-5.4) L 05/02/19 03:37 [place] # 1.9 K/mm3 (0.0-0.8) H 05/02/19 03:37 Eos # 0.1 K/mm3 (0.0-0.4) 05/02/19 03:37 Baso # 0.0 K/mm3 (0.0-0.1) 05/02/19 03:37 Seg Neutrophils % 79.1 % (40.0-70.0) H 05/02/19 03:37 Seg Neutrophils # 11.6 K/mm3 (1.8-7.7) H 05/02/19 03:37 PT 16.4 Sec. (12.2-14.9) H 05/01/19 14:09 INR 1.36 (0.87-1.13) H 05/01/19 14:09 APTT 28.5 Sec. (24.2-36.6) 05/01/19 14:09 Thrombin Time 18.0 Sec. (15.1-19.6) 05/01/19 14:09 Sodium 130 mmol/L (137-145) L 05/02/19 03:37 Potassium 5.2 mmol/L (3.6-5.0) H 05/02/19 03:37 Chloride 97.1 mmol/L (98-107) L 05/02/19 03:37 Carbon Dioxide 14 mmol/L (22-30) L 05/02/19 03:37 Anion Gap 24 mmol/L 05/02/19 03:37 BUN 71 mg/dL (9-20) H 05/02/19 03:37 Creatinine 4.6 mg/dL (0.8-1.5) H 05/02/19 03:37 Estimated GFR 15 ml/min 05/02/19 03:37 BUN/Creatinine Ratio 15 % 05/02/19 03:37 Glucose 260 mg/dL (75-100) H 05/02/19 03:37 POC Glucose 267 (70-105) H 05/02/19 08:13 Lactic Acid 1.30 mmol/L (0.7-2.0) 05/02/19 00:44 Calcium 8.3 mg/dL (8.4-10.2) L 05/02/19 03:37 Total Bilirubin 0.50 mg/dL (0.1-1.2) 05/02/19 03:37 Direct Bilirubin 0.3 mg/dL (0-0.2) H 05/01/19 16:07 Indirect Bilirubin 0.5 mg/dL 05/01/19 16:07 AST 12 units/L (5-40) 05/02/19 03:37 ALT 7 units/L (7-56) 05/02/19 03:37 Alkaline Phosphatase 77 units/L (35-129) 05/02/19 03:37 Troponin T 0.104 ng/mL (0.00-0.029) H* 05/01/19 14:09 NT-Pro-B Natriuret Pep 6378 pg/mL (0-900) H 05/01/19 16:07 Total Protein 7.9 g/dL (6.3-8.2) 05/02/19 03:37 Albumin 2.7 g/dL (3.9-5) L 05/02/19 03:37 Albumin/Globulin Ratio 0.5 % 05/02/19 03:37 Triglycerides 91 mg/dL (2-149) 05/01/19 14:09 Cholesterol 122 mg/dL (50-199) 05/01/19 14:09 LDL Cholesterol Direct 59 mg/dL (50-130) 05/01/19 14:09 HDL Cholesterol 48 mg/dL (40-59) 05/01/19 14:09 Cholesterol/HDL Ratio 2.54 % 05/01/19 14:09 Urine Color Yellow (Yellow) 05/01/19 17:45 Urine Turbidity Cloudy (Clear) 05/01/19 17:45 Urine pH 5.0 (5.0-7.0) 05/01/19 17:45 Ur Specific [place] 1.010 (1.003-1.030) 05/01/19 17:45 Urine Protein 100 mg/dl mg/dL (Negative) 05/01/19 17:45 Urine Glucose (UA) >=500 mg/dL (Negative) 05/01/19 17:45 Urine Ketones Neg mg/dL (Negative) 05/01/19 17:45 Urine Blood Lg (Negative) 05/01/19 17:45 Urine Nitrite Neg (Negative) 05/01/19 17:45 Urine Bilirubin Neg (Negative) 05/01/19 17:45 Urine Urobilinogen < 2.0 mg/dL (<2.0) 05/01/19 17:45 Ur Leukocyte Esterase Lg (Negative) 05/01/19 17:45 Urine WBC (Auto) > 182.0 /HPF (0.0-6.0) H 05/01/19 17:45 Urine RBC (Auto) 0.0 /HPF (0.0-6.0) 05/01/19 17:45 U Epithel Cells (Auto) 13.0 /HPF (0-13.0) 05/01/19 17:45 Urine Bacteria (Auto) 4+ /HPF (Negative) 05/01/19 17:45 Urine Mucus 3+ /HPF 05/01/19 17:45 Urine Yeast (Budding) 2+ /HPF 05/01/19 17:45 Active Medications - Current Medications Current Medications: Generic Name Dose Route Start Last Admin Trade Name Freq PRN Reason Stop Dose Admin Acetaminophen 650 mg 05/01/19 18:22 Tylenol PO Q4H PRN Pain MILD(1-3)/Fever >100.5/STINSON Aspirin 81 mg 05/02/19 10:00 05/02/19 10:39 Halfprin Ec PO 81 mg DAILY ALANA Administration Atorvastatin Calcium 40 mg 05/01/19 22:00 05/01/19 22:05 Lipitor PO 40 mg QHS ALANA Administration Bisacodyl 5 mg 05/01/19 20:58 Dulcolax PO DAILY PRN Constipation Carvedilol 3.125 mg 05/01/19 22:00 05/02/19 10:39 Coreg PO 3.125 mg BID ALANA Administration Dextrose 50 ml 05/01/19 21:02 D50w (25gm) Syringe IV Q30MIN PRN Hypoglycemia Docusate Sodium 100 mg 05/01/19 20:58 Colace PO DAILY PRN Constipation Heparin Sodium (Porcine) 5,000 unit 05/01/19 22:00 05/02/19 10:38 Heparin SUB-Q 5,000 unit Q12HR ALANA Administration Ceftriaxone Sodium 1 gm in 50 mls @ 100 mls/hr 05/02/19 10:00 05/02/19 10:38 Rocephin/Ns 1 Gm/50 Ml IV 05/04/19 10:29 100 mls/hr Q24HR ALANA Administration Protocol Sodium Bicarbonate 150 meq/ 150 mls @ 75 mls/hr 05/02/19 10:00 Sterile Water IV DIRECT ALANA Insulin Human Lispro 0 unit 05/01/19 22:00 05/02/19 08:25 Humalog SUB-Q 4 unit ACHS ALANA Administration Protocol Levetiracetam 750 mg 05/01/19 22:00 05/02/19 10:38 Keppra PO 750 mg BID ALANA Administration Ondansetron HCl 4 mg 05/01/19 18:22 Zofran IV Q8H PRN Nausea And Vomiting Pregabalin 150 mg 05/01/19 22:00 05/01/19 22:10 Pregabalin PO 150 mg QHS ALANA Administration Sodium Chloride 10 ml 05/01/19 22:00 05/02/19 10:39 Sodium Chloride Flush Syringe 10 Ml IV 10 ml BID LAANA Administration Sodium Chloride 10 ml 05/01/19 18:22 Sodium Chloride Flush Syringe 10 Ml IV PRN PRN LINE FLUSH Tamsulosin HCl 0.4 mg 05/02/19 10:00 05/02/19 10:39 Flomax PO 0.4 mg QDAY ALANA Administration
[2019-05-02] MEDS: STERILE IV SCH (12:45)
[2019-05-02] MEDS: WATER IV SCH (12:45)
[2019-05-02] MEDS: SODIUM BICARBONATE IV SCH (12:45)
--- NOTE | 2019-05-02 12:48 | Consultation ---
History of Present Illness - Reason for Consult Consult date: 05/02/19 acute renal failure, hyperkalemia - History of Present Illness The patient is a 83 YO male with history significant for HTN, DM type 2, HLD, OA, Seizure Disorder, Systolic CHF(EF 40%), CKD, Dementia, CVA and BPH on chronic randall catheter who presented to [facility] ED yesterday for evaluation of increased weakness and confusion since 04/28/2019. Patient was not able to provide any history and information was obtained from his at the bedside. He had randall catheter changed by home health on 04/28 and since then his cond ition continue to decline. His appetite has been decreased with poor PO intake. He was found unresponsive yesterday morning. Patient was admitted with Sepsis secondary to UTI, Encephalopathy, and Acute Kidney Injury. His creatinine increased to 4.6 with potassium 5.2 and bicarb 14. Nephrology was consulted for further evaluation. Past History Past Medical History: diabetes, heart failure, hypertension, renal failure, seizures, other (see hpi) Past Surgical History: Other (Left shoulder) Social history: . denies: smoking, alcohol abuse, prescription drug abuse Family history: diabetes, hypertension Medications and Allergies Allergies Allergy/AdvReac Type Severity Reaction Status Date / Time No Known Allergies Allergy Verified 05/19/14 21:52 Home Medications Medication Instructions Recorded Confirmed Last Taken Type Pregabalin [Lyrica] 150 mg PO HS 01/30/18 05/01/19 04/30/19 History Furosemide [Lasix TAB] 20 mg PO Q2D 02/02/19 05/01/19 04/30/19 History AtorvaSTATin [Lipitor] 40 mg PO QHS #30 tab 02/05/19 05/01/19 04/30/19 Rx Tamsulosin [Flomax] 0.4 mg PO QDAY #30 capsule 02/05/19 05/01/19 04/30/19 Rx Aspirin [Adult Aspirin] 81 mg PO DAILY 04/10/19 05/01/19 04/30/19 History Bisacodyl [Dulcolax tab] 5 mg PO DAILY PRN 04/10/19 05/01/19 04/30/19 History Docusate Sodium [Colace CAP] 100 mg PO DAILY PRN 04/10/19 05/01/19 04/30/19 History Insulin Lispro Protamin/Lispro 40 units SUB-Q BID 04/13/19 05/01/19 04/30/19 History [Humalog Mix 75-25 Vial] Carvedilol [Coreg] 3.125 mg PO BID #60 tablet 04/16/19 05/01/19 04/30/19 Rx Ciprofloxacin HCl [Ciprofloxacin 500 mg PO Q12HR #10 tab 04/16/19 05/01/19 04/30/19 Rx TAB] levETIRAcetam [Keppra TAB] 750 mg PO BID #60 tablet 04/16/19 05/01/19 04/30/19 Rx Linagliptin [Tradjenta] 5 mg PO QDAY 05/01/19 05/01/19 04/30/19 History Active Meds: Active Medications Acetaminophen (Tylenol) 650 mg PO Q4H PRN PRN Reason: Pain MILD(1-3)/Fever >100.5/STINSON Aspirin (Halfprin Ec) 81 mg PO DAILY [facility] Last Admin: 05/02/19 10:39 Dose: 81 mg Documented by: Atorvastatin Calcium (Lipitor) 40 mg PO QHS [facility] Last Admin: 05/01/19 22:05 Dose: 40 mg Documented by: Bisacodyl (Dulcolax) 5 mg PO DAILY PRN PRN Reason: Constipation Carvedilol (Coreg) 3.125 mg PO BID [facility] Last Admin: 05/02/19 10:39 Dose: 3.125 mg Documented by: Dextrose (D50w (25gm) Syringe) 50 ml IV Q30MIN PRN PRN Reason: Hypoglycemia Docusate Sodium (Colace) 100 mg PO DAILY [facility] Heparin Sodium (Porcine) (Heparin) 5,000 unit SUB-Q Q12HR [facility] Last Admin: 05/02/19 10:38 Dose: 5,000 unit Documented by: Ceftriaxone Sodium (Rocephin/Ns 1 Gm/50 Ml) 1 gm in 50 mls @ 100 mls/hr IV Q24HR [facility]; Protocol Stop: 05/04/19 10:29 Last Admin: 05/02/19 10:38 Dose: 100 mls/hr Documented by: Sodium Bicarbonate 150 meq/ (Sterile Water) 150 mls @ 75 mls/hr IV DIRECT [facility] Insulin Human Lispro (Humalog) 0 unit SUB-Q ACHS [facility]; Protocol Last Admin: 05/02/19 08:25 Dose: 4 unit Documented by: Levetiracetam (Keppra) 750 mg PO BID [facility] Last Admin: 05/02/19 10:38 Dose: 750 mg Documented by: Ondansetron HCl (Zofran) 4 mg IV Q8H PRN PRN Reason: Nausea And Vomiting Pregabalin (Pregabalin) 150 mg PO QHS [facility] Last Admin: 05/01/19 22:10 Dose: 150 mg Documented by: Sodium Chloride (Sodium Chloride Flush Syringe 10 Ml) 10 ml IV BID [facility] Last Admin: 05/02/19 10:39 Dose: 10 ml Documented by: Sodium Chloride (Sodium Chloride Flush Syringe 10 Ml) 10 ml IV PRN PRN PRN Reason: LINE FLUSH Tamsulosin HCl (Flomax) 0.4 mg PO QDAY [facility] Last Admin: 05/02/19 10:39 Dose: 0.4 mg Documented by: Review of Systems ROS unobtainable: due to mental status Exam - Vital Signs Vital signs: Vital Signs Temp Pulse Resp BP Pulse Ox 98.3 F 106 H 20 132/80 96 05/01/19 13:33 05/01/19 13:33 05/01/19 13:33 05/01/19 13:33 05/01/19 13:33 - General Appearance General appearance: well-developed, appears stated age, other (no distress) EENT: ATNC, PERRL, mucous membranes dry Neck: Present: trachea midline Respiratory: Clear to Ascultation Heart: regular, S1S2, no murmurs Gastrointestinal: Present: normoactive bowel sounds. Absent: tenderness, distended Integumentary: no rash, warm and dry Neurologic: other (opens eyes, non-verbal, not following any command) Musculoskeletal: Present: other (no edema) Results - Lab Results 05/02/19 03:37 05/02/19 03:37 Most recent lab results Calcium 8.3 mg/dL (8.4-10.2) L 05/02/19 03:37 - Image Kidney/bladder ultrasound: pending Assessment and Plan 1. Acute kidney injury: Vasomotor KAUSHAL superimposed on CKD in the setting of sepsis and volume depletion. Urine studies ordered. Renal US pending. Continue IV fluids. Monitor renal function. Avoid nephrotoxic agents. Meds dosage based on GFR. 2. FEN: Hyperkalemia, s/p Kayexalate. Metabolic acidosis, continue IV fluids. Hyponatremia, improving. Monitor lytes. 3. Sepsis: Likely 2/2 UTI. Blood culture pending. 4. BPH with bladder outlet obstruction: Chronic Randall catheter, recently changed. 5. Encephalopathy. 6. DM type 2. 7. Seizure disorder. 8. H/o HFrEF. 9. Hypertension: BP is controlled. Care plan d/w his .
--- NOTE | 2019-05-02 13:43 | Ultrasound Report ---
ULTRASOUND RENAL INDICATION / CLINICAL INFORMATION: Acute renal failure.. COMPARISON: 03/21/2019 and 02/23/2019 renal ultrasound FINDINGS: RIGHT KIDNEY: Length = 11.2 cm. - Echogenicity: Normal. - Cortical Thickness: Normal. - Hydronephrosis: New prominence of the renal pelvis. No calyceal dilatation is identified. - Cyst or mass: Simple cyst with approximate diameter 1.5 cm - Stones: None seen. LEFT KIDNEY: Length = 10.8 cm. - Echogenicity: Normal. - Cortical Thickness: Normal. - Hydronephrosis: New prominence of the renal pelvis, similar to that on the right side. No calyceal dilatation. - Cyst or mass: No significant abnormality. - Stones: None seen. URINARY BLADDER: Well-distended. Echogenic material seen in the dependent portion of the bladder is n ot identified on previous studies. FREE FLUID: None. ADDITIONAL FINDINGS: None. IMPRESSION: 1. New, symmetric renal pelviectasis without reynaldo hydronephrosis. This may be secondary to obstructi ve phenomenon at the ureterovesical junctions, as there is a considerable volume of echogenic materia l in the dependent portion of the bladder, which is felt more likely to represent blood products and/ or infectious debris than a bladder mass. Signer Name: Ramón Gonzalez MD Signed: 05/02/2019 1:39 PM Workstation Name: [id number]
[2019-05-02 15:09] LABS: Creatinine,Urine 114.1 mg/dL (0.1-20.0)
--- NOTE | 2019-05-02 18:27 | Cat Scan Report ---
CT ABDOMEN AND PELVIS WITHOUT CONTRAST INDICATION / CLINICAL INFORMATION: MAIN: constipation, abdominal pain TECHNIQUE: Axial CT images were obtained through the abdomen and pelvis without IV contrast. All CT scans at [facility] location are performed using CT dose reduction for ALARA by means of automated exposure control. COMPARISON: None available. FINDINGS: The patient was scanned with his arms at his sides, producing streak artifact through the a bdomen. LOWER CHEST: Symmetric gynecomastia. The heart appears mildly enlarged. There are mild dependent atel ectatic changes at the lung bases. LIVER: No significant abnormality is identified within limitations of the study. GALLBLADDER: No significant abnormality. BILE DUCTS: No significant abnormality. PANCREAS: No significant abnormality. SPLEEN: No significant abnormality. ADRENALS: No significant abnormality. The kidneys and ureters show mild, symmetric, nonspecific perinephric fat stranding. The renal pelves and ureters are mildly dilated throughout their length. The urinary bladder is markedly distended. A t least one diverticulum is seen arising from the dome of the bladder, and this contains a small volu me of gas. At the posterior wall of the bladder, there is irregular thickening with heterogeneous int ernal attenuation including several ovoid hypoattenuating areas that may represent additional diverti cula. STOMACH and SMALL BOWEL: No significant abnormality. COLON: No significant abnormality. APPENDIX: Not definitely identified. No evidence of inflammatory process localizing to the right lowe r quadrant. PERITONEUM: No free fluid. No free air. No fluid collection. LYMPH NODES: No adenopathy. AORTA and ARTERIES: Moderate atherosclerotic calcification without acute abnormality. Atherosclerosis of the infrarenal abdominal aorta. No aneurysm. IVC and VEINS: No significant abnormality. REPRODUCTIVE ORGANS: The balloon of the Cast catheter is inflated in the prostatic segment of the ur ethra. SKELETAL SYSTEM: No significant abnormality. IMPRESSION: 1. Markedly distended urinary bladder with resultant distention of the upper urinary tracts. There is at least one large bladder diverticulum. Additional smaller diverticula versus abnormal, masslike th ickening of the posterior bladder dome is noted. MRI or a contrast-enhanced CT performed with the torsten dder moderately distended would be helpful for further evaluation. 2. Cast catheter balloon is inflated in the prostatic urethra. Repositioning is recommended. 3. Mild cardiomegaly. 4. Gynecomastia. Signer Name: Ramón Gonzalez MD Signed: 05/02/2019 6:23 PM Workstation Name: [id number]
[2019-05-02 18:37] LABS: Calcium 8.5 mg/dL (8.4-10.2)
[2019-05-02] MEDS: DULCOLAX PO PRN (19:04)
[2019-05-02] MEDS: PREGABALIN PO SCH (22:11)
[2019-05-03 05:45] LABS: Hematocrit 31.6 % (35.5-45.6); Hemoglobin 10.7 gm/dl (11.8-15.2); Mean Corpuscular HGB Conc 34 % (32-34); Mean Corpuscular Volume 84 fl (84-94); Platelet Count 233 K/mm3 (140-440); Red Blood Count 3.79 M/mm3 (3.65-5.03); Red Cell Distribution Width 15.4 % (13.2-15.2)
[2019-05-03 06:07] LABS: Calcium 8.4 mg/dL (8.4-10.2)
[2019-05-03] MEDS: HumaLOG SUB-Q SCH ×4 (08:04→21:55)
[2019-05-03] MEDS: HALFPRIN EC PO SCH (09:04)
[2019-05-03] MEDS: COLACE PO SCH (09:05)
[2019-05-03] MEDS: KEPPRA PO SCH ×2 (09:05→21:45)
[2019-05-03] MEDS: ROCEPHIN/NS 1 GM/50 ML 1 GM/50 ML BAG IV SCH (09:05)
[2019-05-03] MEDS: SODIUM CHLORIDE FLUSH SYRINGE 10 ML IV SCH ×2 (09:06→21:46)
[2019-05-03] MEDS: FLOMAX PO SCH (09:09)
[2019-05-03] MEDS: COREG PO SCH ×2 (09:09→21:45)
[2019-05-03] MEDS: HEPARIN SUB-Q SCH ×2 (09:35→23:00)
--- NOTE | 2019-05-03 11:01 | Progress Note ---
Assessment and Plan 1) Sepsis: Patient with recurrent sepsis secondary to indwelling randall catheter. Await cultures, continue current antibiotics, Consult ID if no improvement. Will recommend outpatient review for possible surgery by urology, considering Randall for more than 3 months. Still has residual urine of 644 ml Cont Rocephin (2) KAUSHAL (acute kidney injury): Secondary to vasomotor nephropathy, and possible obstruction. Monitor. await Renal ultrasound. Obtain CT abd/pelvis. Nephrologys consulted Baseline Bun/cr 43/1.5 on 04/16/19.Now Bun/Cr is 87/4.8 (3) Metabolic Metabolic Encephalopathy: Secondary to sepsis-improving (4)Acute Cystitis: Complex considering indwelling randall catheter. as noted above. Continue abx. Still has residual urine of 644 ml Will get urology consult (5) Diabetes: Continue sliding scale and accucheck. Add Lantus 10 units qhs (6)Abdominal Pain: ? Constipation: Start stool softener Lactulose 30 ml one dose (7) Osteoarthritis: supportive care, pain control (8) Seizure disorder: Keppra level, continue current therapy, seizure precautions. (9) CHF (congestive heart failure) Acute on chronic systolic (congestive) heart failure : strict I/O,daily weight, monitor uop q shift, afterload reduction, diuresis, BNP, (10) DVT prophylaxis Current Visit: Yes Status: Acute Plan to address problem: SCD to BLE while in bed, prophylactic heparin Plan discussed with spouse and Nursing staff Subjective Date of service: 05/03/19 Principal diagnosis: Sepsis,UtI Interval history: 83 YO Male with HTN, DM, OA, Seizure Disorder, Debility, Systolic CHF(EF 40%),Dementia, CVA with LHP, Encephalopathy presents to ED for evaluation. Pt is confused and unable to provide detailed history. Pt is at bedside and provides history. As per , the patient has experienced increased weakness, confusion over the past 3 days. Pt was seen by home health and had randall catheter changed due to suspected urinary tract infection and since that time the patient has experieinced a continued decline in his overall status. Pt was found to be unresponsive this morning. EMS notified, and upon arrival the patient was found to be in distress and transported to [facility]. Pt seen and evaluated in ED and found to have Sepsis suspected secondary to UTI, Encephalopathy, and Acute Kidney Injury. Pt admitted to [facility] unit and initiated on IV antibiotic therapy. 30 minutes dedicated to Advanced care planning. Pt counseled regarding care options. Pt acknowledges understanding and agreement with care plan. Prior admission on 04/10/19 reviewed. All listed medic ation reconciled at time of admission. No further history obtainable. Pt denies reports of fever, chills, CP, Palpitations, NVD, Skin rash, Productive cough, seizure, or recent ill contacts. * Randall changed by Home health 04/28/19 per family and since then has had difficulty--re * Patient has been complaining of suprapubic pain and inability to move bowel for a few months CT Abdomen: IMPRESSION: 1. Markedly distended urinary bladder with resultant distention of the upper urinary tracts. There is at least one large bladder diverticulum. Additional smaller diverticula versus abnormal, masslike thickening of the posterior bladder dome is noted. MRI or a contrast-enhanced CT performed with the bladder moderately distended would be helpful for further evaluation. 2. Fo rakesh catheter balloon is inflated in the prostatic urethra. Repositioning is recommended. 3. Mild cardiomegaly. 4. Gynecomastia ( Objective - Constitutional Vitals: Vital Signs - 12hr 05/03/19 05/03/19 05/03/19 01:58 07:24 09:09 Temperature 98.9 F 98.2 F Pulse Rate 45 L 94 H 90 Pulse Rate [ From Monitor] Respiratory 22 18 Rate Blood Pressure 132/76 148/74 Blood Pressure 116/77 [Right] O2 Sat by Pulse 93 98 Oximetry 05/03/19 10:00 Temperature Pulse Rate 86 Pulse Rate [ 94 H From Monitor] Respiratory 18 Rate Blood Pressure Blood Pressure [Right] O2 Sat by Pulse 98 Oximetry General appearance: Present: no acute distress, well-nourished - EENT Eyes: PERRL, EOM intact ENT: hearing intact, clear oral mucosa Ears: bilateral: normal - Neck Neck: supple, normal ROM - Respiratory Respiratory effort: normal Respiratory: bilateral: CTA - Breasts Breasts: normal - Cardiovascular Heart rate: 78 Rhythm: regular Heart Sounds: Present: S1 & S2. Absent: gallop, rub Extremities: no ischemia, pulses intact, No edema, normal color, Full ROM - Gastrointestinal General gastrointestinal: Present: soft, non-tender, non-distended, normal bowel sounds - Genitourinary Male genitourinary: normal - Integumentary Integumentary: clear, warm, dry - Musculoskeletal Musculoskeletal: 1, strength equal bilaterally - Neurologic Neurologic: moves all extremities - Psychiatric Psychiatric: memory intact, appropriate mood/affect, intact judgment & insight - Labs CBC & Chem 7: 05/03/19 05:30 05/03/19 05:30 Labs: Abnormal lab results 05/02/19 05/02/19 05/02/19 Range/Units 13:32 14:55 16:55 WBC (4.5-11.0) K/mm3 Hgb (11.8-15.2) gm/dl Hct (35.5-45.6) % RDW (13.2-15.2) % Sodium (137-145) mmol/L Chloride (98-107) mmol/L Carbon Dioxide (22-30) mmol/L BUN (9-20) mg/dL Creatinine (0.8-1.5) mg/dL Glucose (75-100) mg/dL POC Glucose 279 H 161 H (70-105) Urine Creatinine 114.1 H (0.1-20.0) mg/dL 05/02/19 05/02/19 05/03/19 Range/Units 17:55 22:47 05:30 WBC 11.4 H (4.5-11.0) K/mm3 Hgb 10.7 L (11.8-15.2) gm/dl Hct 31.6 L (35.5-45.6) % RDW 15.4 H (13.2-15.2) % Sodium 130 L (137-145) mmol/L Chloride (98-107) mmol/L Carbon Dioxide 17 L (22-30) mmol/L BUN 77 H (9-20) mg/dL Creatinine 4.4 H (0.8-1.5) mg/dL Glucose 142 H (75-100) mg/dL POC Glucose 159 H (70-105) Urine Creatinine (0.1-20.0) mg/dL 05/03/19 05/03/19 Range/Units 05:30 07:11 WBC (4.5-11.0) K/mm3 Hgb (11.8-15.2) gm/dl Hct (35.5-45.6) % RDW (13.2-15.2) % Sodium 130 L (137-145) mmol/L Chloride 93.0 L (98-107) mmol/L Carbon Dioxide 17 L (22-30) mmol/L BUN 87 H (9-20) mg/dL Creatinine 4.8 H (0.8-1.5) mg/dL Glucose 226 H (75-100) mg/dL POC Glucose 241 H (70-105) Urine Creatinine (0.1-20.0) mg/dL
[2019-05-03] MEDS: SODIUM BICARBONATE IV SCH (11:33)
[2019-05-03] MEDS: STERILE IV SCH (11:33)
[2019-05-03] MEDS: WATER IV SCH (11:33)
[2019-05-03] MEDS: TYLENOL PO PRN (11:55)
[2019-05-03] MEDS ORDERED: CEPHULAC PO ONE (12:00)
--- NOTE | 2019-05-03 12:57 | Progress Note ---
Assessment and Plan 1. Acute kidney injury: KAUSHAL superimposed on CKD in the setting of obstructive uropathy +/- sepsis and volume depletion. Renal US showed bladder outlet obstruction with bilateral hydronephrosis. Continue IV fluids. Monitor renal function. Avoid nephrotoxic agents. Meds dosage based on GFR. 2. FEN: Hyperkalemia, K level is better. Metabolic acidosis, continue bicarb drip. Hyponatremia, monitor. Monitor lytes. 3. BPH with Bladder outlet obstruction: Cast balloon was at the prostate area. Catheter was reposition and cloudy urine is draining. 4. Sepsis: 2/2 UTI. On Ceftriaxone. Blood culture pending. 5. Encephalopathy. 6. DM type 2. 7. Seizure disorder. 8. H/o HFrEF. 9. Hypertension: Monitor. Examination: General appearance: well-developed, appears stated age, lethargic, no distress HEENT: ATNC, AUNDREA, mucous membranes dry Neck: trachea midline Respiratory: Clear to Ascultation Heart: regular, S1S2, no murmur Gastrointestinal: normoactive bowel sounds, suprapubic tenderness noted Integumentary: no rash, warm and dry : Cast catheter Neurologic: opens eyes, non-verbal, not following any command Musculoskeletal: no edema Subjective Date of service: 05/03/19 Principal diagnosis: Sepsis,UtI Interval history: Patient was seen and examined at the bedside. Objective - Vital Signs Vital signs: Vital Signs - 12hr 05/03/19 05/03/19 05/03/19 01:58 07:24 09:09 Temperature 98.9 F 98.2 F Pulse Rate 45 L 94 H 90 Pulse Rate [ From Monitor] Respiratory 22 18 Rate Blood Pressure 132/76 148/74 Blood Pressure 116/77 [Right] O2 Sat by Pulse 93 98 Oximetry 05/03/19 05/03/19 10:00 11:55 Temperature Pulse Rate 86 Pulse Rate [ 94 H From Monitor] Respiratory 18 18 Rate Blood Pressure Blood Pressure [Right] O2 Sat by Pulse 98 Oximetry - Lab 05/03/19 05:30 05/03/19 05:30 Most recent lab results Calcium 8.4 mg/dL (8.4-10.2) 05/03/19 05:30 Urine Creatinine 114.1 mg/dL (0.1-20.0) H 05/02/19 14:55 Urine Sodium 37 mmol/L 05/02/19 14:55 Medications & Allergies - Medications Allergies/Adverse Reactions: Allergies No Known Allergies Allergy (Verified 05/19/14 21:52) Home Medications: Home Medications Medication Instructions Recorded Confirmed Last Taken Type Pregabalin [Lyrica] 150 mg PO HS 01/30/18 05/01/19 04/30/19 History Furosemide [Lasix TAB] 20 mg PO Q2D 02/02/19 05/01/19 04/30/19 History AtorvaSTATin [Lipitor] 40 mg PO QHS #30 tab 02/05/19 05/01/19 04/30/19 Rx Tamsulosin [Flomax] 0.4 mg PO QDAY #30 capsule 02/05/19 05/01/19 04/30/19 Rx Aspirin [Adult Aspirin] 81 mg PO DAILY 04/10/19 05/01/19 04/30/19 History Bisacodyl [Dulcolax tab] 5 mg PO DAILY PRN 04/10/19 05/01/19 04/30/19 History Docusate Sodium [Colace CAP] 100 mg PO DAILY PRN 04/10/19 05/01/19 04/30/19 History Insulin Lispro Protamin/Lispro 40 units SUB-Q BID 04/13/19 05/01/19 04/30/19 History [Humalog Mix 75-25 Vial] Carvedilol [Coreg] 3.125 mg PO BID #60 tablet 04/16/19 05/01/19 04/30/19 Rx Ciprofloxacin HCl [Ciprofloxacin 500 mg PO Q12HR #10 tab 04/16/19 05/01/19 04/30/19 Rx TAB] levETIRAcetam [Keppra TAB] 750 mg PO BID #60 tablet 04/16/19 05/01/19 04/30/19 Rx Linagliptin [Tradjenta] 5 mg PO QDAY 05/01/19 05/01/19 04/30/19 History Active Medications: Generic Name Dose Route Start Last Admin Trade Name Freq PRN Reason Stop Dose Admin Acetaminophen 650 mg 05/01/19 18:22 05/03/19 11:55 Tylenol PO 650 mg Q4H PRN Administration Pain MILD(1-3)/Fever >100.5/STINSON Aspirin 81 mg 05/02/19 10:00 05/03/19 09:04 Halfprin Ec PO 81 mg DAILY ALANA Administration Atorvastatin Calcium 40 mg 05/01/19 22:00 05/02/19 22:11 Lipitor PO Not Given QHS ALANA Bisacodyl 5 mg 05/01/19 20:58 05/02/19 19:04 Dulcolax PO 5 mg DAILY PRN Administration Constipation Carvedilol 3.125 mg 05/01/19 22:00 05/03/19 09:09 Coreg PO 3.125 mg BID ALANA Administration Dextrose 50 ml 05/01/19 21:02 D50w (25gm) Syringe IV Q30MIN PRN Hypoglycemia Docusate Sodium 100 mg 05/03/19 10:00 05/03/19 09:05 Colace PO 100 mg DAILY ALANA Administration Heparin Sodium (Porcine) 5,000 unit 05/01/19 22:00 05/03/19 09:35 Heparin SUB-Q 5,000 unit Q12HR ALANA Administration Ceftriaxone Sodium 1 gm in 50 mls @ 100 mls/hr 05/02/19 10:00 05/03/19 09:05 Rocephin/Ns 1 Gm/50 Ml IV 05/04/19 10:29 100 mls/hr Q24HR ALANA Administration Protocol Sodium Bicarbonate 150 meq/ 150 mls @ 75 mls/hr 05/02/19 10:00 05/03/19 11:33 Sterile Water IV 75 mls/hr DIRECT ALANA Administration Insulin Human Lispro 0 unit 05/01/19 22:00 05/03/19 11:30 Humalog SUB-Q 4 unit ACHS ALANA Administration Protocol Levetiracetam 750 mg 05/01/19 22:00 05/03/19 09:05 Keppra PO 750 mg BID ALANA Administration Ondansetron HCl 4 mg 05/01/19 18:22 Zofran IV Q8H PRN Nausea And Vomiting Pregabalin 150 mg 05/01/19 22:00 05/02/19 22:11 Pregabalin PO Not Given QHS ALANA Sodium Chloride 10 ml 05/01/19 22:00 05/03/19 09:06 Sodium Chloride Flush Syringe 10 Ml IV 10 ml BID ALANA Administration Sodium Chloride 10 ml 05/01/19 18:22 Sodium Chloride Flush Syringe 10 Ml IV PRN PRN LINE FLUSH Tamsulosin HCl 0.4 mg 05/02/19 10:00 05/03/19 09:09 Flomax PO 0.4 mg QDAY ALANA Administration
[2019-05-03] MEDS: PREGABALIN PO SCH (21:45)
[2019-05-04] MEDS: WATER IV SCH (02:24)
[2019-05-04] MEDS: STERILE IV SCH (02:24)
[2019-05-04] MEDS: SODIUM BICARBONATE IV SCH (02:24)
[2019-05-04 06:20] LABS: Hematocrit 28.9 % (35.5-45.6); Hemoglobin 9.9 gm/dl (11.8-15.2); Mean Corpuscular HGB Conc 34 % (32-34); Mean Corpuscular Volume 83 fl (84-94); Platelet Count 232 K/mm3 (140-440); Red Cell Distribution Width 15.4 % (13.2-15.2)
[2019-05-04 06:42] LABS: Albumin 2.2 g/dL (3.9-5); Calcium 8.4 mg/dL (8.4-10.2)
[2019-05-04] MEDS: HumaLOG SUB-Q SCH ×4 (08:01→22:38)
[2019-05-04] MEDS: TYLENOL PO PRN ×2 (08:01→22:38)
--- NOTE | 2019-05-04 08:40 | Progress Note ---
Assessment and Plan Assessment and plan: 83 YO Male with HTN, DM, OA, Seizure Disorder, Debility, Systolic CHF(EF 40%),Dementia, CVA with LHP, Encephalopathy presents to ED for evaluation. Pt is confused and unable to provide detailed history. Pt is at bedside and provides history. As per , the patient has experienced increased weakness, confusion over the past 3 days. Pt was seen by home health and had randall catheter changed due to suspected urinary tract infection and since that time the patient has experieinced a continued decline in his overall status. Pt was found to be unresponsive this morning. EMS notified, and upon arrival the patient was found to be in distress and transported to [facility]. Pt seen and evaluated in ED and found to have Sepsis suspected secondary to UTI, Encephalopathy, and Acute Kidney Injury. Pt admitted to [facility] unit and initiated on IV antibiotic therapy. 30 minutes dedicated to Advanced care planning. Pt counseled regarding care options. Pt acknowledges understanding and agreement with care plan. Prior admission on 04/10/19 reviewed. All listed medication reconciled at time of admission. No further history obtainable. Pt denies reports of fever, chills, CP, Palpitations, NVD, Skin rash, Productive cough, seizure, or recent ill contacts. * Randall changed by [facility] 04/28/19 per family and since then has had difficulty. * Patient has been complaining of suprapubic pain and inability to move bowel for a few months CT A.P: Markedly distended urinary bladder with resultant distention of the upper urinary tracts. There is at least one large bladder diverticulum. Additional smaller diverticula versus abnormal, masslike thickening of the pos terior bladder dome is noted. MRI or a contrast-enhanced CT performed with the bladder moderately distended would be helpful for further evaluation. 2. Randall catheter balloon is inflated in the prostatic urethra. Repositioning is recommended. 3. Mild cardiomegaly. 4. Gynecomastia. 1) Sepsis: Patient with recurrent sepsis secondary to indwelling randall catheter. Await cultures, continue current antibiotics, Consult ID if no improvement. Will recommend outpatient review for possible surgery by urology, considering Randall for more than 3 months. Still has residual urine of 644 ml Yesterday and today 51 Cont Rocephin (2) KAUSHAL (acute kidney injury): Secondary to vasomotor nephropathy, and possible obstruction. Monitor. await Renal ultrasound. Obtain CT abd/pelvis. Nephrologys consulted Baseline Bun/cr 43/1.5 on 04/16/19.Now cr is 3.1 (3) Metabolic Metabolic Encephalopathy: Secondary to sepsis-improving (4)Acute Cystitis: Complex considering indwelling randall catheter. as noted above. Continue abx. Urology evaluated late last night and Randall re-adjusted by Urology, Will follow Creatinine in the am (5) Diabetes: Continue sliding scale and accucheck. CONTINUE Lantus 10 units qhs (6)Abdominal Pain: ? Constipation: Start stool softener Lactulose 30 ml one dose (7) Osteoarthritis: supportive care, pain control (8) Seizure disorder: Keppra level, continue current therapy, seizure precautions. (9) CHF (congestive heart failure) Acute on chronic systolic (congestive) heart failure : strict I/O,daily weight, monitor uop q shift, afterload reduction, diuresis, BNP, (10) DVT prophylaxis Current Visit: Yes Status: Acute Plan to address problem: SCD to BLE while in bed, prophylactic heparin Plan discussed with spouse and Nursing staff Disposition: Continue inpatient care and anticipate discharge once renal function improves to baseline and follow with Urology outpatient. History Interval history: Patient seen and examined, Much more awake, complains of abdominal pain, constipation, also echoed by Nursing staff. Hospitalist Physical - Physical exam Narrative exam: General appearance: Present: no acute distress, well-nourished -HEENT Eyes: PERRL, EOM intact ENT: hearing intact, clear oral mucosa Ears: bilateral: normal - Neck Neck: supple, normal ROM - Respiratory Respiratory effort: normal Respiratory: bilateral: CTA - Breasts Breasts: normal - Cardiovascular Rhythm: regular Heart Sounds: Present: S1 & S2. Absent: gallop, rub Extremities: no ischemia, pulses intact, No edema, normal color, Full ROM - Gastrointestinal General gastrointestinal: Present: soft, non-tender, Distended, normal bowel sounds - Genitourinary Male genitourinary: normal - Integumentary Integumentary: clear, warm, dry - Musculoskeletal Musculoskeletal: 1, strength equal bilaterally - Neurologic Neurologic: moves all extremities, Some left sided weakness. - Psychiatric Psychiatric: memory intact, appropriate mood/affect, intact judgment & insight - Constitutional Vitals: Temp Pulse Resp BP Pulse Ox 98.6 F 88 20 188/83 99 05/04/19 02:26 05/04/19 07:19 05/04/19 07:19 05/04/19 07:21 05/04/19 07:19 General appearance: Present: no acute distress, well-nourished Results - Labs CBC & Chem 7: 05/04/19 05:48 05/04/19 05:48 Labs: Laboratory Last Values WBC 10.4 K/mm3 (4.5-11.0) 05/04/19 05:48 RBC 3.50 M/mm3 (3.65-5.03) L 05/04/19 05:48 Hgb 9.9 gm/dl (11.8-15.2) L 05/04/19 05:48 Hct 28.9 % (35.5-45.6) L 05/04/19 05:48 MCV 83 fl (84-94) L 05/04/19 05:48 MCH 28 pg (28-32) 05/04/19 05:48 MCHC 34 % (32-34) 05/04/19 05:48 RDW 15.4 % (13.2-15.2) H 05/04/19 05:48 Plt Count 232 K/mm3 (140-440) 05/04/19 05:48 Lymph % (Auto) 7.1 % (13.4-35.0) L 05/02/19 03:37 [place] % (Auto) 13.0 % (0.0-7.3) H 05/02/19 03:37 Eos % (Auto) 0.5 % (0.0-4.3) 05/02/19 03:37 Baso % (Auto) 0.3 % (0.0-1.8) 05/02/19 03:37 Lymph # 1.0 K/mm3 (1.2-5.4) L 05/02/19 03:37 [place] # 1.9 K/mm3 (0.0-0.8) H 05/02/19 03:37 Eos # 0.1 K/mm3 (0.0-0.4) 05/02/19 03:37 Baso # 0.0 K/mm3 (0.0-0.1) 05/02/19 03:37 Seg Neutrophils % 79.1 % (40.0-70.0) H 05/02/19 03:37 Seg Neutrophils # 11.6 K/mm3 (1.8-7.7) H 05/02/19 03:37 PT 16.4 Sec. (12.2-14.9) H 05/01/19 14:09 INR 1.36 (0.87-1.13) H 05/01/19 14:09 APTT 28.5 Sec. (24.2-36.6) 05/01/19 14:09 Thrombin Time 18.0 Sec. (15.1-19.6) 05/01/19 14:09 Sodium 136 mmol/L (137-145) L 05/04/19 05:48 Potassium 4.2 mmol/L (3.6-5.0) 05/04/19 05:48 Chloride 97.6 mmol/L (98-107) L 05/04/19 05:48 Carbon Dioxide 24 mmol/L (22-30) D 05/04/19 05:48 Anion Gap 19 mmol/L 05/04/19 05:48 BUN 81 mg/dL (9-20) H 05/04/19 05:48 Creatinine 3.1 mg/dL (0.8-1.5) H 05/04/19 05:48 Estimated GFR 23 ml/min 05/04/19 05:48 BUN/Creatinine Ratio 26 % 05/04/19 05:48 Glucose 196 mg/dL (75-100) H 05/04/19 05:48 POC Glucose 201 (70-105) H 05/04/19 07:26 Lactic Acid 1.30 mmol/L (0.7-2.0) 05/02/19 00:44 Calcium 8.4 mg/dL (8.4-10.2) 05/04/19 05:48 Total Bilirubin 0.30 mg/dL (0.1-1.2) 05/04/19 05:48 Direct Bilirubin 0.3 mg/dL (0-0.2) H 05/01/19 16:07 Indirect Bilirubin 0.5 mg/dL 05/01/19 16:07 AST 12 units/L (5-40) 05/04/19 05:48 ALT 7 units/L (7-56) 05/04/19 05:48 Alkaline Phosphatase 69 units/L (35-129) 05/04/19 05:48 Troponin T 0.104 ng/mL (0.00-0.029) H* 05/01/19 14:09 NT-Pro-B Natriuret Pep 6378 pg/mL (0-900) H 05/01/19 16:07 Total Protein 7.1 g/dL (6.3-8.2) 05/04/19 05:48 Albumin 2.2 g/dL (3.9-5) L 05/04/19 05:48 Albumin/Globulin Ratio 0.4 % 05/04/19 05:48 Triglycerides 91 mg/dL (2-149) 05/01/19 14:09 Cholesterol 122 mg/dL (50-199) 05/01/19 14:09 LDL Cholesterol Direct 59 mg/dL (50-130) 05/01/19 14:09 HDL Cholesterol 48 mg/dL (40-59) 05/01/19 14:09 Cholesterol/HDL Ratio 2.54 % 05/01/19 14:09 Urine Color Yellow (Yellow) 05/01/19 17:45 Urine Turbidity Cloudy (Clear) 05/01/19 17:45 Urine pH 5.0 (5.0-7.0) 05/01/19 17:45 Ur Specific Thayer 1.010 (1.003-1.030) 05/01/19 17:45 Urine Protein 100 mg/dl mg/dL (Negative) 05/01/19 17:45 Urine Glucose (UA) >=500 mg/dL (Negative) 05/01/19 17:45 Urine Ketones Neg mg/dL (Negative) 05/01/19 17:45 Urine Blood Lg (Negative) 05/01/19 17:45 Urine Nitrite Neg (Negative) 05/01/19 17:45 Urine Bilirubin Neg (Negative) 05/01/19 17:45 Urine Urobilinogen < 2.0 mg/dL (<2.0) 05/01/19 17:45 Ur Leukocyte Esterase Lg (Negative) 05/01/19 17:45 Urine WBC (Auto) > 182.0 /HPF (0.0-6.0) H 05/01/19 17:45 Urine RBC (Auto) 0.0 /HPF (0.0-6.0) 05/01/19 17:45 U Epithel Cells (Auto) 13.0 /HPF (0-13.0) 05/01/19 17:45 Urine Bacteria (Auto) 4+ /HPF (Negative) 05/01/19 17:45 Urine Mucus 3+ /HPF 05/01/19 17:45 Urine Yeast (Budding) 2+ /HPF 05/01/19 17:45 Urine Creatinine 114.1 mg/dL (0.1-20.0) H 05/02/19 14:55 Urine Sodium 37 mmol/L 05/02/19 14:55 Active Medications - Current Medications Current Medications: Generic Name Dose Route Start Last Admin Trade Name Freq PRN Reason Stop Dose Admin Acetaminophen 650 mg 05/01/19 18:22 05/04/19 08:01 Tylenol PO 650 mg Q4H PRN Administration Pain MILD(1-3)/Fever >100.5/STINSON Aspirin 81 mg 05/02/19 10:00 05/03/19 09:04 Halfprin Ec PO 81 mg DAILY ALANA Administration Atorvastatin Calcium 40 mg 05/01/19 22:00 05/03/19 21:45 Lipitor PO 40 mg QHS ALANA Administration Bisacodyl 5 mg 05/01/19 20:58 05/02/19 19:04 Dulcolax PO 5 mg DAILY PRN Administration Constipation Carvedilol 3.125 mg 05/01/19 22:00 05/03/19 21:45 Coreg PO 3.125 mg BID ALANA Administration Dextrose 50 ml 05/01/19 21:02 D50w (25gm) Syringe IV Q30MIN PRN Hypoglycemia Docusate Sodium 100 mg 05/03/19 10:00 05/03/19 09:05 Colace PO 100 mg DAILY ALANA Administration Heparin Sodium (Porcine) 5,000 unit 05/01/19 22:00 05/03/19 23:00 Heparin SUB-Q 5,000 unit Q12HR ALANA Administration Ceftriaxone Sodium 1 gm in 50 mls @ 100 mls/hr 05/02/19 10:00 05/03/19 09:05 Rocephin/Ns 1 Gm/50 Ml IV 05/04/19 10:29 100 mls/hr Q24HR ALANA Administration Protocol Sodium Bicarbonate 150 meq/ 150 mls @ 75 mls/hr 05/02/19 10:00 05/04/19 02:24 Sterile Water IV 75 mls/hr DIRECT ALANA Administration Insulin Human Lispro 0 unit 05/01/19 22:00 05/04/19 08:01 Humalog SUB-Q 3 unit ACHS ALANA Administration Protocol Levetiracetam 750 mg 05/01/19 22:00 05/03/19 21:45 Keppra PO 750 mg BID ALANA Administration Ondansetron HCl 4 mg 05/01/19 18:22 Zofran IV Q8H PRN Nausea And Vomiting Pregabalin 150 mg 05/01/19 22:00 05/03/19 21:45 Pregabalin PO 150 mg QHS ALANA Administration Sodium Chloride 10 ml 05/01/19 22:00 05/03/19 21:46 Sodium Chloride Flush Syringe 10 Ml IV 10 ml BID ALANA Administration Sodium Chloride 10 ml 05/01/19 18:22 Sodium Chloride Flush Syringe 10 Ml IV PRN PRN LINE FLUSH Tamsulosin HCl 0.4 mg 05/02/19 10:00 05/03/19 09:09 Flomax PO 0.4 mg QDAY ALANA Administration
[2019-05-04 08:50] LABS: Band Neutrophils # (Manual) 0.2 K/mm3; Basophils % (Manual) 0 % (0.0-1.8); Hypochromasia Few; Platelet Estimate Consistent w Auto; Total Cells Counted 100
[2019-05-04] MEDS: COLACE PO SCH (09:12)
[2019-05-04] MEDS: HALFPRIN EC PO SCH (09:13)
[2019-05-04] MEDS: FLOMAX PO SCH (09:14)
[2019-05-04] MEDS: COREG PO SCH ×2 (09:14→22:37)
[2019-05-04] MEDS: DULCOLAX PO PRN (09:14)
[2019-05-04] MEDS: HEPARIN SUB-Q SCH ×2 (09:14→22:49)
[2019-05-04] MEDS: ROCEPHIN/NS 1 GM/50 ML 1 GM/50 ML BAG IV SCH (09:20)
[2019-05-04] MEDS: KEPPRA PO SCH ×2 (09:28→22:37)
[2019-05-04] MEDS: SODIUM CHLORIDE FLUSH SYRINGE 10 ML IV SCH ×2 (09:29→22:39)
--- NOTE | 2019-05-04 09:47 | Progress Note ---
Assessment and Plan 1. Acute kidney injury: KAUSHAL superimposed on CKD in the setting of obstructive uropathy +/- sepsis and volume depletion. Renal US showed bladder outlet obstruction with bilateral hydronephrosis. US finding improved after repositioning the catheter. Continue IV fluids. Renal function is improving. Monitor renal function. Avoid nephrotoxic agents. Meds dosage based on GFR. 2. FEN: Hyperkalemia, K level is better. Metabolic acidosis, improved. Hyponatremia, monitor. Monitor lytes. 3. BPH with Bladder outlet obstruction: Cast balloon was at the prostate area. Catheter was repositioned. 4. Sepsis: 2/2 UTI. Blood culture pending. 5. Encephalopathy. 6. DM type 2. 7. Seizure disorder. 8. H/o HFrEF. 9. Hypertension: Monitor. Examination: General appearance: well-developed, appears stated age, no distress HEENT: ATNC, AUNDREA, mucous membranes dry Neck: trachea midline Respiratory: Clear to Ascultation Heart: regular, S1S2, no murmur Gastrointestinal: normoactive bowel sounds, some abdominal tenderness noted Integumentary: no rash, warm and dry : Cast catheter Neurologic: more alert than yesterday, confused, follows command Musculoskeletal: no edema Subjective Date of service: 05/04/19 Principal diagnosis: Sepsis,UtI Interval history: Patient was seen and examined at the bedside. Objective - Vital Signs Vital signs: Vital Signs - 12hr 05/04/19 05/04/19 05/04/19 02:26 07:19 07:21 Temperature 98.6 F Pulse Rate 85 88 Respiratory 20 20 Rate Blood Pressure 164/80 185/90 188/83 O2 Sat by Pulse 98 99 Oximetry 05/04/19 09:14 Temperature Pulse Rate 84 Respiratory Rate Blood Pressure 174/81 O2 Sat by Pulse Oximetry - Lab 05/04/19 05:48 05/04/19 05:48 Most recent lab results Calcium 8.4 mg/dL (8.4-10.2) 05/04/19 05:48 Urine Creatinine 114.1 mg/dL (0.1-20.0) H 05/02/19 14:55 Urine Sodium 37 mmol/L 05/02/19 14:55 Medications & Allergies - Medications Allergies/Adverse Reactions: Allergies No Known Allergies Allergy (Verified 05/19/14 21:52) Home Medications: Home Medications Medication Instructions Recorded Confirmed Last Taken Type Pregabalin [Lyrica] 150 mg PO HS 01/30/18 05/01/19 04/30/19 History Furosemide [Lasix TAB] 20 mg PO Q2D 02/02/19 05/01/19 04/30/19 History AtorvaSTATin [Lipitor] 40 mg PO QHS #30 tab 02/05/19 05/01/19 04/30/19 Rx Tamsulosin [Flomax] 0.4 mg PO QDAY #30 capsule 02/05/19 05/01/19 04/30/19 Rx Aspirin [Adult Aspirin] 81 mg PO DAILY 04/10/19 05/01/19 04/30/19 History Bisacodyl [Dulcolax tab] 5 mg PO DAILY PRN 04/10/19 05/01/19 04/30/19 History Docusate Sodium [Colace CAP] 100 mg PO DAILY PRN 04/10/19 05/01/19 04/30/19 History Insulin Lispro Protamin/Lispro 40 units SUB-Q BID 04/13/19 05/01/19 04/30/19 History [Humalog Mix 75-25 Vial] Carvedilol [Coreg] 3.125 mg PO BID #60 tablet 04/16/19 05/01/19 04/30/19 Rx Ciprofloxacin HCl [Ciprofloxacin 500 mg PO Q12HR #10 tab 04/16/19 05/01/19 04/30/19 Rx TAB] levETIRAcetam [Keppra TAB] 750 mg PO BID #60 tablet 04/16/19 05/01/19 04/30/19 Rx Linagliptin [Tradjenta] 5 mg PO QDAY 05/01/19 05/01/19 04/30/19 History Active Medications: Generic Name Dose Route Start Last Admin Trade Name Freq PRN Reason Stop Dose Admin Acetaminophen 650 mg 05/01/19 18:22 05/04/19 08:01 Tylenol PO 650 mg Q4H PRN Administration Pain MILD(1-3)/Fever >100.5/STINSON Aspirin 81 mg 05/02/19 10:00 05/04/19 09:13 Halfprin Ec PO 81 mg DAILY ALANA Administration Atorvastatin Calcium 40 mg 05/01/19 22:00 05/03/19 21:45 Lipitor PO 40 mg QHS ALANA Administration Bisacodyl 5 mg 05/01/19 20:58 05/04/19 09:14 Dulcolax PO 5 mg DAILY PRN Administration Constipation Carvedilol 3.125 mg 05/01/19 22:00 05/04/19 09:14 Coreg PO 3.125 mg BID ALANA Administration Dextrose 50 ml 05/01/19 21:02 D50w (25gm) Syringe IV Q30MIN PRN Hypoglycemia Docusate Sodium 100 mg 05/03/19 10:00 05/04/19 09:12 Colace PO 100 mg DAILY ALANA Administration Heparin Sodium (Porcine) 5,000 unit 05/01/19 22:00 05/04/19 09:14 Heparin SUB-Q 5,000 unit Q12HR ALANA Administration Ceftriaxone Sodium 1 gm in 50 mls @ 100 mls/hr 05/02/19 10:00 05/04/19 09:20 Rocephin/Ns 1 Gm/50 Ml IV 05/04/19 10:29 100 mls/hr Q24HR ALANA Administration Protocol Sodium Bicarbonate 150 meq/ 150 mls @ 75 mls/hr 05/02/19 10:00 05/04/19 02:24 Sterile Water IV 75 mls/hr DIRECT ALANA Administration Insulin Human Lispro 0 unit 05/01/19 22:00 05/04/19 08:01 Humalog SUB-Q 3 unit ACHS ALANA Administration Protocol Levetiracetam 750 mg 05/01/19 22:00 05/04/19 09:28 Keppra PO 750 mg BID ALANA Administration Ondansetron HCl 4 mg 05/01/19 18:22 Zofran IV Q8H PRN Nausea And Vomiting Pregabalin 150 mg 05/01/19 22:00 05/03/19 21:45 Pregabalin PO 150 mg QHS ALANA Administration Sodium Chloride 10 ml 05/01/19 22:00 05/04/19 09:29 Sodium Chloride Flush Syringe 10 Ml IV 10 ml BID ALANA Administration Sodium Chloride 10 ml 05/01/19 18:22 Sodium Chloride Flush Syringe 10 Ml IV PRN PRN LINE FLUSH Tamsulosin HCl 0.4 mg 05/02/19 10:00 05/04/19 09:14 Flomax PO 0.4 mg QDAY ALANA Administration
[2019-05-04] MEDS ORDERED: DULCOLAX PR PRN (10:31)
[2019-05-04] MEDS ORDERED: MIRALAX 3350 PO PRN (11:30)
[2019-05-04] MEDS ORDERED: DULCOLAX PR SCH (12:00)
--- NOTE | 2019-05-04 16:25 | Ultrasound Report ---
ULTRASOUND BLADDER RESIDUAL HISTORY: Hydronephrosis, urinary retention, confirm Cast repositioning TECHNIQUE: Transabdominal ultrasound. FINDINGS: 4 transabdominal ultrasound images are presented demonstrating a Cast catheter present wit hin an empty bladder. No pre or post void volumes could be calculated. IMPRESSION: Only catheter appears in good position within an empty bladder. Signer Name: Craig Casarez Jr, MD Signed: 05/04/2019 4:20 PM Workstation Name: [id number]
--- NOTE | 2019-05-04 20:47 | Consultation ---
History of Present Illness - Reason for Consult Consult date: 05/04/19 - History of Present Illness CC: Ur retention / molly hydro / akd HPI: 83 YO Male with HTN, DM, OA, Seizure Disorder, Debility, Systolic CHF(EF 40%),Dementia, CVA with LHP, Encephalopathy admittied w/ prog weak/confusion pas t few days. . Pt was seen by home health and has randall catheter changed due every month. was unresponsive morning of admit. admit sepsis, uti encepalopath. pt unable give accurate history. Pt had cath possibly change ER then. CT showed hydro and catheter inprostatic urethra. Past History Past Medical History: diabetes, heart failure, hypertension, renal failure, seizures, other (see hpi) Past Surgical History: Other (Left shoulder) Social history: . denies: smoking, alcohol abuse, prescription drug abuse Family history: diabetes, hypertension Medications and Allergies Allergies Allergy/AdvReac Type Severity Reaction Status Date / Time No Known Allergies Allergy Verified 05/19/14 21:52 Home Medications Medication Instructions Recorded Confirmed Last Taken Type Pregabalin [Lyrica] 150 mg PO HS 01/30/18 05/01/19 04/30/19 History Furosemide [Lasix TAB] 20 mg PO Q2D 02/02/19 05/01/19 04/30/19 History AtorvaSTATin [Lipitor] 40 mg PO QHS #30 tab 02/05/19 05/01/19 04/30/19 Rx Tamsulosin [Flomax] 0.4 mg PO QDAY #30 capsule 02/05/19 05/01/19 04/30/19 Rx Aspirin [Adult Aspirin] 81 mg PO DAILY 04/10/19 05/01/19 04/30/19 History Bisacodyl [Dulcolax tab] 5 mg PO DAILY PRN 04/10/19 05/01/19 04/30/19 History Docusate Sodium [Colace CAP] 100 mg PO DAILY PRN 04/10/19 05/01/19 04/30/19 History Insulin Lispro Protamin/Lispro 40 units SUB-Q BID 04/13/19 05/01/19 04/30/19 History [Humalog Mix 75-25 Vial] Carvedilol [Coreg] 3.125 mg PO BID #60 tablet 04/16/19 05/01/19 04/30/19 Rx Ciprofloxacin HCl [Ciprofloxacin 500 mg PO Q12HR #10 tab 04/16/19 05/01/19 1 Rx TAB] levETIRAcetam [Keppra TAB] 750 mg PO BID #60 tablet 04/16/19 05/01/19 04/30/19 Rx Linagliptin [Tradjenta] 5 mg PO QDAY 05/01/19 05/01/19 04/30/19 History Active Meds: Active Medications Acetaminophen (Tylenol) 650 mg PO Q4H PRN PRN Reason: Pain MILD(1-3)/Fever >100.5/STINSON Last Admin: 05/04/19 08:01 Dose: 650 mg Documented by: Aspirin (Halfprin Ec) 81 mg PO DAILY [facility] Last Admin: 05/04/19 09:13 Dose: 81 mg Documented by: Atorvastatin Calcium (Lipitor) 40 mg PO QHS [facility] Last Admin: 05/03/19 21:45 Dose: 40 mg Documented by: Bisacodyl (Dulcolax) 5 mg PO DAILY PRN PRN Reason: Constipation Last Admin: 05/04/19 09:14 Dose: 5 mg Documented by: Carvedilol (Coreg) 3.125 mg PO BID [facility] Last Admin: 05/04/19 09:14 Dose: 3.125 mg Documented by: Dextrose (D50w (25gm) Syringe) 50 ml IV Q30MIN PRN PRN Reason: Hypoglycemia Docusate Sodium (Colace) 100 mg PO DAILY [facility] Last Admin: 05/04/19 09:12 Dose: 100 mg Documented by: Heparin Sodium (Porcine) (Heparin) 5,000 unit SUB-Q Q12HR [facility] Last Admin: 05/04/19 09:14 Dose: 5,000 unit Documented by: Sodium Bicarbonate 150 meq/ (Sterile Water) 150 mls @ 75 mls/hr IV DIRECT [facility] Last Admin: 05/04/19 02:24 Dose: 75 mls/hr Documented by: Insulin Human Lispro (Humalog) 0 unit SUB-Q ACHS [facility]; Protocol Last Admin: 05/04/19 16:58 Dose: Not Given Documented by: Levetiracetam (Keppra) 750 mg PO BID [facility] Last Admin: 05/04/19 09:28 Dose: 750 mg Documented by: Ondansetron HCl (Zofran) 4 mg IV Q8H PRN PRN Reason: Nausea And Vomiting Polyethylene Glycol (Miralax 3350) 17 gm PO QDAY PRN PRN Reason: Constipation Pregabalin (Pregabalin) 150 mg PO QHS [facility] Last Admin: 05/03/19 21:45 Dose: 150 mg Documented by: Sodium Chloride (Sodium Chloride Flush Syringe 10 Ml) 10 ml IV BID [facility] Last Admin: 05/04/19 09:29 Dose: 10 ml Documented by: Sodium Chloride (Sodium Chloride Flush Syringe 10 Ml) 10 ml IV PRN PRN PRN Reason: LINE FLUSH Tamsulosin HCl (Flomax) 0.4 mg PO QDAY [facility] Last Admin: 05/04/19 09:14 Dose: 0.4 mg Documented by: Review of Systems ROS unobtainable: due to mental status Exam - Constitutional Vitals: Temp Pulse Resp BP Pulse Ox 98.2 F 82 18 197/89 100 05/04/19 19:48 05/04/19 20:03 05/04/19 20:03 05/04/19 19:48 05/04/19 20:03 General appearance: Present: no acute distress - EENT Eyes: Present: PERRL, EOM intact ENT: hearing intact, clear oral mucosa - Neck Neck: Present: supple, normal ROM - Respiratory Respiratory effort: normal - Extremities Extremities: no ischemia - Abdominal General gastrointestinal: Present: soft, non-tender, non-distended Male genitourinary: Present: penile edema (parahimosis mod; cath draining) - Integumentary Integumentary: Present: clear, warm, dry Results - Labs CBC & Chem 7: 05/04/19 05:48 05/04/19 05:48 Labs: Abnormal lab results 05/03/19 05/04/19 05/04/19 Range/Units 21:31 05:48 05:48 RBC 3.50 L (3.65-5.03) M/mm3 Hgb 9.9 L (11.8-15.2) gm/dl Hct 28.9 L (35.5-45.6) % MCV 83 L (84-94) fl RDW 15.4 H (13.2-15.2) % Seg Neuts % (Manual) 81.0 H (40.0-70.0) % Lymphocytes % (Manual) 13.0 L (13.4-35.0) % Seg Neutrophils # Man 8.4 H (1.8-7.7) K/mm3 Sodium 136 L (137-145) mmol/L Chloride 97.6 L (98-107) mmol/L BUN 81 H (9-20) mg/dL Creatinine 3.1 H (0.8-1.5) mg/dL Glucose 196 H (75-100) mg/dL POC Glucose 162 H (70-105) Albumin 2.2 L (3.9-5) g/dL 05/04/19 05/04/19 05/04/19 Range/Units 07:26 11:09 17:02 RBC (3.65-5.03) M/mm3 Hgb (11.8-15.2) gm/dl Hct (35.5-45.6) % MCV (84-94) fl RDW (13.2-15.2) % Seg Neuts % (Manual) (40.0-70.0) % Lymphocytes % (Manual) (13.4-35.0) % Seg Neutrophils # Man (1.8-7.7) K/mm3 Sodium (137-145) mmol/L Chloride (98-107) mmol/L BUN (9-20) mg/dL Creatinine (0.8-1.5) mg/dL Glucose (75-100) mg/dL POC Glucose 201 H 188 H 167 H (70-105) Albumin (3.9-5) g/dL Assessment and Plan URINARY RETENTION MOLLY HYDRO AKD/CKD PARAPHIMOSIS Catheter in prostatic urethra - pt had catheter adjusted / advanced yest evening - draining well and - mild-mod paraphimosis reduced at bedside - Cont abx per primary service - f/u outpt 2 weeks - RENAL ULTRASOUND in a few days
[2019-05-04] MEDS ORDERED: NACL 0.9% 1000 ML 1,000 ML IV SCH (22:00)
[2019-05-04] MEDS: APRESOLINE PO SCH (22:36)
[2019-05-04] MEDS: PREGABALIN PO SCH (22:37)
[2019-05-05] MEDS: APRESOLINE PO SCH ×2 (05:56→14:00)
[2019-05-05] MEDS: HumaLOG SUB-Q SCH ×3 (07:44→17:11)
[2019-05-05 08:58] LABS: Mean Corpuscular HGB Conc 33 % (32-34); Mean Corpuscular Volume 83 fl (84-94); Platelet Count 237 K/mm3 (140-440)
[2019-05-05 09:18] LABS: Calcium 8.5 mg/dL (8.4-10.2)
[2019-05-05] MEDS: HALFPRIN EC PO SCH (09:33)
[2019-05-05] MEDS: HEPARIN SUB-Q SCH (09:33)
[2019-05-05] MEDS: KEPPRA PO SCH (09:33)
[2019-05-05] MEDS: COLACE PO SCH (09:33)
[2019-05-05] MEDS: COREG PO SCH (09:34)
[2019-05-05] MEDS: FLOMAX PO SCH (09:37)
[2019-05-05] MEDS: SODIUM CHLORIDE FLUSH SYRINGE 10 ML IV SCH (09:38)
--- NOTE | 2019-05-05 09:50 | Discharge Summary ---
Providers - Providers Date of Admission: 05/01/19 16:22 Attending physician: KHOI SIMMONS MD 05/01/19 13:31 Speech Therapy Evaluation and Treat [CONS] Routine Reason For Exam: NPO 05/01/19 20:57 Consult to Physician [CONS] Routine Comment: CELIA Consulting Provider: KIMBERLY COULTER Physician Instructions: WAS NOTIFIED. Reason For Exam: KAUSHAL 05/03/19 11:56 Consult to Physician [CONS] Routine Comment: Consulting Provider: YOVANI CUNNINGHAM Physician Instructions: Reason For Exam: Constant urinary retention inspite of Randall Primary care physician: ISAURO AGUILAR Hospitalization Reason for admission: Sepsis, UTI, Acute renal failure Condition: Stable Pertinent studies: CT abdomen and pelvis Hospital course: 83 YO Male with HTN, DM, OA, Seizure Disorder, Debility, Systolic CHF(EF 40%),Dementia, CVA with LHP, Encephalopathy presents to ED for evaluation. Pt is confused and unable to provide detailed history. Pt is at bedside and provides history. As per , the patient has experienced increased weakness, confusion over the past 3 days. Pt was seen by home health and had randall catheter changed due to suspected urinary tract infection and since that time the patient has experieinced a continued decline in his overall status. Pt was found to be unresponsive this morning. EMS notified, and upon arrival the patient was found to be in distress and transported to [facility]. Pt seen and evaluated in ED and found to have Sepsis suspected secondary to UTI, Encephalopathy, and Acute Kidney Injury. Pt admitted to [facility] unit and initiated on IV antibiotic therapy. 30 minutes dedicated to Advanced care planning. Pt counseled regarding care options. Pt acknowledges understanding and agreement with care plan. Prior admission on 04/10/19 reviewed. All listed medication reconciled at time of admission. No further history obtainable. Pt denies reports of fever, chills, CP, Palpitations, NVD, Skin rash, Productive cough, seizure, or recent ill contacts. * Randall changed by Home health 04/28/19 per family and since then has had difficulty of urination. * Patient has been complaining of suprapubic pain and inability to move bowel for a few months CT A.P: Markedly distended urinary bladder with resultant distention of the upper urinary tracts. There is at least one large bladder diverticulum. Additional smaller diverticula versus abnormal, masslike thickening of the posterior bladder dome is noted. 2. Randall catheter balloon is inflated in the prostatic urethra. Repositioning is recommended. 3. Mild cardiomegaly. 4. Gynecomastia. 1) Sepsis: Patient with recurrent sepsis secondary to indwelling randall catheter. Await cultures, continue current antibiotics. Will recommend outpatient review for possible surgery by urology, considering Randall for more than 3 months. Treated with Rocephin and will continue with ceftin. (2) KAUSHAL (acute kidney injury): Secondary to vasomotor nephropathy, and possible obstruction. Monitor. await Renal ultrasound. Obtain CT abd/pelvis. Nephrologys consult appreciated. Cr trended down and nephrology cleared him for discha rge (3) Metabolic Metabolic Encephalopathy: Secondary to sepsis-improving (4)Acute Cystitis: Complex considering indwelling randall catheter. as noted above. Continue abx. Urology evaluated and Randall re-adjusted by Urology, scheduled to see them as an O/P (5) Diabetes: Continue sliding scale and accucheck. CONTINUE Lantus 10 units qhs (6)Abdominal Pain: ? Constipation: Start stool softener Lactulose 30 ml one dose (7) Osteoarthritis: supportive care, pain control (8) Seizure disorder: Keppra level, continue current therapy, seizure precautions. (9) CHF (congestive heart failure) Acute on chronic systolic (congestive) heart failure :stable. (10) DVT prophylaxis Disposition: DC/TX-06 HOME UNDER HOME HLTH - Discharge Diagnoses (1) UTI (urinary tract infection) Status: Acute Qualifiers: Urinary tract infection type: catheter-associated UTI Indwelling urinary catheter type: indwelling urethral catheter Encounter type: initial encounter Qualified Code(s): T83.511A - Infection and inflammatory reaction due to indwelling urethral catheter, initial encounter; N39.0 - Urinary tract infection, site not specified (2) Sepsis Status: Acute Qualifiers: Sepsis type: sepsis due to unspecified organism Sepsis acute organ dysfunction status: with acute organ dysfunction Severe sepsis acute organ dysfunction type: acute renal failure Acute renal failure type: with acute tubular necrosis Severe sepsis shock status: without septic shock Qualified Code(s): A41.9 - Sepsis, unspecified organism; R65.20 - Severe sepsis without septic shock; N17.0 - Acute kidney failure with tubular necrosis (3) Acute kidney failure with tubular necrosis Status: Acute Core Measure Documentation - Palliative Care Palliative Care/ Comfort Measures: Not Applicable - Core Measures Any of the following diagnoses?: none Exam - Physical Exam Narrative exam: Not in cardiopulmonary distress. The patient appeared well nourished and normally developed. Vital signs as documented. Head exam is unremarkable. No scleral icterus . Neck is without jugular venous distension, thyromegaly, or carotid bruits. Lungs are clear to auscultation. Cardiac exam reveals regular rate and Rhythm. First and second heart sounds normal. No murmurs, rubs or gallops. Abdominal exam reveals normal bowel sounds, no masses, no organomegaly and no aortic enlargement. Extremities are left upper extremity contracted. ; indwelling randall in place. 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 No focal weakness. - Constitutional Vitals: Temp Pulse Resp BP Pulse Ox 98.0 F 78 20 155/76 99 05/05/19 07:30 05/05/19 09:34 05/05/19 07:30 05/05/19 09:34 05/05/19 07:30 Plan Activity: no restrictions Weight Bearing Status: Full Weight Bearing Diet: low cholesterol, low salt Follow up with: NICHOLE GARCIA MD [Staff Physician] - 14 Days ISAURO AGUILAR MD [Primary Care Provider] - 3-5 Days RICHARD LEE MD [Staff Physician] - 14 Days (Hep c positive) Prescriptions: Ciprofloxacin HCl [Ciprofloxacin TAB] 500 mg PO Q12HR #10 tab
[2019-05-05] MEDS ORDERED: ROCEPHIN/NS 1 GM/50 ML 1 GM/50 ML BAG IV SCH (10:00)
[2019-05-05] MEDS: TYLENOL PO PRN (11:52)
--- NOTE | 2019-05-05 12:06 | Progress Note ---
Assessment and Plan 1. Acute kidney injury: KAUSHAL superimposed on CKD in the setting of obstructive uropathy +/- sepsis and volume depletion. Renal US showed bladder outlet obstruction with bilateral hydronephrosis. US finding improved after repositioning the catheter. Continue IV fluids. Renal function is improving. Monitor renal function. Avoid nephrotoxic agents. Meds dosage based on GFR. 2. FEN: Hyperkalemia, K level is better. Metabolic acidosis, improved. Hyponatremia, improved. Monitor lytes. 3. BPH with Bladder outlet obstruction: Cast balloon was at the prostate area. Catheter was repositioned. 4. Sepsis: 2/2 UTI. 5. Encephalopathy. 6. DM type 2. 7. Seizure disorder. 8. H/o HFrEF. 9. Hypertension: Monitor. Examination: General appearance: well-developed, appears stated age, no distress HEENT: ATNC, AUNDREA, mucous membranes dry Neck: trachea midline Respiratory: Clear to Ascultation Heart: regular, S1S2, no murmur Gastrointestinal: normoactive bowel sounds, some abdominal tenderness noted Integumentary: no rash, warm and dry : Cast catheter Neurologic: alert, confused, follows command Musculoskeletal: no edema Subjective Date of service: 05/05/19 Principal diagnosis: Sepsis,UtI Interval history: Patient was seen and examined at the bedside. Objective - Vital Signs Vital signs: Vital Signs - 12hr 05/05/19 05/05/19 05/05/19 02:05 07:30 09:34 Temperature 98.2 F 98.0 F Pulse Rate 76 81 78 Respiratory 18 20 Rate Blood Pressure 192/84 157/72 155/76 O2 Sat by Pulse 99 99 Oximetry - Lab 05/05/19 08:07 05/05/19 08:07 Most recent lab results Calcium 8.5 mg/dL (8.4-10.2) 05/05/19 08:07 Urine Creatinine 114.1 mg/dL (0.1-20.0) H 05/02/19 14:55 Urine Sodium 37 mmol/L 05/02/19 14:55 Medications & Allergies - Medications Allergies/Adverse Reactions: Allergies No Known Allergies Allergy (Verified 05/19/14 21:52) Home Medications: Home Medications Medication Instructions Recorded Confirmed Last Taken Type Pregabalin [Lyrica] 150 mg PO HS 01/30/18 05/01/19 04/30/19 History Furosemide [Lasix TAB] 20 mg PO Q2D 02/02/19 05/01/19 04/30/19 History AtorvaSTATin [Lipitor] 40 mg PO QHS #30 tab 02/05/19 05/01/19 04/30/19 Rx Tamsulosin [Flomax] 0.4 mg PO QDAY #30 capsule 02/05/19 05/01/19 04/30/19 Rx Aspirin [Adult Aspirin] 81 mg PO DAILY 04/10/19 05/01/19 04/30/19 History Bisacodyl [Dulcolax tab] 5 mg PO DAILY PRN 04/10/19 05/01/19 04/30/19 History Docusate Sodium [Colace CAP] 100 mg PO DAILY PRN 04/10/19 05/01/19 04/30/19 History Insulin Lispro Protamin/Lispro 40 units SUB-Q BID 04/13/19 05/01/19 04/30/19 History [Humalog Mix 75-25 Vial] Carvedilol [Coreg] 3.125 mg PO BID #60 tablet 04/16/19 05/01/19 04/30/19 Rx levETIRAcetam [Keppra TAB] 750 mg PO BID #60 tablet 04/16/19 05/01/19 04/30/19 Rx Linagliptin [Tradjenta] 5 mg PO QDAY 05/01/19 05/01/19 04/30/19 History Ciprofloxacin HCl [Ciprofloxacin 500 mg PO Q12HR #10 tab 05/05/19 Unknown Rx TAB] Active Medications: Generic Name Dose Route Start Last Admin Trade Name Montyq PRN Reason Stop Dose Admin Acetaminophen 650 mg 05/01/19 18:22 05/05/19 11:52 Tylenol PO 650 mg Q4H PRN Administration Pain MILD(1-3)/Fever >100.5/STINSON Aspirin 81 mg 05/02/19 10:00 05/05/19 09:33 Halfprin Ec PO 81 mg DAILY ALANA Administration Atorvastatin Calcium 40 mg 05/01/19 22:00 05/04/19 22:37 Lipitor PO 40 mg QHS ALANA Administration Bisacodyl 5 mg 05/01/19 20:58 05/04/19 09:14 Dulcolax PO 5 mg DAILY PRN Administration Constipation Carvedilol 3.125 mg 05/01/19:00 05/05/19 09:34 Coreg PO 3.125 mg BID ALANA Administration Dextrose 50 ml 05/01/19 21:02 D50w (25gm) Syringe IV Q30MIN PRN Hypoglycemia Docusate Sodium 100 mg 05/03/19 10:00 05/05/19 09:33 Colace PO 100 mg DAILY ALANA Administration Heparin Sodium (Porcine) 5,000 unit 05/01/19 22:00 05/05/19 09:33 Heparin SUB-Q 5,000 unit Q12HR ALANA Administration Hydralazine HCl 50 mg 05/04/19 22:00 05/05/19 05:56 Apresoline PO 50 mg Q8HR ALANA Administration Sodium Chloride 1,000 mls @ 50 mls/hr 05/04/19 22:00 05/04/19 22:36 Nacl 0.9% 1000 Ml IV 50 mls/hr DIRECT ALANA Administration Ceftriaxone Sodium 1 gm in 50 mls @ 100 mls/hr 05/05/19 10:00 05/05/19 09:32 Rocephin/Ns 1 Gm/50 Ml IV 100 mls/hr Q24HR ALANA Administration Protocol Insulin Human Lispro 0 unit 05/01/19 22:00 05/05/19 11:52 Humalog SUB-Q 2 unit ACHS ALANA Administration Protocol Levetiracetam 750 mg 05/01/19 22:00 05/05/19 09:33 Keppra PO 750 mg BID ALANA Administration Ondansetron HCl 4 mg 05/01/19 18:22 Zofran IV Q8H PRN Nausea And Vomiting Polyethylene Glycol 17 gm 05/04/19 11:30 Miralax 3350 PO QDAY PRN Constipation Pregabalin 150 mg 05/01/19 22:00 05/04/19 22:37 Pregabalin PO 150 mg QHS ALANA Administration Sodium Chloride 10 ml 05/01/19 22:00 05/05/19 09:38 Sodium Chloride Flush Syringe 10 Ml IV 10 ml BID ALANA Administration Sodium Chloride 10 ml 05/01/19 18:22 Sodium Chloride Flush Syringe 10 Ml IV PRN PRN LINE FLUSH Tamsulosin HCl 0.4 mg 05/02/19 10:00 05/05/19 09:37 Flomax PO 0.4 mg QDAY ALANA Administration
[2019-05-05 12:19] LABS: Hepatitis B Surface Antigen Non-Reactive (Negative); Hepatitis C Virus Antibody Reactive (NonReactive)
[2019-05-05 13:47] VITALS: BP 149/81
== END 2019-05-05 18:00 | disposition home health service (06) | DRG 698 ==
LOC: ED 13:02 → 2B-ACE 16:22
PROVIDERS: ADMIT Internal Medicine; ATTEND Internal Medicine
PROC: 06HY33Z Insertion of Infusion Device into Lower Vein, Percutaneous Approach (ICD-10-PCS; principal; 2019-05-01)
PROC: 0TWBX0Z Revision of Drainage Device in Bladder, External Approach (ICD-10-PCS; 2019-05-03)
DX: T83.511A Infection and inflammatory reaction due to indwelling urethral catheter, initial encounter (principal); A41.9 Sepsis, unspecified organism; R65.20 Severe sepsis without septic shock; I50.23 Acute on chronic systolic (congestive) heart failure; N17.0 Acute kidney failure with tubular necrosis; G93.41 Metabolic encephalopathy; N13.30 Unspecified hydronephrosis; N13.8 Other obstructive and reflux uropathy; E87.1 Hypo-osmolality and hyponatremia; I69.354 Hemiplegia and hemiparesis following cerebral infarction affecting left non-dominant side; I13.0 Hypertensive heart and chronic kidney disease with heart failure and stage 1 through stage 4 chronic kidney disease, or unspecified chronic kidney disease; N30.00 Acute cystitis without hematuria; M19.90 Unspecified osteoarthritis, unspecified site; E87.5 Hyperkalemia; N40.1 Benign prostatic hyperplasia with lower urinary tract symptoms; G40.909 Epilepsy, unspecified, not intractable, without status epilepticus; F03.90 Unspecified dementia, unspecified severity, without behavioral disturbance, psychotic disturbance, mood disturbance, and anxiety; N18.9 Chronic kidney disease, unspecified; E11.22 Type 2 diabetes mellitus with diabetic chronic kidney disease; N47.2 Paraphimosis; Y83.8 Other surgical procedures as the cause of abnormal reaction of the patient, or of later complication, without mention of misadventure at the time of the procedure; Z79.899 Other long term (current) drug therapy; Z79.4 Long term (current) use of insulin; Z71.89 Other specified counseling; Z82.49 Family history of ischemic heart disease and other diseases of the circulatory system; Z83.3 Family history of diabetes mellitus; Y92.89 Other specified places as the place of occurrence of the external cause
CPT/HCPCS: 36415; 70450; 74176; 76770; 76857; 80048; 80053; 80061; 80074; 80076; 80177; 81001; 82140; 82570; 82962; 83880; 84300; 84484; 85007; 85025; 85027; 85610; 85670; 85730; 87040; 93005; 93010; 96365; 96366; 96367; G0378; A9270-GY; J0692; J0696; J1644; J1815; J3370; J7030; J7040

== ENCOUNTER 2019-05-12 14:53 | Emergency (ER) | payer MEDICARE ==
[2019-05-12 16:27] LABS: Basophils % (Auto) 0.2 % (0.0-1.8); Eosinophils # (Auto) 0.1 K/mm3 (0.0-0.4); Eosinophils % (Auto) 0.7 % (0.0-4.3); Hematocrit 28.7 % (35.5-45.6); Hemoglobin 9.3 gm/dl (11.8-15.2); Lymphocytes # (Auto) 1.3 K/mm3 (1.2-5.4); Mean Corpuscular HGB Conc 33 % (32-34); Mean Corpuscular Volume 84 fl (84-94); Monocytes # (Auto) 1.1 K/mm3 (0.0-0.8); Monocytes % (Auto) 7.8 % (0.0-7.3); Platelet Count 425 K/mm3 (140-440); Red Blood Count 3.41 M/mm3 (3.65-5.03); Red Cell Distribution Width 14.6 % (13.2-15.2)
[2019-05-12 16:41] LABS: BUN/Creatinine Ratio 19; Blood Urea Nitrogen 21 mg/dL (9-20); Calcium 7.9 mg/dL (8.4-10.2); Hemolysis Index 12
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
[2019-05-12 16:45] LABS: Alanine Aminotransferase < 5 units/L (7-56); Albumin 2.4 g/dL (3.9-5); Bilirubin,Direct < 0.2 mg/dL (0-0.2)
--- NOTE | 2019-05-12 16:56 | XRay Report ---
CHEST 1 VIEW 05/12/2019 4:26 PM INDICATION / CLINICAL INFORMATION: cough, fever. COMPARISON: Chest x-ray on 04/10/2019. FINDINGS: SUPPORT DEVICES: None. HEART / MEDIASTINUM: No significant abnormality. LUNGS / PLEURA: Lungs are underexpanded but there is no focal consolidation or significant pleural ef fusion. No pneumothorax. ADDITIONAL FINDINGS: Radiopaque material is again noted projecting over the left axillary region. IMPRESSION: 1. No acute findings. No adverse change from the prior exam. Signer Name: Yamil Duffy MD Signed: 05/12/2019 4:52 PM Workstation Name: [id number]
[2019-05-12 17:02] LABS: Chol/HDL Ratio 2.88 %; HDL Cholesterol 25 mg/dL (40-59); LDL Cholesterol,Direct 26 mg/dL (50-130)
[2019-05-12 17:08] LABS: Bacteria,Urine 4+ /HPF (Negative); Bilirubin,Urine NEG (Negative); Blood,Urine MOD (Negative); Urobilinogen,Urine < 2.0 mg/dL (<2.0)
[2019-05-12 17:09] LABS: Color,Urine Straw (Yellow); WBC,Urine > 182.0 /HPF (0.0-6.0)
[2019-05-12] MEDS ORDERED: CEFEPIME/NS 2 GM/100 ML 2 GM/100 ML BAG IV ONE (18:07)
[2019-05-12 18:55] VITALS: BP 151/81
== END 2019-05-12 19:35 | disposition home or self-care (01) ==
LOC: ED 14:53
DX: N30.90 Cystitis, unspecified without hematuria (principal); R50.9 Fever, unspecified; R05 Cough; I10 Essential (primary) hypertension; E11.9 Type 2 diabetes mellitus without complications; M19.90 Unspecified osteoarthritis, unspecified site; Z86.73 Personal history of transient ischemic attack (TIA), and cerebral infarction without residual deficits; Z87.891 Personal history of nicotine dependence; Z79.4 Long term (current) use of insulin; Z79.899 Other long term (current) drug therapy; Z98.890 Other specified postprocedural states
CPT/HCPCS: 36415; 71045; 80048; 80061; 80076; 81001; 83880; 84484; 85025; 87086; 96365; 99284; J0692

== ENCOUNTER 2019-05-14 11:51 | Inpatient (IN) | payer MEDICARE ==
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
--- NOTE | 2019-05-14 13:08 | XRay Report ---
CHEST 1 VIEW INDICATION: htn. COMPARISON: 05/12/2019 FINDINGS: SUPPORT DEVICES: None. HEART / MEDIASTINUM: No significant abnormality. LUNGS / PLEURA: No significant pulmonary or pleural abnormality. No pneumothorax. ADDITIONAL FINDINGS: Radiopaque material is again noted overlying the left axillary region IMPRESSION: 1. No acute findings. Signer Name: Juancarlos Gregory MD Signed: 05/14/2019 1:03 PM Workstation Name: [id number]
[2019-05-14] MEDS ORDERED: SODIUM CHLORIDE 0.9% 1000 ML 1,000 ML IV ONE ×2 (13:16→16:42)
[2019-05-14 13:20] LABS: Basophils % (Auto) 0.1 % (0.0-1.8); Eosinophils # (Auto) 0.1 K/mm3 (0.0-0.4); Eosinophils % (Auto) 0.6 % (0.0-4.3); Hematocrit 32.5 % (35.5-45.6); Hemoglobin 10.6 gm/dl (11.8-15.2); Lymphocytes # (Auto) 1.6 K/mm3 (1.2-5.4); Lymphocytes % (Auto) 11.3 % (13.4-35.0); Mean Corpuscular HGB Conc 33 % (32-34); Mean Corpuscular Volume 84 fl (84-94); Monocytes # (Auto) 1.5 K/mm3 (0.0-0.8); Platelet Count 590 K/mm3 (140-440); Red Blood Count 3.88 M/mm3 (3.65-5.03); Red Cell Distribution Width 14.6 % (13.2-15.2)
[2019-05-14 13:45] LABS: Albumin 2.8 g/dL (3.9-5); BUN/Creatinine Ratio 15; Blood Urea Nitrogen 16 mg/dL (9-20); Calcium 8.8 mg/dL (8.4-10.2); Hemolysis Index 104
[2019-05-14 13:49] LABS: Alanine Aminotransferase < 5 units/L (7-56)
[2019-05-14 13:52] LABS: Partial Thromboplastin Time 28.7 Sec. (24.2-36.6)
[2019-05-14 13:53] LABS: INR 1.12 (0.87-1.13)
[2019-05-14 13:56] LABS: Bacteria,Urine 4+ /HPF (Negative); Bilirubin,Urine NEG (Negative); Blood,Urine LG (Negative); Color,Urine Yellow (Yellow); Mucus,Urine 1+ /HPF; RBC,Urine > 182.0 /HPF (0.0-6.0); Urobilinogen,Urine < 2.0 mg/dL (<2.0); WBC,Urine > 182.0 /HPF (0.0-6.0)
--- NOTE | 2019-05-14 15:45 | Cat Scan Report ---
CT ABDOMEN AND PELVIS WITH IV CONTRAST INDICATION: MAIN: abd pain with distention-100ml Omni 300. COMPARISON: CT 05/02/2019. TECHNIQUE: All CT scans at this facility use dose modulation, automated exposure control, iterative reconstructi on or weight based dosing, when appropriate, to reduce radiation dose to as low as reasonably achieva ble. FINDINGS: Lung Bases: There are atelectatic changes in the bases. Skeletal System: No acute abnormality. ABDOMEN: Liver: No significant abnormality. Gallbladder: No significant abnormality. Bile Ducts: No significant abnormality. Pancreas: No significant abnormality. Spleen: There is somewhat irregular hypodensity along the periphery of the subcapsular spleen. This m ay be due to subcapsular fluid/subacute hematoma. Adrenals: No significant abnormality. Right Kidney: No significant abnormality. Left Kidney: No significant abnormality. Upper GI tract: Distal esophagus is mildly patulous with fluid. Stomach and proximal/mid small bowel are dilated with air-fluid levels. There is a transition point within the mid abdomen where there is a loop of bowel that is twisted (axial series 4 images 56-65, around coronal image 42). Lymph Nodes: No significant adenopathy. Aorta: No significant abnormality. Additional Findings: No significant abnormality. PELVIS: Colon: No acute abnormality. Urinary Bladder and Distal Ureters: The bladder is largely decompressed around a Cast catheter. A po rtion of the collapsed bladder superiorly appears pulled into internal hernia (around coronal image 4 2). Appendix: No significant abnormality. Lymph Nodes: No significant adenopathy. Additional Findings: None. IMPRESSION: 1. High-grade mid small bowel obstruction due to internal hernia. A portion of the collapsed superio r bladder appears somewhat tethered superiorly into the hernia. 2. Incidental findings, as above. COMMUNICATION: Time of Communication: 2:41 PM central Licensed Practitioner Receiving Report: Elaina Rodríguez Signer Name: Sylvester Thompson MD Signed: 05/14/2019 3:41 PM Workstation Name: [id number]
[2019-05-14] MEDS ORDERED: LORazepam 2 MG/ML VIAL IV ONE (16:16)
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
[2019-05-14] MEDS ORDERED: BUPIVACAINE-EPINEPHRINE/PF 0.5%-1:200,000 (30 ML) VIAL INFILTRATI ONE ×2 (16:53→18:20)
[2019-05-14] MEDS ORDERED: LIDOCAINE (1%) 10 MG/1 ML VIAL 20 ML MDV ONE (16:53)
[2019-05-14] MEDS ORDERED: SODIUM CHLORIDE 0.9% 1000 ML 1,000 ML IV SCH (17:00)
[2019-05-14] MEDS ORDERED: PROPOFOL 200 MG/20 ML VIAL IV ONE (17:43)
[2019-05-14] MEDS ORDERED: fentaNYL 250 MCG/5 ML INJ ONE (17:44)
[2019-05-14] MEDS ORDERED: PHENYLEPHRINE/NS 1,000 MCG/10 ML SYRINGE (OR USE) IV ONE ×2 (18:00→18:47)
[2019-05-14] MEDS ORDERED: NEOSTIGMINE 10MG/10 ML INJ MDV ONE (18:00)
[2019-05-14] MEDS ORDERED: LIDOCAINE MPF (2%) 20 MG/1 ML VIAL 5 ML ONE (18:00)
[2019-05-14] MEDS ORDERED: GLYCOPYRROLATE 0.4 MG/2 ML INJ ONE (18:00)
[2019-05-14] MEDS ORDERED: ONDANSETRON 4 MG/2 ML INJ ONE (18:00)
[2019-05-14] MEDS ORDERED: dexAMETHasone 20 MG/5 ML VIAL ONE (18:00)
[2019-05-14] MEDS ORDERED: SUCCINYLCHOLINE CHLORIDE 200 MG/10 ML INJ MDV ONE (18:00)
[2019-05-14] MEDS ORDERED: ROCURONIUM 50 MG/5 ML INJ IV ONE (18:00)
[2019-05-14] MEDS ORDERED: SODIUM CHLORIDE 0.9% IRR 1,000 ML BOTTLE IR ONE (18:20)
[2019-05-14] MEDS ORDERED: LIDOCAINE (1%) 10 MG/1 ML VIAL 20 ML MDV INFILTRATI ONE (18:20)
--- NOTE | 2019-05-14 19:22 | Anesthesia Consultation ---
Anesthesia Consult and Med Hx Date of service: 05/14/19 - Airway Anesthetic Teeth Evaluation: Dentures (1 remaining tooth; not loose per ) Mental/Hyoid Distance: Adequate Intubation Access Assessment: Possibly Difficult (Patient uncooperative with airway exam. Patient's denies difficulty with neck mobility.) - Pulmonary Exam CTA: Yes - Cardiac Exam Cardiac Exam: RRR - Pre-Operative Health Status ASA Pre-Surgery Classification: ASA3, Emergency Proposed Anesthetic Plan: General - Pulmonary Hx Smoking: Yes (Quit 40 years ago) Hx Respiratory Symptoms: No - Cardiovascular System Hx Hypertension: Yes Hx Heart Attack/AMI: Yes (remote hx "mild heart attack" per ) Hx Percutaneous Transluminal Coronary Angioplasty (PTCA): No Hx Cardia Arrhythmia: No Hx Pacemaker: No Hx Internal Defibrillator: No - Central Nervous System Hx Seizures: Yes ( unsure of last seizure but reports decreased frequency with keppra) CVA: No Hx Psychiatric Problems: No - Endocrine Hx Renal Disease: No (indwelling randall 2/2 "prostate problems" per ) Hx Liver Disease: No Hx Insulin Dependent Diabetes: Yes Hx Thyroid Disease: No - Hematic Hx Anemia: Yes - Other Systems Hx Obesity: No - Additional Comments Anesthesia Medical History Comments: PMH DM, HTN, seizure disorder presenting with abdominal pain, nausea, and vomiting and found to have small bowel obstruction scheduled for diagnostic laparoscopy. At time of exam, patient had received ativan to assist with NGT placement and was somnolent. History obtained from and chart review. Plan GETA/RSI. Discussed possible arterial line placement and potential post op ventilation and ICU admission pending intraoperative course with family at bedside. signed anesthesia consent (patient had previously signed surgical consent for himself prior to receiving ativan).
[2019-05-14] MEDS ORDERED: HYDROmorphone 1 MG/1 ML INJ IV PRN (19:24)
--- NOTE | 2019-05-14 19:24 | Anesthesia Day of Surgery ---
Anesthesia Day of Surgery - Day of Surgery Patient Examined: Yes Patient H&P Reviewed: Yes Patient is NPO: Yes (last PO intake 05/14 930)
[2019-05-14] MEDS ORDERED: SUGAMMADEX SODIUM 200 MG/2 ML VIAL IV ONE (19:37)
[2019-05-14] MEDS ORDERED: ONDANSETRON 4 MG/2 ML INJ IV PRN (20:03)
[2019-05-14] MEDS ORDERED: DEXTROSE 50% IN WATER (25GM) 50 ML SYRINGE IV PRN (20:04)
--- NOTE | 2019-05-14 20:08 | Post Operative Note ---
Date of procedure: 05/14/19 Pre-op diagnosis: small bowel obstruction, internal hernia Post-op diagnosis: same Findings: Adhesion from piece of omentum to small bowel mesentery causing internal hernia. This was noted as the point of obstruction and obstruction relieved when adhesiolysis was performed. [id number] NGT output 2100cc Urine output 300cc Procedure: Diagnostic laparoscopy converted to exploratory laparotomy, lysis of adhesions, small bowel resection Anesthesia: GETA, local Surgeon: MELVIN GANDHI Cook'S Assistant: LEIGH BENITO Estimated blood loss: 50-100ml Pathology: list (portion of small bowel) Specimen disposition: to lab Condition: stable Disposition: PACU
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
[2019-05-14] MEDS ORDERED: SODIUM CHLORIDE 0.9% 1000 ML 1,000 ML ONE (20:40)
--- NOTE | 2019-05-14 21:17 | Post Anesthesia Evaluation ---
- Post Anesthesia Evaluation Patient Participated: Yes Airway Patent: Yes Stable Respiratory Function: Yes Nausea/Vomiting: No Temp > 96.8F: Yes Pain Manageable: Yes Adequeate Hydration: Yes Anesthesia Complications: No
[2019-05-14] MEDS ORDERED: DOCUSATE SODIUM 100 MG CAP PO PRN (21:37)
[2019-05-14] MEDS ORDERED: PREGABALIN 75 MG CAP PO SCH (22:00)
[2019-05-14] MEDS ORDERED: FUROSEMIDE 20 MG TAB PO SCH (22:00)
[2019-05-14] MEDS ORDERED: levETIRAcetam 500 MG TAB PO SCH (22:00)
[2019-05-14] MEDS ORDERED: carvediloL 3.125 MG TAB PO SCH (22:00)
[2019-05-14] MEDS: HEPARIN 5,000 UNIT/1 ML VIAL SUB-Q SCH (23:33)
[2019-05-14] MEDS: METOPROLOL TARTRATE 5 MG/5 ML INJ IV SCH (23:44)
[2019-05-14] MEDS: metroNIDAZOLE/NS 500 MG/100 ML 500 MG/100 ML BAG IV SCH (23:48)
[2019-05-15] MEDS: SODIUM CHLORIDE 0.9% 1000 ML 1,000 ML IV SCH ×2 (02:28→21:09)
[2019-05-15] MEDS: MORPHINE 2 MG/1 ML INJ IV PRN (02:31)
[2019-05-15] MEDS: metroNIDAZOLE/NS 500 MG/100 ML 500 MG/100 ML BAG IV SCH ×3 (05:48→21:20)
[2019-05-15] MEDS: METOPROLOL TARTRATE 5 MG/5 ML INJ IV SCH ×3 (05:49→17:59)
[2019-05-15] MEDS: HEPARIN 5,000 UNIT/1 ML VIAL SUB-Q SCH ×3 (05:49→21:14)
[2019-05-15 06:14] LABS: Hematocrit 35.8 % (35.5-45.6); Hemoglobin 11.6 gm/dl (11.8-15.2); Mean Corpuscular HGB Conc 32 % (32-34); Mean Corpuscular Volume 85 fl (84-94); Platelet Count 535 K/mm3 (140-440); Red Blood Count 4.21 M/mm3 (3.65-5.03); Red Cell Distribution Width 15.2 % (13.2-15.2)
[2019-05-15] MEDS: INSULIN LISPRO 100 UNIT/ML SUB-Q SCH ×4 (06:16→17:58)
[2019-05-15 06:26] LABS: Calcium 7.9 mg/dL (8.4-10.2); Prealbumin 0.057 g/L (0.200-0.400)
[2019-05-15] MEDS ORDERED: ASPIRIN EC 81 MG TAB PO SCH (10:00)
[2019-05-15] MEDS ORDERED: levETIRAcetam 750 MG in DEXTROSE 5% IN WATER 100 ML IV SCH (10:00)
[2019-05-15] MEDS ORDERED: TAMSULOSIN 0.4 MG CAP PO SCH (10:00)
--- NOTE | 2019-05-15 12:26 | Progress Note ---
Assessment and Plan 83 yo M s/p Diagnostic laparoscopy converted to exploratory laparotomy, lysis of adhesions, small bowel resection, POD 1 1. SBO 2. Internal hernia 3. malnutrition 4. deconditioning Plan: 1. NPO 2. NGT to LIWS - record output q shift. ok to clamp to ambulate 3. IVF - may reduce of dc once TPN is started 4. randall (chronic) - do not remove - strict I/Os 5. await bowel function 6. c/w abx 7. OOB to chair/PT consulted 8. PICC line place, start TPN until able to resume PO diet 9. NO ORAL MEDS - ALL MEDS CHANGED TO IV 10. incentive spirometry/pulm toilet Will follow. Thank you, please call with questions. Subjective Date of service: 05/15/19 Narrative: Pt seen and examined. Wants ice chips. c/o some midabdominal pain at site of incision. No f/c. No cp, sob, n/v. Has not been OOB. Objective Vital Signs - 12hr 05/15/19 05/15/19 05/15/19 02:14 05:02 05:49 Temperature 98.0 F Pulse Rate 103 H 103 H Respiratory 17 Rate Blood Pressure 135/71 135/71 O2 Sat by Pulse 95 95 Oximetry 05/15/19 05/15/19 07:25 11:46 Temperature 97.6 F 98.1 F Pulse Rate 94 H 95 H Respiratory 18 18 Rate Blood Pressure 128/68 120/65 O2 Sat by Pulse 96 96 Oximetry - General physical appearance Narrative Exam: Gen: AAOx3. NAD ENT: NGT with thick green output CV: S1, S2+ Resp: even and unlabored Abd: soft, mildly distended, mild TTP at site of incision. Dressing c/d/i Ext: no c/c/e - Labs 05/15/19 05:28 05/15/19 05:28 Diabetes panel 05/14/19 05/15/19 Range/Units 12:35 05:28 Sodium 139 138 (137-145) mmol/L Potassium 3.9 4.7 D (3.6-5.0) mmol/L Chloride 101.5 106.1 (98-107) mmol/L Carbon Dioxide 21 L 18 L (22-30) mmol/L BUN 16 20 (9-20) mg/dL Creatinine 1.1 1.4 (0.8-1.5) mg/dL Glucose 188 H 213 H (75-100) mg/dL Calcium 8.8 7.9 L (8.4-10.2) mg/dL AST 16 (5-40) units/L ALT < 5 L (7-56) units/L Alkaline Phosphatase 62 (35-129) units/L Total Protein 8.7 H D (6.3-8.2) g/dL Albumin 2.8 L (3.9-5) g/dL Calcium panel 05/14/19 05/15/19 Range/Units 12:35 05:28 Calcium 8.8 7.9 L (8.4-10.2) mg/dL Phosphorus 4.10 (2.5-4.5) mg/dL Albumin 2.8 L (3.9-5) g/dL Pituitary panel 05/14/19 05/15/19 Range/Units 12:35 05:28 Sodium 139 138 (137-145) mmol/L Potassium 3.9 4.7 D (3.6-5.0) mmol/L Chloride 101.5 106.1 (98-107) mmol/L Carbon Dioxide 21 L 18 L (22-30) mmol/L BUN 16 20 (9-20) mg/dL Creatinine 1.1 1.4 (0.8-1.5) mg/dL Glucose 188 H 213 H (75-100) mg/dL Calcium 8.8 7.9 L (8.4-10.2) mg/dL Adrenal panel 05/14/19 05/15/19 Range/Units 12:35 05:28 Sodium 139 138 (137-145) mmol/L Potassium 3.9 4.7 D (3.6-5.0) mmol/L Chloride 101.5 106.1 (98-107) mmol/L Carbon Dioxide 21 L 18 L (22-30) mmol/L BUN 16 20 (9-20) mg/dL Creatinine 1.1 1.4 (0.8-1.5) mg/dL Glucose 188 H 213 H (75-100) mg/dL Calcium 8.8 7.9 L (8.4-10.2) mg/dL Total Bilirubin 0.40 (0.1-1.2) mg/dL AST 16 (5-40) units/L ALT < 5 L (7-56) units/L Alkaline Phosphatase 62 (35-129) units/L Total Protein 8.7 H D (6.3-8.2) g/dL Albumin 2.8 L (3.9-5) g/dL
[2019-05-15] MEDS: levETIRAcetam 750 MG in DEXTROSE 5% IN WATER 100 ML IV SCH ×2 (12:48→21:48)
[2019-05-15] MEDS: HYDROmorphone 1 MG/1 ML INJ IV PRN (13:31)
--- NOTE | 2019-05-15 13:31 | Progress Note ---
Assessment and Plan Assessment and plan: Small bowel obstruction. Patient is s/p Diagnostic laparoscopy converted to exploratory laparotomy, lysis of adhesions, small bowel resection. Continue NPO status. Continue NG tube to low intermittent suction and monitor output. Continue IV fluid hydration. TPN per surgery. Continue with empiric a ntibiotics. Internal hernia. Protein calorie malnutrition. TPN. Deconditioning. PT/OT. History Interval history: Patient is s/p diagnostic laparoscopy converted to exploratory laparotomy with lysis of adhesions. Hospitalist Physical - Constitutional Vitals: Temp Pulse Resp BP Pulse Ox 98.1 F 95 H 18 120/65 96 05/15/19 11:46 05/15/19 11:46 05/15/19 11:46 05/15/19 11:46 05/15/19 11:46 General appearance: Present: mild distress - EENT Eyes: Present: PERRL, EOM intact ENT: hearing intact, clear oral mucosa, dentition normal - Neck Neck: Present: supple, normal ROM - Respiratory Respiratory effort: normal Respiratory: bilateral: CTA - Cardiovascular Rhythm: regular Heart Sounds: Present: S1 & S2. Absent: gallop, rub - Extremities Extremities: no ischemia, No edema, Full ROM - Abdominal General gastrointestinal: soft, non-tender, non-distended, normal bowel sounds - Integumentary Integumentary: Present: clear, warm, dry - Neurologic Neurologic: CNII-XII intact, moves all extremities Results - Labs CBC & Chem 7: 05/15/19 05:28 05/15/19 05:28 Labs: Laboratory Last Values WBC 13.2 K/mm3 (4.5-11.0) H 05/15/19 05:28 RBC 4.21 M/mm3 (3.65-5.03) 05/15/19 05:28 Hgb 11.6 gm/dl (11.8-15.2) L 05/15/19 05:28 Hct 35.8 % (35.5-45.6) 05/15/19 05:28 MCV 85 fl (84-94) 05/15/19 05:28 MCH 28 pg (28-32) 05/15/19 05:28 MCHC 32 % (32-34) 05/15/19 05:28 RDW 15.2 % (13.2-15.2) 05/15/19 05:28 Plt Count 535 K/mm3 (140-440) H 05/15/19 05:28 Lymph % (Auto) 11.3 % (13.4-35.0) L 05/14/19 12:36 [place] % (Auto) 11.0 % (0.0-7.3) H 05/14/19 12:36 Eos % (Auto) 0.6 % (0.0-4.3) 05/14/19 12:36 Baso % (Auto) 0.1 % (0.0-1.8) 05/14/19 12:36 Lymph # 1.6 K/mm3 (1.2-5.4) 05/14/19 12:36 [place] # 1.5 K/mm3 (0.0-0.8) H 05/14/19 12:36 Eos # 0.1 K/mm3 (0.0-0.4) 05/14/19 12:36 Baso # 0.0 K/mm3 (0.0-0.1) 05/14/19 12:36 Seg Neutrophils % 77.0 % (40.0-70.0) H 05/14/19 12:36 Seg Neutrophils # 10.7 K/mm3 (1.8-7.7) H 05/14/19 12:36 PT 14.3 Sec. (12.2-14.9) 05/14/19 13:21 INR 1.12 (0.87-1.13) 05/14/19 13:21 APTT 28.7 Sec. (24.2-36.6) 05/14/19 13:21 Sodium 138 mmol/L (137-145) 05/15/19 05:28 Potassium 4.7 mmol/L (3.6-5.0) D 05/15/19 05:28 Chloride 106.1 mmol/L (98-107) 05/15/19 05:28 Carbon Dioxide 18 mmol/L (22-30) L 05/15/19 05:28 Anion Gap 19 mmol/L 05/15/19 05:28 BUN 20 mg/dL (9-20) 05/15/19 05:28 Creatinine 1.4 mg/dL (0.8-1.5) 05/15/19 05:28 Estimated GFR 59 ml/min 05/15/19 05:28 BUN/Creatinine Ratio 14 % 05/15/19 05:28 Glucose 213 mg/dL (75-100) H 05/15/19 05:28 POC Glucose 220 (70-105) H 05/15/19 11:55 Calcium 7.9 mg/dL (8.4-10.2) L 05/15/19 05:28 Phosphorus 4.10 mg/dL (2.5-4.5) 05/15/19 05:28 Magnesium 1.70 mg/dL (1.7-2.3) 05/15/19 05:28 Total Bilirubin 0.40 mg/dL (0.1-1.2) 05/14/19 12:35 AST 16 units/L (5-40) 05/14/19 12:35 ALT < 5 units/L (7-56) L 05/14/19 12:35 Alkaline Phosphatase 62 units/L (35-129) 05/14/19 12:35 Total Protein 8.7 g/dL (6.3-8.2) H D 05/14/19 12:35 Albumin 2.8 g/dL (3.9-5) L 05/14/19 12:35 Albumin/Globulin Ratio 0.5 % 05/14/19 12:35 Prealbumin 0.057 g/L (0.200-0.400) L 05/15/19 05:28 Urine Color Yellow (Yellow) 05/14/19 12:58 Urine Turbidity Turbid (Clear) 05/14/19 12:58 Urine pH 5.0 (5.0-7.0) 05/14/19 12:58 Ur Specific [place] 1.025 (1.003-1.030) 05/14/19 12:58 Urine Protein 100 mg/dl mg/dL (Negative) 05/14/19 12:58 Urine Glucose (UA) 50 mg/dL (Negative) 05/14/19 12:58 Urine Ketones Tr mg/dL (Negative) 05/14/19 12:58 Urine Blood Lg (Negative) 05/14/19 12:58 Urine Nitrite Neg (Negative) 05/14/19 12:58 Urine Bilirubin Neg (Negative) 05/14/19 12:58 Urine Urobilinogen < 2.0 mg/dL (<2.0) 05/14/19 12:58 Ur Leukocyte Esterase Mod (Negative) 05/14/19 12:58 Urine WBC (Auto) > 182.0 /HPF (0.0-6.0) H 05/14/19 12:58 Urine RBC (Auto) > 182.0 /HPF (0.0-6.0) 05/14/19 12:58 U Epithel Cells (Auto) 2.0 /HPF (0-13.0) 05/14/19 12:58 Urine Bacteria (Auto) 4+ /HPF (Negative) 05/14/19 12:58 Urine Mucus 1+ /HPF 05/14/19 12:58 Urine Yeast (Budding) 3+ /HPF 05/14/19 12:58 Blood Type O POSITIVE 05/14/19 16:50 Antibody Screen Negative 05/14/19 16:50 Crossmatch See Detail 05/14/19 16:50 Active Medications - Current Medications Current Medications: Generic Name Dose Route Start Last Admin Trade Name Freq PRN Reason Stop Dose Admin Dextrose 50 ml 05/14/19 20:04 D50w (25gm) Syringe IV Q30MIN PRN Hypoglycemia Heparin Sodium (Porcine) 5,000 unit 05/14/19 22:00 05/15/19 05:49 Heparin SUB-Q 5,000 unit Q8HR ALANA Administration Hydromorphone HCl 0.5 mg 05/14/19 19:24 Dilaudid IV Q10MIN PRN Pain , Severe (7-10) Hydromorphone HCl 0.5 mg 05/14/19 20:03 Dilaudid IV Q4H PRN Pain , Severe (7-10) Sodium Chloride 1,000 mls @ 75 mls/hr 05/14/19 20:00 05/15/19 02:28 Nacl 0.9% 1000 Ml IV 05/15/19 22:00 75 mls/hr DIRECT ALANA Administration Levofloxacin/Dextrose 500 mg in 100 mls @ 100 mls/hr 05/15/19 18:00 Levaquin 500mg/100ml IV Q24H ALANA Protocol Metronidazole 500 mg in 100 mls @ 100 mls/hr 05/14/19 22:00 05/15/19 05:48 Flagyl 500 Mg/100 Ml IV 100 mls/hr Q8HR ALANA Administration Protocol Levetiracetam 750 mg/ Dextrose 107.5 mls @ 400 mls/hr 05/15/19 10:00 05/15/19 12:48 IV 400 mls/hr Q12HR ALANA Administration Amino Acids/Electrolytes/Dextrose 2,400 mls @ 100 mls/hr 05/15/19 20:00 Tpn Adult IV 05/16/19 19:59 DAILY@1999 [facility] Protocol Insulin Human Lispro 0 unit 05/15/19 00:00 05/15/19 06:19 Humalog SUB-Q Not Given Q6HR [facility] Protocol Metoprolol Tartrate 5 mg 05/15/19 00:00 05/15/19 05:49 Metoprolol IV 5 mg Q6HR ALANA Administration Morphine Sulfate 2 mg 05/14/19 20:03 05/15/19 02:31 Morphine IV 2 mg Q4H PRN Administration Pain, Moderate (4-6) Ondansetron HCl 4 mg 05/14/19 20:03 Zofran IV Q8H PRN Nausea And Vomiting Nutrition/Malnutrition Assess - Dietary Evaluation Nutrition/Malnutrition Findings: Nutrition Notes Start: 05/15/19 08 :29 Freq: Status: Active Protocol: Document 05/15/19 08:29 KS (Rec: 05/15/19 10:23 KS [id number]) Co-Sign 05/15/19 08:29 LP Nutrition Notes Need for Assessment generated from: MD Order Initial or Follow up Assessment Current Diagnosis Acute Kidney Injury,Diabetes, Hypertension,Small Bowel Obstruction,Stroke Other Pertinent Diagnosis SBO s/p exp. lap. Current Diet NPO Labs/Tests Glu 213 CO2 18 Pertinent Medications Lasix Humalog 1/2ns at 75ml/hr Height 5 ft 8 in Weight 82.6 kg Usual Body Weight 80 kg [place] Body Weight (kg) 70.00 BMI 27.6 Weight Status Overweight Subjective/Other Information Consult for TPN. DRAFTER DETAIL pt reports having great appetite until stomach pain began 3 days ago at which point pt began experiencing N/V and could no longer eat. Pt reports no recent wt loss and a UBW of 175lbs. Pt currently has NGT to LIS. Int only. GI Symptoms Nausea,Vomiting Minimum of two criteria No Fluid Accumulation Mild (non-severe) #2 Nutrition Diagnosis Increased nutrient needs ( specify in comment below) Comments: PRO Etiology wound-healing As Evidenced by Signs and Symptoms SBO s/p exp. lap. #1 Nutrition Diagnosis Inadequate oral intake Etiology N/V, stomach pain, SBO s/p exp . lap. As Evidenced by Signs and Symptoms Pt eating 0% of meals for 3 days Is patient on ventilator? No Is Patient Ambulatory and/or Out of Bed No REE-([facility]-confined to bed) [phone] Calculation Used for Recommendations [facility] Additional Notes PRO: 100-125g (1.2-1.5g/kg/day ) Fluid: 1ml/kcal Nutrition Intervention Nutrition Support: Initiate PPN at 100ml/hr: 4.2% Dextrose, 4.2% AA, 0% lipids, 150 mEq Na, 0mEq K, 10 mEq Mag, 5 mEq Ca, 5 mEq Phos, Cl: Acetate 25%/75%, MVI, Thiamine Kcal 740 Protein (gm) 100 Carbohydrates (gm) 100 Fat (gm) 0 Fluid (mL) 2,400 Fiber (gm) 0 Goal #1 Meet energy and PRO needs as best as possible via PPN Anticipated Discharge Needs: Unable to determine at this time Follow-Up By: 05/16/19 Additional Comments Labs in AM: BMP, Mag, Phos
--- NOTE | 2019-05-15 17:07 | Operative Report ---
PREOPERATIVE DIAGNOSIS: Small-bowel obstruction, internal hernia. POSTOPERATIVE DIAGNOSIS: Small-bowel obstruction, internal hernia. FINDINGS: Adhesions from piece of omentum and small bowel mesentery causing an internal hernia. This was noted as the point of obstruction. The obstruction was relieved when adhesiolysis was performed. IV FLUIDS IN: 1600 mL. NG TUBE OUTPUT: 2100 mL. URINE OUTPUT: 300 mL. PROCEDURE: Diagnostic laparoscopy converted to exploratory laparotomy, lysis of adhesions and small bowel resection. ANESTHESIA: General endotracheal anesthesia, local. SURGEON: Laxmi Gonzalez DO. FILTER PULP WASHER: Damaris Sawyer MD ESTIMATED BLOOD LOSS: 50 mL. PATHOLOGY: Portion of small bowel. SPECIMEN DISPOSITION: To lab. CONDITION ON DISCHARGE: The patient is stable to PACU. HISTORY OF PRESENT ILLNESS AND INDICATION: The patient is an 83-year-old male who presented to the hospital with his family with complaints of several days of abdominal pain, distention, nausea and vomiting. On imaging, which included CT scan of the abdomen and pelvis he was found to have a high grade small-bowel obstruction with an internal hernia as the cause. No history of previous abdominal surgery. It was recommended that the patient undergo emergent abdominal surgery to find the source of obstruction and to relieve the obstruction. All risks, benefits and alternatives to surgery were discussed with the patient and his family at the bedside. Consent was obtained. PROCEDURE IN DETAIL: The patient was identified in preoperative area and taken back to the operating room and placed on the operating table in supine position. After anesthesia was induced, the abdomen was prepped and draped in the usual sterile fashion. A timeout performed. Please note that the patient already had chronic Cast catheter. The left arm was tucked with all bony prominences padded appropriately. A timeout was performed. Local anesthetic was infiltrated into all skin incision sites prior to incision. A 5 mm incision was made above the umbilicus through which a Veress needle was inserted. The Veress needle position was confirmed using saline drop test and the abdomen insufflated to 15 mmHg. A left upper quadrant 5 mm incision was made through which an Optiview 5 mm trocar was inserted. The abdomen was inspected. There was no underlying injury to any of the abdominal structures. The Veress needle tracked and tip was seen and the Veress needle was withdrawn. An additional 5 mm trocar was placed through the supraumbilical site. The small bowel in the upper and mid abdomen was severely distended and fluid filled as well as the stomach and therefore it was decided to place an additional 5 mm left lower quadrant trocar video library assistant trocar. During trocar placement under direct visualization, an unavoidable injury was noted to the adjacent severely distended small bowel. There was minimal spillage and the immediate decision was made to convert to an open surgery . A midline incision was made using a #10 blade. Dissection was carried down through skin and subcutaneous tissue using electrocautery until the fascia was encountered. The fascia was scored and opened over 2 gloved fingers with great care to avoid injury to the underlying structures. The small bowel was eviscerated and the enterotomy was identified. The small bowel was decompressed via this enterotomy with pool suction. This facilitated as to better evaluate the small bowel. The enterotomy was whipstitched closed with a 3-0 silk running suture. We then started by identifying the ligament of Treitz. The omentum was identified and attempted to be swept in the cephalad fashion; however, there were some adhesions. There was one adhesion from a small piece of omentum diving down toward the small bowel mesentery in the region of the mid small bowel. This adhesion appeared to be the cause of the obstruction. The adhesion was carefully dissected and transected. This appeared to release the small bowel that was tethered down and released the small-bowel obstruction. There was also a small piece of omentum that was adhered to the pelvis, which was also dissected free from that tissue. At this point, the omentum was examined for hemostasis and then retracted over the transverse colon. The ligament of Treitz was identified and the bowel was ran from the ligament of Treitz to the terminal ileum. No other small bowel injuries were seen. There was engorgement of some of the veins in the mesentery as well as a few partial thickness rent in the small bowel mesentery where the bowel was severely distended. There were no other points of obstruction of the small bowel. The colon appeared grossly unremarkable. At this point, we decided to perform the small bowel resection at the site of the enterotomy. A window was created in the mesentery and the proximal and distal margins of the resection and the small bowel stapled and transected using a DAVID-75 mm blue load stapler. The mesentery was ligated close to the small bowel using the Harmonic scalpel and the specimen passed off the table. The portion of small bowel that was removed was approximately 3 cm. The bowel was then aligned in a [id number] fashion at the antimesenteric borders. The corners of the staple lines were cut off using curved Nolasco scissors and the small bowel decompressed further. A [id number] functional end-to-end small bowel anastomosis was then created using a DAVID-75 mm blue load stapler. The common channel was checked for hemostasis, which was ensured. The common channel was then closed using a TA 60 stapler. The staple line was checked for hemostasis, which was ensured. The mesenteric defect was closed with running 2-0 Vicryl suture. A piece of omentum was placed over the anastomosis and was sutured over the anastomosis. A crotch suture was placed at the distal aspect of the staple line in order to take tension off the staple line. This was performed with a seromuscular 3-0 silk stitch. The anastomosis was palpated and was widely patent. At this point, we turned our attention to irrigating the abdomen. The abdomen was copiously irrigated with warm saline, approximately 3 liters were used until all irrigant returned clear. There was no evidence of enteric contents in the abdomen. The small bowel was placed back into the abdomen in anatomic position. The NG tube was palpated in the stomach and secured by Anesthesia. The omentum was placed back over the rest of the small bowel. The abdomen was then closed by first closing the fascia in the usual fashion using looped #1 PDS suture. Subcutaneous tissue was then irrigated and the skin loosely approximated using arminda. The iodoform gauze was packed in between the arminda of the midline incision. A dry 4 x 4 gauze was applied over all incisions and covered with Medipore tape. At the end of the case, all sponge, instrument, sharp counts were correct x 2. The patient was awoken from anesthesia, extubated, and taken to PACU in stable condition. JOB# [id number] PRASHANT/RANGEL BECERRIL
[2019-05-15] MEDS ORDERED: TOTAL PARENTERAL NUTRITION 2,400 ML IV SCH (20:00)
[2019-05-16] MEDS: METOPROLOL TARTRATE 5 MG/5 ML INJ IV SCH ×4 (01:00→18:15)
[2019-05-16] MEDS: INSULIN LISPRO 100 UNIT/ML SUB-Q SCH ×4 (01:00→18:04)
[2019-05-16] MEDS: MORPHINE 2 MG/1 ML INJ IV PRN (05:42)
[2019-05-16] MEDS: HEPARIN 5,000 UNIT/1 ML VIAL SUB-Q SCH ×3 (05:43→22:29)
[2019-05-16] MEDS: metroNIDAZOLE/NS 500 MG/100 ML 500 MG/100 ML BAG IV SCH ×3 (05:44→22:29)
[2019-05-16 06:08] LABS: Basophils % (Auto) 0.1 % (0.0-1.8); Eosinophils # (Auto) 0.1 K/mm3 (0.0-0.4); Eosinophils % (Auto) 0.4 % (0.0-4.3); Hemoglobin 9.3 gm/dl (11.8-15.2); Lymphocytes % (Auto) 7.1 % (13.4-35.0); Mean Corpuscular HGB Conc 33 % (32-34); Mean Corpuscular Volume 84 fl (84-94); Monocytes # (Auto) 1.5 K/mm3 (0.0-0.8); Monocytes % (Auto) 10.9 % (0.0-7.3); Platelet Count 442 K/mm3 (140-440); Red Blood Count 3.34 M/mm3 (3.65-5.03); Red Cell Distribution Width 15.3 % (13.2-15.2)
[2019-05-16 06:29] LABS: BUN/Creatinine Ratio 22; Blood Urea Nitrogen 28 mg/dL (9-20); Hemolysis Index 0
[2019-05-16] MEDS: HYDROmorphone 1 MG/1 ML INJ IV PRN ×2 (09:42→16:31)
[2019-05-16] MEDS: levETIRAcetam 750 MG in DEXTROSE 5% IN WATER 100 ML IV SCH ×2 (10:18→22:28)
--- NOTE | 2019-05-16 11:58 | Progress Note ---
Assessment and Plan Assessment and plan: Small bowel obstruction. Patient is s/p Diagnostic laparoscopy converted to exploratory laparotomy, lysis of adhesions, small bowel resection. Continue NPO status. Continue NG tube to low intermittent suction and monitor output. Continue IV fluid hydration. TPN per surgery. Continue with empiric a ntibiotics. Continue with appropriate analgesics for pain control. Internal hernia. Protein calorie malnutrition. TPN. Deconditioning. PT/OT. History Interval history: Patient is s/p diagnostic laparoscopy converted to exploratory laparotomy with lysis of adhesions. Patient complains of abdominal pain this morning. Hospitalist Physical - Constitutional Vitals: Temp Pulse Resp BP Pulse Ox 98.2 F 104 H 18 162/72 96 05/16/19 11:34 05/16/19 11:34 05/16/19 11:34 05/16/19 11:34 05/16/19 11:34 General appearance: Present: mild distress - EENT Eyes: Present: PERRL, EOM intact ENT: hearing intact, clear oral mucosa, dentition normal - Neck Neck: Present: supple, normal ROM - Respiratory Respiratory effort: normal Respiratory: bilateral: CTA - Cardiovascular Rhythm: regular Heart Sounds: Present: S1 & S2. Absent: gallop, rub - Extremities Extremities: no ischemia, No edema, Full ROM - Abdominal General gastrointestinal: soft, non-distended, normal bowel sounds Localized gastrointestinal: tender: diffuse (appropriate) - Integumentary Integumentary: Present: clear, warm, dry - Neurologic Neurologic: CNII-XII intact, moves all extremities Results - Labs CBC & Chem 7: 05/16/19 05:40 05/16/19 05:40 Labs: Laboratory Last Values WBC 13.6 K/mm3 (4.5-11.0) H 05/16/19 05:40 RBC 3.34 M/mm3 (3.65-5.03) L 05/16/19 05:40 Hgb 9.3 gm/dl (11.8-15.2) L 05/16/19 05:40 Hct 28.0 % (35.5-45.6) L D 05/16/19 05:40 MCV 84 fl (84-94) 05/16/19 05:40 MCH 28 pg (28-32) 05/16/19 05:40 MCHC 33 % (32-34) 05/16/19 05:40 RDW 15.3 % (13.2-15.2) H 05/16/19 05:40 Plt Count 442 K/mm3 (140-440) H 05/16/19 05:40 Lymph % (Auto) 7.1 % (13.4-35.0) L 05/16/19 05:40 [place] % (Auto) 10.9 % (0.0-7.3) H 05/16/19 05:40 Eos % (Auto) 0.4 % (0.0-4.3) 05/16/19 05:40 Baso % (Auto) 0.1 % (0.0-1.8) 05/16/19 05:40 Lymph # 1.0 K/mm3 (1.2-5.4) L 05/16/19 05:40 [place] # 1.5 K/mm3 (0.0-0.8) H 05/16/19 05:40 Eos # 0.1 K/mm3 (0.0-0.4) 05/16/19 05:40 Baso # 0.0 K/mm3 (0.0-0.1) 05/16/19 05:40 Seg Neutrophils % 81.5 % (40.0-70.0) H 05/16/19 05:40 Seg Neutrophils # 11.1 K/mm3 (1.8-7.7) H 05/16/19 05:40 PT 14.3 Sec. (12.2-14.9) 05/14/19 13:21 INR 1.12 (0.87-1.13) 05/14/19 13:21 APTT 28.7 Sec. (24.2-36.6) 05/14/19 13:21 Sodium 139 mmol/L (137-145) 05/16/19 05:40 Potassium 3.7 mmol/L (3.6-5.0) D 05/16/19 05:40 Chloride 107.9 mmol/L (98-107) H 05/16/19 05:40 Carbon Dioxide 21 mmol/L (22-30) L 05/16/19 05:40 Anion Gap 14 mmol/L 05/16/19 05:40 BUN 28 mg/dL (9-20) H 05/16/19 05:40 Creatinine 1.3 mg/dL (0.8-1.5) 05/16/19 05:40 Estimated GFR > 60 ml/min 05/16/19 05:40 BUN/Creatinine Ratio 22 % 05/16/19 05:40 Glucose 220 mg/dL (75-100) H 05/16/19 05:40 POC Glucose 260 (70-105) H 05/16/19 06:31 Calcium 8.0 mg/dL (8.4-10.2) L 05/16/19 05:40 Phosphorus 2.20 mg/dL (2.5-4.5) L D 05/16/19 05:40 Magnesium 1.60 mg/dL (1.7-2.3) L 05/16/19 05:40 Total Bilirubin 0.40 mg/dL (0.1-1.2) 05/14/19 12:35 AST 16 units/L (5-40) 05/14/19 12:35 ALT < 5 units/L (7-56) L 05/14/19 12:35 Alkaline Phosphatase 62 units/L (35-129) 05/14/19 12:35 Total Protein 8.7 g/dL (6.3-8.2) H D 05/14/19 12:35 Albumin 2.8 g/dL (3.9-5) L 05/14/19 12:35 Albumin/Globulin Ratio 0.5 % 05/14/19 12:35 Prealbumin 0.057 g/L (0.200-0.400) L 05/15/19 05:28 Urine Color Yellow (Yellow) 05/14/19 12:58 Urine Turbidity Turbid (Clear) 05/14/19 12:58 Urine pH 5.0 (5.0-7.0) 05/14/19 12:58 Ur Specific [place] 1.025 (1.003-1.030) 05/14/19 12:58 Urine Protein 100 mg/dl mg/dL (Negative) 05/14/19 12:58 Urine Glucose (UA) 50 mg/dL (Negative) 05/14/19 12:58 Urine Ketones Tr mg/dL (Negative) 05/14/19 12:58 Urine Blood Lg (Negative) 05/14/19 12:58 Urine Nitrite Neg (Negative) 05/14/19 12:58 Urine Bilirubin Neg (Negative) 05/14/19 12:58 Urine Urobilinogen < 2.0 mg/dL (<2.0) 05/14/19 12:58 Ur Leukocyte Esterase Mod (Negative) 05/14/19 12:58 Urine WBC (Auto) > 182.0 /HPF (0.0-6.0) H 05/14/19 12:58 Urine RBC (Auto) > 182.0 /HPF (0.0-6.0) 05/14/19 12:58 U Epithel Cells (Auto) 2.0 /HPF (0-13.0) 05/14/19 12:58 Urine Bacteria (Auto) 4+ /HPF (Negative) 05/14/19 12:58 Urine Mucus 1+ /HPF 05/14/19 12:58 Urine Yeast (Budding) 3+ /HPF 05/14/19 12:58 Blood Type O POSITIVE 05/14/19 16:50 Antibody Screen Negative 05/14/19 16:50 Crossmatch See Detail 05/14/19 16:50 Active Medications - Current Medications Current Medications: Generic Name Dose Route Start Last Admin Trade Name Freq PRN Reason Stop Dose Admin Dextrose 50 ml 05/14/19 20:04 D50w (25gm) Syringe IV Q30MIN PRN Hypoglycemia Heparin Sodium (Porcine) 5,000 unit 05/14/19 22:00 05/16/19 05:43 Heparin SUB-Q 5,000 unit Q8HR ALANA Administration Hydromorphone HCl 0.5 mg 05/14/19 19:24 Dilaudid IV Q10MIN PRN Pain , Severe (7-10) Hydromorphone HCl 0.5 mg 05/14/19 20:03 05/16/19 09:42 Dilaudid IV 0.5 mg Q4H PRN Administration Pain , Severe (7-10) Levofloxacin/Dextrose 500 mg in 100 mls @ 100 mls/hr 05/15/19 18:00 05/15/19 17:20 Levaquin 500mg/100ml IV 100 mls/hr Q24H ALANA Administration Protocol Metronidazole 500 mg in 100 mls @ 100 mls/hr 05/14/19 22:00 05/16/19 05:44 Flagyl 500 Mg/100 Ml IV 100 mls/hr Q8HR ALANA Administration Protocol Levetiracetam 750 mg/ Dextrose 107.5 mls @ 400 mls/hr 05/15/19 10:00 05/16/19 10:18 IV 400 mls/hr Q12HR ALANA Administration Amino Acids/Electrolytes/Dextrose 2,400 mls @ 100 mls/hr 05/15/19 20:00 05/15/19 20:55 Tpn Adult IV 05/16/19 19:59 100 mls/hr DAILY@1999 [facility] Administration Protocol Amino Acids/Electrolytes/Dextrose 2,016 mls @ 84 mls/hr 05/16/19 20:00 Tpn Adult IV 05/17/19 19:59 DAILY@1999 [facility] Protocol Insulin Human Lispro 0 unit 05/15/19 00:00 05/16/19 06:25 Humalog SUB-Q 3 unit Q6HR [facility] Administration Protocol Metoprolol Tartrate 5 mg 05/15/19 00:00 05/16/19 06:27 Metoprolol IV Not Given Q6HR [facility] Morphine Sulfate 2 mg 05/14/19 20:03 05/16/19 05:42 Morphine IV 2 mg Q4H PRN Administration Pain, Moderate (4-6) Ondansetron HCl 4 mg 05/14/19 20:03 Zofran IV Q8H PRN Nausea And Vomiting Nutrition/Malnutrition Assess - Dietary Evaluation Nutrition/Malnutrition Findings: Nutrition Notes Start: 05/15/19 08:29 Freq: Status: Active Protocol: Document 05/15/19 08:29 KS (Rec: 05/15/19 10:23 KS [id number]) Co-Sign 05/15/19 08:29 LP Nutrition Notes Need for Assessment generated from: MD Order Initial or Follow up Assessment Current Diagnosis Acute Kidney Injury,Diabetes, Hypertension,Small Bowel Obstruction,Stroke Other Pertinent Diagnosis SBO s/p exp. lap. Current Diet NPO Labs/Tests Glu 213 CO2 18 Pertinent Medications Lasix Humalog 1/2ns at 75ml/hr Height 5 ft 8 in Weight 82.6 kg Usual Body Weight 80 kg [place] Body Weight (kg) 70.00 BMI 27.6 Weight Status Overweight Subjective/Other Information Consult for TPN. [employer]TER pt reports having great appetite until stomach pain began 3 days ago at which point pt began experiencing N/V and could no longer eat. Pt reports no recent wt loss and a UBW of 175lbs. Pt currently has NGT to LIS. Int only. GI Symptoms Nausea,Vomiting Minimum of two criteria No Fluid Accumulation Mild (non-severe) #2 Nutrition Diagnosis Increased nutrient needs ( specify in comment below) Comments: PRO Etiology wound-healing As Evidenced by Signs and Symptoms SBO s/p exp. lap. #1 Nutrition Diagnosis Inadequate oral intake Etiology N/V, stomach pain, SBO s/p exp . lap. As Evidenced by Signs and Symptoms Pt eating 0% of meals for 3 days Is patient on ventilator? No Is Patient Ambulatory and/or Out of Bed No REE-([facility]-confined to bed) [phone] Calculation Used for Recommendations [facility] Additional Notes PRO: 100-125g (1.2-1.5g/kg/day ) Fluid: 1ml/kcal Nutrition Intervention Nutrition Support: Initiate PPN at 100ml/hr: 4.2% Dextrose, 4.2% AA, 0% lipids, 150 mEq Na, 0mEq K, 10 mEq Mag, 5 mEq Ca, 5 mEq Phos, Cl: Acetate 25%/75%, MVI, Thiamine Kcal 740 Protein (gm) 100 Carbohydrates (gm) 100 Fat (gm) 0 Fluid (mL) 2,400 Fiber (gm) 0 Goal #1 Meet energy and PRO needs as best as possible via PPN Anticipated Discharge Needs: Unable to determine at this time Follow-Up By: 05/16/19 Additional Comments Labs in AM: BMP, Mag, Phos
--- NOTE | 2019-05-16 12:41 | Progress Note ---
Assessment and Plan - Patient Problems (1) Internal hernia Current Visit: Yes Status: Acute Plan to address problem: 83 yo M s/p Diagnostic laparoscopy converted to exploratory laparotomy, lysis of adhesions, small bowel resection, POD 2. Wounds look good. 1. SBO 2. Internal hernia 3. malnutrition 4. deconditioning Plan: 1. NPO 2. NGT to LIWS - record output q shift. ok to clamp to ambulate 3. IVF - per hospitalist 4. randall (chronic) - do not remove - strict I/Os 5. await bowel function 6. c/w abx 7. OOB to chair/PT consulted - saw patient yesterday 8. PICC line place, start TPN until able to resume PO diet 9. NO ORAL MEDS - ALL MEDS CHANGED TO IV 10. incentive spirometry/pulm toilet Will follow. Thank you, please call with questions. Subjective Date of service: 05/16/19 Patient Reports: Positive: still having pain (in midline incision. Meds help. ), no flatus, no bowel movement, nausea (sometimes.), afebrile. Negative: vomiting Objective Vital Signs - 12hr 05/16/19 05/16/19 05/16/19 05:38 07:37 11:34 Temperature 98.4 F 98.6 F 98.2 F Pulse Rate 103 H 99 H 104 H Respiratory 18 18 18 Rate Blood Pressure 166/86 154/76 162/72 O2 Sat by Pulse 97 96 96 Oximetry - General physical appearance no distress, no pain, other (pleasant) - Respiratory normal expansion, normal respiratory effort - Abdomen soft, tender (incisional only), bowel sounds hypoactive (minimal), distended (mild), not rigid, surgical scars (wounds are C/D/I. iodoform removed. ) - Integumentary no rash, no growths, no abnormal pigmentation - Psychiatric speech is normal - Labs 05/16/19 05:40 05/16/19 05:40 Diabetes panel 05/16/19 Range/Units 05:40 Sodium 139 (137-145) mmol/L Potassium 3.7 D (3.6-5.0) mmol/L Chloride 107.9 H (98-107) mmol/L Carbon Dioxide 21 L (22-30) mmol/L BUN 28 H (9-20) mg/dL Creatinine 1.3 (0.8-1.5) mg/dL Glucose 220 H (75-100) mg/dL Calcium 8.0 L (8.4-10.2) mg/dL Calcium panel 05/16/19 Range/Units 05:40 Calcium 8.0 L (8.4-10.2) mg/dL Phosphorus 2.20 L D (2.5-4.5) mg/dL Pituitary panel 05/16/19 Range/Units 05:40 Sodium 139 (137-145) mmol/L Potassium 3.7 D (3.6-5.0) mmol/L Chloride 107.9 H (98-107) mmol/L Carbon Dioxide 21 L (22-30) mmol/L BUN 28 H (9-20) mg/dL Creatinine 1.3 (0.8-1.5) mg/dL Glucose 220 H (75-100) mg/dL Calcium 8.0 L (8.4-10.2) mg/dL Adrenal panel 05/16/19 Range/Units 05:40 Sodium 139 (137-145) mmol/L Potassium 3.7 D (3.6-5.0) mmol/L Chloride 107.9 H (98-107) mmol/L Carbon Dioxide 21 L (22-30) mmol/L BUN 28 H (9-20) mg/dL Creatinine 1.3 (0.8-1.5) mg/dL Glucose 220 H (75-100) mg/dL Calcium 8.0 L (8.4-10.2) mg/dL
[2019-05-16] MEDS ORDERED: TOTAL PARENTERAL NUTRITION 2,016 ML IV SCH (20:00)
[2019-05-17] MEDS: INSULIN LISPRO 100 UNIT/ML SUB-Q SCH ×4 (00:35→18:13)
[2019-05-17] MEDS: METOPROLOL TARTRATE 5 MG/5 ML INJ IV SCH ×4 (00:36→18:09)
[2019-05-17] MEDS: metroNIDAZOLE/NS 500 MG/100 ML 500 MG/100 ML BAG IV SCH ×3 (06:17→21:24)
[2019-05-17] MEDS: HEPARIN 5,000 UNIT/1 ML VIAL SUB-Q SCH ×3 (06:18→21:24)
[2019-05-17 07:07] LABS: Basophils % (Auto) 0.3 % (0.0-1.8); Eosinophils # (Auto) 0.1 K/mm3 (0.0-0.4); Eosinophils % (Auto) 0.7 % (0.0-4.3); Hematocrit 26.5 % (35.5-45.6); Hemoglobin 8.7 gm/dl (11.8-15.2); Lymphocytes # (Auto) 1.1 K/mm3 (1.2-5.4); Lymphocytes % (Auto) 7.6 % (13.4-35.0); Mean Corpuscular HGB Conc 33 % (32-34); Mean Corpuscular Volume 85 fl (84-94); Monocytes # (Auto) 1.4 K/mm3 (0.0-0.8); Monocytes % (Auto) 9.1 % (0.0-7.3); Platelet Count 354 K/mm3 (140-440); Red Blood Count 3.14 M/mm3 (3.65-5.03); Red Cell Distribution Width 15.3 % (13.2-15.2)
[2019-05-17 07:15] LABS: BUN/Creatinine Ratio 22; Blood Urea Nitrogen 29 mg/dL (9-20); Calcium 8.1 mg/dL (8.4-10.2); Hemolysis Index 1
[2019-05-17] MEDS: HYDROmorphone 1 MG/1 ML INJ IV PRN ×2 (09:45→18:10)
--- NOTE | 2019-05-17 10:10 | Progress Note ---
Assessment and Plan Assessment and plan: Small bowel obstruction. Patient is s/p Diagnostic laparoscopy converted to exploratory laparotomy, lysis of adhesions, small bowel resection. Continue NPO status. Continue NG tube to low intermittent suction and monitor output. Continue IV fluid hydration. TPN per surgery. Continue with empiric a ntibiotics. Continue with appropriate analgesics for pain control. Internal hernia. Protein calorie malnutrition. TPN. Deconditioning. PT/OT. History Interval history: Patient is s/p diagnostic laparoscopy converted to exploratory laparotomy with lysis of adhesions. Patient states that his abdominal pain is better. Hospitalist Physical - Constitutional Vitals: Temp Pulse Resp BP Pulse Ox 98.1 F 87 18 163/79 95 05/17/19 07:51 05/17/19 07:51 05/17/19 07:51 05/17/19 07:51 05/17/19 07:51 General appearance: Present: no acute distress - EENT Eyes: Present: PERRL, EOM intact ENT: hearing intact, clear oral mucosa, dentition normal - Neck Neck: Present: supple, normal ROM - Respiratory Respiratory effort: normal Respiratory: bilateral: CTA - Cardiovascular Rhythm: regular Heart Sounds: Present: S1 & S2. Absent: gallop, rub - Extremities Extremities: no ischemia, No edema, Full ROM - Abdominal General gastrointestinal: soft, tender, non-distended, normal bowel sounds Localized gastrointestinal: tender: diffuse - Integumentary Integumentary: Present: clear, warm, dry - Neurologic Neurologic: CNII-XII intact, moves all extremities Results - Labs CBC & Chem 7: 05/17/19 Unknown 05/17/19 Unknown Labs: Laboratory Last Values WBC 15.0 K/mm3 (4.5-11.0) H 05/17/19 Unknown RBC 3.14 M/mm3 (3.65-5.03) L 05/17/19 Unknown Hgb 8.7 gm/dl (11.8-15.2) L 05/17/19 Unknown Hct 26.5 % (35.5-45.6) L 05/17/19 Unknown MCV 85 fl (84-94) 05/17/19 Unknown MCH 28 pg (28-32) 05/17/19 Unknown MCHC 33 % (32-34) 05/17/19 Unknown RDW 15.3 % (13.2-15.2) H 05/17/19 Unknown Plt Count 354 K/mm3 (140-440) 05/17/19 Unknown Lymph % (Auto) 7.6 % (13.4-35.0) L 05/17/19 Unknown Eddy % (Auto) 9.1 % (0.0-7.3) H 05/17/19 Unknown Eos % (Auto) 0.7 % (0.0-4.3) 05/17/19 Unknown Baso % (Auto) 0.3 % (0.0-1.8) 05/17/19 Unknown Lymph # 1.1 K/mm3 (1.2-5.4) L 05/17/19 Unknown Eddy # 1.4 K/mm3 (0.0-0.8) H 05/17/19 Unknown Eos # 0.1 K/mm3 (0.0-0.4) 05/17/19 Unknown Baso # 0.0 K/mm3 (0.0-0.1) 05/17/19 Unknown Seg Neutrophils % 82.3 % (40.0-70.0) H 05/17/19 Unknown Seg Neutrophils # 12.3 K/mm3 (1.8-7.7) H 05/17/19 Unknown PT 14.3 Sec. (12.2-14.9) 05/14/19 13:21 INR 1.12 (0.87-1.13) 05/14/19 13:21 APTT 28.7 Sec. (24.2-36.6) 05/14/19 13:21 Sodium 138 mmol/L (137-145) 05/17/19 Unknown Potassium 3.5 mmol/L (3.6-5.0) L 05/17/19 Unknown Chloride 106.9 mmol/L (98-107) 05/17/19 Unknown Carbon Dioxide 21 mmol/L (22-30) L 05/17/19 Unknown Anion Gap 14 mmol/L 05/17/19 Unknown BUN 29 mg/dL (9-20) H 05/17/19 Unknown Creatinine 1.3 mg/dL (0.8-1.5) 05/17/19 Unknown Estimated GFR > 60 ml/min 05/17/19 Unknown BUN/Creatinine Ratio 22 % 05/17/19 Unknown Glucose 251 mg/dL (75-100) H 05/17/19 Unknown POC Glucose 249 (70-105) H 05/17/19 07:25 Calcium 8.1 mg/dL (8.4-10.2) L 05/17/19 Unknown Phosphorus 2.10 mg/dL (2.5-4.5) L 05/17/19 Unknown Magnesium 1.90 mg/dL (1.7-2.3) 05/17/19 Unknown Total Bilirubin 0.40 mg/dL (0.1-1.2) 05/14/19 12:35 AST 16 units/L (5-40) 05/14/19 12:35 ALT < 5 units/L (7-56) L 05/14/19 12:35 Alkaline Phosphatase 62 units/L (35-129) 05/14/19 12:35 Total Protein 8.7 g/dL (6.3-8.2) H D 05/14/19 12:35 Albumin 2.8 g/dL (3.9-5) L 05/14/19 12:35 Albumin/Globulin Ratio 0.5 % 05/14/19 12:35 Prealbumin 0.057 g/L (0.200-0.400) L 05/15/19 05:28 Urine Color Yellow (Yellow) 05/14/19 12:58 Urine Turbidity Turbid (Clear) 05/14/19 12:58 Urine pH 5.0 (5.0-7.0) 05/14/19 12:58 Ur Specific [place] 1.025 (1.003-1.030) 05/14/19 12:58 Urine Protein 100 mg/dl mg/dL (Negative) 05/14/19 12:58 Urine Glucose (UA) 50 mg/dL (Negative) 05/14/19 12:58 Urine Ketones Tr mg/dL (Negative) 05/14/19 12:58 Urine Blood Lg (Negative) 05/14/19 12:58 Urine Nitrite Neg (Negative) 05/14/19 12:58 Urine Bilirubin Neg (Negative) 05/14/19 12:58 Urine Urobilinogen < 2.0 mg/dL (<2.0) 05/14/19 12:58 Ur Leukocyte Esterase Mod (Negative) 05/14/19 12:58 Urine WBC (Auto) > 182.0 /HPF (0.0-6.0) H 05/14/19 12:58 Urine RBC (Auto) > 182.0 /HPF (0.0-6.0) 05/14/19 12:58 U Epithel Cells (Auto) 2.0 /HPF (0-13.0) 05/14/19 12:58 Urine Bacteria (Auto) 4+ /HPF (Negative) 05/14/19 12:58 Urine Mucus 1+ /HPF 05/14/19 12:58 Urine Yeast (Budding) 3+ /HPF 05/14/19 12:58 Blood Type O POSITIVE 05/14/19 16:50 Antibody Screen Negative 05/14/19 16:50 Crossmatch See Detail 05/14/19 16:50 Active Medications - Current Medications Current Medications: Generic Name Dose Route Start Last Admin Trade Name Freq PRN Reason Stop Dose Admin Dextrose 50 ml 05/14/19 20:04 D50w (25gm) Syringe IV Q30MIN PRN Hypoglycemia Heparin Sodium (Porcine) 5,000 unit 05/14/19 22:00 05/17/19 06:18 Heparin SUB-Q 5,000 unit Q8HR ALANA Administration Hydromorphone HCl 0.5 mg 05/14/19 20:03 05/16/19 16:31 Dilaudid IV 0.5 mg Q4H PRN Administration Pain , Severe (7-10) Levofloxacin/Dextrose 500 mg in 100 mls @ 100 mls/hr 05/15/19 18:00 05/16/19 17:48 Levaquin 500mg/100ml IV 100 mls/hr Q24H ALANA Administration Protocol Metronidazole 500 mg in 100 mls @ 100 mls/hr 05/14/19 22:00 05/17/19 06:17 Flagyl 500 Mg/100 Ml IV 100 mls/hr Q8HR ALANA Administration Protocol Levetiracetam 750 mg/ Dextrose 107.5 mls @ 400 mls/hr 05/15/19 10:00 05/16/19 22:28 IV 400 mls/hr Q12HR ALANA Administration Amino Acids/Electrolytes/Dextrose 2,016 mls @ 84 mls/hr 05/16/19 20:00 05/16/19 20:03 Tpn Adult IV 05/17/19 19:59 84 mls/hr DAILY@2000 ALANA Administration Protocol Insulin Human Lispro 0 unit 05/15/19 00:00 05/17/19 06:23 Humalog SUB-Q 2 unit Q6HR ALANA Administration Protocol Metoprolol Tartrate 5 mg 05/15/19 00:00 05/17/19 06:18 Metoprolol IV 5 mg Q6HR ALANA Administration Morphine Sulfate 2 mg 05/14/19 20:03 05/16/19 05:42 Morphine IV 2 mg Q4H PRN Administration Pain, Moderate (4-6) Ondansetron HCl 4 mg 05/14/19 20:03 Zofran IV Q8H PRN Nausea And Vomiting Nutrition/Malnutrition Assess - Dietary Evaluation Nutrition/Malnutrition Findings: Nutrition Notes Start: 05/15/19 08:29 Freq: Status: Active Protocol: Document 05/16/19 11:53 JEANNETTE (Rec: 05/16/19 11:57 JEANNETTE SRW- [email or web address]) Nutrition Notes Initial or Follow up Reassessment Current Diagnosis Small Bowel Obstruction Other Pertinent Diagnosis s/p exp lap with lysis of adhesions Current Diet NPO Labs/Tests Cl 107.9 CO2 - 21 Phos 2.2 Mg 1.6 BUN 28 BG 220 Pertinent Medications Reviewed Height 5 ft 8 in Weight 82.6 kg [place] Body Weight (kg) 70.00 BMI 27.6 Weight Status Overweight Subjective/Other Information Day 2 PN. PN infusing at 100ml/hr. NGT to LIWS. PICC line placed yesterday. Burn Absent Trauma Absent Minimum of two criteria No #2 Nutrition Diagnosis Increased nutrient needs ( specify in comment below) Diagnosis Progress(for reassessment Continues documentation) #1 Nutrition Diagnosis Inadequate oral intake Diagnosis Progress(for reassessment Continues documentation) Is patient on ventilator? No Is Patient Ambulatory and/or Out of Bed No REE-([facility]-confined to bed) 4393.495 Calculation Used for Recommendations [facility] Additional Notes PRO: 100-125g (1.2-1.5g/kg/day ) Fluid: 1ml/kcal Nutrition Intervention Nutrition Support: Decrease PN rate to 84ml/hr and change to CPN: 5% dextrose , 5% amino acids, 10%/90% chloride/acetate, 20mmol Phos, 14mEq Mg, 40mEq K, MVI, Thiamine. Osmolality: 952. Kcal 740 Protein (gm) 100 Carbohydrates (gm) 100 Fat (gm) 0 Fluid (mL) 2,016 Fiber (gm) 0 Goal #1 Meet energy and PRO needs as best as possible via CPN Follow-Up By: 05/17/19 Additional Comments Labs in am: Mg BRIDGET, Ruth
[2019-05-17] MEDS: levETIRAcetam 750 MG in DEXTROSE 5% IN WATER 100 ML IV SCH ×2 (11:30→21:54)
--- NOTE | 2019-05-17 12:54 | Progress Note ---
Assessment and Plan - Patient Problems (1) Internal hernia Current Visit: Yes Status: Acute Plan to address problem: 83 yo M s/p Diagnostic laparoscopy converted to exploratory laparotomy, lysis of adhesions, small bowel resection, POD 3. Wounds look good. 1. SBO 2. Internal hernia 3. malnutrition 4. deconditioning Plan: 1. NPO 2. NGT to LIWS - record output q shift. ok to clamp to ambulate 3. IVF - per hospitalist; will order one 500cc bolus. 4. randall (chronic) - do not remove - strict I/Os; In light of increased WBC, recheck urine as last culture showed possible contaminant 5. await bowel function 6. c/w abx 7. OOB to chair/PT consulted - saw patient Saturday 8. PICC line place, start TPN until able to resume PO diet 9. NO ORAL MEDS - ALL MEDS CHANGED TO IV 10. incentive spirometry/pulm toilet 11. Try toradol for better pain control. Very sensitive at incision. Will follow. Thank you, please call with questions. Subjective Date of service: 05/17/19 Patient Reports: Positive: still having pain, no flatus, no bowel movement, other (NGT had to be replaced this AM. ). Negative: nausea, vomiting Objective Vital Signs - 12hr 05/17/19 05/17/19 05/17/19 04:59 06:18 07:51 Temperature 98.7 F 98.1 F Pulse Rate 96 H 96 H 87 Respiratory 17 18 Rate Blood Pressure 142/99 142/99 163/79 O2 Sat by Pulse 99 95 Oximetry 05/17/19 11:25 Temperature 98.9 F Pulse Rate 94 H Respiratory 18 Rate Blood Pressure 133/65 O2 Sat by Pulse 95 Oximetry - General physical appearance no distress, no pain - Eyes normal occular movement - Respiratory normal expansion, normal respiratory effort - Abdomen soft, tender (at midline incision), bowel sounds hypoactive, distended, not guarding, surgical scars (lap sites - C/D/I; midline is clean. serosang drainage on dressing.) - Integumentary no rash, no growths, no abnormal pigmentation - Labs 05/17/19 Unknown 05/17/19 Unknown Diabetes panel 05/17/19 Range/Units Unknown Sodium 138 (137-145) mmol/L Potassium 3.5 L (3.6-5.0) mmol/L Chloride 106.9 (98-107) mmol/L Carbon Dioxide 21 L (22-30) mmol/L BUN 29 H (9-20) mg/dL Creatinine 1.3 (0.8-1.5) mg/dL Glucose 251 H (75-100) mg/dL Calcium 8.1 L (8.4-10.2) mg/dL Calcium panel 05/17/19 Range/Units Unknown Calcium 8.1 L (8.4-10.2) mg/dL Phosphorus 2.10 L (2.5-4.5) mg/dL Pituitary panel 05/17/19 Range/Units Unknown Sodium 138 (137-145) mmol/L Potassium 3.5 L (3.6-5.0) mmol/L Chloride 106.9 (98-107) mmol/L Carbon Dioxide 21 L (22-30) mmol/L BUN 29 H (9-20) mg/dL Creatinine 1.3 (0.8-1.5) mg/dL Glucose 251 H (75-100) mg/dL Calcium 8.1 L (8.4-10.2) mg/dL Adrenal panel 05/17/19 Range/Units Unknown Sodium 138 (137-145) mmol/L Potassium 3.5 L (3.6-5.0) mmol/L Chloride 106.9 (98-107) mmol/L Carbon Dioxide 21 L (22-30) mmol/L BUN 29 H (9-20) mg/dL Creatinine 1.3 (0.8-1.5) mg/dL Glucose 251 H (75-100) mg/dL Calcium 8.1 L (8.4-10.2) mg/dL
[2019-05-17] MEDS ORDERED: LACTATED RINGERS 1,000 ML IV SCH (13:00)
[2019-05-17] MEDS: MORPHINE 2 MG/1 ML INJ IV PRN ×2 (13:13→21:26)
[2019-05-17] MEDS: KETOROLAC 30 MG/1 ML INJ IV SCH ×2 (15:00→18:17)
[2019-05-17] MEDS ORDERED: TOTAL PARENTERAL NUTRITION 2,016 ML IV SCH (20:00)
[2019-05-18] MEDS: KETOROLAC 30 MG/1 ML INJ IV SCH ×4 (00:48→19:38)
[2019-05-18] MEDS: METOPROLOL TARTRATE 5 MG/5 ML INJ IV SCH ×4 (00:49→19:39)
[2019-05-18] MEDS: INSULIN LISPRO 100 UNIT/ML SUB-Q SCH ×4 (01:03→19:41)
[2019-05-18] MEDS: metroNIDAZOLE/NS 500 MG/100 ML 500 MG/100 ML BAG IV SCH ×3 (05:13→22:28)
[2019-05-18] MEDS: HEPARIN 5,000 UNIT/1 ML VIAL SUB-Q SCH ×3 (05:14→22:26)
--- NOTE | 2019-05-18 11:01 | Progress Note ---
Assessment and Plan Assessment and plan: Small bowel obstruction. Patient is s/p Diagnostic laparoscopy converted to exploratory laparotomy, lysis of adhesions, small bowel resection. Continue NPO status. Continue NG tube to low intermittent suction and monitor output. Continue IV fluid hydration. TPN per surgery. Continue with empiric a ntibiotics. Continue with appropriate analgesics for pain control. Internal hernia. Protein calorie malnutrition. TPN. Deconditioning. PT/OT. History Interval history: Patient is s/p diagnostic laparoscopy converted to exploratory laparotomy with lysis of adhesions. Patient states that his abdominal pain is better. Hospitalist Physical - Constitutional Vitals: Temp Pulse Resp BP Pulse Ox 98.2 F 77 18 150/88 97 05/17/19 23:55 05/18/19 06:54 05/17/19 23:55 05/18/19 06:54 05/17/19 23:53 General appearance: Present: no acute distress - EENT Eyes: Present: PERRL, EOM intact ENT: hearing intact, clear oral mucosa, dentition normal - Neck Neck: Present: supple, normal ROM - Respiratory Respiratory effort: normal Respiratory: bilateral: CTA - Cardiovascular Rhythm: regular Heart Sounds: Present: S1 & S2. Absent: gallop, rub - Extremities Extremities: no ischemia, No edema, Full ROM - Abdominal General gastrointestinal: soft, non-distended, normal bowel sounds Localized gastrointestinal: tender: diffuse - Integumentary Integumentary: Present: clear, warm, dry - Neurologic Neurologic: CNII-XII intact, moves all extremities Results - Labs CBC & Chem 7: 05/17/19 Unknown 05/17/19 Unknown Labs: Laboratory Last Values WBC 15.0 K/mm3 (4.5-11.0) H 05/17/19 Unknown RBC 3.14 M/mm3 (3.65-5.03) L 05/17/19 Unknown Hgb 8.7 gm/dl (11.8-15.2) L 05/17/19 Unknown Hct 26.5 % (35.5-45.6) L 05/17/19 Unknown MCV 85 fl (84-94) 05/17/19 Unknown MCH 28 pg (28-32) 05/17/19 Unknown MCHC 33 % (32-34) 05/17/19 Unknown RDW 15.3 % (13.2-15.2) H 05/17/19 Unknown Plt Count 354 K/mm3 (140-440) 05/17/19 Unknown Lymph % (Auto) 7.6 % (13.4-35.0) L 05/17/19 Unknown Patrick % (Auto) 9.1 % (0.0-7.3) H 05/17/19 Unknown Eos % (Auto) 0.7 % (0.0-4.3) 05/17/19 Unknown Baso % (Auto) 0.3 % (0.0-1.8) 05/17/19 Unknown Lymph # 1.1 K/mm3 (1.2-5.4) L 05/17/19 Unknown Patrick # 1.4 K/mm3 (0.0-0.8) H 05/17/19 Unknown Eos # 0.1 K/mm3 (0.0-0.4) 05/17/19 Unknown Baso # 0.0 K/mm3 (0.0-0.1) 05/17/19 Unknown Seg Neutrophils % 82.3 % (40.0-70.0) H 05/17/19 Unknown Seg Neutrophils # 12.3 K/mm3 (1.8-7.7) H 05/17/19 Unknown PT 14.3 Sec. (12.2-14.9) 05/14/19 13:21 INR 1.12 (0.87-1.13) 05/14/19 13:21 APTT 28.7 Sec. (24.2-36.6) 05/14/19 13:21 Sodium 138 mmol/L (137-145) 05/17/19 Unknown Potassium 3.5 mmol/L (3.6-5.0) L 05/17/19 Unknown Chloride 106.9 mmol/L (98-107) 05/17/19 Unknown Carbon Dioxide 21 mmol/L (22-30) L 05/17/19 Unknown Anion Gap 14 mmol/L 05/17/19 Unknown BUN 29 mg/dL (9-20) H 05/17/19 Unknown Creatinine 1.3 mg/dL (0.8-1.5) 05/17/19 Unknown Estimated GFR > 60 ml/min 05/17/19 Unknown BUN/Creatinine Ratio 22 % 05/17/19 Unknown Glucose 251 mg/dL (75-100) H 05/17/19 Unknown POC Glucose 202 (70-105) H 05/18/19 05:43 Calcium 8.1 mg/dL (8.4-10.2) L 05/17/19 Unknown Phosphorus 2.10 mg/dL (2.5-4.5) L 05/17/19 Unknown Magnesium 1.90 mg/dL (1.7-2.3) 05/17/19 Unknown Total Bilirubin 0.40 mg/dL (0.1-1.2) 05/14/19 12:35 AST 16 units/L (5-40) 05/14/19 12:35 ALT < 5 units/L (7-56) L 05/14/19 12:35 Alkaline Phosphatase 62 units/L (35-129) 05/14/19 12:35 Total Protein 8.7 g/dL (6.3-8.2) H D 05/14/19 12:35 Albumin 2.8 g/dL (3.9-5) L 05/14/19 12:35 Albumin/Globulin Ratio 0.5 % 05/14/19 12:35 Prealbumin 0.057 g/L (0.200-0.400) L 05/15/19 05:28 Urine Color Yellow (Yellow) 05/14/19 12:58 Urine Turbidity Turbid (Clear) 05/14/19 12:58 Urine pH 5.0 (5.0-7.0) 05/14/19 12:58 Ur Specific [place] 1.025 (1.003-1.030) 05/14/19 12:58 Urine Protein 100 mg/dl mg/dL (Negative) 05/14/19 12:58 Urine Glucose (UA) 50 mg/dL (Negative) 05/14/19 12:58 Urine Ketones Tr mg/dL (Negative) 05/14/19 12:58 Urine Blood Lg (Negative) 05/14/19 12:58 Urine Nitrite Neg (Negative) 05/14/19 12:58 Urine Bilirubin Neg (Negative) 05/14/19 12:58 Urine Urobilinogen < 2.0 mg/dL (<2.0) 05/14/19 12:58 Ur Leukocyte Esterase Mod (Negative) 05/14/19 12:58 Urine WBC (Auto) > 182.0 /HPF (0.0-6.0) H 05/14/19 12:58 Urine RBC (Auto) > 182.0 /HPF (0.0-6.0) 05/14/19 12:58 U Epithel Cells (Auto) 2.0 /HPF (0-13.0) 05/14/19 12:58 Urine Bacteria (Auto) 4+ /HPF (Negative) 05/14/19 12:58 Urine Mucus 1+ /HPF 05/14/19 12:58 Urine Yeast (Budding) 3+ /HPF 05/14/19 12:58 Blood Type O POSITIVE 05/14/19 16:50 Antibody Screen Negative 05/14/19 16:50 Crossmatch See Detail 05/14/19 16:50 Active Medications - Current Medications Current Medications: Generic Name Dose Route Start Last Admin Trade Name Freq PRN Reason Stop Dose Admin Dextrose 50 ml 05/14/19 20:04 D50w (25gm) Syringe IV Q30MIN PRN Hypoglycemia Heparin Sodium (Porcine) 5,000 unit 05/14/19 22:00 05/18/19 05:14 Heparin SUB-Q 5,000 unit Q8HR ALANA Administration Hydromorphone HCl 0.5 mg 05/14/19 20:03 05/17/19 18:10 Dilaudid IV 0.5 mg Q4H PRN Administration Pain , Severe (7-10) Levofloxacin/Dextrose 500 mg in 100 mls @ 100 mls/hr 05/15/19 18:00 05/17/19 18:03 Levaquin 500mg/100ml IV 100 mls/hr Q24H ALANA Administration Protocol Metronidazole 500 mg in 100 mls @ 100 mls/hr 05/14/19 22:00 05/18/19 05:13 Flagyl 500 Mg/100 Ml IV 100 mls/hr Q8HR ALANA Administration Protocol Levetiracetam 750 mg/ Dextrose 107.5 mls @ 400 mls/hr 05/15/19 10:00 05/17/19 21:54 IV 400 mls/hr Q12HR ALANA Administration Amino Acids/Electrolytes/Dextrose 2,016 mls @ 84 mls/hr 05/17/19 20:00 05/17/19 20:17 Tpn Adult IV 05/18/19 19:59 84 mls/hr DAILY@2000 ALANA Administration Protocol Insulin Human Lispro 0 unit 05/15/19 00:00 05/18/19 06:52 Humalog SUB-Q 2 unit Q6HR ALANA Administration Protocol Ketorolac Tromethamine 15 mg 05/17/19 13:00 05/18/19 06:53 Toradol IV 05/22/19 12:59 15 mg Q6H ALANA Administration Metoprolol Tartrate 5 mg 05/15/19 00:00 05/18/19 06:54 Metoprolol IV 5 mg Q6HR ALANA Administration Morphine Sulfate 2 mg 05/14/19 20:03 05/17/19 21:26 Morphine IV 2 mg Q4H PRN Administration Pain, Moderate (4-6) Ondansetron HCl 4 mg 05/14/19 20:03 Zofran IV Q8H PRN Nausea And Vomiting Nutrition/Malnutrition Assess - Dietary Evaluation Nutrition/Malnutrition Findings: Nutrition Notes Start: 05/15/19 08:29 Freq: Status: Active Protocol: Document 05/17/19 11:25 JEANNETTE (Rec: 05/17/19 11:29 JEANNETTE SRW- [email or web address]) Nutrition Notes Initial or Follow up Reassessment Current Diagnosis Small Bowel Obstruction Other Pertinent Diagnosis s/p exp lap with lysis of adhesions Current Diet CPN at 84ml/hr Labs/Tests K 3.5 CO2 - 21 BUN 29 BG 251 Phos 2.1 Pertinent Medications Reviewed Height 5 ft 8 in Weight 82.6 kg [place] Body Weight (kg) 70.00 BMI 27.6 Subjective/Other Information Day 3 PN. PN infusing at 84ml /hr. NGT to LIWS. Percent of energy/protein needs met: 41% energy 100% pro Burn Absent Trauma Absent Minimum of two criteria No Fluid Accumulation Mild (non-severe) #2 Nutrition Diagnosis Increased nutrient needs ( specify in comment below) Diagnosis Progress(for reassessment Continues documentation) #1 Nutrition Diagnosis Inadequate oral intake Diagnosis Progress(for reassessment Continues documentation) Is patient on ventilator? No Is Patient Ambulatory and/or Out of Bed No REE-([facility]-confined to bed) 4085.616 Calculation Used for Recommendations [facility] Additional Notes PRO: 100-125g (1.2-1.5g/kg/day ) Fluid: 1ml/kcal Nutrition Intervention Nutrition Support: Continue CPN at 84ml/hr: MVI, Thiamine, 80mEq K, 40mmol Phos , 0%/100% chloride/acetate. Osmolality: 991. Kcal 740 Protein (gm) 100 Carbohydrates (gm) 100 Fat (gm) 0 Fluid (mL) 2,016 Fiber (gm) 0 Goal #1 Meet energy and PRO needs as best as possible via CPN Follow-Up By: 05/18/19 Additional Comments Labs in am: BMP, Mg, Phos
[2019-05-18] MEDS: levETIRAcetam 750 MG in DEXTROSE 5% IN WATER 100 ML IV SCH ×2 (11:15→22:23)
[2019-05-18 11:20] LABS: Basophils % (Auto) 0.2 % (0.0-1.8); Eosinophils # (Auto) 0.2 K/mm3 (0.0-0.4); Eosinophils % (Auto) 1.8 % (0.0-4.3); Hemoglobin 8.5 gm/dl (11.8-15.2); Lymphocytes # (Auto) 0.9 K/mm3 (1.2-5.4); Lymphocytes % (Auto) 9.8 % (13.4-35.0); Mean Corpuscular HGB Conc 34 % (32-34); Mean Corpuscular Volume 83 fl (84-94); Monocytes # (Auto) 1.1 K/mm3 (0.0-0.8); Monocytes % (Auto) 11.5 % (0.0-7.3); Platelet Count 349 K/mm3 (140-440); Red Cell Distribution Width 15.2 % (13.2-15.2)
[2019-05-18 11:40] LABS: BUN/Creatinine Ratio 28; Blood Urea Nitrogen 36 mg/dL (9-20); Calcium 8.3 mg/dL (8.4-10.2); Hemolysis Index 0
--- NOTE | 2019-05-18 15:33 | Progress Note ---
Assessment and Plan 83 yo M s/p Diagnostic laparoscopy converted to exploratory laparotomy, lysis of adhesions, small bowel resection, POD 4 1. SBO 2. Internal hernia 3. malnutrition 4. deconditioning 5. wound infection Plan: 1. NPO 2. NGT to LIWS - record output q shift. ok to clamp to ambulate. Will consider clamp trial tomorrow 3. IVF - per hospitalist 4. randall (chronic) - do not remove - strict I/Os; 5. await bowel function 6. WBC normalized - c/w abx. cultures from wound obtained - will follow up 7. OOB to chair/PT on board 8. PICC line place, TPN until able to resume PO diet 9. NO ORAL MEDS - ALL MEDS CHANGED TO IV 10. incentive spirometry/pulm toilet 11. prn pain control 12. wound care consult in am 13. replace K, repeat BMP in am Will follow. Thank you, please call with questions. Subjective Date of service: 05/18/19 Narrative: Pt seen and examined. c/o pain at the midline incision. + Flatus, no BM. No f/c. Has been up with PT. Objective Vital Signs - 12hr 05/18/19 05/18/19 05/18/19 06:54 09:00 11:19 Temperature 98.0 F 98.0 F Pulse Rate 77 79 77 Respiratory 18 18 Rate Blood Pressure 150/88 143/69 Blood Pressure 143/67 [Left] O2 Sat by Pulse 95 96 Oximetry - General physical appearance Narrative Exam: Gen: AAOx3. NAD ENT: NGT with light bilious fluid in cansiter. All 4 black dots visible.. NGT untaped and push in by 15 cm until only 2 black dots were visible. Positioning confirmed by ausculation. Immediate return of 125 cc of light green drainage. CV: S1, S2+ Resp: even and unlabored Abd: soft, mildly distended, TTP at midline incision. Dressing removed. Purulent drainage at upper portion of incision. Several arminda removed and wound probed. 5 cc of purulent fluid drained. Cavity seems to be limited to upper portion of incision. Wound bed cleansed. Fascial closure intact. Packed with 1 piece of saline moistened gauze. Covered with dry 4x4 gauze and coversite dressing. Other incisions c/d/i with arminda in place. Ext: No c/c/e - Labs 05/18/19 11:11 05/18/19 11:11 Diabetes panel 05/18/19 Range/Units 11:11 Sodium 139 (137-145) mmol/L Potassium 3.5 L (3.6-5.0) mmol/L Chloride 104.8 (98-107) mmol/L Carbon Dioxide 23 (22-30) mmol/L BUN 36 H (9-20) mg/dL Creatinine 1.3 (0.8-1.5) mg/dL Glucose 223 H (75-100) mg/dL Calcium 8.3 L (8.4-10.2) mg/dL Calcium panel 05/18/19 Range/Units 11:11 Calcium 8.3 L (8.4-10.2) mg/dL Phosphorus 3.50 D (2.5-4.5) mg/dL Pituitary panel 05/18/19 Range/Units 11:11 Sodium 139 (137-145) mmol/L Potassium 3.5 L (3.6-5.0) mmol/L Chloride 104.8 (98-107) mmol/L Carbon Dioxide 23 (22-30) mmol/L BUN 36 H (9-20) mg/dL Creatinine 1.3 (0.8-1.5) mg/dL Glucose 223 H (75-100) mg/dL Calcium 8.3 L (8.4-10.2) mg/dL Adrenal panel 05/18/19 Range/Units 11:11 Sodium 139 (137-145) mmol/L Potassium 3.5 L (3.6-5.0) mmol/L Chloride 104.8 (98-107) mmol/L Carbon Dioxide 23 (22-30) mmol/L BUN 36 H (9-20) mg/dL Creatinine 1.3 (0.8-1.5) mg/dL Glucose 223 H (75-100) mg/dL Calcium 8.3 L (8.4-10.2) mg/dL
[2019-05-18] MEDS ORDERED: FAT EMULSIONS 20% 250 ML IV SCH (20:00)
[2019-05-18] MEDS ORDERED: TOTAL PARENTERAL NUTRITION 2,016 ML IV SCH (20:00)
[2019-05-18] MEDS: POTASSIUM CHLORIDE 10 MEQ 10 MEQ/100 ML BAG IV SCH ×2 (21:30→23:51)
[2019-05-18] MEDS: MORPHINE 2 MG/1 ML INJ IV PRN (22:13)
[2019-05-19] MEDS: POTASSIUM CHLORIDE 10 MEQ 10 MEQ/100 ML BAG IV SCH ×2 (00:31→01:38)
[2019-05-19] MEDS: INSULIN LISPRO 100 UNIT/ML SUB-Q SCH ×5 (00:31→23:34)
[2019-05-19] MEDS: METOPROLOL TARTRATE 5 MG/5 ML INJ IV SCH ×4 (01:14→17:48)
[2019-05-19] MEDS: KETOROLAC 30 MG/1 ML INJ IV SCH ×4 (01:37→18:32)
[2019-05-19] MEDS: metroNIDAZOLE/NS 500 MG/100 ML 500 MG/100 ML BAG IV SCH ×2 (05:48→14:01)
[2019-05-19] MEDS: HEPARIN 5,000 UNIT/1 ML VIAL SUB-Q SCH ×3 (05:49→21:40)
[2019-05-19] MEDS: MORPHINE 2 MG/1 ML INJ IV PRN ×3 (05:56→23:04)
[2019-05-19 07:01] LABS: Basophils % (Auto) 0.4 % (0.0-1.8); Eosinophils # (Auto) 0.1 K/mm3 (0.0-0.4); Eosinophils % (Auto) 1.6 % (0.0-4.3); Hematocrit 24.3 % (35.5-45.6); Hemoglobin 8.2 gm/dl (11.8-15.2); Lymphocytes % (Auto) 10.5 % (13.4-35.0); Mean Corpuscular HGB Conc 34 % (32-34); Mean Corpuscular Volume 83 fl (84-94); Monocytes # (Auto) 1.1 K/mm3 (0.0-0.8); Monocytes % (Auto) 12.4 % (0.0-7.3); Platelet Count 339 K/mm3 (140-440); Red Blood Count 2.91 M/mm3 (3.65-5.03); Red Cell Distribution Width 15.1 % (13.2-15.2)
[2019-05-19 09:08] LABS: BUN/Creatinine Ratio 28; Blood Urea Nitrogen 34 mg/dL (9-20); Hemolysis Index 0
[2019-05-19] MEDS: INSULIN NPH/REGULAR 70/30 INJ SUB-Q SCH ×3 (09:08→17:44)
[2019-05-19] MEDS: levETIRAcetam 750 MG in DEXTROSE 5% IN WATER 100 ML IV SCH ×2 (09:48→23:04)
--- NOTE | 2019-05-19 10:12 | Progress Note ---
Assessment and Plan 83 yo M s/p Diagnostic laparoscopy converted to exploratory laparotomy, lysis of adhesions, small bowel resection, POD 5 1. SBO 2. Internal hernia 3. malnutrition 4. deconditioning 5. DM 6. wound infection - patient with multiple risk factors including DM, malnutrition, contamination during surgery Plan: 1. NPO 2. NGT - clamp trial until 1330 3. IVF - per hospitalist 4. randall (chronic) - do not remove - strict I/Os; 5. c/w abx. cultures from wound - enterococcus and gram negative rods, final pending 6. OOB to chair/PT on board 7. PICC line placed, TPN until able to resume PO diet 8. NO ORAL MEDS - ALL MEDS CHANGED TO IV 9. incentive spirometry/pulm toilet 10. prn pain control 11. wound care consult. Will start with dakins packing and evaluate for wound vac Will follow. Thank you, please call with questions. Subjective Date of service: 05/19/19 Narrative: Pt seen and examined. Pain at midline incision. NO f/c. +flatus, no BM. No n/v Objective Vital Signs - 12hr 05/18/19 05/19/19 05/19/19 23:45 04:41 07:20 Temperature 98.2 F 97.6 F 98.4 F Pulse Rate 84 85 89 Respiratory 20 19 18 Rate Blood Pressure 147/72 150/61 173/81 O2 Sat by Pulse 93 98 96 Oximetry - General physical appearance Narrative Exam: Gen: AAOx3. NAD ENT: NGT with light bilious content in container, gastric aspirate in tubing CV: S1, S2+ Resp; even and unlabored Abd: soft, ND, + TTP, hypersensitivity at midline incision. No erythema. There is purulent drainage of packing in upper portion of incision. Packing removed. All arminda removed - 10 cc of purulent fluid expressed. Subcutaneous tissue is healthy appearing. Fascial closure intact. Dry dressing applied Ext: no c/c/e : randall with clear yellow urine - Labs 05/19/19 06:00 05/19/19 08:15 Diabetes panel 05/18/19 05/19/19 Range/Units 11: 08:15 Sodium 139 138 (137-145) mmol/L Potassium 3.5 L 3.8 (3.6-5.0) mmol/L Chloride 104.8 104.7 (98-107) mmol/L Carbon Dioxide 23 25 (22-30) mmol/L BUN 36 H 34 H (9-20) mg/dL Creatinine 1.3 1.2 (0.8-1.5) mg/dL Glucose 223 H 220 H (75-100) mg/dL Calcium 8.3 L 8.0 L (8.4-10.2) mg/dL Calcium panel 05/18/19 05/19/19 Range/Units 11:11 08:15 Calcium 8.3 L 8.0 L (8.4-10.2) mg/dL Phosphorus 3.50 D 3.00 (2.5-4.5) mg/dL Pituitary panel 05/18/19 05/19/19 Range/Units 11:11 08:15 Sodium 139 138 (137-145) mmol/L Potassium 3.5 L 3.8 (3.6-5.0) mmol/L Chloride 104.8 104.7 (98-107) mmol/L Carbon Dioxide 23 25 (22-30) mmol/L BUN 36 H 34 H (9-20) mg/dL Creatinine 1.3 1.2 (0.8-1.5) mg/dL Glucose 223 H 220 H (75-100) mg/dL Calcium 8.3 L 8.0 L (8.4-10.2) mg/dL Adrenal panel 05/18/19 05/19/19 Range/Units 11:11 08:15 Sodium 139 138 (137-145) mmol/L Potassium 3.5 L 3.8 (3.6-5.0) mmol/L Chloride 104.8 104.7 (98-107) mmol/L Carbon Dioxide 23 25 (22-30) mmol/L BUN 36 H 34 H (9-20) mg/dL Creatinine 1.3 1.2 (0.8-1.5) mg/dL Glucose 223 H 220 H (75-100) mg/dL Calcium 8.3 L 8.0 L (8.4-10.2) mg/dL
[2019-05-19] MEDS ORDERED: SODIUM HYPOCHLORITE, DAKIN'S 1/2 STRENGTH (0.25%) 473 ML TOPICAL SOLN TP PRN (11:00)
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
--- NOTE | 2019-05-19 17:15 | Progress Note ---
Assessment and Plan Assessment and plan: --Small bowel obstruction: s/p Diagnostic laparoscopy converted to exploratory laparotomy, lysis of adhes ions, small bowel resection. Clear liquids as tolerated[rec by surg], continue TPN, no oral medications NG tube clamped .Continue IV fluid hydration.on empiric antibiotics. Continue supportive care with pain management --Internal hernia: Surgery following --Protein calorie malnutrition: TPN, clear liquids --Deconditioning. PT/OT. As tolerated --DVT prophylaxis; heparin. Monitor clinically and adjust the management as needed Plan of care reviewed with the patient and his nurse Brush Or Broom Cutter recommendations noted and appreciated History Interval history: Patient seen and examined medical records reviewed Patient feels slightly better, surgery recommended clear liquids No new overnight events reported by the nursing Patient is alert awake responding appropriately Vital signs noted Hospitalist Physical - Constitutional Vitals: Temp Pulse Resp BP Pulse Ox 98.2 F 77 18 151/79 97 05/19/19 15:39 05/19/19 15:39 05/19/19 15:39 05/19/19 15:39 05/19/19 15:39 General appearance: Present: no acute distress, well-nourished - EENT Eyes: Present: PERRL, EOM intact - Neck Neck: Present: supple, normal ROM - Respiratory Respiratory effort: normal Respiratory: bilateral: diminished, negative: rales, rhonchi, wheezing - Cardiovascular Rhythm: regular Heart Sounds: Present: S1 & S2 - Extremities Extremities: no ischemia, No edema - Abdominal General gastrointestinal: soft, non-tender, non-distended, hypoactive bowel sounds, other (Surgical dressing in place) - Integumentary Integumentary: Present: clear, warm - Psychiatric Psychiatric: appropriate mood/affect, cooperative - Neurologic Neurologic: CNII-XII intact, moves all extremities Results - Labs CBC & Chem 7: 05/19/19 06:00 05/19/19 08:15 Labs: Laboratory Last Values WBC 9.2 K/mm3 (4.5-11.0) 05/19/19 06:00 RBC 2.91 M/mm3 (3.65-5.03) L 05/19/19 06:00 Hgb 8.2 gm/dl (11.8-15.2) L 05/19/19 06:00 Hct 24.3 % (35.5-45.6) L 05/19/19 06:00 MCV 83 fl (84-94) L 05/19/19 06:00 MCH 28 pg (28-32) 05/19/19 06:00 MCHC 34 % (32-34) 05/19/19 06:00 RDW 15.1 % (13.2-15.2) 05/19/19 06:00 Plt Count 339 K/mm3 (140-440) 05/19/19 06:00 Lymph % (Auto) 10.5 % (13.4-35.0) L 05/19/19 06:00 [place] % (Auto) 12.4 % (0.0-7.3) H 05/19/19 06:00 Eos % (Auto) 1.6 % (0.0-4.3) 05/19/19 06:00 Baso % (Auto) 0.4 % (0.0-1.8) 05/19/19 06:00 Lymph # 1.0 K/mm3 (1.2-5.4) L 05/19/19 06:00 [place] # 1.1 K/mm3 (0.0-0.8) H 05/19/19 06:00 Eos # 0.1 K/mm3 (0.0-0.4) 05/19/19 06:00 Baso # 0.0 K/mm3 (0.0-0.1) 05/19/19 06:00 Seg Neutrophils % 75.1 % (40.0-70.0) H 05/19/19 06:00 Seg Neutrophils # 6.9 K/mm3 (1.8-7.7) 05/19/19 06:00 PT 14.3 Sec. (12.2-14.9) 05/14/19 13:21 INR 1.12 (0.87-1.13) 05/14/19 13:21 APTT 28.7 Sec. (24.2-36.6) 05/14/19 13:21 Sodium 138 mmol/L (137-145) 05/19/19 08:15 Potassium 3.8 mmol/L (3.6-5.0) 05/19/19 08:15 Chloride 104.7 mmol/L (98-107) 05/19/19 08:15 Carbon Dioxide 25 mmol/L (22-30) 05/19/19 08:15 Anion Gap 12 mmol/L 05/19/19 08:15 BUN 34 mg/dL (9-20) H 05/19/19 08:15 Creatinine 1.2 mg/dL (0.8-1.5) 05/19/19 08:15 Estimated GFR > 60 ml/min 05/19/19 08:15 BUN/Creatinine Ratio 28 % 05/19/19 08:15 Glucose 220 mg/dL (75-100) H 05/19/19 08:15 POC Glucose 259 (70-105) H 05/19/19 12:06 Calcium 8.0 mg/dL (8.4-10.2) L 05/19/19 08:15 Phosphorus 3.00 mg/dL (2.5-4.5) 05/19/19 08:15 Magnesium 2.10 mg/dL (1.7-2.3) 05/18/19 11:11 Total Bilirubin 0.40 mg/dL (0.1-1.2) 05/14/19 12:35 AST 16 units/L (5-40) 05/14/19 12:35 ALT < 5 units/L (7-56) L 05/14/19 12:35 Alkaline Phosphatase 62 units/L (35-129) 05/14/19 12:35 Total Protein 8.7 g/dL (6.3-8.2) H D 05/14/19 12:35 Albumin 2.8 g/dL (3.9-5) L 05/14/19 12:35 Albumin/Globulin Ratio 0.5 % 05/14/19 12:35 Prealbumin 0.057 g/L (0.200-0.400) L 05/15/19 05:28 Urine Color Yellow (Yellow) 05/14/19 12:58 Urine Turbidity Turbid (Clear) 05/14/19 12:58 Urine pH 5.0 (5.0-7.0) 05/14/19 12:58 Ur Specific [place] 1.025 (1.003-1.030) 05/14/19 12:58 Urine Protein 100 mg/dl mg/dL (Negative) 05/14/19 12:58 Urine Glucose (UA) 50 mg/dL (Negative) 05/14/19 12:58 Urine Ketones Tr mg/dL (Negative) 05/14/19 12:58 Urine Blood Lg (Negative) 05/14/19 12:58 Urine Nitrite Neg (Negative) 05/14/19 12:58 Urine Bilirubin Neg (Negative) 05/14/19 12:58 Urine Urobilinogen < 2.0 mg/dL (<2.0) 05/14/19 12:58 Ur Leukocyte Esterase Mod (Negative) 05/14/19 12:58 Urine WBC (Auto) > 182.0 /HPF (0.0-6.0) H 05/14/19 12:58 Urine RBC (Auto) > 182.0 /HPF (0.0-6.0) 05/14/19 12:58 U Epithel Cells (Auto) 2.0 /HPF (0-13.0) 05/14/19 12:58 Urine Bacteria (Auto) 4+ /HPF (Negative) 05/14/19 12:58 Urine Mucus 1+ /HPF 05/14/19 12:58 Urine Yeast (Budding) 3+ /HPF 05/14/19 12:58 Blood Type O POSITIVE 05/14/19 16:50 Antibody Screen Negative 05/14/19 16:50 Crossmatch See Detail 05/14/19 16:50 Active Medications - Current Medications Current Medications: Generic Name Dose Route Start Last Admin Trade Name Montyq PRN Reason Stop Dose Admin Dextrose 50 ml 05/14/19 20:04 D50w (25gm) Syringe IV Q30MIN PRN Hypoglycemia Heparin Sodium (Porcine) 5,000 unit 05/14/19 22:00 05/19/19 14:10 Heparin SUB-Q 5,000 unit Q8HR ALANA Administration Hydromorphone HCl 0.5 mg 05/14/19 20:03 05/17/19 18:10 Dilaudid IV 0.5 mg Q4H PRN Administration Pain , Severe (7-10) Levofloxacin/Dextrose 500 mg in 100 mls @ 100 mls/hr 05/15/19 18:00 05/18/19 19:38 Levaquin 500mg/100ml IV 100 mls/hr Q24H ALANA Administration Protocol Metronidazole 500 mg in 100 mls @ 100 mls/hr 05/14/19 22:00 05/19/19 14:01 Flagyl 500 Mg/100 Ml IV 100 mls/hr Q8HR ALANA Administration Protocol Levetiracetam 750 mg/ Dextrose 107.5 mls @ 400 mls/hr 05/15/19 10:00 05/19/19 09:48 IV 400 mls/hr Q12HR ALANA Administration Amino Acids/Electrolytes/Dextrose 2,016 mls @ 84 mls/hr 05/18/19 20:00 05/18/19 21:53 Tpn Adult IV 05/19/19 19:59 84 mls/hr DAILY@1999 ALANA Administration Protocol Amino Acids/Electrolytes/Dextrose 2,016 mls @ 84 mls/hr 05/19/19 20:00 Tpn Adult IV 05/20/19 19:59 DAILY@1999 ALANA Protocol Insulin Human Isoph/Insulin Regular 5 unit 05/19/19 08:00 05/19/19 09:20 Humulin 70/30 SUB-Q 5 unit BIDDIAB ALANA Administration Insulin Human Lispro 0 unit 05/15/19 00:00 05/19/19 12:25 Humalog SUB-Q 3 unit Q6HR ALANA Administration Protocol Ketorolac Tromethamine 15 mg 05/17/19 13:00 05/19/19 14:01 Toradol IV 05/22/19 12:59 15 mg Q6H ALANA Administration Metoprolol Tartrate 5 mg 05/15/19 00:00 05/19/19 11:46 Metoprolol IV 5 mg Q6HR ALANA Administration Morphine Sulfate 2 mg 05/14/19 20:03 05/19/19 09:44 Morphine IV 2 mg Q4H PRN Administration Pain, Moderate (4-6) Ondansetron HCl 4 mg 05/14/19 20:03 Zofran IV Q8H PRN Nausea And Vomiting Sodium Hypochlorite 1 applic 05/19/19 11:00 Dakin's Half Strength TP Q12H PRN Wound Care Nutrition/Malnutrition Assess - Dietary Evaluation Nutrition/Malnutrition Findings: Nutrition Notes Start: 05/15/19 08:29 Freq: Status: Active Protocol: Document 05/19/19 10:46 RS (Rec: 05/19/19 11:31 RS [email or web address]) Co-Sign 05/19/19 10:46 LP Nutrition Notes Initial or Follow up Reassessment Current Diagnosis Acute Kidney Injury,Diabetes, Hypertension,Small Bowel Obstruction,Stroke Other Pertinent Diagnosis s/p exp lap with lysis of adhesions Current Diet CPN at 84ml/hr Labs/Tests K: 3.8 B Pertinent Medications reviewed Height 5 ft 8 in Weight 82.6 kg [place] Body Weight (kg) 70.00 BMI 27.6 Subjective/Other Information Day 5 CPN. Infusing at 84mL/hr . NGT to LIWS with 250cc. output. Percent of energy/protein needs met: 69% kcal and 100% PRO Burn Absent Trauma Absent Minimum of two criteria No Fluid Accumulation Mild (non-severe) #2 Nutrition Diagnosis Increased nutrient needs ( specify in comment below) Diagnosis Progress(for reassessment Continues documentation) #1 Nutrition Diagnosis Inadequate oral intake Diagnosis Progress(for reassessment Continues documentation) Is patient on ventilator? No Is Patient Ambulatory and/or Out of Bed No [place] [phone] Calculation Used for Recommendations [facility] Additional Notes PRO: 100-125g (1.2-1.5g/kg/day ) Fluid: 1ml/kcal Nutrition Intervention Change Diet Order: CPN Nutrition Support: Continue CPN at 84ml/hr: 7% dextrose, MVI, Osmolality: 1146. Kcal 910 Protein (gm) 100 Carbohydrates (gm) 150 Fat (gm) 0 Fluid (mL) 2,016 Fiber (gm) 0 Goal #1 Meet energy and PRO needs as best as possible via CPN Anticipated Discharge Needs: Unable to determine at this time Follow-Up By: 05/20/19 Additional Comments Labs in AM: BMP, phos
[2019-05-19] MEDS: PIPERACIL/TAZOBACTA 4.5/NS 100 4.5 GM/100 ML VIAL IV SCH ×2 (18:32→23:04)
[2019-05-19] MEDS ORDERED: TOTAL PARENTERAL NUTRITION 2,016 ML IV SCH (20:00)
[2019-05-20] MEDS: KETOROLAC 30 MG/1 ML INJ IV SCH ×5 (03:44→22:39)
[2019-05-20] MEDS: MORPHINE 2 MG/1 ML INJ IV PRN (05:16)
[2019-05-20] MEDS: PIPERACIL/TAZOBACTA 4.5/NS 100 4.5 GM/100 ML VIAL IV SCH ×2 (05:17→13:23)
[2019-05-20] MEDS: HEPARIN 5,000 UNIT/1 ML VIAL SUB-Q SCH ×3 (05:20→23:00)
[2019-05-20 05:28] LABS: BUN/Creatinine Ratio 30; Blood Urea Nitrogen 33 mg/dL (9-20); Calcium 7.6 mg/dL (8.4-10.2); Hemolysis Index 0
[2019-05-20] MEDS: INSULIN LISPRO 100 UNIT/ML SUB-Q SCH ×4 (07:49→22:57)
[2019-05-20] MEDS: METOPROLOL TARTRATE 5 MG/5 ML INJ IV SCH ×2 (07:51)
[2019-05-20] MEDS: INSULIN NPH/REGULAR 70/30 INJ SUB-Q SCH ×2 (10:03→18:01)
[2019-05-20] MEDS: levETIRAcetam 750 MG in DEXTROSE 5% IN WATER 100 ML IV SCH (10:07)
--- NOTE | 2019-05-20 14:30 | Progress Note ---
Assessment and Plan 83 yo M s/p Diagnostic laparoscopy converted to exploratory laparotomy, lysis of adhesions, small bowel resection, POD 6 1. SBO 2. Internal hernia 3. malnutrition 4. deconditioning 5. DM 6. wound infection - patient with multiple risk factors including DM, malnutrition, contamination during surgery Plan: 1. continue clear liquids - will add protein supplements. Pt encouraged to go slowly. At baseline he did not have an appetite for a month or so prior to surgery. 2. IVF - per hospitalist 3. randall (chronic) - do not remove - strict I/Os; 4. will obtain KUB for post op abdominal pain, although most likely related to incision. 5. c/w abx. cultures from wound - enterococcus and ecoli, final pending. ID on board 6. OOB to chair/PT on board 7. PICC line placed, TPN until able to resume PO diet 8. ok to resume PO home meds 9. incentive spirometry/pulm toilet 10. prn pain control 11. in service educator on board. Dakins packing, eventual wound vac if patient can tolerate. Will follow. Thank you, please call with questions. Subjective Date of service: 05/20/19 Narrative: Pt seen and examined. States he feels ok. Per nursing patient tolerated clear liquids very well yesterday and today is not drinking as much. No f/c. No n/v. + Flatus, no BM. He c/o pain near the midline incision. Objective Vital Signs - 12hr 05/20/19 05/20/19 05/20/19 03:44 04:36 04:41 Temperature 98.0 F Pulse Rate 78 79 Respiratory 17 18 Rate Blood Pressure 180/87 O2 Sat by Pulse 97 100 Oximetry 05/20/19 05/20/19 05/20/19 05:16 05:46 07:48 Temperature 97.9 F Pulse Rate 82 Respiratory 17 17 18 Rate Blood Pressure 183/91 O2 Sat by Pulse 98 Oximetry 05/20/19 05/20/19 05/20/19 07:51 08:13 11:32 Temperature 98.1 F Pulse Rate 82 72 Respiratory 16 18 Rate Blood Pressure 183/91 171/75 O2 Sat by Pulse 97 Oximetry - General physical appearance Narrative Exam: Gen: AAOx3. NAD CV: S1, S2+ Resp: even and unlabored Abd: soft, ND, moderate TTP near midline incision. Dressing and packing removed. Wound bed healthy. Small hematoma near umbilical portion of wound. No drainage. Fascial closure intact. Cleansed with wound cleanser and packed with dakins moistened gazue (2 pieces), covered with dry 4x4 gauze and coversite dressing. Other incisions c/d/i with arminda in place. Ext: no c/c/e : randall with yellow urine - Labs 05/19/19 06:00 05/20/19 05:00 Diabetes panel 05/20/19 Range/Units 05:00 Sodium 137 (137-145) mmol/L Potassium 5.0 D (3.6-5.0) mmol/L Chloride 101.2 (98-107) mmol/L Carbon Dioxide 27 (22-30) mmol/L BUN 33 H (9-20) mg/dL Creatinine 1.1 (0.8-1.5) mg/dL Glucose 192 H (75-100) mg/dL Calcium 7.6 L (8.4-10.2) mg/dL Calcium panel 05/20/19 Range/Units 05:00 Calcium 7.6 L (8.4-10.2) mg/dL Phosphorus 4.10 D (2.5-4.5) mg/dL Pituitary panel 05/20/19 Range/Units 05:00 Sodium 137 (137-145) mmol/L Potassium 5.0 D (3.6-5.0) mmol/L Chloride 101.2 (98-107) mmol/L Carbon Dioxide 27 (22-30) mmol/L BUN 33 H (9-20) mg/dL Creatinine 1.1 (0.8-1.5) mg/dL Glucose 192 H (75-100) mg/dL Calcium 7.6 L (8.4-10.2) mg/dL Adrenal panel 05/20/19 Range/Units 05:00 Sodium 137 (137-145) mmol/L Potassium 5.0 D (3.6-5.0) mmol/L Chloride 101.2 (98-107) mmol/L Carbon Dioxide 27 (22-30) mmol/L BUN 33 H (9-20) mg/dL Creatinine 1.1 (0.8-1.5) mg/dL Glucose 192 H (75-100) mg/dL Calcium 7.6 L (8.4-10.2) mg/dL
--- NOTE | 2019-05-20 15:42 | Progress Note ---
Assessment and Plan Cultures: 05/18/19 surgical culture - Enterococcus species and GNR 05/17/19 urine cultures - Zuri A/P: 83 yo M PMHx HTN DM2 admitted with an internal hernia causing an SBO, now with wound infection 1. Wound infection with ESBL E coli and Enterococcus - recommend changing from pip-tazo to meropenem. Meropenem is more effective against Enterococcus than ertapenem, though it is more broad unfortunately. Expect 10-14 day course of effective therapy. 2. DM2 - tight glycemic control for improved wound healing, likely contributing to his development of the wound infection. 3. SBO - s/p surgical fix. 4. Candiduria - Zuri in the urine rarely represents a pathogen outside of fungemia/pyelonephritis. Likely represents overgrowth from antibiotic administration and does not require treatment. Recs: - Stop Zosyn - Start meropenem 500mg q6h - expect 10-14 day course of antibiotics pending improvement. Will need to be discharged with PICC line. Will ensure he tolerates medication, then order + case management. Thank you for the consult, we will continue to follow. Beck Lara MD [facility] ([facility]) M: [phone] O: [phone] F: [phone] Subjective Date of service: 05/20/19 Interval history: No acute change today, still some mild abdominal pain. Objective - Exam Narrative Exam: Physical Exam: Constitutional: Alert, cooperative. No acute distress Head, Ears, Nose: Normocephalic, atraumatic. External ears, nose normal Eyes: Conjunctivae/corneas clear. No icterus. No ptosis. Neck: Supple, no meningeal signs Oral: dentition fair, no thrush Cardiovascular: S1, S2 normal. Respiratory: Good air entry, clear to auscultation bilaterally GI: Soft, +tender; bowel sounds normal. No peritoneal signs. Musculoskeletal: No pedal edema, no cyanosis. Skin: No rash or abscess Hem/Lymphatic: No palpable cervical or supraclavicular nodes. No lymphangitis Psych: Mood ok. Affect normal Neurological: Awake, alert, oriented. No gross abnormality - Constitutional Vitals: Vital Signs Temp Pulse Resp BP Pulse Ox 98.1 F 72 18 171/75 97 05/20/19 11:32 05/20/19 11:32 05/20/19 11:32 05/20/19 11:32 05/20/19 11:32 Temperature -Last 24 Hours Temperature 98.1 F Temperature 97.9 F Temperature 98.0 F Temperature 98.2 F Temperature 98.1 F - Labs CBC & Chem 7: 05/19/19 06:00 05/20/19 05:00 Labs: Abnormal lab results 05/19/19 05/19/19 05/20/19 Range/Units 18:03 23:04 05:00 BUN 33 H (9-20) mg/dL Glucose 192 H (75-100) mg/dL POC Glucose 240 H 188 H (70-105) Calcium 7.6 L (8.4-10.2) mg/dL 05/20/19 05/20/19 Range/Units 06:45 11:42 BUN (9-20) mg/dL Glucose (75-100) mg/dL POC Glucose 210 H 248 H (70-105) Calcium (8.4-10.2) mg/dL
--- NOTE | 2019-05-20 16:12 | Progress Note ---
Assessment and Plan Assessment and plan: --Small bowel obstruction: s/p Diagnostic laparoscopy converted to exploratory laparotomy, lysis of adhes ions, small bowel resection. Clear liquids as tolerated[rec by surg], continue TPN, IV fluid hydration.on empiric antibiotics. Continue supportive care with pain management --Internal hernia: Surgery following --Protein calorie malnutrition: TPN, clear liquids --Wound infection;E Coli,Enterococcus and gena continue antibiotics per ID --Chronic indwelling randall:Supportive care --Deconditioning. PT/OT. As tolerated --DVT prophylaxis; heparin. Monitor clinically and adjust the management as needed consults and Rec noted and appreciated Plan of care reviewed with the patient and his nurse [employer] recommendations noted and appreciated History Interval history: Seen and examined medical records reviewed Patient feels slightly better Tolerating clear liquids No new complaints vital signs reviewed Hospitalist Physical - Constitutional Vitals: Temp Pulse Resp BP Pulse Ox 98.1 F 72 18 171/75 97 05/20/19 11:32 05/20/19 11:32 05/20/19 11:32 05/20/19 11:32 05/20/19 11:32 General appearance: Present: no acute distress, well-nourished - EENT Eyes: Present: PERRL, EOM intact - Neck Neck: Present: supple, normal ROM - Respiratory Respiratory effort: normal Respiratory: bilateral: diminished, negative: rales, rhonchi, wheezing - Cardiovascular Rhythm: regular Heart Sounds: Present: S1 & S2 - Extremities Extremities: no ischemia, No edema - Abdominal General gastrointestinal: soft, non-tender, non-distended, normal bowel sounds - Integumentary Integumentary: Present: clear, warm - Psychiatric Psychiatric: appropriate mood/affect, cooperative - Neurologic Neurologic: moves all extremities Results - Labs CBC & Chem 7: 05/19/19 06:00 05/20/19 05:00 Labs: Laboratory Last Values WBC 9.2 K/mm3 (4.5-11.0) 05/19/19 06:00 RBC 2.91 M/mm3 (3.65-5.03) L 05/19/19 06:00 Hgb 8.2 gm/dl (11.8-15.2) L 05/19/19 06:00 Hct 24.3 % (35.5-45.6) L 05/19/19 06:00 MCV 83 fl (84-94) L 05/19/19 06:00 MCH 28 pg (28-32) 05/19/19 06:00 MCHC 34 % (32-34) 05/19/19 06:00 RDW 15.1 % (13.2-15.2) 05/19/19 06:00 Plt Count 339 K/mm3 (140-440) 05/19/19 06:00 Lymph % (Auto) 10.5 % (13.4-35.0) L 05/19/19 06:00 [place] % (Auto) 12.4 % (0.0-7.3) H 05/19/19 06:00 Eos % (Auto) 1.6 % (0.0-4.3) 05/19/19 06:00 Baso % (Auto) 0.4 % (0.0-1.8) 05/19/19 06:00 Lymph # 1.0 K/mm3 (1.2-5.4) L 05/19/19 06:00 [place] # 1.1 K/mm3 (0.0-0.8) H 05/19/19 06:00 Eos # 0.1 K/mm3 (0.0-0.4) 05/19/19 06:00 Baso # 0.0 K/mm3 (0.0-0.1) 05/19/19 06:00 Seg Neutrophils % 75.1 % (40.0-70.0) H 05/19/19 06:00 Seg Neutrophils # 6.9 K/mm3 (1.8-7.7) 05/19/19 06:00 PT 14.3 Sec. (12.2-14.9) 05/14/19 13:21 INR 1.12 (0.87-1.13) 05/14/19 13:21 APTT 28.7 Sec. (24.2-36.6) 05/14/19 13:21 Sodium 137 mmol/L (137-145) 05/20/19 05:00 Potassium 5.0 mmol/L (3.6-5.0) D 05/20/19 05:00 Chloride 101.2 mmol/L (98-107) 05/20/19 05:00 Carbon Dioxide 27 mmol/L (22-30) 05/20/19 05:00 Anion Gap 14 mmol/L 05/20/19 05:00 BUN 33 mg/dL (9-20) H 05/20/19 05:00 Creatinine 1.1 mg/dL (0.8-1.5) 05/20/19 05:00 Estimated GFR > 60 ml/min 05/20/19 05:00 BUN/Creatinine Ratio 30 % 05/20/19 05:00 Glucose 192 mg/dL (75-100) H 05/20/19 05:00 POC Glucose 248 (70-105) H 05/20/19 11:42 Calcium 7.6 mg/dL (8.4-10.2) L 05/20/19 05:00 Phosphorus 4.10 mg/dL (2.5-4.5) D 05/20/19 05:00 Magnesium 2.10 mg/dL (1.7-2.3) 05/18/19 11:11 Total Bilirubin 0.40 mg/dL (0.1-1.2) 05/14/19 12:35 AST 16 units/L (5-40) 05/14/19 12:35 ALT < 5 units/L (7-56) L 05/14/19 12:35 Alkaline Phosphatase 62 units/L (35-129) 05/14/19 12:35 Total Protein 8.7 g/dL (6.3-8.2) H D 05/14/19 12:35 Albumin 2.8 g/dL (3.9-5) L 05/14/19 12:35 Albumin/Globulin Ratio 0.5 % 05/14/19 12:35 Prealbumin 0.057 g/L (0.200-0.400) L 05/15/19 05:28 Urine Color Yellow (Yellow) 05/14/19 12:58 Urine Turbidity Turbid (Clear) 05/14/19 12:58 Urine pH 5.0 (5.0-7.0) 05/14/19 12:58 Ur Specific [place] 1.025 (1.003-1.030) 05/14/19 12:58 Urine Protein 100 mg/dl mg/dL (Negative) 05/14/19 12:58 Urine Glucose (UA) 50 mg/dL (Negative) 05/14/19 12:58 Urine Ketones Tr mg/dL (Negative) 05/14/19 12:58 Urine Blood Lg (Negative) 05/14/19 12:58 Urine Nitrite Neg (Negative) 05/14/19 12:58 Urine Bilirubin Neg (Negative) 05/14/19 12:58 Urine Urobilinogen < 2.0 mg/dL (<2.0) 05/14/19 12:58 Ur Leukocyte Esterase Mod (Negative) 05/14/19 12:58 Urine WBC (Auto) > 182.0 /HPF (0.0-6.0) H 05/14/19 12:58 Urine RBC (Auto) > 182.0 /HPF (0.0-6.0) 05/14/19 12:58 U Epithel Cells (Auto) 2.0 /HPF (0-13.0) 05/14/19 12:58 Urine Bacteria (Auto) 4+ /HPF (Negative) 05/14/19 12:58 Urine Mucus 1+ /HPF 05/14/19 12:58 Urine Yeast (Budding) 3+ /HPF 05/14/19 12:58 Blood Type O POSITIVE 05/14/19 16:50 Antibody Screen Negative 05/14/19 16:50 Crossmatch See Detail 05/14/19 16:50 Active Medications - Current Medications Current Medications: Generic Name Dose Route Start Last Admin Trade Name Freq PRN Reason Stop Dose Admin Atorvastatin Calcium 40 mg 05/20/19 22:00 Lipitor PO QHS [facility] Carvedilol 3.125 mg 05/20/19 22:00 Coreg PO BID ALANA Dextrose 50 ml 05/14/19 20:04 D50w (25gm) Syringe IV Q30MIN PRN Hypoglycemia Heparin Sodium (Porcine) 5,000 unit 05/14/19 22:00 05/20/19 13:20 Heparin SUB-Q 5,000 unit Q8HR ALANA Administration Hydromorphone HCl 0.5 mg 05/14/19 20:03 05/17/19 18:10 Dilaudid IV 0.5 mg Q4H PRN Administration Pain , Severe (7-10) Amino Acids/Electrolytes/Dextrose 2,016 mls @ 84 mls/hr 05/19/19 20:00 05/19/19 21:41 Tpn Adult IV 05/20/19 19:59 84 mls/hr DAILY@2000 ALANA Administration Protocol Amino Acids/Electrolytes/Dextrose 2,016 mls @ 84 mls/hr 05/20/19 20:00 Tpn Adult IV 05/21/19 19:59 DAILY@1999 [facility] Protocol Fat Emulsion Intravenous 250 mls @ 21 mls/hr 05/20/19 20:00 Intralipid 20% IV 05/21/19 08:00 DAILY@1999 [facility] Meropenem 500 mg in 50 mls @ 50 mls/hr 05/20/19 18:00 Merrem/Ns 500 Mg/50 Ml IV Q6HR [facility] Insulin Human Isoph/Insulin Regular 8 unit 05/20/19 17:00 Humulin 70/30 SUB-Q BIDDIAB [facility] Insulin Human Lispro 0 unit 05/15/19 00:00 05/20/19 07:49 Humalog SUB-Q 2 unit Q6HR [facility] Administration Protocol Ketorolac Tromethamine 15 mg 05/17/19 13:00 05/20/19 13:17 Toradol IV 05/22/19 12:59 15 mg Q6H ALANA Administration Levetiracetam 750 mg 05/20/19 22:00 Keppra PO BID [facility] Morphine Sulfate 2 mg 05/14/19 20:03 05/20/19 05:16 Morphine IV 2 mg Q4H PRN Administration Pain, Moderate (4-6) Ondansetron HCl 4 mg 05/14/19 20:03 Zofran IV Q8H PRN Nausea And Vomiting Sodium Hypochlorite 1 applic 05/19/19 11:00 Dakin's Half Strength TP Q12H PRN Wound Care Tamsulosin HCl 0.4 mg 05/21/19 10:00 Flomax PO QDAY [facility] Nutrition/Malnutrition Assess - Dietary Evaluation Nutrition/Malnutrition Findings: Nutrition Notes Start: 05/15/19 08:29 Freq: Status: Active Protocol: Document 05/20/19 09:33 RS (Rec: 05/20/19 09:40 RS [email or web address]) Co-Sign 05/20/19 09:33 LP Nutrition Notes Initial or Follow up Reassessment Current Diagnosis Acute Kidney Injury,Diabetes, Hypertension,Small Bowel Obstruction,Stroke Other Pertinent Diagnosis s/p exp lap with lysis of adhesions Current Diet CPN at 84ml/hr Labs/Tests K: 5.0 Phos: 4.1 B Pertinent Medications reviewed Height 5 ft 8 in Weight 82.6 kg [place] Body Weight (kg) 70.00 BMI 27.6 Subjective/Other Information Day 6 CPN. Infusing at 84 mL/ hr. NGT to LIWS. Percent of energy/protein needs met: 50% kcal/ 100% PRO Burn Absent Trauma Absent Minimum of two criteria No Fluid Accumulation Mild (non-severe) #2 Nutrition Diagnosis Increased nutrient needs ( specify in comment below) Diagnosis Progress(for reassessment Continues documentation) #1 Nutrition Diagnosis Inadequate oral intake Diagnosis Progress(for reassessment Continues documentation) Is patient on ventilator? No Is Patient Ambulatory and/or Out of Bed No REE-([facility]-confined to bed) [phone] Calculation Used for Recommendations [facility] Additional Notes PRO: 100-125g (1.2-1.5g/kg/day ) Fluid: 1ml/kcal Nutrition Intervention Change Diet Order: CPN Nutrition Support: Continue CPN at 84ml/hr: 60 mEq K, 20 mEq Phos, lipids, MVI, Osmolality: 1096. Kcal 1,410 Protein (gm) 100 Carbohydrates (gm) 150 Fat (gm) 50 Fluid (mL) 2,266 Fiber (gm) 0 Goal #1 Meet energy and PRO needs as best as possible via CPN Anticipated Discharge Needs: Unable to determine at this time Follow-Up By: 05/21/19 Additional Comments Labs in AM: BMP, phos, Mg
--- NOTE | 2019-05-20 16:24 | XRay Report ---
ABDOMEN 1 VIEW(S) INDICATION / CLINICAL INFORMATION: MAIN: post op abdominal pain SURGERY X 1 DAY. COMPARISON: 05/19/2014 FINDINGS: TUBES / LINES: None. BOWEL GAS PATTERN: There is moderate gas throughout large and small bowel loops suggestive of an ileu s. No transition point is identified. FREE AIR / EXTRALUMINAL GAS: None seen. ADDITIONAL FINDINGS: No significant additional findings. IMPRESSION: Probable postoperative ileus. Signer Name: Craig Casarez Jr, MD Signed: 05/20/2019 4:20 PM Workstation Name: [id number]
[2019-05-20] MEDS: MEROPENEM/NS 500 MG/50 ML 500 MG/50 ML BAG IV SCH ×2 (18:01→23:01)
[2019-05-20] MEDS ORDERED: FAT EMULSIONS 20% 250 ML IV SCH (20:00)
[2019-05-20] MEDS ORDERED: TOTAL PARENTERAL NUTRITION 2,016 ML IV SCH (20:00)
[2019-05-20] MEDS: levETIRAcetam 500 MG/5 ML ORAL LIQD PO SCH (22:38)
[2019-05-20] MEDS: carvediloL 3.125 MG TAB PO SCH (22:40)
[2019-05-21] MEDS: KETOROLAC 30 MG/1 ML INJ IV SCH ×4 (02:15→20:48)
[2019-05-21] MEDS: INSULIN LISPRO 100 UNIT/ML SUB-Q SCH ×4 (02:15→18:15)
[2019-05-21] MEDS: MEROPENEM/NS 500 MG/50 ML 500 MG/50 ML BAG IV SCH ×3 (05:28→18:37)
[2019-05-21] MEDS: HEPARIN 5,000 UNIT/1 ML VIAL SUB-Q SCH ×3 (05:28→22:43)
[2019-05-21] MEDS: hydrALAZINE 20 MG/1 ML INJ IV PRN (05:28)
[2019-05-21 05:51] LABS: BUN/Creatinine Ratio 27; Blood Urea Nitrogen 27 mg/dL (9-20); Calcium 6.4 mg/dL (8.4-10.2); Hemolysis Index 3
[2019-05-21] MEDS: levETIRAcetam 500 MG/5 ML ORAL LIQD PO SCH ×3 (08:12→22:43)
[2019-05-21] MEDS: carvediloL 3.125 MG TAB PO SCH ×3 (08:15→22:42)
[2019-05-21] MEDS: TAMSULOSIN 0.4 MG CAP PO SCH ×2 (08:16→10:00)
[2019-05-21] MEDS: INSULIN NPH/REGULAR 70/30 INJ SUB-Q SCH (08:19)
--- NOTE | 2019-05-21 11:20 | Progress Note ---
Assessment and Plan Cultures: 05/18/19 surgical culture - Enterococcus species and GNR 05/17/19 urine cultures - Zuri A/P: 83 yo M PMHx HTN DM2 admitted with an internal hernia causing an SBO, now with wound infection 1. Wound infection with ESBL E coli and Enterococcus - recommend changing from pip-tazo to meropenem. Meropenem is more effective against Enterococcus than ertapenem, though it is more broad unfortunately. Expect 10-14 day course of effective therapy. 2. DM2 - tight glycemic control for improved wound healing, likely contributing to his development of the wound infection. 3. SBO - s/p surgical fix. 4. Candiduria - Zuri in the urine rarely represents a pathogen outside of fungemia/pyelonephritis. Likely represents overgrowth from antibiotic administration and does not require treatment. Recs: - Stop Zosyn - Start meropenem 500mg q6h Stop date 05/27 - 05/30 - expect 10-14 day course of antibiotics pending improvement. Depending on length of stay patient may require PICC line and home antibiotics. - contact isolation Thank you for the consult, we will continue to follow. Beck Lara MD [facility] ([facility]) M: [phone] O: [phone] F: [phone] Subjective Date of service: 05/21/19 Interval history: Afebrile, some pain at surgical site. Cultures with ESBL Objective - Exam Narrative Exam: Physical Exam: Constitutional: Alert, cooperative. No acute distress Head, Ears, Nose: Normocephalic, atraumatic. External ears, nose normal Eyes: Conjunctivae/corneas clear. No icterus. No ptosis. Neck: Supple, no meningeal signs Oral: dentition fair, no thrush Cardiovascular: S1, S2 normal. Respiratory: Good air entry, clear to auscultation bilaterally GI: Soft, +tende, midline abdominal surgery woundr; bowel sounds normal. No peritoneal signs. Musculoskeletal: No pedal edema, no cyanosis. Skin: No rash or abscess Hem/Lymphatic: No palpable cervical or supraclavicular nodes. No lymphangitis Psych: Mood ok. Affect normal Neurological: Awake, alert, oriented. No gross abnormality - Constitutional Vitals: Vital Signs Temp Pulse Resp BP Pulse Ox 98.2 F 97 H 18 155/80 97 11/07/19 08:04 05/21/19 08:15 05/21/19 08:04 05/21/19 08:15 05/21/19 08:04 Temperature -Last 24 Hours Temperature 98.2 F Temperature 98.2 F Temperature 98.7 F Temperature 98.3 F Temperature 98.8 F Temperature 97.9 F Temperature 98.1 F - Labs CBC & Chem 7: 05/19/19 06:00 05/21/19 05:00 Labs: Abnormal lab results 05/20/19 05/20/19 05/20/19 Range/Units 11:42 17:29 22:52 Chloride (98-107) mmol/L BUN (9-20) mg/dL Glucose (75-100) mg/dL POC Glucose 248 H 266 H 177 H (70-105) Calcium (8.4-10.2) mg/dL 05/21/19 05/21/19 Range/Units 05:00 06:55 Chloride 107.7 H (98-107) mmol/L BUN 27 H (9-20) mg/dL Glucose 188 H (75-100) mg/dL POC Glucose 257 H (70-105) Calcium 6.4 L D (8.4-10.2) mg/dL
--- NOTE | 2019-05-21 11:42 | Progress Note ---
Assessment and Plan Assessment and plan: --Small bowel obstruction: s/p Diagnostic laparoscopy converted to exploratory laparotomy, lysis of adhes ions, small bowel resection. Clear liquids , advance as tolerated, continue TPN, IV fluid hydration.on empiric antibiotics. Continue supportive care with pain management --Wound infection;ESBL /E Coli,Enterococcus and gena continue meropenem per ID, contact isolation --Internal hernia: Surgery following --Protein calorie malnutrition: TPN, clear liquids --Chronic indwelling randall:Supportive care --Deconditioning. PT/OT. As tolerated --DVT prophylaxis; heparin. --Full Code Ambulate as tolerated Monitor clinically and adjust the management as needed consults and Rec noted and appreciated Plan of care reviewed with the patient and his nurse History Interval history: Patient's seen and examined medical records reviewed Patient is hesitant to take clear liquids No new overnight events reported by the nursing Patient had flatus and a small bowel movement Mild abdominal pain, no nausea vomiting vital signs reviewed Hospitalist Physical - Constitutional Vitals: Temp Pulse Resp BP Pulse Ox 98.2 F 97 H 18 155/80 97 05/21/19 08:04 05/21/19 08:15 05/21/19 08:04 05/21/19 08:15 05/21/19 08:04 General appearance: Present: no acute distress, well-nourished - EENT Eyes: Present: PERRL, EOM intact - Neck Neck: Present: supple, normal ROM - Respiratory Respiratory effort: normal Respiratory: bilateral: diminished, negative: rales, rhonchi, wheezing - Cardiovascular Rhythm: regular Heart Sounds: Present: S1 & S2 - Extremities Extremities: no ischemia, No edema - Abdominal General gastrointestinal: soft, tender (no guarding no rigidity), normal bowel sounds - Integumentary Integumentary: Present: clear, warm - Psychiatric Psychiatric: appropriate mood/affect, cooperative - Neurologic Neurologic: moves all extremities Results - Labs CBC & Chem 7: 05/19/19 06:00 05/21/19 05:00 Labs: Laboratory Last Values WBC 9.2 K/mm3 (4.5-11.0) 05/19/19 06:00 RBC 2.91 M/mm3 (3.65-5.03) L 05/19/19 06:00 Hgb 8.2 gm/dl (11.8-15.2) L 05/19/19 06:00 Hct 24.3 % (35.5-45.6) L 05/19/19 06:00 MCV 83 fl (84-94) L 05/19/19 06:00 MCH 28 pg (28-32) 05/19/19 06:00 MCHC 34 % (32-34) 05/19/19 06:00 RDW 15.1 % (13.2-15.2) 05/19/19 06:00 Plt Count 339 K/mm3 (140-440) 05/19/19 06:00 Lymph % (Auto) 10.5 % (13.4-35.0) L 05/19/19 06:00 [place] % (Auto) 12.4 % (0.0-7.3) H 05/19/19 06:00 Eos % (Auto) 1.6 % (0.0-4.3) 05/19/19 06:00 Baso % (Auto) 0.4 % (0.0-1.8) 05/19/19 06:00 Lymph # 1.0 K/mm3 (1.2-5.4) L 05/19/19 06:00 [place] # 1.1 K/mm3 (0.0-0.8) H 05/19/19 06:00 Eos # 0.1 K/mm3 (0.0-0.4) 05/19/19 06:00 Baso # 0.0 K/mm3 (0.0-0.1) 05/19/19 06:00 Seg Neutrophils % 75.1 % (40.0-70.0) H 05/19/19 06:00 Seg Neutrophils # 6.9 K/mm3 (1.8-7.7) 05/19/19 06:00 PT 14.3 Sec. (12.2-14.9) 05/14/19 13:21 INR 1.12 (0.87-1.13) 05/14/19 13:21 APTT 28.7 Sec. (24.2-36.6) 05/14/19 13:21 Sodium 137 mmol/L (137-145) 05/21/19 05:00 Potassium 4.0 mmol/L (3.6-5.0) 05/21/19 05:00 Chloride 107.7 mmol/L (98-107) H 05/21/19 05:00 Carbon Dioxide 22 mmol/L (22-30) 05/21/19 05:00 Anion Gap 11 mmol/L 05/21/19 05:00 BUN 27 mg/dL (9-20) H 05/21/19 05:00 Creatinine 1.0 mg/dL (0.8-1.5) 05/21/19 05:00 Estimated GFR > 60 ml/min 05/21/19 05:00 BUN/Creatinine Ratio 27 % 05/21/19 05:00 Glucose 188 mg/dL (75-100) H 05/21/19 05:00 POC Glucose 257 (70-105) H 05/21/19 06:55 Calcium 6.4 mg/dL (8.4-10.2) L D 05/21/19 05:00 Phosphorus 2.90 mg/dL (2.5-4.5) D 05/21/19 05:00 Magnesium 1.70 mg/dL (1.7-2.3) 05/21/19 05:00 Total Bilirubin 0.40 mg/dL (0.1-1.2) 05/14/19 12:35 AST 16 units/L (5-40) 05/14/19 12:35 ALT < 5 units/L (7-56) L 05/14/19 12:35 Alkaline Phosphatase 62 units/L (35-129) 05/14/19 12:35 Total Protein 8.7 g/dL (6.3-8.2) H D 05/14/19 12:35 Albumin 2.8 g/dL (3.9-5) L 05/14/19 12:35 Albumin/Globulin Ratio 0.5 % 05/14/19 12:35 Prealbumin 0.057 g/L (0.200-0.400) L 05/15/19 05:28 Urine Color Yellow (Yellow) 05/14/19 12:58 Urine Turbidity Turbid (Clear) 05/14/19 12:58 Urine pH 5.0 (5.0-7.0) 05/14/19 12:58 Ur Specific [place] 1.025 (1.003-1.030) 05/14/19 12:58 Urine Protein 100 mg/dl mg/dL (Negative) 05/14/19 12:58 Urine Glucose (UA) 50 mg/dL (Negative) 05/14/19 12:58 Urine Ketones Tr mg/dL (Negative) 05/14/19 12:58 Urine Blood Lg (Negative) 05/14/19 12:58 Urine Nitrite Neg (Negative) 05/14/19 12:58 Urine Bilirubin Neg (Negative) 05/14/19 12:58 Urine Urobilinogen < 2.0 mg/dL (<2.0) 05/14/19 12:58 Ur Leukocyte Esterase Mod (Negative) 05/14/19 12:58 Urine WBC (Auto) > 182.0 /HPF (0.0-6.0) H 05/14/19 12:58 Urine RBC (Auto) > 182.0 /HPF (0.0-6.0) 05/14/19 12:58 U Epithel Cells (Auto) 2.0 /HPF (0-13.0) 05/14/19 12:58 Urine Bacteria (Auto) 4+ /HPF (Negative) 05/14/19 12:58 Urine Mucus 1+ /HPF 05/14/19 12:58 Urine Yeast (Budding) 3+ /HPF 05/14/19 12:58 Blood Type O POSITIVE 05/14/19 16:50 Antibody Screen Negative 05/14/19 16:50 Crossmatch See Detail 05/14/19 16:50 Active Medications - Current Medications Current Medications: Generic Name Dose Route Start Last Admin Trade Name Freq PRN Reason Stop Dose Admin Atorvastatin Calcium 40 mg 05/20/19 22:00 05/20/19 22:39 Lipitor PO 40 mg QHS ALANA Administration Carvedilol 3.125 mg 05/20/19 22:00 05/21/19 08:15 Coreg PO 3.125 mg BID ALANA Administration Dextrose 50 ml 05/14/19 20:04 D50w (25gm) Syringe IV Q30MIN PRN Hypoglycemia Heparin Sodium (Porcine) 5,000 unit 05/14/19 22:00 05/21/19 05:28 Heparin SUB-Q 5,000 unit Q8HR ALANA Administration Hydralazine HCl 10 mg 05/21/19 01:44 05/21/19 05:28 Apresoline IV 10 mg Q4H PRN Administration Blood Pressure Hydromorphone HCl 0.5 mg 05/14/19 20:03 05/17/19 18:10 Dilaudid IV 0.5 mg Q4H PRN Administration Pain , Severe (7-10) Amino Acids/Electrolytes/Dextrose 2,016 mls @ 84 mls/hr 05/20/19 20:00 05/20/19 20:53 Tpn Adult IV 05/21/19 19:59 84 mls/hr DAILY@2000 ALANA Administration Protocol Meropenem 500 mg in 50 mls @ 50 mls/hr 05/20/19 18:00 05/21/19 05:28 Merrem/Ns 500 Mg/50 Ml IV 50 mls/hr Q6HR ALANA Administration Insulin Human Isoph/Insulin Regular 10 unit 05/21/19 11:37 Humulin 70/30 SUB-Q BIDDIAB ALANA Insulin Human Lispro 0 unit 05/15/19 00:00 05/21/19 06:57 Humalog SUB-Q 3 unit Q6HR ALANA Administration Protocol Ketorolac Tromethamine 15 mg 05/17/19 13:00 05/21/19 06:55 Toradol IV 05/22/19 12:59 15 mg Q6H ALANA Administration Levetiracetam 750 mg 05/20/19 22:00 05/21/19 08:12 Keppra PO 750 mg BID ALANA Administration Morphine Sulfate 2 mg 05/14/19 20:03 05/20/19 05:16 Morphine IV 2 mg Q4H PRN Administration Pain, Moderate (4-6) Ondansetron HCl 4 mg 05/14/19 20:03 Zofran IV Q8H PRN Nausea And Vomiting Sodium Hypochlorite 1 applic 05/19/19 11:00 Dakin's Half Strength TP Q12H PRN Wound Care Tamsulosin HCl 0.4 mg 05/21/19 10:00 05/21/19 08:16 Flomax PO 0.4 mg QDAY ALANA Administration Nutrition/Malnutrition Assess - Dietary Evaluation Nutrition/Malnutrition Findings: Nutrition Notes Start: 05/15/19 0 8:29 Freq: Status: Active Protocol: Document 05/21/19 09:35 RS (Rec: 05/21/19 09:49 RS [email or web address]) Co-Sign 05/21/19 09:35 Nutrition Notes Initial or Follow up Reassessment Current Diagnosis Acute Kidney Injury,Diabetes, Hypertension,Small Bowel Obstruction,Stroke Other Pertinent Diagnosis s/p exp lap with lysis of adhesions Current Diet CPN at 84ml/hr Labs/Tests K:4.0 Phos: 2.9 M.7 Ca: 6.4 B Pertinent Medications reviewed Height 5 ft 8 in Weight 82.6 kg [place] Body Weight (kg) 70.00 BMI 27.6 Subjective/Other Information Day 7 CPN. Infusing at 84 mL/ hr. NGT to LIWS. Did not order TEP d/t no recent CMP. Percent of energy/protein needs met: 78% kcal/ 100% PRO Burn Absent Trauma Absent Minimum of two criteria No Fluid Accumulation Mild (non-severe) #2 Nutrition Diagnosis Increased nutrient needs ( specify in comment below) Diagnosis Progress(for reassessment Continues documentation) #1 Nutrition Diagnosis Inadequate oral intake Diagnosis Progress(for reassessment Continues documentation) Is patient on ventilator? No Is Patient Ambulatory and/or Out of Bed No REE-([facility]-confined to bed) [phone] Calculation Used for Recommendations [facility] Additional Notes PRO: 100-125g (1.2-1.5g/kg/day ) Fluid: 1ml/kcal Nutrition Intervention Change Diet Order: CPN Nutrition Support: Continue CPN at 84ml/hr: 10% dextrose, 80 mEq K, 30 mEq Phos, 20 mEq Mg, Ca: 30 mEq, MVI, Osmolality: 1250. Kcal 1,080 Protein (gm) 100 Carbohydrates (gm) 200 Fat (gm) 0 Fluid (mL) 2,016 Fiber (gm) 0 Goal #1 Meet energy and PRO needs as best as possible via CPN Anticipated Discharge Needs: Unable to determine at this time Follow-Up By: 05/22/19 Additional Comments Labs in AM: CMP, Phos, Mg s, Mg
--- NOTE | 2019-05-21 13:43 | Progress Note ---
Assessment and Plan 83 yo M s/p Diagnostic laparoscopy converted to exploratory laparotomy, lysis of adhesions, small bowel resection, POD 7 1. SBO 2. Internal hernia 3. malnutrition 4. deconditioning 5. DM 6. wound infection - patient with multiple risk factors including DM, malnutrition, contamination during surgery KUB 05/20/19 - post op ileus Plan: 1. adv to full liquid diet with protein supplements. Pt encouraged to go slowly. At baseline he did not have an appetite for a month or so prior to surgery. 2. IVF - per hospitalist 3. randall (chronic) - do not remove - strict I/Os; 4. repeat CMP and prealbumin tomorrow 5. c/w abx. cultures from wound - enterococcus and ecoli. ID on board 6. OOB to chair/PT on board 7. PICC line placed, continue TPN - patient not taking enough PO to discontinue 8. continue PO home meds 9. incentive spirometry/pulm toilet 10. prn pain control - change to PO 11. information director on board. Dakins packing, will switch to alginate tomorrow. Pt will skin sensitivity near incision and will likely not tolerate wound vac. Rehab placement pending per case management. Will follow. Thank you, please call with questions. Subjective Date of service: 05/21/19 Narrative: Pt seen and examined. States he feels well. Had a soft BM. + Flatus. No n/v. Very poor appetite. States he will try grits. No f/c, cp, sob. Still having pain near midline incision. Objective Vital Signs - 12hr 05/21/19 05/21/19 05/21/19 02:30 04:40 05:28 Temperature 98.2 F Pulse Rate 86 Respiratory 18 Rate Blood Pressure 179/88 179/88 Blood Pressure 166/79 [Left] O2 Sat by Pulse 96 Oximetry 05/21/19 05/21/19 05/21/19 08:04 08:15 12:03 Temperature 98.2 F 98.1 F Pulse Rate 97 H 97 H 97 H Respiratory 18 20 Rate Blood Pressure 155/80 155/80 173/94 Blood Pressure [Left] O2 Sat by Pulse 97 97 Oximetry - General physical appearance Narrative Exam: Gen: AAOx3. NAD CV: s1, S2+ Resp: even and unlabored Abd: soft, ND, + TTP near LUQ incision - no evidence of induration, fluctuance, or erythema. +TTP at lower portion of midline incision. Dressing c/d/i. No surrounding erythema. Ext: no c/c/e - Labs 05/19/19 06:00 05/21/19 05:00 Diabetes panel 05/21/19 Range/Units 05:00 Sodium 137 (137-145) mmol/L Potassium 4.0 (3.6-5.0) mmol/L Chloride 107.7 H (98-107) mmol/L Carbon Dioxide 22 (22-30) mmol/L BUN 27 H (9-20) mg/dL Creatinine 1.0 (0.8-1.5) mg/dL Glucose 188 H (75-100) mg/dL Calcium 6.4 L D (8.4-10.2) mg/dL Calcium panel 05/21/19 Range/Units 05:00 Calcium 6.4 L D (8.4-10.2) mg/dL Phosphorus 2.90 D (2.5-4.5) mg/dL Pituitary panel 05/21/19 Range/Units 05:00 Sodium 137 (137-145) mmol/L Potassium 4.0 (3.6-5.0) mmol/L Chloride 107.7 H (98-107) mmol/L Carbon Dioxide 22 (22-30) mmol/L BUN 27 H (9-20) mg/dL Creatinine 1.0 (0.8-1.5) mg/dL Glucose 188 H (75-100) mg/dL Calcium 6.4 L D (8.4-10.2) mg/dL Adrenal panel 05/21/19 Range/Units 05:00 Sodium 137 (137-145) mmol/L Potassium 4.0 (3.6-5.0) mmol/L Chloride 107.7 H (98-107) mmol/L Carbon Dioxide 22 (22-30) mmol/L BUN 27 H (9-20) mg/dL Creatinine 1.0 (0.8-1.5) mg/dL Glucose 188 H (75-100) mg/dL Calcium 6.4 L D (8.4-10.2) mg/dL
[2019-05-21] MEDS ORDERED: INSULIN NPH/REGULAR 70/30 INJ SUB-Q SCH (17:00)
[2019-05-21] MEDS ORDERED: TOTAL PARENTERAL NUTRITION 2,016 ML IV SCH (20:00)
[2019-05-22] MEDS: INSULIN LISPRO 100 UNIT/ML SUB-Q SCH ×5 (01:13→22:00)
[2019-05-22] MEDS: KETOROLAC 30 MG/1 ML INJ IV SCH ×2 (01:14→06:40)
[2019-05-22] MEDS: MEROPENEM/NS 500 MG/50 ML 500 MG/50 ML BAG IV SCH ×4 (01:15→18:11)
[2019-05-22] MEDS: HEPARIN 5,000 UNIT/1 ML VIAL SUB-Q SCH ×3 (06:35→21:51)
[2019-05-22] MEDS: hydrALAZINE 20 MG/1 ML INJ IV PRN (06:42)
[2019-05-22] MEDS ORDERED: hydrALAZINE 20 MG/1 ML INJ IV NR (08:19)
[2019-05-22] MEDS: INSULIN NPH/REGULAR 70/30 INJ SUB-Q SCH ×2 (09:02→17:09)
[2019-05-22] MEDS: carvediloL 3.125 MG TAB PO SCH ×2 (09:33→22:00)
[2019-05-22] MEDS: levETIRAcetam 500 MG/5 ML ORAL LIQD PO SCH ×3 (09:33→21:51)
[2019-05-22] MEDS: TAMSULOSIN 0.4 MG CAP PO SCH (09:33)
[2019-05-22 10:44] LABS: Albumin 2.1 g/dL (3.9-5); BUN/Creatinine Ratio 28; Blood Urea Nitrogen 31 mg/dL (9-20); Calcium 8.1 mg/dL (8.4-10.2); Hemolysis Index 0; Prealbumin 0.078 g/L (0.200-0.400)
[2019-05-22 10:45] LABS: Alanine Aminotransferase < 5 units/L (7-56)
--- NOTE | 2019-05-22 12:13 | Progress Note ---
Assessment and Plan 83 yo M s/p Diagnostic laparoscopy converted to exploratory laparotomy, lysis of adhesions, small bowel resection, POD 8 1. SBO 2. Internal hernia 3. malnutrition 4. deconditioning 5. DM 6. wound infection - patient with multiple risk factors including DM, malnutrition, contamination during surgery KUB 05/20/19 - post op ileus Plan: 1. clear liquid diet 2. IVF - will add maintenance fluids 3. randall (chronic) - do not remove - strict I/Os; 4. albumin and prealbumin remain low, patient not wanting to eat very much. will need to continue TPN until patient's PO intake improves 5. c/w abx. cultures from wound - enterococcus and ecoli. ID on board 6. OOB to chair/PT on board 7. continue PO home meds 7. incentive spirometry/pulm toilet 8. prn pain control - change to PO 9. general office assistant on board. switch to alginate packing today 10. In light of continued abdominal pain, will obtain CT scan A/P with oral and IV contrast STAT to r/o intraabdominal infection or other source. Rehab placement pending per case management. No family at bedside, will attempt to call patient's this evening Thank you, please call with questions. Subjective Date of service: 05/22/19 Narrative: Pt seen and examined. States he is not feeling well today. Per nursing he refused to get up with PT today. He c/o same abdominal pain he has been having since the day after surgery. No f/c, cp, sob, n/v. He is taking in very little of a PO diet. He had a soft BM today. Objective Vital Signs - 12hr 05/22/19 05/22/19 05/22/19 00:25 04:49 06:27 Temperature 98.1 F 98.2 F Pulse Rate 91 H 91 H Respiratory 17 17 Rate Blood Pressure 160/84 182/92 O2 Sat by Pulse 98 97 Oximetry 05/22/19 05/22/19 05/22/19 06:42 07:36 09:33 Temperature 97.7 F Pulse Rate 91 H 102 H 91 H Respiratory 18 Rate Blood Pressure 182/92 101/54 182/92 O2 Sat by Pulse 97 Oximetry - General physical appearance Narrative Exam: Gen; AAOx3. NAD CV: s1, S2+ Resp: even and unlabored Abd: soft, ND, +TTP in LUQ, and near midline incision. Dressing to midline abdomen c/d/i. 2 left sided incisions c/d/i with arminda in place. Ext: no c/c/e - Labs 05/19/19 06:00 05/22/19 09:25 Diabetes panel 05/22/19 Range/Units 09:25 Sodium 132 L (137-145) mmol/L Potassium 4.7 (3.6-5.0) mmol/L Chloride 99.5 (98-107) mmol/L Carbon Dioxide 22 (22-30) mmol/L BUN 31 H (9-20) mg/dL Creatinine 1.1 (0.8-1.5) mg/dL Glucose 318 H (75-100) mg/dL Calcium 8.1 L D (8.4-10.2) mg/dL AST 15 (5-40) units/L ALT < 5 L (7-56) units/L Alkaline Phosphatase 57 (35-129) units/L Total Protein 7.1 (6.3-8.2) g/dL Albumin 2.1 L (3.9-5) g/dL Calcium panel 05/22/19 05/22/19 Range/Units 09:25 09:25 Calcium 8.1 L D (8.4-10.2) mg/dL Phosphorus 3.00 (2.5-4.5) mg/dL Albumin 2.1 L (3.9-5) g/dL Pituitary panel 05/22/19 Range/Units 09:25 Sodium 132 L (137-145) mmol/L Potassium 4.7 (3.6-5.0) mmol/L Chloride 99.5 (98-107) mmol/L Carbon Dioxide 22 (22-30) mmol/L BUN 31 H (9-20) mg/dL Creatinine 1.1 (0.8-1.5) mg/dL Glucose 318 H (75-100) mg/dL Calcium 8.1 L D (8.4-10.2) mg/dL Adrenal panel 05/22/19 Range/Units 09:25 Sodium 132 L (137-145) mmol/L Potassium 4.7 (3.6-5.0) mmol/L Chloride 99.5 (98-107) mmol/L Carbon Dioxide 22 (22-30) mmol/L BUN 31 H (9-20) mg/dL Creatinine 1.1 (0.8-1.5) mg/dL Glucose 318 H (75-100) mg/dL Calcium 8.1 L D (8.4-10.2) mg/dL Total Bilirubin 0.20 (0.1-1.2) mg/dL AST 15 (5-40) units/L ALT < 5 L (7-56) units/L Alkaline Phosphatase 57 (35-129) units/L Total Protein 7.1 (6.3-8.2) g/dL Albumin 2.1 L (3.9-5) g/dL
--- NOTE | 2019-05-22 12:25 | Progress Note ---
Assessment and Plan Cultures: 05/18/19 surgical culture - Enterococcus species and GNR 05/17/19 urine cultures - Zuri A/P: 83 yo M PMHx HTN DM2 admitted with an internal hernia causing an SBO, now with wound infection 1. Wound infection with ESBL E coli and Enterococcus - recommend changing from pip-tazo to meropenem. Meropenem is more effective against Enterococcus than ertapenem, though it is more broad unfortunately. Expect 10-14 day course of effective therapy. 2. DM2 - tight glycemic control for improved wound healing, likely contributing to his development of the wound infection. 3. SBO - s/p surgical fix. 4. Candiduria - Zuri in the urine rarely represents a pathogen outside of fungemia/pyelonephritis. Likely represents overgrowth from antibiotic administration and does not require treatment. Recs: - Continue meropenem 500mg q6h Stop date 05/30 - expect 10-14 day course of antibiotics pending improvement. Patient already has PICC line. - placed case management consult for homegoing meropenem. - contact isolation Thank you for the consult, we will continue to follow. Beck Lara MD [facility] ([facility]) M: [phone] O: [phone] F: [phone] Subjective Date of service: 05/22/19 Interval history: Afebrile, some pain at surgical site. Objective - Exam Narrative Exam: Physical Exam: Constitutional: Alert, cooperative. No acute distress Head, Ears, Nose: Normocephalic, atraumatic. External ears, nose normal Eyes: Conjunctivae/corneas clear. No icterus. No ptosis. Neck: Supple, no meningeal signs Oral: dentition fair, no thrush Cardiovascular: S1, S2 normal. Respiratory: Good air entry, clear to auscultation bilaterally GI: Soft, +tende, midline abdominal surgery woundr; bowel sounds normal. No peritoneal signs. Musculoskeletal: No pedal edema, no cyanosis. Skin: No rash or abscess Hem/Lymphatic: No palpable cervical or supraclavicular nodes. No lymphangitis Psych: Mood ok. Affect normal Neurological: Awake, alert, oriented. No gross abnormality - Constitutional Vitals: Vital Signs Temp Pulse Resp BP Pulse Ox 97.7 F 91 H 18 182/92 97 05/22/19 07:36 11/08/19 09:33 05/22/19 07:36 05/22/19 09:33 05/22/19 07:36 Temperature -Last 24 Hours Temperature 97.7 F Temperature 98.2 F Temperature 98.1 F Temperature 97.8 F Temperature 98.3 F - Labs CBC & Chem 7: 05/19/19 06:00 05/22/19 09:25 Labs: Abnormal lab results 05/21/19 05/21/19 05/22/19 Range/Units 17:25 19:41 05:54 Sodium (137-145) mmol/L BUN (9-20) mg/dL Glucose (75-100) mg/dL POC Glucose 264 H 221 H 250 H (70-105) Calcium (8.4-10.2) mg/dL ALT (7-56) units/L Albumin (3.9-5) g/dL Prealbumin (0.200-0.400) g/L 05/22/19 Range/Units 09:25 Sodium 132 L (137-145) mmol/L BUN 31 H (9-20) mg/dL Glucose 318 H (75-100) mg/dL POC Glucose (70-105) Calcium 8.1 L D (8.4-10.2) mg/dL ALT < 5 L (7-56) units/L Albumin 2.1 L (3.9-5) g/dL Prealbumin 0.078 L (0.200-0.400) g/L
[2019-05-22] MEDS: CALCIUM CARBONATE 500 MG TAB CHEW PO SCH ×2 (14:15→20:00)
[2019-05-22] MEDS: hydrALAZINE 25 MG TAB PO SCH ×2 (14:25→21:50)
[2019-05-22] MEDS: HYDROcodone/ACETAMINOPHEN 5-325 MG TAB PO PRN (14:35)
--- NOTE | 2019-05-22 15:13 | Progress Note ---
Assessment and Plan Assessment and plan: --Type 2 diabetes mellitus; Accu-Chek sliding scale coverage and ADA diet Insulin, monitor blood sugars and adjust as needed --Small bowel obstruction: s/p Diagnostic laparoscopy converted to exploratory laparotomy, lysis of adhesions, small bowel resection. Clear liquids , advance as tolerated, continue TPN, IV fluid hydration.on empiric antibiotics. Continue supportive care with pain management --Wound infection;ESBL /E Coli,Enterococcus and gena continue meropenem per ID, contact isolation --Internal hernia: Surgery following --Protein calorie malnutrition: TPN, clear liquids --Chronic indwelling randall:Supportive care --Deconditioning. PT/OT. As tolerated --DVT prophylaxis; heparin. --Full Code Ambulate as tolerated Monitor clinically and adjust the management as needed consults and Rec noted and appreciated Plan of care reviewed with the patient and his nurse History Interval history: Patient seen and examined medical records reviewed Patient feels slightly better Hospitalist Physical - Constitutional Vitals: Temp Pulse Resp BP Pulse Ox 97.8 F 94 H 18 174/90 98 05/22/19 11:15 05/22/19 11:15 05/22/19 11:15 05/22/19 11:15 05/22/19 11:15 General appearance: Present: no acute distress, well-nourished - EENT Eyes: Present: PERRL, EOM intact - Neck Neck: Present: supple, normal ROM - Respiratory Respiratory effort: normal Respiratory: bilateral: diminished, negative: rales, rhonchi, wheezing - Cardiovascular Rhythm: regular Heart Sounds: Present: S1 & S2 - Extremities Extremities: no ischemia, No edema Peripheral Pulses: within normal limits - Abdominal General gastrointestinal: soft, non-tender, non-distended, normal bowel sounds - Integumentary Integumentary: Present: clear, warm - Psychiatric Psychiatric: appropriate mood/affect, cooperative - Neurologic Neurologic: moves all extremities Results - Labs CBC & Chem 7: 05/19/19 06:00 05/23/19 06:00 Labs: Laboratory Last Values WBC 9.2 K/mm3 (4.5-11.0) 05/19/19 06:00 RBC 2.91 M/mm3 (3.65-5.03) L 05/19/19 06:00 Hgb 8.2 gm/dl (11.8-15.2) L 05/19/19 06:00 Hct 24.3 % (35.5-45.6) L 05/19/19 06:00 MCV 83 fl (84-94) L 05/19/19 06:00 MCH 28 pg (28-32) 05/19/19 06:00 MCHC 34 % (32-34) 05/19/19 06:00 RDW 15.1 % (13.2-15.2) 05/19/19 06:00 Plt Count 339 K/mm3 (140-440) 05/19/19 06:00 Lymph % (Auto) 10.5 % (13.4-35.0) L 05/19/19 06:00 [place] % (Auto) 12.4 % (0.0-7.3) H 05/19/19 06:00 Eos % (Auto) 1.6 % (0.0-4.3) 05/19/19 06:00 Baso % (Auto) 0.4 % (0.0-1.8) 05/19/19 06:00 Lymph # 1.0 K/mm3 (1.2-5.4) L 05/19/19 06:00 [place] # 1.1 K/mm3 (0.0-0.8) H 05/19/19 06:00 Eos # 0.1 K/mm3 (0.0-0.4) 05/19/19 06:00 Baso # 0.0 K/mm3 (0.0-0.1) 05/19/19 06:00 Seg Neutrophils % 75.1 % (40.0-70.0) H 05/19/19 06:00 Seg Neutrophils # 6.9 K/mm3 (1.8-7.7) 05/19/19 06:00 PT 14.3 Sec. (12.2-14.9) 05/14/19 13:21 INR 1.12 (0.87-1.13) 05/14/19 13:21 APTT 28.7 Sec. (24.2-36.6) 05/14/19 13:21 Sodium 132 mmol/L (137-145) L 05/22/19 09:25 Potassium 4.7 mmol/L (3.6-5.0) 05/22/19 09:25 Chloride 99.5 mmol/L (98-107) 05/22/19 09:25 Carbon Dioxide 22 mmol/L (22-30) 05/22/19 09:25 Anion Gap 15 mmol/L 05/22/19 09:25 BUN 31 mg/dL (9-20) H 05/22/19 09:25 Creatinine 1.1 mg/dL (0.8-1.5) 05/22/19 09:25 Estimated GFR > 60 ml/min 05/22/19 09:25 BUN/Creatinine Ratio 28 % 05/22/19 09:25 Glucose 318 mg/dL (75-100) H 05/22/19 09:25 POC Glucose 250 (70-105) H 05/22/19 05:54 Calcium 8.1 mg/dL (8.4-10.2) L D 05/22/19 09:25 Phosphorus 3.00 mg/dL (2.5-4.5) 05/22/19 09:25 Magnesium 2.10 mg/dL (1.7-2.3) 05/22/19 09:25 Total Bilirubin 0.20 mg/dL (0.1-1.2) 05/22/19 09:25 AST 15 units/L (5-40) 05/22/19 09:25 ALT < 5 units/L (7-56) L 05/22/19 09:25 Alkaline Phosphatase 57 units/L (35-129) 05/22/19 09:25 Total Protein 7.1 g/dL (6.3-8.2) 05/22/19 09:25 Albumin 2.1 g/dL (3.9-5) L 05/22/19 09:25 Albumin/Globulin Ratio 0.4 % 05/22/19 09:25 Prealbumin 0.078 g/L (0.200-0.400) L 05/22/19 09:25 Urine Color Yellow (Yellow) 05/14/19 12:58 Urine Turbidity Turbid (Clear) 05/14/19 12:58 Urine pH 5.0 (5.0-7.0) 05/14/19 12:58 Ur Specific [place] 1.025 (1.003-1.030) 05/14/19 12:58 Urine Protein 100 mg/dl mg/dL (Negative) 05/14/19 12:58 Urine Glucose (UA) 50 mg/dL (Negative) 05/14/19 12:58 Urine Ketones Tr mg/dL (Negative) 05/14/19 12:58 Urine Blood Lg (Negative) 05/14/19 12:58 Urine Nitrite Neg (Negative) 05/14/19 12:58 Urine Bilirubin Neg (Negative) 05/14/19 12:58 Urine Urobilinogen < 2.0 mg/dL (<2.0) 05/14/19 12:58 Ur Leukocyte Esterase Mod (Negative) 05/14/19 12:58 Urine WBC (Auto) > 182.0 /HPF (0.0-6.0) H 05/14/19 12:58 Urine RBC (Auto) > 182.0 /HPF (0.0-6.0) 05/14/19 12:58 U Epithel Cells (Auto) 2.0 /HPF (0-13.0) 05/14/19 12:58 Urine Bacteria (Auto) 4+ /HPF (Negative) 05/14/19 12:58 Urine Mucus 1+ /HPF 05/14/19 12:58 Urine Yeast (Budding) 3+ /HPF 05/14/19 12:58 Blood Type O POSITIVE 05/14/19 16:50 Antibody Screen Negative 05/14/19 16:50 Crossmatch See Detail 05/14/19 16:50 Active Medications - Current Medications Current Medications: Generic Name Dose Route Start Last Admin Trade Name Freq PRN Reason Stop Dose Admin Acetaminophen/Hydrocodone Bitart 1 each 05/21/19 13:43 05/22/19 14:35 Guin 5/325 PO 1 each Q4H PRN Administration Pain, Moderate (4-6) Atorvastatin Calcium 40 mg 05/20/19 22:00 05/21/19 22:41 Lipitor PO 40 mg QHS ALANA Administration Calcium Carbonate/Glycine 500 mg 05/22/19 14:00 05/22/19 14:15 Tums PO 500 mg TID ALANA Administration Carvedilol 3.125 mg 05/20/19 22:00 05/22/19 09:33 Coreg PO 3.125 mg BID ALANA Administration Dextrose 50 ml 05/14/19 20:04 D50w (25gm) Syringe IV Q30MIN PRN Hypoglycemia Heparin Sodium (Porcine) 5,000 unit 05/14/19 22:00 05/22/19 14:29 Heparin SUB-Q 5,000 unit Q8HR ALANA Administration Hydralazine HCl 10 mg 05/21/19 01:44 05/22/19 06:42 Apresoline IV 10 mg Q4H PRN Administration Blood Pressure Hydralazine HCl 25 mg 05/22/19 14:00 Apresoline PO Q8HR [facility] Hydromorphone HCl 0.5 mg 05/14/19 20:03 05/17/19 18:10 Dilaudid IV 0.5 mg Q4H PRN Administration Pain , Severe (7-10) Meropenem 500 mg in 50 mls @ 50 mls/hr 05/20/19 18:00 05/22/19 12:59 Merrem/Ns 500 Mg/50 Ml IV 50 mls/hr Q6HR [facility] Administration Amino Acids/Electrolytes/Dextrose 2,016 mls @ 84 mls/hr 05/21/19 20:00 05/21/19 20:12 Tpn Adult IV 05/22/19 19:59 84 mls/hr DAILY@1999 [facility] Administration Protocol Amino Acids/Electrolytes/Dextrose 2,016 mls @ 84 mls/hr 05/22/19 20:00 Tpn Adult IV 05/23/19 19:59 DAILY@1999 [facility] Protocol Fat Emulsion Intravenous 250 mls @ 21 mls/hr 05/22/19 20:00 Intralipid 20% IV 05/23/19 08:00 DAILY@1999 [facility] Sodium Chloride 1,000 mls @ 42 mls/hr 05/22/19 15:00 Nacl 0.45% 1000 Ml IV DIRECT ALANA Insulin Human Isoph/Insulin Regular 14 unit 05/21/19 19:36 05/22/19 09:02 Humulin 70/30 SUB-Q 14 unit BIDDIAB [facility] Administration Insulin Human Lispro 0 unit 05/22/19 11:30 05/22/19 12:59 Humalog SUB-Q 2 unit ACHS [facility] Administration Protocol Levetiracetam 750 mg 05/20/19 22:00 05/22/19 09:35 Keppra PO 750 mg BID ALANA Administration Ondansetron HCl 4 mg 05/14/19 20:03 05/22/19 14:23 Zofran IV 4 mg Q8H PRN Administration Nausea And Vomiting Tamsulosin HCl 0.4 mg 05/21/19 10:00 05/22/19 09:33 Flomax PO 0.4 mg QDAY ALANA Administration Nutrition/Malnutrition Assess - Dietary Evaluation Nutrition/Malnutrition Findings: Nutrition Notes Start: 05/15/19 08:29 Freq: Status: Active Protocol: Document 05/22/19 12:59 RS (Rec: 05/22/19 13:23 RS [email or web address]) Co-Sign 05/22/19 12:59 LM Nutrition Notes Initial or Follow up Reassessment Current Diagnosis Acute Kidney Injury,Diabetes, Hypertension,Small Bowel Obstruction,Stroke Other Pertinent Diagnosis s/p exp lap with lysis of adhesions Current Diet CPN at 84ml/hr/ Full liquid Labs/Tests Na: 132 M.1 Pertinent Medications reviewed Height 5 ft 8 in Weight 82.6 kg [place] Body Weight (kg) 70.00 BMI 27.6 Subjective/Other Information Day 8 CPN. Infusing at 84 ml/ hr. Per RN report, pt has poor appetite and ate a few bites of hot cereal. Pt reports he could not eat any more than two spoonfuls secondary to abdominal pain. Percent of energy/protein needs met: 61% kcal/ 100% PRO Burn Absent Trauma Absent Minimum of two criteria No Fluid Accumulation Mild (non-severe) #2 Nutrition Diagnosis Increased nutrient needs ( specify in comment below) Diagnosis Progress(for reassessment Continues documentation) #1 Nutrition Diagnosis Inadequate oral intake Diagnosis Progress(for reassessment Continues documentation) Is patient on ventilator? No Is Patient Ambulatory and/or Out of Bed No REE-([facility]-confined to bed) [phone] Calculation Used for Recommendations [facility] Additional Notes PRO: 100-125g (1.2-1.5g/kg/day ) Fluid: 1ml/kcal Nutrition Intervention Change Diet Order: CPN Nutrition Support: Continue CPN at 84ml/hr: lipids, 183 mEq Na, 16 mEq Mg, MVI, Osmolality: 1279. Kcal 1,580 Protein (gm) 100 Carbohydrates (gm) 200 Fat (gm) 50 Fluid (mL) 2,266 Fiber (gm) 0 Goal #1 Meet energy and PRO needs as best as possible via CPN Anticipated Discharge Needs: Unable to determine at this time Follow-Up By: 05/23/19 Additional Comments Labs in AM: BMP, Phos, Mg, PO intake s, Mg
[2019-05-22] MEDS: SODIUM CHLORIDE 0.45% 1000 ML 1,000 ML IV SCH (15:44)
--- NOTE | 2019-05-22 18:16 | Cat Scan Report ---
. CT of the abdomen and pelvis with contrast INDICATION: Postop abdominal pain COMPARISON: 05/14/2019 FINDINGS: Small pleural effusions are now seen with moderate basilar lung consolidation. Low density subcapsular fluid around the spleen appears unchanged. There is no definite splenic laceration. The l iver, pancreas and adrenal glands are unremarkable. There is now distention of the renal pelves and u pper ureters. No definite gastric wall thickening or mass. No cholecystitis or biliary tree dilation. No free fluid or adenopathy in the upper abdomen. There has been interval midline laparotomy for the small bowel obstruction seen on the prior scan. CT of the pelvis demonstrates a small bowel anastomotic site but there is no recurrent small bowel ob struction. There is only minimal cul-de-sac fluid. Despite the presence of Cast catheter the bladder is distended however with secondary hydroureter and hydronephrosis not seen previously. The bladder wall is thickened with early diverticulum formation. No pelvic or inguinal adenopathy. No hernia is s een. There is slight thickening of several small bowel loops. IMPRESSION: Interval midline laparotomy with resolution of the small bowel obstruction. There are pos toperative findings as well as distended bladder with secondary hydroureter and hydronephrosis. This may be due to malfunctioning Cast catheter. Automated exposure control was utilized to diminish radiation dose. Signer Name: Gaurav Arce MD Signed: 05/22/2019 6:12 PM Workstation Name: [id number]
--- NOTE | 2019-05-22 19:37 | Event Note ---
Date: 05/22/19 CT A/P images and report reviewed - resolution of small bowel obstruction, several thickened loops of small bowel. Minimal fluid in pelvis. Post surgical changes. Distension of bladder with diverticulum despite randall catheter being in place. B/L hydroureter and hyrdronephrosis. Contacted patient's RN. Recommend flushing randall catheter and performing follow up bladder scan. If bladder does not decompress, recommend removing and replacing randall. Urology consult placed. Patient known to Dr. Dwyer.
[2019-05-22] MEDS ORDERED: SODIUM CHLORIDE IRRI 1000 ML 1,000 ML IR ONE (19:50)
[2019-05-22] MEDS ORDERED: TOTAL PARENTERAL NUTRITION 2,016 ML IV SCH (20:00)
[2019-05-22] MEDS ORDERED: FAT EMULSIONS 20% 250 ML IV SCH (20:00)
[2019-05-23] MEDS: MEROPENEM/NS 500 MG/50 ML 500 MG/50 ML BAG IV SCH ×2 (06:00→18:00)
[2019-05-23] MEDS: INSULIN LISPRO 100 UNIT/ML SUB-Q SCH ×4 (06:31→22:32)
[2019-05-23] MEDS: hydrALAZINE 25 MG TAB PO SCH ×3 (06:43→21:16)
[2019-05-23 07:13] LABS: BUN/Creatinine Ratio 26; Blood Urea Nitrogen 29 mg/dL (9-20); Hemolysis Index 2
[2019-05-23] MEDS: INSULIN NPH/REGULAR 70/30 INJ SUB-Q SCH ×2 (08:50→18:20)
[2019-05-23] MEDS: CALCIUM CARBONATE 500 MG TAB CHEW PO SCH ×3 (09:25→19:57)
--- NOTE | 2019-05-23 09:26 | Progress Note ---
Assessment and Plan 83 yo M s/p Diagnostic laparoscopy converted to exploratory laparotomy, lysis of adhesions, small bowel resection, POD 9 1. SBO 2. Internal hernia 3. malnutrition 4. deconditioning 5. DM 6. wound infection - patient with multiple risk factors including DM, malnutrition, contamination during surgery CT scan A/p - post surgical changes. No obstruction. Some thickened loops of small bowel. Severely distended bladder with randall catheter in place, b/l hydroureter Plan: 1. Full liquid diet with protein supplements 2. IVF - maintenance fluids 3. randall (chronic) - urology consulted 4. albumin and prealbumin remain low, patient not wanting to eat very much. Add marinol to stimulate appetite. will need to continue TPN until patient's PO intake improves 5. c/w abx. cultures from wound - enterococcus and ecoli. ID on board 6. OOB to chair/PT on board 7. continue PO home meds 7. incentive spirometry/pulm toilet 8. prn pain control - change to PO 9. hand spring repairer on board. Alginate packing to wound every other day Rehab placement pending per case management. Updated patient's yesterday. Thank you, please call with questions. Subjective Date of service: 05/23/19 Narrative: Pt seen and examined. Sleeping. Overnight the patient had leakage from around his randall catheter and severely distended bladder on CT scan A/P. Randall was flushed by RN with some sediment released into tubing. Repeat bladder scan s howed 390 cc. This am bladder scan showed 0 cc in bladder. No f/c, cp, sob, n/v. Poor appetite. Objective Vital Signs - 12hr 05/22/19 05/22/19 05/23/19 21:50 22:00 01:00 Temperature 98.4 F Pulse Rate 98 H 98 H 91 H Respiratory 20 Rate Blood Pressure 144/88 144/88 136/73 O2 Sat by Pulse 98 Oximetry 05/23/19 05/23/19 05:31 06:43 Temperature 98.6 F Pulse Rate 88 91 H Respiratory 20 Rate Blood Pressure 144/68 136/73 O2 Sat by Pulse 95 Oximetry - General physical appearance Narrative Exam: Gen: Sleeping. Arousable. NAD CV: s1, S2+ Resp: even and unlabored Abd: soft, ND, NT. Incisions c/d/i. Midline dressing c/d/i Ext: no c/c/e : Randall with clear yellow urine - Labs 05/19/19 06:00 05/23/19 06:00 Diabetes panel 05/22/19 05/23/19 Range/Units 09:25 06:00 Sodium 132 L 133 L (137-145) mmol/L Potassium 4.7 4.5 (3.6-5.0) mmol/L Chloride 99.5 98.3 (98-107) mmol/L Carbon Dioxide 22 24 (22-30) mmol/L BUN 31 H 29 H (9-20) mg/dL Creatinine 1.1 1.1 (0.8-1.5) mg/dL Glucose 318 H 269 H (75-100) mg/dL Calcium 8.1 L D 8.0 L (8.4-10.2) mg/dL AST 15 (5-40) units/L ALT < 5 L (7-56) units/L Alkaline Phosphatase 57 (35-129) units/L Total Protein 7.1 (6.3-8.2) g/dL Albumin 2.1 L (3.9-5) g/dL Calcium panel 05/22/19 05/22/19 05/23/19 Range/Units 09:25 09:25 06:00 Calcium 8.1 L D 8.0 L (8.4-10.2) mg/dL Phosphorus 3.00 3.50 (2.5-4.5) mg/dL Albumin 2.1 L (3.9-5) g/dL Pituitary panel 05/22/19 05/23/19 Range/Units 09:25 06:00 Sodium 132 L 133 L (137-145) mmol/L Potassium 4.7 4.5 (3.6-5.0) mmol/L Chloride 99.5 98.3 (98-107) mmol/L Carbon Dioxide 22 24 (22-30) mmol/L BUN 31 H 29 H (9-20) mg/dL Creatinine 1.1 1.1 (0.8-1.5) mg/dL Glucose 318 H 269 H (75-100) mg/dL Calcium 8.1 L D 8.0 L (8.4-10.2) mg/dL Adrenal panel 05/22/19 05/23/19 Range/Units 09:25 06:00 Sodium 132 L 133 L (137-145) mmol/L Potassium 4.7 4.5 (3.6-5.0) mmol/L Chloride 99.5 98.3 (98-107) mmol/L Carbon Dioxide 22 24 (22-30) mmol/L BUN 31 H 29 H (9-20) mg/dL Creatinine 1.1 1.1 (0.8-1.5) mg/dL Glucose 318 H 269 H (75-100) mg/dL Calcium 8.1 L D 8.0 L (8.4-10.2) mg/dL Total Bilirubin 0.20 (0.1-1.2) mg/dL AST 15 (5-40) units/L ALT < 5 L (7-56) units/L Alkaline Phosphatase 57 (35-129) units/L Total Protein 7.1 (6.3-8.2) g/dL Albumin 2.1 L (3.9-5) g/dL
[2019-05-23] MEDS: DRONABINOL 2.5 MG CAP PO SCH (10:20)
--- NOTE | 2019-05-23 15:59 | Progress Note ---
Assessment and Plan Cultures: 05/18/19 surgical culture - Enterococcus species and GNR 05/17/19 urine cultures - Zuri A/P: 83 yo M PMHx HTN DM2 admitted with an internal hernia causing an SBO, now with wound infection 1. Wound infection with ESBL E coli and Enterococcus - recommend changing from pip-tazo to meropenem. Meropenem is more effective against Enterococcus than ertapenem, though it is more broad unfortunately. Expect 10-14 day course of effective therapy. 2. DM2 - tight glycemic control for improved wound healing, likely contributing to his development of the wound infection. 3. SBO - s/p surgical fix. 4. Candiduria - Zuri in the urine rarely represents a pathogen outside of fungemia/pyelonephritis. Likely represents overgrowth from antibiotic administration and does not require treatment. Recs: - Continue meropenem 500mg q6h Stop date 05/30 - expect 10-14 day course of antibiotics pending improvement. Patient already has PICC line. - placed case management consult for homegoing meropenem. - contact isolation Thank you for the consult, we will continue sign off with infection stable and homegoing recommendations in place. Please call with questions. Beck Lara MD [facility] M: [phone] O: [phone] F: [phone] Subjective Date of service: 05/23/19 Interval history: Afebrile, some pain at surgical site. bilateral hydronephrosis. Objective - Exam Narrative Exam: Physical Exam: Constitutional: Alert, cooperative. No acute distress Head, Ears, Nose: Normocephalic, atraumatic. External ears, nose normal Eyes: Conjunctivae/corneas clear. No icterus. No ptosis. Neck: Supple, no meningeal signs Oral: dentition fair, no thrush Cardiovascular: S1, S2 normal. Respiratory: Good air entry, clear to auscultation bilaterally GI: Soft, +tende, midline abdominal surgery woundr; bowel sounds normal. No peritoneal signs. Musculoskeletal: No pedal edema, no cyanosis. Skin: No rash or abscess Hem/Lymphatic: No palpable cervical or supraclavicular nodes. No lymphangitis Psych: Mood ok. Affect normal Neurological: Awake, alert, oriented. No gross abnormality - Constitutional Vitals: Vital Signs Temp Pulse Resp BP Pulse Ox 97.6 F 86 20 173/87 100 05/23/19 12:45 05/23/19 12:45 05/23/19 12:45 05/23/19 12:45 05/23/19 12:45 Temperature -Last 24 Hours Temperature 97.6 F Temperature 98.6 F Temperature 98.4 F Temperature 98.5 F Temperature 98.8 F - Labs CBC & Chem 7: 05/19/19 06:00 05/23/19 06:00 Labs: Abnormal lab results 05/22/19 05/23/19 05/23/19 Range/Units 18:03 01:07 05:37 Sodium (137-145) mmol/L BUN (9-20) mg/dL Glucose (75-100) mg/dL POC Glucose 337 H 270 H 276 H (70-105) Calcium (8.4-10.2) mg/dL 05/23/19 05/23/19 Range/Units 06:00 11:53 Sodium 133 L (137-145) mmol/L BUN 29 H (9-20) mg/dL Glucose 269 H (75-100) mg/dL POC Glucose 288 H (70-105) Calcium 8.0 L (8.4-10.2) mg/dL
--- NOTE | 2019-05-23 18:02 | Progress Note ---
Assessment and Plan Assessment and plan: --Bladder outlet obstruction secondary to malfunctioning of Randall catheter; CT [id number] distended bladder, hydronephrosis consulted urology last evening, follow urology evaluation and carol mmendations After irrigation Randall started functioning well, get f/u CT abdomen and pelvis today To check resolution of hydronephrosis and bladder outlet obstruction. --Small bowel obstruction:poor oral intake, continue TPN s/p Diag laparoscopy converted to explo laparotomy, lysis of adhesions, small bowel resection. Clear liquids , advance as tolerated, continue TPN, IV fluid hydration. --Wound infection;ESBL /E Coli,Enterococcus and gena continue meropenem per ID, contact isolation --Internal hernia: Surgery following --Protein calorie malnutrition: TPN, clear liquids --Chronic indwelling randall:Supportive care --Deconditioning. PT/OT. As tolerated --DVT prophylaxis; heparin. --Full Code Ambulate as tolerated Monitor clinically and adjust the management as needed consults and Rec noted and appreciated Follow CT abdomen and pelvis, follow urology evaluation and recommendations Management set up placement However patient is clinically not stable for discharge at this point Plan of care reviewed with the patient and his nurse History Interval history: Patient seen and examined medical records reviewed Patient complains of generalized weakness, poor oral intake Patient had bladder outlet obstruction yesterday when Randall was not functional However after irrigation, randall id draining well , bladder distention improved clinically CT abdomen and pelvis done yesterday evening showed bladder distention and hydronephrosis We will check follow-up CT abdomen and pelvis to check for resolution of bladder outlet obstruction Patient complains of some abdominal pain and dizziness Vital signs reviewed Hospitalist Physical - Constitutional Vitals: Temp Pulse Resp BP Pulse Ox 97.6 F 86 20 173/87 100 05/23/19 12:45 05/23/19 12:45 05/23/19 12:45 05/23/19 12:45 05/23/19 12:45 General appearance: Present: no acute distress, well-nourished - EENT Eyes: Present: PERRL, EOM intact - Neck Neck: Present: supple, normal ROM - Respiratory Respiratory effort: normal Respiratory: bilateral: diminished, negative: rales, rhonchi, wheezing - Cardiovascular Rhythm: regular Heart Sounds: Present: S1 & S2 - Extremities Extremities: no ischemia, No edema - Abdominal General gastrointestinal: soft, tender (guarding no rigidity), distended (mild), normal bowel sounds - Integumentary Integumentary: Present: clear, warm - Psychiatric Psychiatric: appropriate mood/affect, cooperative - Neurologic Neurologic: moves all extremities Results - Labs CBC & Chem 7: 05/19/19 06:00 05/23/19 06:00 Labs: Laboratory Last Values WBC 9.2 K/mm3 (4.5-11.0) 05/19/19 06:00 RBC 2.91 M/mm3 (3.65-5.03) L 05/19/19 06:00 Hgb 8.2 gm/dl (11.8-15.2) L 05/19/19 06:00 Hct 24.3 % (35.5-45.6) L 05/19/19 06:00 MCV 83 fl (84-94) L 05/19/19 06:00 MCH 28 pg (28-32) 05/19/19 06:00 MCHC 34 % (32-34) 05/19/19 06:00 RDW 15.1 % (13.2-15.2) 05/19/19 06:00 Plt Count 339 K/mm3 (140-440) 05/19/19 06:00 Lymph % (Auto) 10.5 % (13.4-35.0) L 05/19/19 06:00 [place] % (Auto) 12.4 % (0.0-7.3) H 05/19/19 06:00 Eos % (Auto) 1.6 % (0.0-4.3) 05/19/19 06:00 Baso % (Auto) 0.4 % (0.0-1.8) 05/19/19 06:00 Lymph # 1.0 K/mm3 (1.2-5.4) L 05/19/19 06:00 [place] # 1.1 K/mm3 (0.0-0.8) H 05/19/19 06:00 Eos # 0.1 K/mm3 (0.0-0.4) 05/19/19 06:00 Baso # 0.0 K/mm3 (0.0-0.1) 05/19/19 06:00 Seg Neutrophils % 75.1 % (40.0-70.0) H 05/19/19 06:00 Seg Neutrophils # 6.9 K/mm3 (1.8-7.7) 05/19/19 06:00 PT 14.3 Sec. (12.2-14.9) 05/14/19 13:21 INR 1.12 (0.87-1.13) 05/14/19 13:21 APTT 28.7 Sec. (24.2-36.6) 05/14/19 13:21 Sodium 133 mmol/L (137-145) L 05/23/19 06:00 Potassium 4.5 mmol/L (3.6-5.0) 05/23/19 06:00 Chloride 98.3 mmol/L (98-107) 05/23/19 06:00 Carbon Dioxide 24 mmol/L (22-30) 05/23/19 06:00 Anion Gap 15 mmol/L 05/23/19 06:00 BUN 29 mg/dL (9-20) H 05/23/19 06:00 Creatinine 1.1 mg/dL (0.8-1.5) 05/23/19 06:00 Estimated GFR > 60 ml/min 05/23/19 06:00 BUN/Creatinine Ratio 26 % 05/23/19 06:00 Glucose 269 mg/dL (75-100) H 05/23/19 06:00 POC Glucose 288 (70-105) H 05/23/19 11:53 Calcium 8.0 mg/dL (8.4-10.2) L 05/23/19 06:00 Phosphorus 3.50 mg/dL (2.5-4.5) 05/23/19 06:00 Magnesium 2.20 mg/dL (1.7-2.3) 05/23/19 06:00 Total Bilirubin 0.20 mg/dL (0.1-1.2) 05/22/19 09:25 AST 15 units/L (5-40) 05/22/19 09:25 ALT < 5 units/L (7-56) L 05/22/19 09:25 Alkaline Phosphatase 57 units/L (35-129) 05/22/19 09:25 Total Protein 7.1 g/dL (6.3-8.2) 05/22/19 09:25 Albumin 2.1 g/dL (3.9-5) L 05/22/19 09:25 Albumin/Globulin Ratio 0.4 % 05/22/19 09:25 Prealbumin 0.078 g/L (0.200-0.400) L 05/22/19 09:25 Urine Color Yellow (Yellow) 05/14/19 12:58 Urine Turbidity Turbid (Clear) 05/14/19 12:58 Urine pH 5.0 (5.0-7.0) 05/14/19 12:58 Ur Specific [place] 1.025 (1.003-1.030) 05/14/19 12:58 Urine Protein 100 mg/dl mg/dL (Negative) 05/14/19 12:58 Urine Glucose (UA) 50 mg/dL (Negative) 05/14/19 12:58 Urine Ketones Tr mg/dL (Negative) 05/14/19 12:58 Urine Blood Lg (Negative) 05/14/19 12:58 Urine Nitrite Neg (Negative) 05/14/19 12:58 Urine Bilirubin Neg (Negative) 05/14/19 12:58 Urine Urobilinogen < 2.0 mg/dL (<2.0) 05/14/19 12:58 Ur Leukocyte Esterase Mod (Negative) 05/14/19 12:58 Urine WBC (Auto) > 182.0 /HPF (0.0-6.0) H 05/14/19 12:58 Urine RBC (Auto) > 182.0 /HPF (0.0-6.0) 05/14/19 12:58 U Epithel Cells (Auto) 2.0 /HPF (0-13.0) 05/14/19 12:58 Urine Bacteria (Auto) 4+ /HPF (Negative) 05/14/19 12:58 Urine Mucus 1+ /HPF 05/14/19 12:58 Urine Yeast (Budding) 3+ /HPF 05/14/19 12:58 Blood Type O POSITIVE 05/14/19 16:50 Antibody Screen Negative 05/14/19 16:50 Crossmatch See Detail 05/14/19 16:50 Active Medications - Current Medications Current Medications: Generic Name Dose Route Start Last Admin Trade Name Freq PRN Reason Stop Dose Admin Acetaminophen/Hydrocodone Bitart 1 each 05/21/19 13:43 05/22/19 14:35 [place] 5/325 PO 1 each Q4H PRN Administration Pain, Moderate (4-6) Atorvastatin Calcium 40 mg 05/20/19 22:00 05/22/19 21:50 Lipitor PO 40 mg QHS ALANA Administration Calcium Carbonate/Glycine 500 mg 05/22/19 14:00 05/22/19 20:00 Tums PO 500 mg TID ALANA Administration Carvedilol 3.125 mg 05/20/19 22:00 05/22/19 22:00 Coreg PO 3.125 mg BID ALANA Administration Dextrose 50 ml 05/14/19 20:04 D50w (25gm) Syringe IV Q30MIN PRN Hypoglycemia Dronabinol 2.5 mg 05/23/19 10:00 Marinol PO BID ALANA Heparin Sodium (Porcine) 5,000 unit 05/14/19 22:00 05/22/19 21:51 Heparin SUB-Q 5,000 unit Q8HR ALANA Administration Hydralazine HCl 10 mg 05/21/19 01:44 05/22/19 06:42 Apresoline IV 10 mg Q4H PRN Administration Blood Pressure Hydralazine HCl 25 mg 05/22/19 14:00 05/23/19 06:43 Apresoline PO 25 mg Q8HR ALANA Administration Hydromorphone HCl 0.5 mg 05/14/19 20:03 05/17/19 18:10 Dilaudid IV 0.5 mg Q4H PRN Administration Pain , Severe (7-10) Meropenem 500 mg in 50 mls @ 50 mls/hr 05/20/19 18:00 05/23/19 06:00 Merrem/Ns 500 Mg/50 Ml IV 50 mls/hr Q6HR ALANA Administration Amino Acids/Electrolytes/Dextrose 2,016 mls @ 84 mls/hr 05/22/19 20:00 05/22/19 20:00 Tpn Adult IV 05/23/19 19:59 84 mls/hr DAILY@1999 ALANA Administration Protocol Sodium Chloride 1,000 mls @ 42 mls/hr 05/22/19 15:00 05/22/19 15:44 Nacl 0.45% 1000 Ml IV 42 mls/hr DIRECT ALANA Administration Amino Acids/Electrolytes/Dextrose 2,016 mls @ 84 mls/hr 05/23/19 20:00 Tpn Adult IV 05/24/19 19:59 DAILY@1999 [facility] Protocol Insulin Human Isoph/Insulin Regular 14 unit 05/21/19 19:36 05/22/19 17:09 Humulin 70/30 SUB-Q 14 unit BIDDIAB ALANA Administration Insulin Human Lispro 0 unit 05/22/19 11:30 05/23/19 06:31 Humalog SUB-Q 3 unit ACHS ALANA Administration Protocol Levetiracetam 750 mg 05/20/19 22:00 05/22/19 21:51 Keppra PO 750 mg BID ALANA Administration Ondansetron HCl 4 mg 05/14/19 20:03 05/22/19 14:23 Zofran IV 4 mg Q8H PRN Administration Nausea And Vomiting Tamsulosin HCl 0.4 mg 05/21/19 10:00 05/22/19 09:33 Flomax PO 0.4 mg QDAY ALANA Administration Nutrition/Malnutrition Assess - Dietary Evaluation Nutrition/Malnutrition Findings: Nutrition Notes Start: 05/15/19 08:29 Freq: Status: Active Protocol: Document 05/23/19 12:59 RM (Rec: 05/23/19 13:11 RM [id number]) Nutrition Notes Initial or Follow up Reassessment Current Diagnosis Acute Kidney Injury,Diabetes, Hypertension,Small Bowel Obstruction,Stroke Other Pertinent Diagnosis s/p exp lap with lysis of adhesions Current Diet CPN at 84ml/hr/ Full liquid w/ Glucerna BID Labs/Tests Na 133 Mg 2.2 Pertinent Medications Na 0.45% @ 42 ml/hr (started yesterday) Height 5 ft 8 in Weight 82.6 kg [place] Body Weight (kg) 70.00 BMI 27.6 Subjective/Other Information Day 9 CPN. Observed Na 0.45% infusing at 42 ml/hr in addition to CPN. Nurse stated that pt is receiving Na 0.45% to help pt urinate. Also stated that pt has not been eating. Noted 2 unopened Glucerna at bedside. Pt stated that he drank something similar before and it made him sick. Pt agreed to trial of Ensure Clear. Percent of energy/protein needs met: 87%/100% Burn Absent Trauma Absent Minimum of two criteria No Fluid Accumulation Mild (non-severe) #2 Nutrition Diagnosis Increased nutrient needs ( specify in comment below) Diagnosis Progress(for reassessment Continues documentation) #1 Nutrition Diagnosis Inadequate oral intake Diagnosis Progress(for reassessment Continues documentation) Is patient on ventilator? No Is Patient Ambulatory and/or Out of Bed No REE-([facility]-confined to bed) [phone] Calculation Used for Recommendations [facility] Additional Notes PRO: 100-125g (1.2-1.5g/kg/day ) Fluid: 1ml/kcal Nutrition Intervention Change Diet Order: CPN Nutrition Support: Continue CPN at 84ml/hr: Cl: Acetate: 50:50, MVI Kcal 1,080 Protein (gm) 100 Carbohydrates (gm) 200 Fat (gm) 0 Fluid (mL) 2,016 Fiber (gm) 0 Add Supplement/Snack (indicate name/kcal D/C Glucerna BID. Add Ensure /protein ) Clear 1 daily Provides kCal: 240 Provides Protein (gm) 8 Goal #1 Meet energy and PRO needs as best as possible via CPN Anticipated Discharge Needs: Unable to determine at this time Follow-Up By: 05/24/19 Additional Comments Follow for labs in AM: BMP, Mg , Phos
[2019-05-23] MEDS: TAMSULOSIN 0.4 MG CAP PO SCH (18:22)
[2019-05-23] MEDS: HEPARIN 5,000 UNIT/1 ML VIAL SUB-Q SCH ×2 (18:22→21:17)
[2019-05-23] MEDS: levETIRAcetam 500 MG/5 ML ORAL LIQD PO SCH ×2 (18:23→21:15)
[2019-05-23] MEDS: carvediloL 3.125 MG TAB PO SCH ×2 (18:23→21:15)
[2019-05-23] MEDS ORDERED: INSULIN NPH/REGULAR 70/30 INJ SUB-Q SCH (18:57)
--- NOTE | 2019-05-23 19:38 | Cat Scan Report ---
CT ABDOMEN AND PELVIS WITH CONTRAST INDICATION: f/u /Bladder outlet obstruction. TECHNIQUE: Axial CT images were obtained through the abdomen and pelvis after 100 cc Omnipaque [address] scans at this location are performed using CT dose reduction for ALARA by means of automated exposure control. COMPARISON: CT abdomen pelvis 05/22/2019 FINDINGS: LOWER CHEST: Small bilateral pleural effusions and bibasilar atelectasis is unchanged LIVER: No significant abnormality. GALLBLADDER: No significant abnormality. BILE DUCTS: No significant abnormality. PANCREAS: No significant abnormality. SPLEEN: Small splenic subcapsular fluid collection, unchanged. No splenic laceration or active arteri al extravasation seen. ADRENALS: No significant abnormality. RIGHT KIDNEY and URETER: No significant abnormality. Previously noted mild right hydronephrosis has r esolved LEFT KIDNEY and URETER: No significant abnormality. Previously noted mild left hydronephrosis has res olved. STOMACH and SMALL BOWEL: Multiple loops of moderately thickened small bowel, unchanged characteristic for enteritis COLON: No significant abnormality. APPENDIX: No significant abnormality. PERITONEUM: Small amount of free fluid within both paracolic gutters. No free air. Small central locu lated pelvic fluid collection measures 3.1 x 4.1 cm image 156, previously measuring 2.7 x 6.3 cm imag e 147. Tiny amount of loculated mesenteric fluid image 138, slightly improved since prior study. LYMPH NODES: No significant adenopathy. AORTA and ARTERIES: No significant abnormality. IVC and VEINS: No significant abnormality. URINARY BLADDER: Moderately thickened urinary bladder now contains Cast catheter. REPRODUCTIVE ORGANS: Prostate mildly enlarged ADDITIONAL FINDINGS: None. SKELETAL SYSTEM: Moderate degenerative changes lumbar spine IMPRESSION: 1. Resolution of previously noted mild bilateral hydronephrosis with thickened urinary bladder wall c ontaining Cast catheter. 2. Small loculated pelvic fluid collection. No drainable fluid collection or abscess. 3. Moderate small bowel enteritis, similar to prior study. No bowel obstruction. Signer Name: Johnny Perez MD Signed: 05/23/2019 7:34 PM Workstation Name: [id number]
[2019-05-23] MEDS: SODIUM CHLORIDE 0.45% 1000 ML 1,000 ML IV SCH (19:53)
[2019-05-23] MEDS ORDERED: TOTAL PARENTERAL NUTRITION 2,016 ML IV SCH (20:00)
[2019-05-24] MEDS: MEROPENEM/NS 500 MG/50 ML 500 MG/50 ML BAG IV SCH ×4 (00:24→17:21)
[2019-05-24] MEDS: DRONABINOL 2.5 MG CAP PO SCH ×3 (00:33→21:57)
[2019-05-24] MEDS: HEPARIN 5,000 UNIT/1 ML VIAL SUB-Q SCH ×3 (05:51→21:10)
[2019-05-24] MEDS: hydrALAZINE 25 MG TAB PO SCH ×3 (05:54→21:09)
[2019-05-24 06:32] LABS: BUN/Creatinine Ratio 26; Blood Urea Nitrogen 26 mg/dL (9-20); Calcium 8.2 mg/dL (8.4-10.2); Hemolysis Index 0
[2019-05-24] MEDS: levETIRAcetam 500 MG/5 ML ORAL LIQD PO SCH ×2 (09:54→21:09)
[2019-05-24] MEDS: INSULIN LISPRO 100 UNIT/ML SUB-Q SCH ×4 (09:55→21:59)
[2019-05-24] MEDS: CALCIUM CARBONATE 500 MG TAB CHEW PO SCH ×3 (09:55→20:32)
[2019-05-24] MEDS: carvediloL 3.125 MG TAB PO SCH ×2 (10:00→21:08)
[2019-05-24] MEDS: TAMSULOSIN 0.4 MG CAP PO SCH (10:00)
--- NOTE | 2019-05-24 10:25 | Progress Note ---
Assessment and Plan 83 yo M s/p Diagnostic laparoscopy converted to exploratory laparotomy, lysis of adhesions, small bowel resection, POD 10 1. SBO 2. Internal hernia 3. malnutrition 4. deconditioning 5. DM 6. wound infection - patient with multiple risk factors including DM, malnutrition, contamination during surgery CT scan A/p - post surgical changes. No obstruction. Some thickened loops of small bowel. Severely distended bladder with randall catheter in place, b/l hydroureter Plan: 1.adv to soft diet with protein supplements 2. IVF - maintenance fluids. Monitor sodium 3. randall (chronic) - urology consult pending 4. Anticipate stopping TPN tomorrow. Add marinol to stimulate appetite. 5. c/w abx. cultures from wound - enterococcus and ecoli. ID on board 6. OOB to chair/PT on board 7. continue PO home meds 7. incentive spirometry/pulm toilet 8. prn pain control - changed to PO 9. gyroscope repairer on board. Alginate packing to wound every other day. Will reconsider wound vac placement Rehab placement pending per case management. Thank you, please call with questions. Subjective Date of service: 05/24/19 Narrative: Pt seen and examined. No acute complaints. c/o abdominal pain near incision. States it is well controlled with pain medications. No f/c. Tolerating diet with very poor appetite. Had a repeat CT scan yesterday to follow up on distended bladder and hydroureter which has now resolved. Objective Vital Signs - 12hr 05/23/19 05/24/19 05/24/19 23:49 04:35 05:54 Temperature 98.9 F 98.8 F Pulse Rate 98 H 100 H 100 H Respiratory 20 19 Rate Blood Pressure 167/75 147/72 147/72 O2 Sat by Pulse 98 97 Oximetry 05/24/19 07:08 Temperature 98.2 F Pulse Rate 91 H Respiratory 20 Rate Blood Pressure 174/79 O2 Sat by Pulse 97 Oximetry - General physical appearance Narrative Exam: Gen: AAOx3. NAD CV: s1, S2+ Resp: even and unlabored Abd: soft, ND, mild TTP near midline incision and suprapubic area. Dressing and packing removed. Wound bed with some slough which was easily wiped away with dry gauze. Remainder of wound bed healthy with some red granulation tissue. Packed with alginate rope and covered with 4x4 gauze, coversite dressing. L sided incisions c/d/i. No r/r/g : randall with clear yellow urine - Labs 05/19/19 06:00 05/24/19 Unknown Diabetes panel 05/24/19 Range/Units Unknown Sodium 133 L (137-145) mmol/L Potassium 5.0 (3.6-5.0) mmol/L Chloride 100.0 (98-107) mmol/L Carbon Dioxide 25 (22-30) mmol/L BUN 26 H (9-20) mg/dL Creatinine 1.0 (0.8-1.5) mg/dL Glucose 223 H (75-100) mg/dL Calcium 8.2 L (8.4-10.2) mg/dL Calcium panel 05/24/19 Range/Units Unknown Calcium 8.2 L (8.4-10.2) mg/dL Phosphorus 3.60 (2.5-4.5) mg/dL Pituitary panel 05/24/19 Range/Units Unknown Sodium 133 L (137-145) mmol/L Potassium 5.0 (3.6-5.0) mmol/L Chloride 100.0 (98-107) mmol/L Carbon Dioxide 25 (22-30) mmol/L BUN 26 H (9-20) mg/dL Creatinine 1.0 (0.8-1.5) mg/dL Glucose 223 H (75-100) mg/dL Calcium 8.2 L (8.4-10.2) mg/dL Adrenal panel 05/24/19 Range/Units Unknown Sodium 133 L (137-145) mmol/L Potassium 5.0 (3.6-5.0) mmol/L Chloride 100.0 (98-107) mmol/L Carbon Dioxide 25 (22-30) mmol/L BUN 26 H (9-20) mg/dL Creatinine 1.0 (0.8-1.5) mg/dL Glucose 223 H (75-100) mg/dL Calcium 8.2 L (8.4-10.2) mg/dL
--- NOTE | 2019-05-24 16:16 | Progress Note ---
Assessment and Plan Assessment and plan: --Bladder outlet obstruction secondary to malfunctioning of Randall catheter; CT [id number] distended bladder, hydronephrosis After irrigation Randall started functioning well, f/u CT abdomen and pelvis ;Complete resolution of hydronephrosis and bladder distention Patient will follow with urologist upon discharge --Small bowel obstruction:poor oral intake, continue TPN s/p Diag laparoscopy converted to explo laparotomy, lysis of adhesions, small bowel resection. Full liquid diet advance to GI soft tolerated, continue TPN, IV fluid hydration. Wean gradually and discontinue TPN --Wound infection;ESBL /E Coli,Enterococcus and gena continue meropenem per ID, contact isolation --Type 2 diabetes mellitus; moderate control Accu-Chek sliding scale coverage and ADA diet and insulin 70/30 --Internal hernia: Surgery following --Severe Protein calorie malnutrition: TPN, dietitian consult --Chronic indwelling randall: Home with Randall ,f/u urology upon DC --Deconditioning. PT/OT. As tolerated --DVT prophylaxis; heparin. --Full Code Ambulate as tolerated Monitor clinically and adjust the management as needed consults and Rec noted and appreciated Case Management set up placement Taper and DC TPN , and encourage oral nutrition Possible discharge to SNF tomorrow if stable Plan of care reviewed with the patient and his nurse History Interval history: Patient seen and examined medical records reviewed Patient feels slightly better tolerating full liquid diet Poor appetite. Denies nausea vomiting or abdominal pain ,Vital signs reviewed Repeat CT abdomen and pelvis, bladder distention, hydronephrosis. resolved Randall catheter functional Vital signs reviewed Hospitalist Physical - Constitutional Vitals: Temp Pulse Resp BP Pulse Ox 98.2 F 91 H 20 167/83 97 05/24/19 11:27 05/24/19 10:00 05/24/19 11:27 05/24/19 13:36 05/24/19 07:08 General appearance: Present: no acute distress, well-nourished - EENT Eyes: Present: PERRL, EOM intact - Neck Neck: Present: supple, normal ROM - Respiratory Respiratory effort: normal Respiratory: bilateral: diminished, rales, negative: rhonchi, wheezing - Cardiovascular Rhythm: regular Heart Sounds: Present: S1 & S2 - Extremities Extremities: no ischemia, No edema - Abdominal General gastrointestinal: soft, non-tender, non-distended, normal bowel sounds - Integumentary Integumentary: Present: clear, warm - Psychiatric Psychiatric: appropriate mood/affect, cooperative - Neurologic Neurologic: CNII-XII intact, moves all extremities Results - Labs CBC & Chem 7: 05/19/19 06:00 05/24/19 Unknown Labs: Laboratory Last Values WBC 9.2 K/mm3 (4.5-11.0) 05/19/19 06:00 RBC 2.91 M/mm3 (3.65-5.03) L 05/19/19 06:00 Hgb 8.2 gm/dl (11.8-15.2) L 05/19/19 06:00 Hct 24.3 % (35.5-45.6) L 05/19/19 06:00 MCV 83 fl (84-94) L 05/19/19 06:00 MCH 28 pg (28-32) 05/19/19 06:00 MCHC 34 % (32-34) 05/19/19 06:00 RDW 15.1 % (13.2-15.2) 05/19/19 06:00 Plt Count 339 K/mm3 (140-440) 05/19/19 06:00 Lymph % (Auto) 10.5 % (13.4-35.0) L 05/19/19 06:00 [place] % (Auto) 12.4 % (0.0-7.3) H 05/19/19 06:00 Eos % (Auto) 1.6 % (0.0-4.3) 05/19/19 06:00 Baso % (Auto) 0.4 % (0.0-1.8) 05/19/19 06:00 Lymph # 1.0 K/mm3 (1.2-5.4) L 05/19/19 06:00 [place] # 1.1 K/mm3 (0.0-0.8) H 05/19/19 06:00 Eos # 0.1 K/mm3 (0.0-0.4) 05/19/19 06:00 Baso # 0.0 K/mm3 (0.0-0.1) 05/19/19 06:00 Seg Neutrophils % 75.1 % (40.0-70.0) H 05/19/19 06:00 Seg Neutrophils # 6.9 K/mm3 (1.8-7.7) 05/19/19 06:00 PT 14.3 Sec. (12.2-14.9) 05/14/19 13:21 INR 1.12 (0.87-1.13) 05/14/19 13:21 APTT 28.7 Sec. (24.2-36.6) 05/14/19 13:21 Sodium 133 mmol/L (137-145) L 05/24/19 Unknown Potassium 5.0 mmol/L (3.6-5.0) 05/24/19 Unknown Chloride 100.0 mmol/L (98-107) 05/24/19 Unknown Carbon Dioxide 25 mmol/L (22-30) 05/24/19 Unknown Anion Gap 13 mmol/L 05/24/19 Unknown BUN 26 mg/dL (9-20) H 05/24/19 Unknown Creatinine 1.0 mg/dL (0.8-1.5) 05/24/19 Unknown Estimated GFR > 60 ml/min 05/24/19 Unknown BUN/Creatinine Ratio 26 % 05/24/19 Unknown Glucose 223 mg/dL (75-100) H 05/24/19 Unknown POC Glucose 272 (70-105) H 05/24/19 11:38 Calcium 8.2 mg/dL (8.4-10.2) L 05/24/19 Unknown Phosphorus 3.60 mg/dL (2.5-4.5) 05/24/19 Unknown Magnesium 2.10 mg/dL (1.7-2.3) 05/24/19 Unknown Total Bilirubin 0.20 mg/dL (0.1-1.2) 05/22/19 09:25 AST 15 units/L (5-40) 05/22/19 09:25 ALT < 5 units/L (7-56) L 05/22/19 09:25 Alkaline Phosphatase 57 units/L (35-129) 05/22/19 09:25 Total Protein 7.1 g/dL (6.3-8.2) 05/22/19 09:25 Albumin 2.1 g/dL (3.9-5) L 05/22/19 09:25 Albumin/Globulin Ratio 0.4 % 05/22/19 09:25 Prealbumin 0.078 g/L (0.200-0.400) L 05/22/19 09:25 Urine Color Yellow (Yellow) 05/14/19 12:58 Urine Turbidity Turbid (Clear) 05/14/19 12:58 Urine pH 5.0 (5.0-7.0) 05/14/19 12:58 Ur Specific [place] 1.025 (1.003-1.030) 05/14/19 12:58 Urine Protein 100 mg/dl mg/dL (Negative) 05/14/19 12:58 Urine Glucose (UA) 50 mg/dL (Negative) 05/14/19 12:58 Urine Ketones Tr mg/dL (Negative) 05/14/19 12:58 Urine Blood Lg (Negative) 05/14/19 12:58 Urine Nitrite Neg (Negative) 05/14/19 12:58 Urine Bilirubin Neg (Negative) 05/14/19 12:58 Urine Urobilinogen < 2.0 mg/dL (<2.0) 05/14/19 12:58 Ur Leukocyte Esterase Mod (Negative) 05/14/19 12:58 Urine WBC (Auto) > 182.0 /HPF (0.0-6.0) H 05/14/19 12:58 Urine RBC (Auto) > 182.0 /HPF (0.0-6.0) 05/14/19 12:58 U Epithel Cells (Auto) 2.0 /HPF (0-13.0) 05/14/19 12:58 Urine Bacteria (Auto) 4+ /HPF (Negative) 05/14/19 12:58 Urine Mucus 1+ /HPF 05/14/19 12:58 Urine Yeast (Budding) 3+ /HPF 05/14/19 12:58 Blood Type O POSITIVE 05/14/19 16:50 Antibody Screen Negative 05/14/19 16:50 Crossmatch See Detail 05/14/19 16:50 Active Medications - Current Medications Current Medications: Generic Name Dose Route Start Last Admin Trade Name Freq PRN Reason Stop Dose Admin Acetaminophen/Hydrocodone Bitart 1 each 05/21/19 13:43 05/22/19 14:35 [place] 5/325 PO 1 each Q4H PRN Administration Pain, Moderate (4-6) Atorvastatin Calcium 40 mg 05/20/19 22:00 05/23/19 21:15 Lipitor PO 40 mg QHS ALANA Administration Calcium Carbonate/Glycine 500 mg 05/22/19 14:00 05/24/19 13:37 Tums PO 500 mg TID ALANA Administration Carvedilol 3.125 mg 05/20/19 22:00 05/24/19 10:00 Coreg PO 3.125 mg BID ALANA Administration Dextrose 50 ml 05/14/19 20:04 D50w (25gm) Syringe IV Q30MIN PRN Hypoglycemia Dronabinol 2.5 mg 05/23/19 10:00 05/24/19 11:59 Marinol PO 2.5 mg BID ALANA Administration Heparin Sodium (Porcine) 5,000 unit 05/14/19 22:00 05/24/19 13:35 Heparin SUB-Q 5,000 unit Q8HR ALANA Administration Hydralazine HCl 10 mg 05/21/19 01:44 05/22/19 06:42 Apresoline IV 10 mg Q4H PRN Administration Blood Pressure Hydralazine HCl 25 mg 05/22/19 14:00 05/24/19 13:36 Apresoline PO 25 mg Q8HR ALANA Administration Hydromorphone HCl 0.5 mg 05/14/19 20:03 05/17/19 18:10 Dilaudid IV 0.5 mg Q4H PRN Administration Pain , Severe (7-10) Meropenem 500 mg in 50 mls @ 50 mls/hr 05/20/19 18:00 05/24/19 11:41 Merrem/Ns 500 Mg/50 Ml IV 50 mls/hr Q6HR ALANA Administration Sodium Chloride 1,000 mls @ 42 mls/hr 05/22/19 15:00 05/23/19 19:53 Nacl 0.45% 1000 Ml IV 42 mls/hr DIRECT ALANA Administration Amino Acids/Electrolytes/Dextrose 2,016 mls @ 84 mls/hr 05/23/19 20:00 05/23 19:55 Tpn Adult IV 05/24/19 19:59 84 mls/hr DAILY@1999 ALANA Administration Protocol Amino Acids/Electrolytes/Dextrose 2,016 mls @ 84 mls/hr 05/24/19 20:00 Tpn Adult IV 05/25/19 19:59 DAILY@1999 [facility] Protocol Insulin Human Lispro 0 unit 05/22/19 11:30 05/24/19 11:33 Humalog SUB-Q 3 unit ACHS ALANA Administration Protocol Levetiracetam 750 mg 05/20/19 22:00 05/24/19 09:54 Keppra PO 750 mg BID ALANA Administration Ondansetron HCl 4 mg 05/14/19 20:03 05/22/19 14:23 Zofran IV 4 mg Q8H PRN Administration Nausea And Vomiting Tamsulosin HCl 0.4 mg 05/21/19 10:00 05/24/19 10:00 Flomax PO 0.4 mg QDAY ALANA Administration Nutrition/Malnutrition Assess - Dietary Evaluation Nutrition/Malnutrition Findings: Nutrition Notes Start: 05/15/19 08:29 Freq: Status: Active Protocol: Document 05/24/19 13:30 RM (Rec: 05/24/19 13:40 RM [id number]) Nutrition Notes Initial or Follow up Reassessment Current Diagnosis Acute Kidney Injury,Diabetes, Hypertension,Small Bowel Obstruction,Stroke Other Pertinent Diagnosis s/p exp lap with lysis of adhesions Current Diet CPN at 84ml/hr + GI soft Labs/Tests Na 133 K 5 Pertinent Medications Zofran, Na 0.45% @ 42 ml/hr Height 5 ft 8 in Weight 82.6 kg [place] Body Weight (kg) 70.00 BMI 27.6 Subjective/Other Information Day 10 CPN. Per nurse MD plans to taper TPN tomorrow in preparation for D/C. Full liquid diet in place earlier today. GI soft diet ordered for lunch. Noted uneaten grits and 1 unopened Ensure Clear at bedside. Pt seems confused about which ONS he tried in the past and stated he did not drink the Ensure Clear d/t believing it would make him sick. P[employer] Roll [employer]isher reminded pt that he accepted offer of Ensure Clear yesterday and encouraged pt to try it. Percent of energy/protein needs met: 60%/100% Burn Absent Trauma Absent Minimum of two criteria No Fluid Accumulation Mild (non-severe) #2 Nutrition Diagnosis Increased nutrient needs ( specify in comment below) Diagnosis Progress(for reassessment Continues documentation) #1 Nutrition Diagnosis Inadequate oral intake Diagnosis Progress(for reassessment Continues documentation) Is patient on ventilator? No Is Patient Ambulatory and/or Out of Bed No REE-([facility]-confined to bed) [phone] Calculation Used for Recommendations Silke King Additional Notes PRO: 100-125g (1.2-1.5g/kg/day ) Fluid: 1ml/kcal Nutrition Intervention Change Diet Order: CPN Nutrition Support: Continue CPN at 84ml/hr: 200 mEq NA, MVI, 0 mEq K Kcal 1,080 Protein (gm) 100 Carbohydrates (gm) 200 Fat (gm) 0 Fluid (mL) 2,016 Fiber (gm) 0 Add Supplement/Snack (indicate name/kcal Ensure Clear 1 daily /protein ) Provides kCal: 240 Provides Protein (gm) 8 Goal #1 Meet energy and PRO needs as best as possible via CPN Anticipated Discharge Needs: Unable to determine at this time Follow-Up By: 05/25/19 Additional Comments Follow for labs in AM: BMP, Mg , Phos
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
[2019-05-24] MEDS: INSULIN NPH/REGULAR 70/30 INJ SUB-Q SCH (17:03)
[2019-05-24] MEDS ORDERED: TOTAL PARENTERAL NUTRITION 2,016 ML IV SCH (20:00)
[2019-05-25] MEDS: SODIUM CHLORIDE 0.45% 1000 ML 1,000 ML IV SCH (00:21)
[2019-05-25] MEDS: MEROPENEM/NS 500 MG/50 ML 500 MG/50 ML BAG IV SCH ×6 (00:26→23:46)
[2019-05-25 04:51] LABS: BUN/Creatinine Ratio 25; Blood Urea Nitrogen 25 mg/dL (9-20); Calcium 8.2 mg/dL (8.4-10.2); Hemolysis Index 0
[2019-05-25] MEDS: HYDROcodone/ACETAMINOPHEN 5-325 MG TAB PO PRN ×3 (05:37→21:55)
[2019-05-25] MEDS: HEPARIN 5,000 UNIT/1 ML VIAL SUB-Q SCH ×3 (05:39→21:42)
[2019-05-25] MEDS: hydrALAZINE 25 MG TAB PO SCH ×3 (05:40→17:00)
--- NOTE | 2019-05-25 08:01 | Progress Note ---
Assessment and Plan Assessment and plan: 83-year-old male patient was admitted with abdominal distention, initial evaluation is consistent with small bowel obstruction, status post diagnostic laparoscopy, laparotomy/lysis of adhesions/small bowel resection Patient is tolerating soft diet, basically TPN, Possible SNF placement tomorrow if stable Bladder Outlet obstruction, resolved, discharged home on Randall follow urology upon discharge --Bladder outlet obstruction secondary to malfunctioning of Randall catheter; CT [id number] distended bladder, hydronephrosis After irrigation Randall started functioning well, f/u CT abdomen and pelvis ;Complete resolution of hydronephrosis and bladder distention f/u urologist upon discharge, DC home with randall --Small bowel obstruction:poor oral intake, continue TPN s/p Diag laparoscopy converted to explo laparotomy, lysis of adhesions, small bowel resection. Full liquid diet advance to GI soft as tolerated, Wean gradually and discontinue TPN --Wound infection;ESBL /E Coli,Enterococcus and gena continue meropenem per ID, contact isolation VAC placement as outpatient --Type 2 diabetes mellitus; moderate control Accu-Chek sliding scale coverage and ADA diet and insulin 70/30 --Internal hernia: Surgery following --Severe Protein calorie malnutrition: nutrition supplements --Chronic indwelling randall: Home with Randall ,f/u urology upon DC --Deconditioning. PT/OT. As tolerated --DVT prophylaxis; heparin. --Full Code Ambulate as tolerated Monitor clinically and adjust the management as needed consults and Rec noted and appreciated Disposition; possible discharge to SNF tomorrow if stable History Interval history: Patient seen and examined medical records reviewed Patient has poor appetite and poor oral intake Complaints of generalized weakness Vital signs noted Hospitalist Physical - Constitutional Vitals: Temp Pulse Resp BP Pulse Ox 98.3 F 74 20 154/72 98 05/24/19 19:52 05/25/19 00:46 05/25/19 00:46 05/25/19 05:40 05/24/19 23:35 General appearance: Present: no acute distress, well-nourished - EENT Eyes: Present: PERRL, EOM intact - Neck Neck: Present: supple, normal ROM - Respiratory Respiratory effort: normal Respiratory: bilateral: diminished, negative: rales, rhonchi, wheezing - Cardiovascular Rhythm: regular Heart Sounds: Present: S1 & S2 - Extremities Extremities: no ischemia, No edema - Abdominal General gastrointestinal: soft, non-tender, non-distended, normal bowel sounds - Integumentary Integumentary: Present: clear, warm - Psychiatric Psychiatric: appropriate mood/affect, cooperative - Neurologic Neurologic: moves all extremities Results - Labs CBC & Chem 7: 05/19/19 06:00 05/25/19 04:20 Labs: Laboratory Last Values WBC 9.2 K/mm3 (4.5-11.0) 05/19/19 06:00 RBC 2.91 M/mm3 (3.65-5.03) L 05/19/19 06:00 Hgb 8.2 gm/dl (11.8-15.2) L 05/19/19 06:00 Hct 24.3 % (35.5-45.6) L 05/19/19 06:00 MCV 83 fl (84-94) L 05/19/19 06:00 MCH 28 pg (28-32) 05/19/19 06:00 MCHC 34 % (32-34) 05/19/19 06:00 RDW 15.1 % (13.2-15.2) 05/19/19 06:00 Plt Count 339 K/mm3 (140-440) 05/19/19 06:00 Lymph % (Auto) 10.5 % (13.4-35.0) L 05/19/19 06:00 [place] % (Auto) 12.4 % (0.0-7.3) H 05/19/19 06:00 Eos % (Auto) 1.6 % (0.0-4.3) 05/19/19 06:00 Baso % (Auto) 0.4 % (0.0-1.8) 05/19/19 06:00 Lymph # 1.0 K/mm3 (1.2-5.4) L 05/19/19 06:00 [place] # 1.1 K/mm3 (0.0-0.8) H 05/19/19 06:00 Eos # 0.1 K/mm3 (0.0-0.4) 05/19/19 06:00 Baso # 0.0 K/mm3 (0.0-0.1) 05/19/19 06:00 Seg Neutrophils % 75.1 % (40.0-70.0) H 05/19/19 06:00 Seg Neutrophils # 6.9 K/mm3 (1.8-7.7) 05/19/19 06:00 PT 14.3 Sec. (12.2-14.9) 05/14/19 13:21 INR 1.12 (0.87-1.13) 05/14/19 13:21 APTT 28.7 Sec. (24.2-36.6) 05/14/19 13:21 Sodium 132 mmol/L (137-145) L 05/25/19 04:20 Potassium 4.5 mmol/L (3.6-5.0) 05/25/19 04:20 Chloride 99.1 mmol/L (98-107) 05/25/19 04:20 Carbon Dioxide 24 mmol/L (22-30) 05/25/19 04:20 Anion Gap 13 mmol/L 05/25/19 04:20 BUN 25 mg/dL (9-20) H 05/25/19 04:20 Creatinine 1.0 mg/dL (0.8-1.5) 05/25/19 04:20 Estimated GFR > 60 ml/min 05/25/19 04:20 BUN/Creatinine Ratio 25 % 05/25/19 04:20 Glucose 219 mg/dL (75-100) H 05/25/19 04:20 POC Glucose 209 (70-105) H 05/25/19 00:01 Calcium 8.2 mg/dL (8.4-10.2) L 05/25/19 04:20 Phosphorus 3.60 mg/dL (2.5-4.5) 05/25/19 04:20 Magnesium 2.10 mg/dL (1.7-2.3) 05/25/19 04:20 Total Bilirubin 0.20 mg/dL (0.1-1.2) 05/22/19 09:25 AST 15 units/L (5-40) 05/22/19 09:25 ALT < 5 units/L (7-56) L 05/22/19 09:25 Alkaline Phosphatase 57 units/L (35-129) 05/22/19 09:25 Total Protein 7.1 g/dL (6.3-8.2) 05/22/19 09:25 Albumin 2.1 g/dL (3.9-5) L 05/22/19 09:25 Albumin/Globulin Ratio 0.4 % 05/22/19 09:25 Prealbumin 0.078 g/L (0.200-0.400) L 05/22/19 09:25 Urine Color Yellow (Yellow) 05/14/19 12:58 Urine Turbidity Turbid (Clear) 05/14/19 12:58 Urine pH 5.0 (5.0-7.0) 05/14/19 12:58 Ur Specific [place] 1.025 (1.003-1.030) 05/14/19 12:58 Urine Protein 100 mg/dl mg/dL (Negative) 05/14/19 12:58 Urine Glucose (UA) 50 mg/dL (Negative) 05/14/19 12:58 Urine Ketones Tr mg/dL (Negative) 05/14/19 12:58 Urine Blood Lg (Negative) 05/14/19 12:58 Urine Nitrite Neg (Negative) 05/14/19 12:58 Urine Bilirubin Neg (Negative) 05/14/19 12:58 Urine Urobilinogen < 2.0 mg/dL (<2.0) 05/14/19 12:58 Ur Leukocyte Esterase Mod (Negative) 05/14/19 12:58 Urine WBC (Auto) > 182.0 /HPF (0.0-6.0) H 05/14/19 12:58 Urine RBC (Auto) > 182.0 /HPF (0.0-6.0) 05/14/19 12:58 U Epithel Cells (Auto) 2.0 /HPF (0-13.0) 05/14/19 12:58 Urine Bacteria (Auto) 4+ /HPF (Negative) 05/14/19 12:58 Urine Mucus 1+ /HPF 05/14/19 12:58 Urine Yeast (Budding) 3+ /HPF 05/14/19 12:58 Blood Type O POSITIVE 05/14/19 16:50 Antibody Screen Negative 05/14/19 16:50 Crossmatch See Detail 05/14/19 16:50 Active Medications - Current Medications Current Medications: Generic Name Dose Route Start Last Admin Trade Name Freq PRN Reason Stop Dose Admin Acetaminophen/Hydrocodone Bitart 1 each 05/21/19 13:43 05/25/19 05:37 [place] 5/325 PO 1 each Q4H PRN Administration Pain, Moderate (4-6) Atorvastatin Calcium 40 mg 05/20/19 22:00 05/24/19 21:09 Lipitor PO 40 mg QHS ALANA Administration Calcium Carbonate/Glycine 500 mg 05/22/19 14:00 05/24/19 20:32 Tums PO 500 mg TID ALANA Administration Carvedilol 3.125 mg 05/20/19 22:00 05/24/19 21:08 Coreg PO 3.125 mg BID ALANA Administration Dextrose 50 ml 05/14/19 20:04 D50w (25gm) Syringe IV Q30MIN PRN Hypoglycemia Dronabinol 2.5 mg 05/23/19 10:00 05/24/19 21:57 Marinol PO 2.5 mg BID ALANA Administration Heparin Sodium (Porcine) 5,000 unit 05/14/19 22:00 05/25/19 05:39 Heparin SUB-Q 5,000 unit Q8HR ALANA Administration Hydralazine HCl 10 mg 05/21/19 01:44 05/22/19 06:42 Apresoline IV 10 mg Q4H PRN Administration Blood Pressure Hydralazine HCl 25 mg 05/22/19 14:00 05/25/19 05:40 Apresoline PO 25 mg Q8HR ALANA Administration Hydromorphone HCl 0.5 mg 05/14/19 20:03 05/17/19 18:10 Dilaudid IV 0.5 mg Q4H PRN Administration Pain , Severe (7-10) Meropenem 500 mg in 50 mls @ 50 mls/hr 05/20/19 18:00 05/25/19 05:38 Merrem/Ns 500 Mg/50 Ml IV 50 mls/hr Q6HR ALANA Administration Sodium Chloride 1,000 mls @ 42 mls/hr 05/22/19 15:00 05/25/19 00:21 Nacl 0.45% 1000 Ml IV 42 mls/hr DIRECT ALANA Administration Amino Acids/Electrolytes/Dextrose 2,016 mls @ 84 mls/hr 05/24/19 20:00 05/24/19 20:33 Tpn Adult IV 05/25/19 19:59 84 mls/hr DAILY@2000 ALANA Administration Protocol Insulin Human Isoph/Insulin Regular 10 unit 05/24/19 17:00 05/24/19 17:03 Humulin 70/30 SUB-Q 10 unit BIDDIAB ALANA Administration Insulin Human Lispro 0 unit 05/22/19 11:30 05/24/19 21:59 Humalog SUB-Q 1 unit ACHS ALANA Administration Protocol Levetiracetam 750 mg 05/20/19 22:00 05/24/19 21:09 Keppra PO 750 mg BID ALANA Administration Ondansetron HCl 4 mg 05/14/19 20:03 05/22/19 14:23 Zofran IV 4 mg Q8H PRN Administration Nausea And Vomiting Tamsulosin HCl 0.4 mg 05/21/19 10:00 05/24/19 10:00 Flomax PO 0.4 mg QDAY ALANA Administration Nutrition/Malnutrition Assess - Dietary Evaluation Nutrition/Malnutrition Findings: Nutrition Notes Start: 05/15/19 08:29 Freq: Status: Active Protocol: Document 05/24/19 13:30 RM (Rec: 05/24/19 13:40 RM [id number]) Nutrition Notes Initial or Follow up Reassessment Current Diagnosis Acute Kidney Injury,Diabetes, Hypertension,Small Bowel Obstruction,Stroke Other Pertinent Diagnosis s/p exp lap with lysis of adhesions Current Diet CPN at 84ml/hr + GI soft Labs/Tests Na 133 K 5 Pertinent Medications Zofran, Na 0.45% @ 42 ml/hr Height 5 ft 8 in Weight 82.6 kg Jones Body Weight (kg) 70.00 BMI 27.6 Subjective/Other Information Day 10 CPN. Per nurse MD plans to taper TPN tomorrow in preparation for D/C. Full liquid diet in place earlier today. GI soft diet ordered for lunch. Noted uneaten grits and 1 unopened Ensure Clear at bedside. Pt seems confused about which ONS he tried in the past and stated he did not drink the Ensure Clear d/t believing it would make him sick. Forms Analyst reminded pt that he accepted offer of Ensure Clear yesterday and encouraged pt to try it. Percent of energy/protein needs met: 60%/100% Burn Absent Trauma Absent Minimum of two criteria No Fluid Accumulation Mild (non-severe) #2 Nutrition Diagnosis Increased nutrient needs ( specify in comment below) Diagnosis Progress(for reassessment Continues documentation) #1 Nutrition Diagnosis Inadequate oral intake Diagnosis Progress(for reassessment Continues documentation) Is patient on ventilator? No Is Patient Ambulatory and/or Out of Bed No REE-([facility]-confined to bed) 4224.996 Calculation Used for Recommendations [facility] Additional Notes PRO: 100-125g (1.2-1.5g/kg/day ) Fluid: 1ml/kcal Nutrition Intervention Change Diet Order: CPN Nutrition Support: Continue CPN at 84ml/hr: 200 mEq NA, MVI, 0 mEq K Kcal 1,080 Protein (gm) 100 Carbohydrates (gm) 200 Fat (gm) 0 Fluid (mL) 2,016 Fiber (gm) 0 Add Supplement/Snack (indicate name/kcal Ensure Clear 1 daily /protein ) Provides kCal: 240 Provides Protein (gm) 8 Goal #1 Meet energy and PRO needs as best as possible via CPN Anticipated Discharge Needs: Unable to determine at this time Follow-Up By: 05/25/19 Additional Comments Follow for labs in AM: BMP, Mg , Phos
[2019-05-25] MEDS: INSULIN LISPRO 100 UNIT/ML SUB-Q SCH ×4 (08:06→23:44)
[2019-05-25] MEDS: hydrALAZINE 20 MG/1 ML INJ IV PRN (08:06)
[2019-05-25] MEDS: INSULIN NPH/REGULAR 70/30 INJ SUB-Q SCH ×2 (08:06→17:46)
[2019-05-25] MEDS: HYDROmorphone 1 MG/1 ML INJ IV PRN ×2 (08:14→16:29)
[2019-05-25] MEDS: CALCIUM CARBONATE 500 MG TAB CHEW PO SCH ×3 (09:37→21:43)
[2019-05-25] MEDS: carvediloL 3.125 MG TAB PO SCH ×2 (09:37→21:43)
[2019-05-25] MEDS: TAMSULOSIN 0.4 MG CAP PO SCH (09:37)
[2019-05-25] MEDS: levETIRAcetam 500 MG/5 ML ORAL LIQD PO SCH ×2 (09:37→21:41)
[2019-05-25] MEDS ORDERED: ALPRAZolam 0.5 MG TAB PO PRN (11:53)
[2019-05-25] MEDS ORDERED: ALPRAZolam 0.5 MG TAB PO ONE (11:53)
[2019-05-25] MEDS ORDERED: INSULIN NPH/REGULAR 70/30 INJ SUB-Q SCH (12:03)
[2019-05-25] MEDS: DRONABINOL 2.5 MG CAP PO SCH (12:19)
--- NOTE | 2019-05-25 12:53 | Progress Note ---
Subjective Date of service: 05/25/19 Interval history: 83 yo M with hx of HTN, DM presents to ER with his family due to increasing abdominal distension, n/v, abd pain. This started several days ago and has progressively gotten worse. Patient is a poor historian. He cannot localize his abdominal pain. No exacerbating or alleviating factors. Patient has had multiple episodes of emesis which started off clear and has now become bilious. No f/c, cp, sob. He has a chronic randall catheter. Pt had recent surgery this admission s/p Diagnostic laparoscopy converted to exploratory laparotomy, lysis of adhesions, small bowel resection - Dr. Gonzalez reviewed CT scans + bladder spasm----trend for now (will make to remove randall later) nurse at bedside pt resting well abd soft randall draining sunny urine --Bladder outlet obstruction secondary to malfunctioning of Randall catheter; CT [id number] distended bladder, hydronephrosis After irrigation Randall started functioning well, f/u CT abdomen and pelvis ;Complete resolution of hydronephrosis and bladder distention A/P BPH retention phimosis home with randall when stable CMG as outpt may need circumcision Objective - Constitutional Vitals: Vital Signs - 12hr 05/25/19 05/25/19 05/25/19 03:51 05:40 07:54 Temperature 99.2 F Pulse Rate 98 H Respiratory 20 18 Rate Blood Pressure 186/99 154/72 211/104 O2 Sat by Pulse 97 Oximetry 05/25/19 05/25/19 08:59 11:33 Temperature 98.8 F Pulse Rate 103 H Respiratory 18 Rate Blood Pressure 144/82 174/101 O2 Sat by Pulse 97 Oximetry - Labs CBC & Chem 7: 05/19/19 06:00 05/25/19 04:20 Labs: Abnormal lab results 05/24/19 05/24/19 05/25/19 Range/Units 16:25 20:00 00:01 Sodium (137-145) mmol/L BUN (9-20) mg/dL Glucose (75-100) mg/dL POC Glucose 266 H 249 H 209 H (70-105) Calcium (8.4-10.2) mg/dL 05/25/19 05/25/19 05/25/19 Range/Units 04:20 08:03 11:42 Sodium 132 L (137-145) mmol/L BUN 25 H (9-20) mg/dL Glucose 219 H (75-100) mg/dL POC Glucose 286 H 321 H (70-105) Calcium 8.2 L (8.4-10.2) mg/dL Medications & Allergies - Medications Allergies/Adverse Reactions: Allergies No Known Allergies Allergy (Verified 05/19/14 21:52) Home Medications: Home Medications Medication Instructions Recorded Confirmed Last Taken Type Pregabalin [Lyrica] 150 mg PO HS 01/30/18 05/15/19 04/30/19 History Furosemide [Lasix TAB] 20 mg PO Q2D 02/02/19 05/15/19 04/30/19 History AtorvaSTATin [Lipitor] 40 mg PO QHS #30 tab 02/05/19 05/15/19 04/30/19 Rx Tamsulosin [Flomax] 0.4 mg PO QDAY #30 capsule 02/05/19 05/15/19 04/30/19 Rx Aspirin [Adult Aspirin] 81 mg PO DAILY 04/10/19 05/15/19 04/30/19 History Bisacodyl [Dulcolax tab] 5 mg PO DAILY PRN 04/10/19 05/15/19 04/30/19 History Docusate Sodium [Colace CAP] 100 mg PO DAILY PRN 04/10/19 05/15/19 04/30/19 History Insulin Lispro Protamin/Lispro 40 units SUB-Q BID 04/13/19 05/15/19 04/30/19 History [Humalog Mix 75-25 Vial] Carvedilol [Coreg] 3.125 mg PO BID #60 tablet 04/16/19 05/15/19 04/30/19 Rx levETIRAcetam [Keppra TAB] 750 mg PO BID #60 tablet 04/16/19 05/15/19 04/30/19 Rx Linagliptin [Tradjenta] 5 mg PO QDAY 05/01/19 05/15/19 04/30/19 History Ciprofloxacin HCl [Ciprofloxacin 500 mg PO Q12HR #10 tab 05/05/19 05/15/19 Unknown Rx TAB] Sulfamethoxazole/Trimethoprim 1 each PO BID 7 Days #14 tablet 05/12/19 05/15/19 Unknown Rx [Bactrim DS TAB] Active Medications: Generic Name Dose Route Start Last Admin Trade Name Freq PRN Reason Stop Dose Admin Acetaminophen/Hydrocodone Bitart 1 each 05/21/19 13:43 05/25/19 12:21 [place] 5/325 PO 1 each Q4H PRN Administration Pain, Moderate (4-6) Alprazolam 0.5 mg 05/25/19 11:53 Xanax PO Q8H PRN Anxiety Atorvastatin Calcium 40 mg 05/20/19 22:00 05/24/19 21:09 Lipitor PO 40 mg QHS ALANA Administration Calcium Carbonate/Glycine 500 mg 05/22/19 14:00 05/25/19 09:37 Tums PO 500 mg TID ALANA Administration Carvedilol 3.125 mg 05/20/19 22:00 05/25/19 09:37 Coreg PO 3.125 mg BID ALANA Administration Dextrose 50 ml 05/14/19 20:04 D50w (25gm) Syringe IV Q30MIN PRN Hypoglycemia Dronabinol 2.5 mg 05/23/19 10:00 05/25/19 12:19 Marinol PO 2.5 mg BID ALANA Administration Heparin Sodium (Porcine) 5,000 unit 05/14/19 22:00 05/25/19 05:39 Heparin SUB-Q 5,000 unit Q8HR ALANA Administration Hydralazine HCl 10 mg 05/21/19 01:44 05/25/19 08:06 Apresoline IV 10 mg Q4H PRN Administration Blood Pressure Hydralazine HCl 50 mg 05/25/19 08:37 05/25/19 12:20 Apresoline PO 50 mg Q8HR ALANA Administration Hydromorphone HCl 0.5 mg 05/14/19 20:03 05/25/19 08:14 Dilaudid IV 0.5 mg Q4H PRN Administration Pain , Severe (7-10) Meropenem 500 mg in 50 mls @ 50 mls/hr 05/20/19 18:00 05/25/19 12:18 Merrem/Ns 500 Mg/50 Ml IV 05/30/19 12:59 50 mls/hr Q6HR ALANA Administration Sodium Chloride 1,000 mls @ 42 mls/hr 05/22/19 15:00 05/25/19 00:21 Nacl 0.45% 1000 Ml IV 42 mls/hr DIRECT ALANA Administration Amino Acids/Electrolytes/Dextrose 2,016 mls @ 84 mls/hr 05/24/19 20:00 05/24/19 20:33 Tpn Adult IV 05/25/19 19:59 84 mls/hr DAILY@2000 ALANA Administration Protocol Insulin Human Isoph/Insulin Regular 15 unit 05/25/19 17:00 Humulin 70/30 SUB-Q BIDDIAB ALANA Insulin Human Lispro 0 unit 05/22/19 11:30 05/25/19 12:21 Humalog SUB-Q 4 unit ACHS ALANA Administration Protocol Levetiracetam 750 mg 05/20/19 22:00 05/25/19 09:37 Keppra PO 750 mg BID ALANA Administration Ondansetron HCl 4 mg 05/14/19 20:03 05/22/19 14:23 Zofran IV 4 mg Q8H PRN Administration Nausea And Vomiting Tamsulosin HCl 0.4 mg 05/21/19 10:00 05/25/19 09:37 Flomax PO 0.4 mg QDAY ALANA Administration
--- NOTE | 2019-05-25 13:33 | Progress Note ---
Assessment and Plan 83 yo M s/p Diagnostic laparoscopy converted to exploratory laparotomy, lysis of adhesions, small bowel resection, POD 11 1. SBO 2. Internal hernia 3. malnutrition, chronic poor appetite 4. deconditioning 5. DM 6. wound infection - patient with multiple risk factors including DM, malnutrition, contamination during surgery CT scan A/P - post surgical changes. No obstruction. Some thickened loops of small bowel. Severely distended bladder with randall catheter in place, b/l hydroureter Plan: 1. soft diet with protein supplements 2. IVF - maintenance fluids. Monitor sodium 3. randall (chronic) - urology on board 4. dc TPN. Marinol to stimulate appetite. 5. c/w abx. cultures from wound - enterococcus and ecoli. ID on board 6. OOB to chair/PT on board 7. continue PO home meds 7. incentive spirometry/pulm toilet 8. prn PO pain control 9. manager metal on board. Alginate packing to wound every other day. Will reconsider wound vac placement as outpatient Rehab placement pending per case management. Anticipate clearance for dc from surgery standpoint tomorrow. Attempted to call patient's but no answer. D/W Dr. Morejon. Thank you, please call with questions. Subjective Date of service: 05/25/19 Narrative: Pt seen and examined. No acute complaints. Pain is well controlled. No f/c. No cp, sob, n/v. Tolerating a diet but poor appetite. Per RN patient is having multiple loose BMs per day. Objective Vital Signs - 12hr 05/25/19 05/25/19 05/25/19 03:51 05:40 07:54 Temperature 99.2 F Pulse Rate 98 H Respiratory 20 18 Rate Blood Pressure 186/99 154/72 211/104 O2 Sat by Pulse 97 Oximetry 05/25/19 05/25/19 08:59 11:33 Temperature 98.8 F Pulse Rate 103 H Respiratory 18 Rate Blood Pressure 144/82 174/101 O2 Sat by Pulse 97 Oximetry - General physical appearance Narrative Exam: Gen: AAOx3. NAD CV: s1, S2+ resp: even and unlabored Abd: soft, ND, NT. incisions healing well. Midline dressing c/d/i. No r/r/g Ext: no c/c/e - Labs 05/19/19 06:00 05/25/19 04:20 Diabetes panel 05/25/19 Range/Units 04:20 Sodium 132 L (137-145) mmol/L Potassium 4.5 (3.6-5.0) mmol/L Chloride 99.1 (98-107) mmol/L Carbon Dioxide 24 (22-30) mmol/L BUN 25 H (9-20) mg/dL Creatinine 1.0 (0.8-1.5) mg/dL Glucose 219 H (75-100) mg/dL Calcium 8.2 L (8.4-10.2) mg/dL Calcium panel 05/25/19 Range/Units 04:20 Calcium 8.2 L (8.4-10.2) mg/dL Phosphorus 3.60 (2.5-4.5) mg/dL Pituitary panel 05/25/19 Range/Units 04:20 Sodium 132 L (137-145) mmol/L Potassium 4.5 (3.6-5.0) mmol/L Chloride 99.1 (98-107) mmol/L Carbon Dioxide 24 (22-30) mmol/L BUN 25 H (9-20) mg/dL Creatinine 1.0 (0.8-1.5) mg/dL Glucose 219 H (75-100) mg/dL Calcium 8.2 L (8.4-10.2) mg/dL Adrenal panel 05/25/19 Range/Units 04:20 Sodium 132 L (137-145) mmol/L Potassium 4.5 (3.6-5.0) mmol/L Chloride 99.1 (98-107) mmol/L Carbon Dioxide 24 (22-30) mmol/L BUN 25 H (9-20) mg/dL Creatinine 1.0 (0.8-1.5) mg/dL Glucose 219 H (75-100) mg/dL Calcium 8.2 L (8.4-10.2) mg/dL
[2019-05-26] MEDS: hydrALAZINE 25 MG TAB PO SCH ×3 (01:12→14:51)
[2019-05-26] MEDS: DRONABINOL 2.5 MG CAP PO SCH ×2 (04:17→10:24)
[2019-05-26] MEDS: MEROPENEM/NS 500 MG/50 ML 500 MG/50 ML BAG IV SCH ×2 (05:27→11:35)
[2019-05-26] MEDS: HEPARIN 5,000 UNIT/1 ML VIAL SUB-Q SCH ×3 (05:28→14:53)
[2019-05-26] MEDS: HYDROcodone/ACETAMINOPHEN 5-325 MG TAB PO PRN (05:29)
[2019-05-26] MEDS: SODIUM CHLORIDE 0.45% 1000 ML 1,000 ML IV SCH (05:30)
[2019-05-26] MEDS: INSULIN LISPRO 100 UNIT/ML SUB-Q SCH ×2 (08:00→12:43)
[2019-05-26] MEDS: INSULIN NPH/REGULAR 70/30 INJ SUB-Q SCH (08:32)
[2019-05-26] MEDS: CALCIUM CARBONATE 500 MG TAB CHEW PO SCH ×2 (08:33→14:52)
[2019-05-26] MEDS: levETIRAcetam 500 MG/5 ML ORAL LIQD PO SCH (10:23)
[2019-05-26] MEDS: TAMSULOSIN 0.4 MG CAP PO SCH (10:23)
[2019-05-26] MEDS: carvediloL 3.125 MG TAB PO SCH (10:23)
[2019-05-26 12:33] LABS: BUN/Creatinine Ratio 26; Blood Urea Nitrogen 29 mg/dL (9-20); Calcium 8.4 mg/dL (8.4-10.2); Hemolysis Index 0
[2019-05-26 12:57] VITALS: BP 171/94
--- NOTE | 2019-05-26 13:55 | Progress Note ---
Assessment and Plan 83 yo M s/p Diagnostic laparoscopy converted to exploratory laparotomy, lysis of adhesions, small bowel resection, POD 12 1. SBO 2. Internal hernia 3. malnutrition, chronic poor appetite 4. deconditioning 5. DM 6. wound infection - patient with multiple risk factors including DM, malnutrition, contamination during surgery CT scan A/P - post surgical changes. No obstruction. Some thickened loops of small bowel. Severely distended bladder with randall catheter in place, b/l hydroureter Plan: 1. soft diet with protein supplements 2. IVF - will add D5 for low glucose. Sodium improving 3. randall (chronic) - urology on board 4. Marinol to stimulate appetite. 5. c/w abx. cultures from wound - enterococcus and ecoli. ID on board 6. OOB to chair/PT on board 7. continue PO home meds 7. incentive spirometry/pulm toilet 8. prn PO pain control 9. onyx chip terrazzo worker on board. Alginate packing to wound every other day. 10. Pt will greatly benefit from wound vac to midline wound - discussed with case management and will send measurements to rehab facility. May be ordered at rehab and applied as outpatient Ok to dc to rehab from surgery standpoint. Patient will need follow up in wound care center in 7 days. Patient's updated. Thank you, please call with questions. Subjective Date of service: 05/26/19 Narrative: Pt seen and examined. No overnight events. Appetite remains poor. He c/o leaking from his randall catheter. Abdominal pain well controlled. No f/c. Objective Vital Signs - 12hr 05/26/19 05/26/19 05/26/19 04:10 05:29 07:39 Temperature 97.9 F 97.8 F Pulse Rate 87 87 94 H Respiratory 20 17 20 Rate Blood Pressure 124/70 126/74 131/76 O2 Sat by Pulse 100 99 Oximetry 05/26/19 12:00 Temperature 98.0 F Pulse Rate 91 H Respiratory 18 Rate Blood Pressure 171/94 O2 Sat by Pulse 99 Oximetry - General physical appearance Narrative Exam: Gen: AAOx3. NAD CV: s1, S2+ Resp: even and unlabored Abd: soft, ND, mild TTP near midline incision. Midline wound with minimal slough at base. Tissue is healthy. No drainage or odor. Packed with alginate and covered with dry 4x4 gauze and coversite dressing. L sided incisions c/d/i with arminda in place. Ext: no c/c/e - Labs 05/19/19 06:00 05/26/19 11:32 Diabetes panel 05/26/19 Range/Units 11:32 Sodium 135 L (137-145) mmol/L Potassium 4.1 (3.6-5.0) mmol/L Chloride 101.9 (98-107) mmol/L Carbon Dioxide 22 (22-30) mmol/L BUN 29 H (9-20) mg/dL Creatinine 1.1 (0.8-1.5) mg/dL Glucose 68 L (75-100) mg/dL Calcium 8.4 (8.4-10.2) mg/dL Calcium panel 05/26/19 Range/Units 11:32 Calcium 8.4 (8.4-10.2) mg/dL Phosphorus 4.10 (2.5-4.5) mg/dL Pituitary panel 05/26/19 Range/Units 11:32 Sodium 135 L (137-145) mmol/L Potassium 4.1 (3.6-5.0) mmol/L Chloride 101.9 (98-107) mmol/L Carbon Dioxide 22 (22-30) mmol/L BUN 29 H (9-20) mg/dL Creatinine 1.1 (0.8-1.5) mg/dL Glucose 68 L (75-100) mg/dL Calcium 8.4 (8.4-10.2) mg/dL Adrenal panel 05/26/19 Range/Units 11:32 Sodium 135 L (137-145) mmol/L Potassium 4.1 (3.6-5.0) mmol/L Chloride 101.9 (98-107) mmol/L Carbon Dioxide 22 (22-30) mmol/L BUN 29 H (9-20) mg/dL Creatinine 1.1 (0.8-1.5) mg/dL Glucose 68 L (75-100) mg/dL Calcium 8.4 (8.4-10.2) mg/dL
--- NOTE | 2019-05-26 14:07 | Discharge Summary ---
Providers - Providers Date of Admission: 05/14/19 19:58 Date of discharge: 05/26/19 Attending physician: HIMANSHU SCALES 05/14/19 16:42 Consult to Dietitian/Nutrition [CONS] Routine Physician Instructions: Reason For Exam: TPN Reason for Consult: Malnutrition 05/14/19 16:43 Consult to PICC Line RN [CONS] Routine Reason For Exam: tpn Type Line:: PICC 05/14/19 20:00 Physical Therapy Evaluation and Treat [CONS] Routine Comment: to assist pt with gait and generalized weakness Reason For Exam: deconditioning, post op 05/15/19 14:39 Occupational Therapy Evaluate and Treat [CONS] Routine Comment: Reason For Exam: Generalized Weakness 05/19/19 08:43 Consult to Wound/ET Nurse [CONS] Routine Reason For Exam: wound eval 05/19/19 10:20 Consult to Physician [CONS] Routine Comment: Consulting Provider: JOSSELYN BLISS Physician Instructions: Reason For Exam: infected surgical wound, gena in urine 05/22/19 14:57 Consult to Case Management [CONS] Routine Services Needed at Discharge: Home Health Services Notified:: cm notified Additional Physician Instructions: [facility] ([facility] M: [phone] O: [phone] F: [phone] OUTPATIENT PARENTERAL ANTIBIOTIC THERAPY ORDERS Diagnosis: ESBL surgical site infection Antimicrobial administration: meropenem 1g q8h until 06/03/19 Line: PICC/midline Lab monitoring: CBC with diff, BUN, creatinine, LFTs once per week preferably on Saturday mornings. Please fax results to [phone] and call [phone] Lara 04/24/2019 05/22/19 19:32 Consult to Physician [CONS] Routine Comment: Consulting Provider: YOVANI CUNNINGHAM Physician Instructions: Reason For Exam: chronic randall, distended bladder and hydroureter Primary care physician: ANNUAL GIVING MANAGER Hospitalization Condition: Stable Pertinent studies: Abdomen pelvis CT scan Chest x-ray Abdomen x-ray Hospital course: 83-year-old male patient was admitted with abdominal distention, initial evaluation is consistent with small bowel obstruction, status post diagnostic laparoscopy, laparotomy/lysis of adhesions/small bowel resection. Patient is tolerating soft diet, off TPN, noted Bladder Outlet obstruction, resolved with flushing randall, discharged to SNF on Randall, will follow urology upon discharge. Discharge diagnosis and mx: --Small bowel obstruction: s/p TPN s/p Diag laparoscopy converted to explo laparotomy, lysis of adhesions, small bowel resection. Full liquid diet advance to GI soft as tolerated, --Wound infection;ESBL /E Coli,Enterococcus and gena continue meropenem per ID till 05/30/19, contact isolation VAC placement as outpatient --Bladder outlet obstruction secondary to malfunctioning of Randall catheter; CT [id number] distended bladder, hydronephrosis After irrigation Randall started functioning well, f/u CT abdomen and pelvis - Complete resolution of hydronephrosis and bladder distention f/u urologist upon discharge, DC SNF with randall --Type 2 diabetes mellitus; moderate control Accu-Chek sliding scale coverage and ADA diet and insulin 70/30 --Internal hernia: Surgery following --Severe Protein calorie malnutrition: nutrition supplements --Chronic indwelling randall: Home with Randall ,f/u urology upon DC --Deconditioning. PT/OT. As tolerated --DVT prophylaxis; heparin. --Full Code Ambulate as tolerated Disposition; discharge to SNF Hospitalist Physical General appearance: Present: no acute distress, well-nourished - EENT Eyes: Present: PERRL, EOM intact - Neck Neck: Present: supple, normal ROM - Respiratory Respiratory effort: normal Respiratory: bilateral: diminished, negative: rales, rhonchi, wheezing - Cardiovascular Rhythm: regular Heart Sounds: Present: S1 & S2 - Extremities Extremities: no ischemia, No edema - Abdominal General gastrointestinal: soft, non-tender, non-distended, normal bowel sounds - Integumentary Integumentary: Present: clear, warm - Psychiatric Psychiatric: appropriate mood/affect, cooperative - Neurologic Neurologic: moves all extremities Disposition: DC/[facility]-03 SNF W [facility] Time spent for discharge: 34 minutes Core Measure Documentation - Palliative Care Palliative Care/ Comfort Measures: Not Applicable - Core Measures Any of the following diagnoses?: history only Exam - Constitutional Vitals: Temp Pulse Resp BP Pulse Ox 98.0 F 91 H 18 171/94 99 05/26/19 12:00 05/26/19 12:00 05/26/19 12:00 05/26/19 12:00 05/26/19 12:00 Plan Activity: up only with assistance Weight Bearing Status: Non-Weight Bearing Diet: other (GI soft diet) Wound: per wound nurse instructions Special Instructions: record daily BP diary Additional Instructions: meropenem 500mg q6h Stop date 05/30 Follow up with: PRIMARY CARE, [Primary Care Provider] - 3-5 Days Prescriptions: Meropenem [Merrem] 500 mg IV Q6HR 5 Days
[2019-05-26] MEDS ORDERED: D5W/0.45% NACL 1,000 ML IV SCH (15:00)
== END 2019-05-26 17:05 | DRG 853 ==
LOC: ED 11:51 → OR 19:45 → 3B-SURG 19:58
PROVIDERS: ADMIT Internal Medicine; ATTEND Internal Medicine
PROC: 0WJG4ZZ Inspection of Peritoneal Cavity, Percutaneous Endoscopic Approach (ICD-10-PCS; principal; 2019-05-14)
PROC: 0DNU0ZZ Release Omentum, Open Approach (ICD-10-PCS; 2019-05-14)
PROC: 0DB80ZZ Excision of Small Intestine, Open Approach (ICD-10-PCS; 2019-05-14)
PROC: 0D9670Z Drainage of Stomach with Drainage Device, Via Natural or Artificial Opening (ICD-10-PCS; 2019-05-15)
PROC: 02HV33Z Insertion of Infusion Device into Superior Vena Cava, Percutaneous Approach (ICD-10-PCS; 2019-05-15)
DX: A41.9 Sepsis, unspecified organism (principal); G93.41 Metabolic encephalopathy; E43 Unspecified severe protein-calorie malnutrition; N39.0 Urinary tract infection, site not specified; I50.22 Chronic systolic (congestive) heart failure; K56.50 Intestinal adhesions [bands], unspecified as to partial versus complete obstruction; I69.354 Hemiplegia and hemiparesis following cerebral infarction affecting left non-dominant side; B37.89 Other sites of candidiasis; K56.51 Intestinal adhesions [bands], with partial obstruction; E11.9 Type 2 diabetes mellitus without complications; N32.0 Bladder-neck obstruction; N47.1 Phimosis; G40.909 Epilepsy, unspecified, not intractable, without status epilepticus; F03.90 Unspecified dementia, unspecified severity, without behavioral disturbance, psychotic disturbance, mood disturbance, and anxiety; Z79.82 Long term (current) use of aspirin; Z79.899 Other long term (current) drug therapy; Z79.4 Long term (current) use of insulin; Z68.27 Body mass index [BMI] 27.0-27.9, adult; Z53.31 Laparoscopic surgical procedure converted to open procedure; Z87.891 Personal history of nicotine dependence
CPT/HCPCS: 36415; 71045; 74018; 74177; 80048; 80053; 80061; 80076; 81001; 82962; 83735; 83880; 84100; 84134; 84484; 85025; 85027; 85610; 85730; 86850; 86900; 86901; 86920; 87076; 87086; 87116; 87186; 88307; 96365; G0378; A6260; A9270-GY; J0330; J0360; J0692; J1100; J1170; J1644; J1815; J1885; J1953; J1956; J2060; J2185; J2270; J2370; J2405; J2543; J2704; J2710; J3010; J3480; J7030; J7120; Q0167; Q9967

== ENCOUNTER 2019-08-23 17:48 | Emergency (ER) | payer MEDICARE ==
[2019-08-23 20:29] LABS: Hematocrit 30.7 % (35.5-45.6); Hemoglobin 10.3 gm/dl (11.8-15.2); Mean Corpuscular HGB Conc 33 % (32-34); Mean Corpuscular Volume 86 fl (84-94); Platelet Count 276 K/mm3 (140-440); Red Blood Count 3.56 M/mm3 (3.65-5.03); Red Cell Distribution Width 14.9 % (13.2-15.2)
[2019-08-23 20:44] LABS: BUN/Creatinine Ratio 15; Blood Urea Nitrogen 16 mg/dL (9-20); Calcium 8.8 mg/dL (8.4-10.2); Hemolysis Index 12
[2019-08-23] MEDS ORDERED: hydrALAZINE 20 MG/1 ML INJ IV ONE (21:13)
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
[2019-08-23 23:25] LABS: Bacteria,Urine 4+ /HPF (Negative); Bilirubin,Urine NEG (Negative); Blood,Urine MOD (Negative); Color,Urine Yellow (Yellow); Mucus,Urine 3+ /HPF; Urobilinogen,Urine < 2.0 mg/dL (<2.0)
[2019-08-24] MEDS ORDERED: cefTRIAXone/NS 1 GM/50 ML 1 GM/50 ML BAG IV ONE (01:27)
[2019-08-24] MEDS ORDERED: hydrALAZINE 20 MG/1 ML INJ IV ONE (01:28)
[2019-08-24] MEDS: hydrALAZINE 25 MG TAB PO SCH ×2 (06:30→14:05)
[2019-08-24] MEDS ORDERED: carvediloL 3.125 MG TAB PO SCH (10:00)
[2019-08-24] MEDS ORDERED: LINAGLIPTIN 5 MG TAB PO SCH (10:00)
[2019-08-24] MEDS ORDERED: levETIRAcetam 500 MG TAB PO SCH (10:00)
[2019-08-24 15:26] VITALS: BP 151/73
== END 2019-08-24 18:45 | disposition home or self-care (01) ==
LOC: ED 17:48
DX: N39.0 Urinary tract infection, site not specified (principal); I10 Essential (primary) hypertension; E10.65 Type 1 diabetes mellitus with hyperglycemia; I25.2 Old myocardial infarction; M19.90 Unspecified osteoarthritis, unspecified site; G40.909 Epilepsy, unspecified, not intractable, without status epilepticus; Z98.890 Other specified postprocedural states; Z72.3 Lack of physical exercise; Z86.73 Personal history of transient ischemic attack (TIA), and cerebral infarction without residual deficits; Z87.891 Personal history of nicotine dependence; Z79.899 Other long term (current) drug therapy
CPT/HCPCS: 36415; 80048; 81001; 82805; 85027; 93005; 93010; 96365; 96375; 96376; 99284; J0360; J0696